=== PATIENT | female | born 1965 | race African-American/Black ===

== ENCOUNTER 2016-08-30 16:21 | Inpatient (IN) ==
[2016-08-30] MEDS ORDERED: ONDANSETRON 4 MG/2 ML VIAL IV STA (18:07)
[2016-08-30] MEDS ORDERED: CLINDAMYCIN INJ 600 MG in PREMIX 1 EACH IV STA (18:07)
[2016-08-30] MEDS ORDERED: KETOROLAC 30 MG/1 ML VIAL IV STA (18:07)
--- NOTE | 2016-08-30 18:15 | Emergency Department Note ---
Arrival - Arrival Chief Complaint: Non-Specific Stated Complaint: chest swollen for a 1 week ED Nursing Triage Note: states that she has swelling to legs and chest onset week ago. Mode of Arrival: Wheelchair Limitations: No Limitations Source: Patient Time Seen by Provider: 08/30/16 18:07 - History of Present Illness HPI Narrative: This 51-year-old black female has not had any medical care to speak of but has a history of diabetes, hypertension, and hidradenitis presents for complaints of diffuse swelling. The major problem with this patient is she is severely morbidly obese, and just moving around causes her to be breathless because of her weight. She complains orthopnea, PND, alleged pedal edema. She does not complain of chest pain, nausea, vomiting, or diaphoresis. She likewise is plagued by recurrent cellulitis and abscesses with hidradenitis of the axillary areas as well as recurrent perineal cellulitis and abscess. She is a diabetic but does not follow sugars and cannot relate what they might be at this point in time. She denies polyuria polydipsia polyphagia. Currently she appears in no acute medical distress other than trying to get out of the wheelchair as she is too big to exit it. Onset (ago): unknown Consistency: constant Severity: moderate Date of Last Menstrual Period: menopause Allergies/Adverse Reactions: Allergies Allergy/AdvReac Type Severity Reaction Status Date / Time No Known Allergies Allergy Unverified 08/30/16 16:56 Home Medications: Home Medications Medication Instructions Recorded Confirmed Type Atenolol 50 mg PO DAILY 08/30/16 08/30/16 History Lisinopril 20 mg PO DAILY 08/30/16 08/30/16 History glipiZIDE [Glipizide] 5 mg PO DAILY 08/30/16 08/30/16 History metFORMIN [Glucophage] 850 mg PO BID 08/30/16 08/30/16 History Review of System - Review of System 12 point system: reviewed and no additional remarkable complaints except as stated - Review of System Constitutional: Present: as per HPI Respiratory: Present: as per HPI Cardiovascular: Present: as per HPI Gastrointestinal: Present: as per HPI Skin: Present: as per HPI Endocrine: Present: as per HPI Medical,Surgical,& Family Hx - Medical History Cardio: History of: Hypertension Endocrine: History of: Diabetes Mellitus (NIDDM) - Social History Smoking Status: Never smoker Frequency of Alcohol Use: None Type of Drug Use: None Exam Physical Examination: GENERAL: Morbidly obese black female in no acute distress. HEENT: Normocephalic. No trauma. Moist mucous membranes. EOMI. PERRLA. ENT NML NECK: Supple. No adenopathy. CARDIAC: Regular. No murmurs. Heart rate 100 CHEST: Clear to auscultation. No respiratory distress. O2 sat 95%. Pendulous breasts which do not seem swollen, just pendulous ABDOMEN: Soft. Nontender. Active bowel sounds. EXTREMITIES: No trauma. Normal ROM. Massively obese ankles but no real evidence of pedal edema. Moves about with great difficulty because of arthritis the hips due to weight. SKIN: No diaphoresis. Perineal cellulitis at various stages on the perineum and buttocks area. Likewise significant hidradenitis of the axillae. NEURO: Alert. Neurologic intact. No focal deficits. Vital Signs: Vital Signs Temperature 98.8 F 08/30/16 19:19 Pulse Rate 101 H 08/30/16 19:19 Respiratory Rate 20 08/30/16 19:19 Blood Pressure 173/101 08/30/16 19:19 O2 Sat by Pulse Oximetry 95 08/30/16 16:54 Course - Reevaluation(s) Reevaluation #1: Advised patient for the need of admission with her multiple problems. - Consultations Consultation #1: Discussed with hospitalist service will admit for further evaluation treatment. Results - Labs CBC & BMP: 08/30/16 18:45 08/30/16 18:45 - Impressions EKG: Sinus tachycardia at 102 with occasional unifocal PVC. Nonspecific ST changes. No acute injury pattern noted. - Diagnostic Findings Procedure: Chest x-ray: image reviewed by me, report reviewed by me ( Cardiomegaly with congestive heart failure) Disposition Clinical Impression: Congestive heart failure, Hidradenitis, Diabetes, Hypertension, Morbid obesity Time of Disposition: 20:48
--- NOTE | 2016-08-30 18:41 | XRay Report ---
Exam: XR chest 2V Date: 08/30/2016 6:08 PM Indication: Chest pain Comparison: None Technical: PA lateral Findings: Cardiomegaly is present. Mild interstitial edema and fluid present along the minor fissure. No obvious consolidations present. The right hemidiaphragm is slightly elevated. Bony structures reveal mild arthritic change of the shoulders. Mediastinum is intact. Impression: Cardiomegaly with mild interstitial edema. Early CHF cannot be excluded PROCEDURE INTERPRETED AT [facility] DEPARTMENT OF RADIOLOGY Final Report Signed by: Dr. Floyd King
[2016-08-30] MEDS ORDERED: FUROSEMIDE 40 MG/4 ML VIAL IV STA (18:57)
[2016-08-30 19:05] LABS: Basophils % 0.4 % (0.0-0.8); Eosinophils # 0.1 10*3/uL (0.0-0.87); Eosinophils % 0.6 % (0.00-10.9); Hematocrit 32.3 VOL% (35.7-47.0); Hemoglobin 9.3 GM/DL (12.0-16.0); Immature Granulocytes % 0.5 %; Immature Granulocytes Absolute 0.04 #; Lymphocytes % 12.3 % (21.3-54.2); Mean Corpuscular HGB Conc 28.8 GM/DL (32-36); Mean Corpuscular Hemoglobin 24 PG (27-34); Mean Corpuscular Volume 82.6 FL (87-102); Mean Platelet Volume 9.2 FL (9.6-12.0); Monocytes # 0.4 10*3/uL (0.11-0.8); Neutrophils # 6.9 10*3/uL (1.4-7.4); Neutrophils % 81.2 % (38.7-73.9); Platelet Count 367 T/CUMM (130-400); Red Blood Count 3.91 MC/CUMM (3.8-5.5); Red Cell Distribution Width 21.8 % (9.3-17.3); White Blood Count 8.5 T/CUMM (4-12)
[2016-08-30 19:10] LABS: INR 1.2; PT Patient Result 13.3 SECS; Partial Thromboplastin Time 34.1 SECS (0-40)
[2016-08-30] MEDS ORDERED: ONDANSETRON 4 MG/2 ML VIAL ONE (19:14)
[2016-08-30] MEDS ORDERED: CLINDAMYCIN INJ 50 ML IV ONE (19:14)
[2016-08-30] MEDS ORDERED: FUROSEMIDE 40 MG/4 ML VIAL ONE (19:14)
[2016-08-30] MEDS ORDERED: KETOROLAC 30 MG/1 ML VIAL ONE (19:15)
[2016-08-30 19:31] LABS: Albumin 2.4 G/DL (3.4-5.0); Bilirubin,Total 0.6 MG/DL (0.2-1.0); Calcium 8.8 MG/DL (8.5-10.1); Osmolality,Calculated 274.8 MOS/KG (273-304); Potassium 4.3 MMOL/L (3.5-5.1)
--- NOTE | 2016-08-30 19:40 | EKG Report ---
Please refer to the EKG image. Final interpretation is pending.
[2016-08-30 19:46] LABS: Free T4 (Free Thyroxine) 1.28 NG/DL (0.76-1.46); Thyroid Stimulating Hormone 4.39 uIU/ml (0.358-3.74)
[2016-08-30] MEDS ORDERED: MORPHINE 2 MG/1 ML SYRINGE IV PRN (20:50)
[2016-08-30] MEDS ORDERED: ACETAMINOPHEN 325 MG TABLET PO PRN (20:50)
[2016-08-30] MEDS ORDERED: DEXTROSE 50% 25 GM/50 ML VIAL IV PRN (20:50)
[2016-08-30] MEDS ORDERED: ONDANSETRON 4 MG/2 ML VIAL IV PRN (20:50)
[2016-08-30] MEDS ORDERED: GLUCAGON 1 MG VIAL IM PRN (20:50)
--- NOTE | 2016-08-30 21:04 | Hospitalist History & Physical ---
Assessment and Plan (1) Acute diastolic CHF (congestive heart failure) Status: Acute Current Visit: Yes (2) Uncontrolled hypertension Status: Acute Current Visit: Yes (3) Hidradenitis suppurativa Status: Acute Current Visit: Yes (4) Uncontrolled diabetes mellitus Status: Acute Current Visit: Yes (5) Noncompliance Status: Acute Assessment and plan: Plan: Admit for IV antibiotics Surgical consultation for I&D of multiple abscesses IV diuresis, ins and outs, daily weights and obtain echo for LV function Diabetic education, wound care consultation. Supportive care for pain, supplemental oxygen and duo nebs for shortness of breath Current Visit: Yes History of Present Illness Chief complaint: SOB, multiple abscesses History of present illness: Ms. Jones is a 51 year old female with morbid obesity, uncontrolled diabetes and hypertension largely due to noncompliance. She reports issues with "multiple boils," since at least November. She has taken Bactrim in the past but nothing in several months. She states that she has periods of purulent drainage which spontaneously resolves but not 100%. Over the last several days she has had shortness of breath, worse with exertion, better with rest. Her symptoms have been constant and progressively worsening. She denies chest pain nausea or vomiting. She denies hemoptysis or productive cough. She also reports multiple areas of purulent drainage including the right axilla lower abdomen and groin and perineum. She has mild pain rated a 4 out of 10, better with pain medication. She has not taken any of her antihypertensives or diabetic medications routinely in over a month. Home Medications Medication Instructions Recorded Confirmed Type Atenolol 50 mg PO DAILY 08/30/16 08/30/16 History Lisinopril 20 mg PO DAILY 08/30/16 08/30/16 History glipiZIDE [Glipizide] 5 mg PO DAILY 08/30/16 08/30/16 History metFORMIN [Glucophage] 850 mg PO BID 08/30/16 08/30/16 History Allergies Allergy/AdvReac Type Severity Reaction Status Date / Time No Known Allergies Allergy Unverified 08/30/16 16:56 Medical,Surgical,& Family Hx - Medical History Cardio: History of: Hypertension Endocrine: History of: Diabetes Mellitus (NIDDM) Gastrointestinal: No history of: GERD - Surgical History Reproductive Surgeries: Surgical HX of;: Section, Dilation and Curettage - Family History Family History: Reports;: Family Diabetes - Social History Smoking Status: Never smoker Frequency of Alcohol Use: None Type of Drug Use: None Marital Status: Unknown Functional capacity: independent ambulation Review of systems: A 12 point review of systems is negative except as specified in the HPI Exam - Constitutional Vitals: Period Temp Pulse Resp BP Sys/Harper Pulse Ox Last 24 Hr 98.8 F-98.8 F 101-101 20-20 173-173/101-101 95 Exam: EXAM: CONSTITUTIONAL: Morbidly obese, speaks in complete sentences with nasal cannula on her face, non toxic, NAD HEENT: NC, AT, OP benign, FLAKITA, EOMI CV: RRR no m/g/r RESP: Scant rales at the bases, no expiratory wheezes. Breast exam performed with nurse in the room, no obvious induration, tenderness or cellulitis GI: abd protuberant, NT, ND, +bowel sounds INTEGUMENTARY: Multiple excoriations on the body in various stages of healing, greatest about the lower extremities. Multiple areas of induration/abscess in the right axilla, groin and perineum. Greatest amount of drainage is in the inguinal region, malodorous and purulent EXTREMITIES: 1+ pitting edema bilateral lower extremities NEURO: no focal deficits PSYCH: Awake and alert, poor insight into diabetic control Results - Labs CBC & BMP: 08/30/16 18:45 08/30/16 18:45 Lab Results: I have reviewed the past 24 hour labs - EKG EKG shows: sinus rhythm - Diagnostic Findings Procedure: Chest x-ray: image reviewed by me, report reviewed by me
[2016-08-30 21:10] LABS: Platelet Estimate Normal
[2016-08-30 21:11] LABS: Hypochromasia 2+; Poikilocytosis 1+; Target Cells Few; Tear Drop Cells Few
[2016-08-30] MEDS ORDERED: VANCOMYCIN INJ 2,000 MG in SODIUM CHLORIDE 0.9% 500 ML IV ONE (23:00)
[2016-08-30] MEDS: INSULIN REGULAR 100 UNIT/ML SUBCUT SCH (23:31)
[2016-08-30] MEDS: ENOXAPARIN 40 MG/0.4 ML SYRINGE SUBCUT SCH (23:32)
[2016-08-31] MEDS: PIPERACILLIN/TAZOBACTAM 3,375 MG in SODIUM CHLORIDE 0.9% 100 ML IV SCH ×4 (02:57→22:34)
[2016-08-31 07:29] LABS: Basophils % 0.3 % (0.0-0.8); Eosinophils # 0.1 10*3/uL (0.0-0.87); Eosinophils % 1.2 % (0.00-10.9); Hematocrit 31.6 VOL% (35.7-47.0); Hemoglobin 8.8 GM/DL (12.0-16.0); Immature Granulocytes % 0.3 %; Immature Granulocytes Absolute 0.02 #; Lymphocytes # 1.3 10*3/uL (1.4-4.0); Lymphocytes % 17.9 % (21.3-54.2); Mean Corpuscular HGB Conc 27.8 GM/DL (32-36); Mean Corpuscular Hemoglobin 24 PG (27-34); Mean Corpuscular Volume 84.9 FL (87-102); Mean Platelet Volume 9.2 FL (9.6-12.0); Monocytes # 0.6 10*3/uL (0.11-0.8); Monocytes % 8.3 % (1.7-12.7); Neutrophils # 5.3 10*3/uL (1.4-7.4); Platelet Count 366 T/CUMM (130-400); Red Blood Count 3.72 MC/CUMM (3.8-5.5); Red Cell Distribution Width 22.1 % (9.3-17.3); White Blood Count 7.3 T/CUMM (4-12)
[2016-08-31 07:43] LABS: Hypochromasia 1+; Platelet Estimate Adequate
[2016-08-31 08:02] LABS: Calcium 8.3 MG/DL (8.5-10.1); Magnesium 1.9 MG/DL (1.8-2.4); Osmolality,Calculated 279.4 MOS/KG (273-304); Potassium 4.1 MMOL/L (3.5-5.1); Risk Ratio 2.86; Thyroid Stimulating Hormone 3.06 uIU/ml (0.358-3.74); VLDL CHOLESTEROL 7.2 MG/DL
[2016-08-31] MEDS: ALBUTEROL/IPRATROPIUM 3 ML NEB RESP TX SCH ×3 (08:06→20:12)
[2016-08-31] MEDS ORDERED: glipiZIDE 5 MG TABLET PO SCH (09:00)
[2016-08-31] MEDS: INSULIN REGULAR 100 UNIT/ML SUBCUT SCH ×4 (09:24→21:09)
--- NOTE | 2016-08-31 09:33 | General Surgery Consult Note ---
Assessment and Plan (1) Hidradenitis suppurativa Status: Acute Assessment and plan: At this time, we will continue with supportive measures with warm compresses, IV antibiotics at discretion of attending with wound care assistance. Transition to PO abx once cultures obtained and drainage decreased - likely extended duration of bactrim. Additionally, recommend hibiclens baths daily. No surgical indications at this time - pt is afebrile without focal abscess formation evident; ECHO currently pending and undergoing diuresis with acute CHF exacerbation. Medical records from previous treatments have been requested. A lengthy discussion was had with patient regarding her uncontrolled diabetes and nutritional status and the negative impact these have on her current condition; we will need her compliance to obtain clinical improvement and or prevent future development of new lesions. Surgical excision may be indicated in future, but gaining control of drainage will be needed prior to any excisional procedures. Optimization of her control of her glycemic index and nutritional status would also be necessary. She verbally expresses understanding. Current Visit: Yes History of Present Illness Chief complaint: Multiple draining wounds History of present illness: Ms. Jones is a 51 year old female with past medical history of uncontrolled diabetes, hypertension, morbid obesity with medication noncompliance. She also has a past medical history of asthma and currently being treated for CHF exacerbation with no previous diagnosis. She presented to the emergency department with complaints of shortness of breath and that was also found to have multiple areas of drainage of her axilla and groin region. With further questioning, the patient reports this is excessive for greater than 1 year. She has been treated on 2 separate occasions with a round of Bactrim for antibiotics with partial resolution of symptoms. She has had no previous drainage or surgical intervention of the current lesions and she reports they are increasing in number and worsening in drainage. She reports malodorous drainage from the lesions as well as mild to moderate pain which has worsened over the past 1 month. She describes the pain is moderate, aching, nonradiating , and relieved with drainage. Denies fever, chills, nausea, vomiting, diarrhea , night sweats. Current therapy includes IV vancomycin and Zosyn as well as wound care consultation. Patient reports no change in symptoms overnight. Home Medications Medication Instructions Recorded Confirmed Type Albuterol Inhaler [Proventil 1 puff DAILY PRN 08/30/16 08/30/16 History Inhaler] Atenolol 50 mg PO DAILY 08/30/16 08/30/16 History Lisinopril 20 mg PO DAILY 08/30/16 08/30/16 History glipiZIDE [Glipizide] 5 mg PO DAILY 08/30/16 08/30/16 History metFORMIN [Glucophage] 850 mg PO BID 08/30/16 08/30/16 History Allergies Allergy/AdvReac Type Severity Reaction Status Date / Time No Known Allergies Allergy Unverified 08/30/16 16:56 Medical,Surgical,& Family Hx - Medical History Cardio: History of: CHF, Hypertension Psychological: History of: Anxiety Disorders (panic attacks) Endocrine: History of: Diabetes Mellitus (NIDDM) Respiratory: History of: Asthma Hematology: History of: Anemia Reproductive: History of: Complication (stillborn) Other: History of: Skin Problems - Surgical History Abdominal Surgeries: Patient denies: Abdominal Surgery Reproductive Surgeries: Surgical HX of;: Section, Dilation and Curettage Patient denies;: Genitourinary Surgery Additional Surgical History: Superficial I&D neck - Family History Family History: Reports;: Family Cancer (grandmother had bone ca?), Family Diabetes (mother), Family Heart Disease (grandfather), Family Hypertension ( grandfather), Family Psychiatric Problems (mother), Family Stroke (mother) Denies;: Family Anesthesia Reaction, Family Hematology - Social History Smoking Status: Never smoker Frequency of Alcohol Use: None Type of Drug Use: None - Constitutional Constitutional: Present: as per HPI. Absent: lethargy, malaise, night sweats - Cardiovascular Cardiovascular: Present: as per HPI - Respiratory Respiratory: Present: dyspnea on exertion, wheezing - Gastrointestinal Gastrointestinal: Absent: abdominal pain, diarrhea, dysphagia, heartburn, loose stools, nausea, vomiting - Genitourinary Genitourinary: Absent: dysuria, flank pain - Musculoskeletal Musculoskeletal: Absent: arthralgias, joint swelling - Neurological Neurological: Absent: abnormal gait, behavioral changes, focal weakness, memory loss - Endocrine Endocrine: Absent: polydipsia, polyphagia, polyuria Hematologic/Lymphatic: Absent: easy bleeding, easy bruising Exam - Constitutional Vitals: Period Temp Pulse Resp BP Sys/Harper Pulse Ox Last 24 Hr 97.8 F-98.3 F 78-92 20-22 135-151/72-82 95-99 General appearance: no acute distress, morbidly obese - Head Head exam: Present: normal inspection, normocephalic, atraumatic - Eye Eye exam: Absent: conjunctival injection, scleral icterus - Respiratory Respiratory exam: Present: clear to auscultation bilaterally - Cardiovascular Cardiovascular exam: Present: RRR - GI/Abdominal GI/Abdominal exam: Present: normal bowel sounds. Absent: distended, tenderness - Extremities Exam Extremities exam: Present: other (Right axilla with multiple indurated areas with purulent drainage expressible; no palpable area of fluctuance or bogginess.) - Neurological Exam Neurological exam: Present: alert, oriented X3 - Skin Skin exam: Present: other (mons pubis and bilateral groin regions with mutliple indurated areas of purulent drainage; no areas of flucutance or bogginess) Results - Labs CBC & BMP: 08/31/16 06:39 08/31/16 06:39 - EKG EKG results: interpreted by ERMD (sinus tach @ 101 bpm with multiple PVC) - Diagnostic Findings Procedure: Chest x-ray: image reviewed by me, report reviewed by me ( interstitial edema indicated CHF with presenting sx)
[2016-08-31] MEDS: LISINOPRIL 20 MG TABLET PO SCH (09:34)
[2016-08-31] MEDS: PANTOPRAZOLE 40 MG TABLET PO SCH (09:34)
[2016-08-31] MEDS: ATENOLOL 50 MG TABLET PO SCH (09:34)
[2016-08-31] MEDS: FUROSEMIDE 40 MG/4 ML VIAL IV SCH ×2 (09:34→16:03)
[2016-08-31] MEDS: VANCOMYCIN INJ 2,000 MG in SODIUM CHLORIDE 0.9% 500 ML IV SCH ×2 (09:35→20:04)
--- NOTE | 2016-08-31 10:09 | Hospitalist Progress Note ---
Assessment and Plan (1) Uncontrolled hypertension Status: Acute Current Visit: Yes (2) Hidradenitis suppurativa Status: Acute Current Visit: Yes (3) Uncontrolled diabetes mellitus Status: Acute Current Visit: Yes Hospitalist: Subjective Interval history: No acute events overnight. Continue IV lasix. F/u echo and surgery consult. Exam - Constitutional Vitals: Period Temp Pulse Resp BP Sys/Harper Pulse Ox Last 24 Hr 97.8 F-98.3 F 78-92 20-22 135-151/72-82 95-99 General appearance: over weight - Head Head exam: Present: normocephalic, atraumatic - Eye Eye exam: Present: EOMI Pupils: Present: FLAKITA - ENT ENT exam: Present: normal exam - Neck Neck exam: Present: normal inspection - Respiratory Respiratory exam: Present: clear to auscultation bilaterally. Absent: wheezes - Cardiovascular Cardiovascular exam: Present: regular rate and rhythm - GI/Abdominal GI/Abdominal exam: Present: normal bowel sounds, soft. Absent: tenderness, rebound - Extremities Exam Extremities exam: Present: normal inspection - Back Exam Back exam: Present: normal inspection - Neurological Exam Neurological exam: Present: alert, oriented X3 - Psychiatric Psychiatric exam: Present: normal affect, normal mood - Skin Skin exam: Present: warm, intact Results - Labs CBC & BMP: 08/31/16 06:39 08/31/16 06:39
--- NOTE | 2016-08-31 16:07 | ECHO Report ---
Rosie Jones Exam Date: 08/31/2016 14:42 Referring Physician: Technologist: Yas Whitfield Age: 51 Ht (in): 63 Wt (lb): 270 Gender: F Exam Location: [facility] Echo Indications: Diabetes, HTN, CHF, Obesity BP: 144 / 86 HR: 92 Rhythm: Sinus Technical Quality: Technically difficult study IMPRESSIONS Moderate concentric left ventricular hypertrophy. Left ventricular ejection fraction is estimated at 40- 45 %. Findings suggestive of left ventricular diastolic dysfunction. Moderately increased right ventricular size. Moderately decreased right ventricular systolic function. Moderately increased right atrial size. Moderately increased left atrial size. Mild mitral valve regurgitation. Mild mitral valve sclerosis. Mild aortic valve sclerosis. Moderate tricuspid valve regurgitation. Tricuspid regurgitation velocities suggest a PAP of 33.9 mmHg+ RAP. Trace pulmonary valve regurgitation. MEASUREMENTS (Male / Female) Normal Values 2D ECHO LV Diastolic Diameter PLAX 5.3 cm 4.2 - 5.9 / 3.9 - 5.3 cm LV Systolic Diameter PLAX 4.6 cm LV Fractional Shortening PLAX 14.3 % IVS Diastolic Thickness 1.6 cm 0.6 - 1.0 / 0.6 - 0.9 cm LVPW Diastolic Thickness 1.2 cm 0.6 - 1.0 / 0.6 - 0.9 cm RV Internal Dim ED PLAX 4.2 cm Aortic Root Diameter 2.8 cm LA Systolic Diameter LX 5.2 cm 3.0 - 4.0 / 2.7 - 3.8 cm DOPPLER TR Peak Velocity 291.0 cm/s TR Peak Gradient 33.9 mmHg FINDINGS Left Ventricle Moderately increased left ventricular cavity size. Moderate concentric left ventricular hypertrophy. Left ventricular ejection fraction is estimated at 40- 45 %.Findings suggestive of left ventricular diastolic dysfunction. Right Ventricle Moderately increased right ventricular size.Moderately decreased right ventricular systolic function. Right Atrium Moderately increased right atrial size. Left Atrium Moderately increased left atrial size. Mitral Valve Mild mitral valve sclerosis. Mild mitral valve regurgitation. Aortic Valve Mild aortic valve sclerosis. Tricuspid Valve Morphologically normal tricuspid valve. Moderate tricuspid valve regurgitation. Tricuspid regurgitation velocities suggest a PAP of 33.9 mmHg+ RAP. Pulmonic Valve Morphologically normal pulmonic valve.trace pulmonary valve regurgitation. Pericardium No pericardial effusion. Aorta Normal size aortic root and proximal ascending aorta. Howard Robb MD (Electronically Signed) Final Date: 31 August 2016 16:05
[2016-08-31] MEDS: ENOXAPARIN 40 MG/0.4 ML SYRINGE SUBCUT SCH (21:09)
[2016-09-01] MEDS: ALBUTEROL/IPRATROPIUM 3 ML NEB RESP TX SCH ×4 (00:51→19:42)
[2016-09-01] MEDS: PIPERACILLIN/TAZOBACTAM 3,375 MG in SODIUM CHLORIDE 0.9% 100 ML IV SCH ×4 (05:18→20:38)
[2016-09-01 07:45] LABS: Basophils % 0.4 % (0.0-0.8); Eosinophils % 0.3 % (0.00-10.9); Hematocrit 32.5 VOL% (35.7-47.0); Immature Granulocytes % 0.5 %; Immature Granulocytes Absolute 0.05 #; Lymphocytes # 0.9 10*3/uL (1.4-4.0); Lymphocytes % 8.7 % (21.3-54.2); Mean Corpuscular HGB Conc 27.7 GM/DL (32-36); Mean Corpuscular Hemoglobin 24 PG (27-34); Mean Corpuscular Volume 85.8 FL (87-102); Mean Platelet Volume 9.2 FL (9.6-12.0); Monocytes # 0.9 10*3/uL (0.11-0.8); Monocytes % 8.1 % (1.7-12.7); Neutrophils # 8.6 10*3/uL (1.4-7.4); Platelet Count 367 T/CUMM (130-400); Red Blood Count 3.79 MC/CUMM (3.8-5.5); Red Cell Distribution Width 21.8 % (9.3-17.3); White Blood Count 10.5 T/CUMM (4-12)
[2016-09-01 07:47] LABS: Calcium 8.4 MG/DL (8.5-10.1); Osmolality,Calculated 283.5 MOS/KG (273-304); Potassium 4.4 MMOL/L (3.5-5.1)
--- NOTE | 2016-09-01 07:47 | General Surgery Progress Note ---
Assessment and Plan (1) Hidradenitis suppurativa Status: Acute Assessment and plan: The hidradenitis is draining actively but there is no abscess or uncontrolled fluid collection that I can identify on exam. We will continue antibiotics and local wound care. I have ordered a CT scan of abdomen and pelvis with p.o. and IV contrast to further evaluate the patient's abdominal pain will also get a new set of labs. Current Visit: Yes Subjective Patient reports: Present: flatus, no bowel movement, afebrile. Absent: blood in stool, nausea, vomiting Narrative: The patient is complaining of more abdominal pain today and she was not complaining of this yesterday. She says she has never had pain like this before and it is associated in the periumbilical region. She feels like her abdomen is firm and distended. She is passing gas but has not had a bowel movement since admission. Exam - Constitutional Vitals: Period Temp Pulse Resp BP Sys/Harper Pulse Ox Last 24 Hr 97.6 F-99.2 F 66-96 16-22 100-148/58-87 91-100 General appearance: no acute distress, morbidly obese - Head Head exam: Present: normal inspection, normocephalic - Eye Eye exam: Present: EOMI Pupils: Present: FLAKITA - ENT ENT exam: Present: normal exam Mouth exam: Present: normal external inspection, normal voice - Neck Neck exam: Present: normal inspection, trachea midline - Respiratory Respiratory exam: Present: clear to auscultation bilaterally. Absent: accessory muscle use, chest wall tenderness - Cardiovascular Cardiovascular exam: Present: RRR. Absent: systolic murmur, tachycardia - GI/Abdominal GI/Abdominal exam: Present: hypoactive bowel sounds, tenderness (There is tenderness in the midepigastrium in the supraumbilical region but no hernias are felt. The abdomen is protuberant but not tympanic. There are hypoactive bowel sounds.), soft - Extremities Exam Extremities exam: Present: normal capillary refill, other (There is active draining hidradenitis in the right axilla, the bilateral groins, and the buttock region. There is no evidence of abscess or undrained fluid collections. ) - Back Exam Back exam: Present: normal inspection - Neurological Exam Neurological exam: Present: alert, oriented X3 Speech: Present: normal - Skin Skin exam: Present: normal color, warm Results - Labs CBC & BMP: 08/31/16 06:39 08/31/16 06:39
[2016-09-01 08:08] LABS: Hypochromasia 1+; Platelet Estimate Adequate
[2016-09-01 08:19] LABS: Immature Granulocytes % 0.4 %; Immature Granulocytes Absolute 0.04 #; Mean Platelet Volume 9.1 FL (9.6-12.0); NRBC # 0.02 10*3/uL
[2016-09-01] MEDS: FUROSEMIDE 40 MG/4 ML VIAL IV SCH ×2 (08:21→17:52)
[2016-09-01] MEDS: INSULIN REGULAR 100 UNIT/ML SUBCUT SCH ×4 (08:28→20:38)
[2016-09-01 08:38] LABS: Basophils % 0.3 % (0.0-0.8); Eosinophils % 0.3 % (0.00-10.9); Hematocrit 31.9 VOL% (35.7-47.0); Lymphocytes % 10.3 % (21.3-54.2); Mean Corpuscular HGB Conc 27.6 GM/DL (32-36); Mean Corpuscular Hemoglobin 24 PG (27-34); Mean Corpuscular Volume 86.4 FL (87-102); Monocytes # 0.9 10*3/uL (0.11-0.8); Monocytes % 9.2 % (1.7-12.7); Neutrophils # 7.9 10*3/uL (1.4-7.4); Neutrophils % 79.5 % (38.7-73.9); Platelet Count 363 T/CUMM (130-400); Red Blood Count 3.69 MC/CUMM (3.8-5.5); Red Cell Distribution Width 21.5 % (9.3-17.3); White Blood Count 9.9 T/CUMM (4-12)
[2016-09-01 08:43] LABS: Hemoglobin 8.8 GM/DL (12.0-16.0)
[2016-09-01 08:49] LABS: Albumin 2.1 G/DL (3.4-5.0); Bilirubin,Total 1.1 MG/DL (0.2-1.0); Osmolality,Calculated 282.5 MOS/KG (273-304); Potassium 4.4 MMOL/L (3.5-5.1); Total Protein 9.4 G/DL (6.4-8.3)
[2016-09-01] MEDS: INSULIN NPH 100 UNIT/ML SUBCUT SCH ×2 (10:25→17:51)
[2016-09-01] MEDS: PANTOPRAZOLE 40 MG TABLET PO SCH ×2 (10:34→14:41)
[2016-09-01] MEDS: VANCOMYCIN INJ 2,000 MG in SODIUM CHLORIDE 0.9% 500 ML IV SCH (10:34)
--- NOTE | 2016-09-01 11:28 | Hospitalist Progress Note ---
Assessment and Plan (1) Uncontrolled hypertension Status: Chronic Current Visit: Yes (2) Hidradenitis suppurativa Status: Acute Current Visit: Yes (3) Uncontrolled diabetes mellitus Status: Chronic Current Visit: Yes Hospitalist: Subjective Interval history: No acute events overnight. Patient complaining of abdominal pain this morning. CT ordered. Echo with EF 40-45. Will consult cardiology. Discontinue atenolol. Start coreg. Creatinine increased with lasix use, will monitor closely. Daily weights. Starting low dose basal insulin today. Exam - Constitutional Vitals: Period Temp Pulse Resp BP Sys/Harper Pulse Ox Last 24 Hr 97.6 F-99.2 F 66-88 16-22 100-148/58-87 91-100 General appearance: over weight - Head Head exam: Present: normocephalic, atraumatic - Eye Eye exam: Present: EOMI Pupils: Present: FLAKITA - ENT ENT exam: Present: normal exam - Neck Neck exam: Present: normal inspection - Respiratory Respiratory exam: Present: clear to auscultation bilaterally. Absent: rhonchi, wheezes - Cardiovascular Cardiovascular exam: Present: regular rate and rhythm - GI/Abdominal GI/Abdominal exam: Present: normal bowel sounds, tenderness, soft. Absent: distended, rebound - Extremities Exam Extremities exam: Present: normal inspection - Back Exam Back exam: Present: normal inspection - Neurological Exam Neurological exam: Present: alert, oriented X3 - Psychiatric Psychiatric exam: Present: normal affect, normal mood - Skin Skin exam: Present: warm, intact Results - Labs CBC & BMP: 09/01/16 08:08 09/01/16 08:08
--- NOTE | 2016-09-01 13:37 | CT Report ---
CT of the abdomen and pelvis with intravenous and oral contrast. Axial images were obtained with sagittal and coronal reconstructions. No prior studies. Indication: Generalized abdominal pain. 100 cc Omni 350. There is diffuse subcutaneous edema throughout the imaged body structures. The heart is enlarged. There is atelectasis present within the lung bases. There is no pericardial or pleural effusion. The liver is enlarged with a length of 22 cm. There is fatty infiltration of the liver. No focal liver lesions are identified. There is ascites present along the lower aspects of the liver and in the upper aspect of the right paracolic gutter. There is no splenic enlargement. There is no pancreatic enlargement. There is no adrenal enlargement. The kidneys demonstrate no hydronephrosis. Possible right renal cyst could be confirmed with ultrasound. The abdominal aorta is of normal caliber. There is moderate free fluid within the pelvis. The uterus is markedly enlarged with dimensions and 18 x 14 x 12 cm. Nodular areas are present, and numerous calcifications are noted. The endometrial stripe is very irregular and low density. The ovaries are not seen with confidence. There is mass effect on the urinary bladder. There is bilateral inguinal lymphadenopathy. There are shoddy lymph nodes present within the mesentery and retroperitoneum. The loops of bowel are not dilated. There is no evidence of bowel obstruction. Degenerative changes are present within the spinal column. Impression: 1. Cardiomegaly. 2. Severe subcutaneous edema. 3. Ascites. 4. Enlarged liver. 5. Enlarged heterogeneous uterus. This could be due to uterine fibroids. The endometrium is quite irregular. Endometrial tumor or uterine sarcoma cannot be excluded with this appearance. 6. Inguinal lymphadenopathy laterally. The CT exam was performed using one or more of the following dose reduction techniques: Automated exposure control, adjustment of the mA and/or kV according to patient size, or use of iterative reconstruction technique. PROCEDURE INTERPRETED AT [facility] DEPARTMENT OF RADIOLOGY Final Report Signed by: Dr. Marlene Garcia
[2016-09-01] MEDS: LISINOPRIL 20 MG TABLET PO SCH (14:41)
[2016-09-01] MEDS: ATENOLOL 50 MG TABLET PO SCH (14:57)
[2016-09-01] MEDS: CARVEDILOL 6.25 MG TABLET PO SCH (17:49)
--- NOTE | 2016-09-01 18:42 | Cardiology Consult Note ---
I, Daniela Cunningham RN, am scribing for, and in the presence of, Howard Robb MD 18:41. Assessment and Plan - Time spent with patient Time spent with patient: Greater than 30 minutes (Due to assessment, planning, documentation, medication review) (1) Acute diastolic CHF (congestive heart failure) Status: Acute Assessment and plan: 09/01/2016: Assessment/plan/recommendation: Her generalized edema could be in part due to diastolic or systolic dysfunction, but he is out of proportion to what I see on the echocardiogram. I believe it is also related to her low albumin and probable liver dysfunction in addition to suspected untreated sleep apnea Plan/records: Agree with change atenolol to carvedilol--would be better for the LV systolic dysfunction and her diabetes Will reduce the more powerful lisinopril to a milder Capoten, shorter acting, in case there are problems with this medication--i.e. renal insufficiency, hyperkalemia We will add spironolactone 12.5 mg p.o. twice daily. Will have hold parameters. Will consult Dr. Ty regarding evaluation of sleep apnea [she has snoring and excessive daytime somnolence but does not know about apnea]. Meanwhile, I suggested the patient that she sleep with a head of the bed up 30 or 40 as a surrogate for CPAP. Will get a BMP every morning 3 on the spironolactone. Her prognosis is guarded. Thank you for allowing me to participate in this patient's care Current Visit: Yes (2) Hidradenitis suppurativa Status: Acute Current Visit: Yes (3) Uncontrolled diabetes mellitus Status: Chronic Current Visit: Yes (4) Uncontrolled hypertension Status: Chronic Current Visit: Yes (5) Hypoalbuminemia Status: Acute Current Visit: Yes (6) Enlarged liver Status: Acute Current Visit: Yes (7) Suspected sleep apnea Status: Acute Current Visit: Yes (8) Generalized edema Status: Acute Current Visit: Yes (9) Overweight Status: Acute Current Visit: Yes History of Present Illness - Data of Consult Patient: new to practice Consult date: 09/01/16 Requesting Physician: Lon Hernandez - Consult Narrative Reason for consult: EF 40-45%, shortness of breath History of present illness: Supervisor Train Operations: None Ms. Jones is a 51 year old female who has never been seen by moth exterminator. She has a history of hypertension, NIDDM, and asthma. Surgical history includes D&C and neck surgery. Family history includes mother with diabetes and stroke and father with PR and arthritis. She reports she is a lifetime non- smoker She tells me she been having edema to her abdomen, breasts, face, and leg as well as dyspnea on exertion for a couple of weeks. She denies shortness of breath while sitting and also denies orthopnea. She does report having had a productive cough. Her symptoms were ongoing and got progressively worse so she presented to the hospital on Tuesday for further evaluation. She denies having had any chest pain or palpitations with these symptoms. EKG on admission showed sinus tachycardia with heart rate of 102. Echo done yesterday showed ejection fraction of 40-50%. The hospitalist has changed her atenolol to carvedilol 6.25 mg twice daily. Her creatinine was 0.8 on admission, it is 1.6 today. She has been getting Lasix 40 mg IV twice daily. She is currently seen resting in bed in no acute distress. There is lots of family at bedside. Currently she denies any chest pain or palpitations. Oxygen is in use via nasal biprong. She tells me she is some short of breath still, but the oxygen has helped and is not as bad as it was on admission. She does complain of dizziness when sitting up. She has 2+ pitting edema bilaterally to lower extremities, she tells me this is better than when she came in. She tells me the swelling to her abdomen and breasts is no better. She tells me she has about 14 areas of breakdown that she describes as boils on her groin, under her arm, and on her behind. Dr. Arriola is seeing her for this. Her blood pressures were elevated on admission at 173/101, these have improved. Most recent blood pressure was 133/82. She was tachycardic on admission as well. Heart rates today have been in the 70s and 80s. CC: Lon Hernandez MD - Home Medications and Allergies Home Medications: Home Medications Medication Instructions Recorded Confirmed Type Albuterol Inhaler [Proventil 1 puff DAILY PRN 08/30/16 08/30/16 History Inhaler] Atenolol 50 mg PO DAILY 08/30/16 08/30/16 History Lisinopril 20 mg PO DAILY 08/30/16 08/30/16 History glipiZIDE [Glipizide] 5 mg PO DAILY 08/30/16 08/30/16 History metFORMIN [Glucophage] 850 mg PO BID 08/30/16 08/30/16 History Allergies/Adverse Reactions: Allergies Allergy/AdvReac Type Severity Reaction Status Date / Time No Known Allergies Allergy Unverified 08/30/16 16:56 - Constitutional Constitutional: Present: as per HPI - EENT Eyes: Present: blurry vision, requires corrective lense Ears: Absent: decreased hearing, tinnitus Nose, mouth and throat: Present: headache(s). Absent: epistaxis - Cardiovascular Cardiovascular: Present: dyspnea on exertion, edema, lightheadedness. Absent: chest pain at rest, chest pain with activity, diaphoresis, radiating jaw, neck or arm pain, orthopnea, palpitations - Respiratory Respiratory: Present: cough (Productive), dyspnea on exertion. Absent: hemoptysis, wheezing - Gastrointestinal Gastrointestinal: Present: abdominal pain, constipation. Absent: diarrhea, hematemesis, hematochezia, melena, nausea, vomiting - Genitourinary Genitourinary: Absent: dysuria, hematuria - Musculoskeletal Musculoskeletal: Present: limited range of motion, muscle weakness - Neurological Neurological: Present: dizziness, headache(s). Absent: abnormal gait, frequent falls, syncope - Psychiatric Psychiatric: Absent: anxiety, depression - Endocrine Endocrine: Present: fatigue - Hematologic/Lymphatic Hematologic/Lymphatic: Absent: easy bleeding, easy bruising Medical,Surgical,& Family Hx - Medical History Cardio: History of: Hypertension Psychological: History of: Anxiety Disorders (panic attacks) Endocrine: History of: Diabetes Mellitus (NIDDM) Respiratory: History of: Asthma Hematology: History of: Anemia Reproductive: History of: Complication (stillborn) Other: History of: Skin Problems - Surgical History Reproductive Surgeries: Surgical HX of;: Section, Dilation and Curettage - Family History Family History: Reports;: Family Cancer (grandmother had bone ca?), Family Diabetes (mother), Family Heart Disease (Father), Family Hypertension ( grandfather), Family Psychiatric Problems (mother), Family Stroke (mother) - Social History Smoking Status: Never smoker Have you smoked in the last 12 months: No Frequency of Alcohol Use: None Type of Drug Use: None Lives With:: Alone Functional capacity: independent ambulation Physical Examination Vital Signs Temp Pulse Resp BP Pulse Ox 98.8 F 101 H 20 173/101 95 08/30/16 16:54 08/30/16 16:54 08/30/16 16:54 08/30/16 16:54 08/30/16 16:54 General: Present: Appears Well, No Apparent Distress HEENT: Present: PERRL, Mucus Membranes Moist Neck: Present: Supple Neck, Midline Trachea, No JVD/HJR, No Bruit Cardiac: Present: Reg Rate and Rhythm, Tachycardia Lungs: Present: Normal Breath Sounds, Oxygen (Via nasal biprong), No Wheeze, Rales, Rhonchi Neuro: Absent: Essential Tremor Abdomen: Present: Soft, Active Bowel Sounds, Non-Tender. Absent: Distended Gait: Present: Poor Gait Extremities: Present: Normal Upper Extr. Pulses, Normal Lower Extr. Pulses, +2 Edema (Bilateral lower extremity). Absent: Normal Gait Result/EKG - Labs CBC & BMP: 09/01/16 08:08 09/01/16 08:08 Lab Results: I have reviewed the past 24 hour labs Labs: Laboratory Results - last 24 hr 08/31/16 08/31/16 09/01/16 15:29 19:31 06:55 WBC 10.5 D RBC 3.79 L Hgb 9.0 L Hct 32.5 L MCV 85.8 L MCH 24 L MCHC 27.7 L RDW 21.8 H Plt Count 367 MPV 9.2 L Neut % (Auto) 82.0 H Lymph % (Auto) 8.7 L [place] % (Auto) 8.1 Eos % (Auto) 0.3 Baso % (Auto) 0.4 Neut # (Auto) 8.6 H Lymph # (Auto) 0.9 L [place] # (Auto) 0.9 H Eos # (Auto) 0.0 Baso # (Auto) 0.0 Immature Gran % 0.5 Nucleated RBC % 0.0 Immature Gran # 0.05 Nucleated RBCs # 0.00 Platelet Estimate Adequate Hypochromasia 1+ Morphology Comment Sodium Potassium Chloride Carbon Dioxide Anion Gap BUN Creatinine GFR Calculation BUN/Creatinine Ratio Glucose POC Glucose 187 H 194 H Calculated Osmolality Calcium Magnesium Total Bilirubin AST ALT Alkaline Phosphatase Total Protein Albumin Globulin Albumin/Globulin Ratio Vancomycin Trough 0409/01/16 09/01/16 06:55 07:01 08:08 WBC RBC Hgb Hct MCV MCH MCHC RDW Plt Count MPV Neut % (Auto) Lymph % (Auto) [place] % (Auto) Eos % (Auto) Baso % (Auto) Neut # (Auto) Lymph # (Auto) [place] # (Auto) Eos # (Auto) Baso # (Auto) Immature Gran % Nucleated RBC % Immature Gran # Nucleated RBCs # Platelet Estimate Hypochromasia Morphology Comment Sodium 139 Potassium 4.4 Chloride 103 Carbon Dioxide 30 Anion Gap 10.4 BUN 20 H Creatinine 1.60 H GFR Calculation 54 BUN/Creatinine Ratio 12.00 Glucose 171 H POC Glucose 186 H Calculated Osmolality 283.5 Calcium 8.4 L Magnesium 2.0 Total Bilirubin AST ALT Alkaline Phosphatase Total Protein Albumin Globulin Albumin/Globulin Ratio Vancomycin Trough 29.1 H 09/01/16 09/01/16 09/01/16 08:08 08:08 11:18 WBC 9.9 RBC 3.69 L Hgb 8.8 L Hct 31.9 L MCV 86.4 L MCH 24 L MCHC 27.6 L RDW 21.5 H Plt Count 363 MPV 9.1 L Neut % (Auto) 79.5 H Lymph % (Auto) 10.3 L [place] % (Auto) 9.2 Eos % (Auto) 0.3 Baso % (Auto) 0.3 Neut # (Auto) 7.9 H Lymph # (Auto) 1.0 L [place] # (Auto) 0.9 H Eos # (Auto) 0.0 Baso # (Auto) 0.0 Immature Gran % 0.4 Nucleated RBC % 0.2 Immature Gran # 0.04 Nucleated RBCs # 0.02 Platelet Estimate Hypochromasia Morphology Comment Sodium 139 Potassium 4.4 Chloride 101 Carbon Dioxide 32 Anion Gap 10.4 BUN 20 H Creatinine 1.60 H GFR Calculation 54 BUN/Creatinine Ratio 12.00 Glucose 160 H POC Glucose 157 H Calculated Osmolality 282.5 Calcium 8.0 L Magnesium Total Bilirubin 1.10 H AST 44 H ALT 37 Alkaline Phosphatase 238 H Total Protein 9.4 H Albumin 2.1 L Globulin 7.3 H Albumin/Globulin Ratio 0.2 L Vancomycin Trough - EKG EKG results: interpreted by me EKG shows: tachycardia, sinus rhythm I, Howard Robb MD, personally performed the services described in this documentation, ascribed by Daniela Cunningham RN in my presence, and it is both accurate and complete .
[2016-09-01] MEDS: SPIRONOLACTONE 25 MG TABLET PO SCH (20:41)
[2016-09-01] MEDS: ENOXAPARIN 40 MG/0.4 ML SYRINGE SUBCUT SCH (20:46)
[2016-09-02] MEDS: ALBUTEROL/IPRATROPIUM 3 ML NEB RESP TX SCH ×4 (00:16→19:37)
[2016-09-02] MEDS: PIPERACILLIN/TAZOBACTAM 3,375 MG in SODIUM CHLORIDE 0.9% 100 ML IV SCH ×3 (06:28→21:59)
[2016-09-02] MEDS: INSULIN NPH 100 UNIT/ML SUBCUT SCH ×2 (08:15→17:11)
[2016-09-02] MEDS: CARVEDILOL 6.25 MG TABLET PO SCH ×2 (08:16→17:11)
[2016-09-02] MEDS: FUROSEMIDE 40 MG/4 ML VIAL IV SCH ×2 (08:16→17:12)
[2016-09-02] MEDS: INSULIN REGULAR 100 UNIT/ML SUBCUT SCH ×4 (08:16→21:58)
[2016-09-02] MEDS: CAPTOPRIL 6.25 MG TABLET PO SCH ×2 (08:17→21:58)
[2016-09-02] MEDS: PANTOPRAZOLE 40 MG TABLET PO SCH (08:17)
[2016-09-02] MEDS: SPIRONOLACTONE 25 MG TABLET PO SCH ×2 (08:17→21:58)
[2016-09-02 08:25] LABS: Calcium 8.3 MG/DL (8.5-10.1); Osmolality,Calculated 279.7 MOS/KG (273-304); Potassium 4.4 MMOL/L (3.5-5.1)
[2016-09-02 08:29] LABS: Albumin 2.3 G/DL (3.4-5.0); Bilirubin,Direct 0.6 MG/DL (0.0-0.20); Bilirubin,Indirect 1.1 MG/DL (0.0-1.0); Bilirubin,Total 1.7 MG/DL (0.2-1.0); Total Protein 9.4 G/DL (6.4-8.3)
[2016-09-02 08:31] LABS: % Iron Saturation 8.4 % (18-50); Ferritin 43.9 ng/ml (8-252)
[2016-09-02 08:37] LABS: Basophils % 0.4 % (0.0-0.8); Eosinophils # 0.1 10*3/uL (0.0-0.87); Eosinophils % 0.8 % (0.00-10.9); Hematocrit 30.4 VOL% (35.7-47.0); Immature Granulocytes % 0.5 %; Immature Granulocytes Absolute 0.04 #; Lymphocytes # 0.8 10*3/uL (1.4-4.0); Mean Corpuscular HGB Conc 27.6 GM/DL (32-36); Mean Corpuscular Hemoglobin 24 PG (27-34); Mean Corpuscular Volume 86.6 FL (87-102); Mean Platelet Volume 9.1 FL (9.6-12.0); Monocytes # 0.6 10*3/uL (0.11-0.8); Monocytes % 7.4 % (1.7-12.7); Neutrophils # 6.8 10*3/uL (1.4-7.4); Neutrophils % 80.9 % (38.7-73.9); Platelet Count 329 T/CUMM (130-400); Red Blood Count 3.51 MC/CUMM (3.8-5.5); Red Cell Distribution Width 21.3 % (9.3-17.3); White Blood Count 8.4 T/CUMM (4-12)
[2016-09-02 08:41] LABS: Hemoglobin 8.4 GM/DL (12.0-16.0)
[2016-09-02 09:21] LABS: Hepatitis A Ab IgM Result Negative (Negative); Hepatitis B Core IgM Quant 0.18 Index; Hepatitis B Core IgM Result Negative (Negative); Hepatitis B Surface Ag Quant < 0.10 Index; Hepatitis B Surface Ag Result Negative (Negative); Hepatitis C Virus Ab Quant 0.31 Index; Hepatitis C Virus Ab Result Negative (Negative)
--- NOTE | 2016-09-02 09:55 | Hospitalist Progress Note ---
Assessment and Plan (1) Uncontrolled hypertension Status: Chronic Current Visit: Yes (2) Hidradenitis suppurativa Status: Acute Current Visit: Yes (3) Uncontrolled diabetes mellitus Status: Chronic Current Visit: Yes Hospitalist: Subjective Interval history: No acute events overnight. Weight in the chart is not consistent. Cardiology following for newly diagnosed CHF, thanks for the assistance. CT A/P with ascites and enlarged liver, consulting GI for assistance. CT also with an enlarged uterus. Ob-phthalic acid purifier has already been consulted. Exam - Constitutional Vitals: Period Temp Pulse Resp BP Sys/Harper Pulse Ox Last 24 Hr 97.4 F-98.6 F 61-87 16-24 117-144/68-85 89-100 Results - Labs CBC & BMP: 09/02/16 07:03 09/02/16 07:03
--- NOTE | 2016-09-02 11:14 | OB/GYN Consult Note ---
Assessment and Plan (1) Enlarged uterus Status: Acute Assessment and plan: Await pelvic u/s results Fibroids usually not problematic in the postmenopausal state Ensure endometrial stripe is less than .5 cm Current Visit: Yes History of Present Illness Chief complaint: Enlarged uterus on CT History of present illness: Ms. Jones is a 51 year old female was admitted on 08/30 for SOB and multiple boils. H/o extreme morbid obesity, CHF, uncontrolled HTN and uncontrolled DM. Poor medical compliance. Called to consult today because patient had a CT scan done and one of the things it revealed was an enlarged uterus. I have ordered an u/s for more clarity but it has not been done yet. Pt reports menopause at age 49. She had some bleeding fairly recently, but she believes it to be from one of the multiple boils on her buttocks/inner thighs. Advised her that her endometrial stripe should be evaluated on the u/s, if it is less than 0.5 cm, no abnormalities with 95 % certainty. If it is > 0.5 cm, further testing is warranted because she has every risk factor for endometrial CA. No pap in over 5 years. No h/o abnormal. Never had a mammogram or colonoscopy. Explained to her that she is overdue for all of them. Will need to schedule all 3 as an outpatient. H/o SAB x 3 and one section. Explained to her that fibroids are usually non consequential in the menopausal state. Again, will have a more definitive answer once her u/s is done. Home Medications Medication Instructions Recorded Confirmed Type Albuterol Inhaler [Proventil 1 puff DAILY PRN 08/30/16 08/30/16 History Inhaler] Atenolol 50 mg PO DAILY 08/30/16 08/30/16 History Lisinopril 20 mg PO DAILY 08/30/16 08/30/16 History glipiZIDE [Glipizide] 5 mg PO DAILY 08/30/16 08/30/16 History metFORMIN [Glucophage] 850 mg PO BID 08/30/16 08/30/16 History Allergies Allergy/AdvReac Type Severity Reaction Status Date / Time No Known Allergies Allergy Unverified 08/30/16 16:56 Medical,Surgical,& Family Hx - Medical History Cardio: History of: CHF, Hypertension Psychological: History of: Anxiety Disorders (panic attacks) Endocrine: History of: Diabetes Mellitus (NIDDM) Respiratory: History of: Asthma Gastrointestinal: No history of: GERD Hematology: History of: Anemia Reproductive: History of: Complication (stillborn) Other: History of: Skin Problems - Surgical History Abdominal Surgeries: Patient denies: Abdominal Surgery Reproductive Surgeries: Surgical HX of;: Section, Dilation and Curettage Patient denies;: Genitourinary Surgery - Family History Family History: Reports;: Family Cancer (grandmother had bone ca?), Family Diabetes (mother), Family Heart Disease (Father), Family Hypertension ( grandfather), Family Psychiatric Problems (mother), Family Stroke (mother) Denies;: Family Anesthesia Reaction, Family Hematology - Social History Smoking Status: Never smoker Frequency of Alcohol Use: None 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 - Constitutional Vitals: Vital Signs Temp Pulse Pulse Resp BP Pulse Ox Pulse Ox 09/02/16 09:27 24 09/02/16 08:00 97.6 F 74 20 138/77 100 09/02/16 07:15 74 18 100 09/02/16 07:10 74 18 100 09/02/16 04:22 97.6 F 68 16 144/74 95 09/02/16 02:16 20 09/02/16 00:26 87 18 98 09/02/16 00:17 83 18 98 09/02/16 00:00 98.2 F 67 18 136/83 99 09/01/16 19:45 76 18 98 09/01/16 19:40 76 18 94 L 09/01/16 19:27 97.5 F L 61 22 117/68 90 L 09/01/16 16:00 97.4 F L 78 22 142/85 89 L 09/01/16 12:00 98.6 F 76 20 133/82 97 General appearance: no acute distress, morbidly obese - Head Head exam: Present: normocephalic - Eye Eye exam: Present: EOMI Pupils: Present: FLAKITA - GI/Abdominal GI/Abdominal exam: Present: soft, other (significant central obesity) Results - Labs CBC & BMP: 09/02/16 07:03 09/02/16 07:03
--- NOTE | 2016-09-02 12:54 | Sleep Medicine Consult ---
Assessment and Plan (1) Unspecified sleep apnea Status: Acute Assessment and plan: Ms. Jones has symptoms such as witness apnea's, loud snoring and excessive fatigue and sleepiness that are suggestive for obstructive sleep apnea. I discussed obstructive sleep apnea as well as the testing and treatments that are indicated. She verbalized understanding and wishes to proceed with testing. I will set up a HST while she is hospitalized and if positive for sleep apnea, will proceed with autopap titration. Current Visit: Yes History of Present Illness Chief complaint: Excesive sleepiness and fatigue History of present illness: Ms. Jones is a 51 year old female who is hospitalized with congestive heart failure, uncontrolled diabetes and uncontrolled hypertension. A sleep consult was requested after a positive screening for sleep apnea. She reports a long history of loud, disruptive snoring and her family members present today report witnessed apnea's during her sleep. She is excessively sleepy and "nods off" easily. Her Clever Sleepiness Score today is 14. She does not have a set sleep schedule but usually falls asleep by midnight. She awakens around 6:30am daily to babysit her nephew but naps intermittently throughout the day. Her sleep is not refreshing and she often awakens gasping for air. She sleeps on the floor and up until recently, did not have any shortness of breath while lying flat. Now she is short of breath at all times. She denies any family history of sleep disorders. Home Medications Medication Instructions Recorded Confirmed Type Albuterol Inhaler [Proventil 1 puff DAILY PRN 08/30/16 08/30/16 History Inhaler] Atenolol 50 mg PO DAILY 08/30/16 08/30/16 History Lisinopril 20 mg PO DAILY 08/30/16 08/30/16 History glipiZIDE [Glipizide] 5 mg PO DAILY 08/30/16 08/30/16 History metFORMIN [Glucophage] 850 mg PO BID 08/30/16 08/30/16 History Allergies Allergy/AdvReac Type Severity Reaction Status Date / Time No Known Allergies Allergy Unverified 08/30/16 16:56 - Constitutional Constitutional: Present: daytime sleepiness, fatigue, headache(s), night sweats , stops breathing during sleep - Cardiovascular Cardiovascular: Present: dyspnea, dyspnea on exertion - Respiratory Respiratory: Present: wheezing - Neurological Neurological: Present: headache(s) - Psychiatric Psychiatric: Present: anxiety, depression - Endocrine Endocrine: Present: fatigue Exam (Pulmonay) H&P - Constitutional Vitals: Period Temp Pulse Resp BP Sys/Harper Pulse Ox Last 24 Hr 97.4 F-98.2 F 61-87 16-24 117-144/63-85 89-100 General appearance: morbidly obese - Head Head exam: Present: normocephalic, atraumatic - Eye Pupils: Present: FLAKITA - ENT ENT exam: Present: other (Mallampati class IV, large tongue) - Neck Neck exam: Present: other (Neck Circumference 16.5", no thryomegaly or lymphadenopathy) - Respiratory Respiratory exam: Present: decreased breath sounds, wheezes - GI/Abdominal GI/Abdominal exam: Present: normal bowel sounds, distended - Extremities Exam Extremities exam: Present: edema - Neurological Exam Neurological exam: Present: alert, oriented X3 - Psychiatric Psychiatric exam: Present: normal affect, normal mood Medical,Surgical,& Family Hx - Medical History Cardio: History of: CHF, Hypertension Psychological: History of: Anxiety Disorders (panic attacks), Depression Endocrine: History of: Diabetes Mellitus (NIDDM) Respiratory: History of: Asthma Gastrointestinal: No history of: GERD Hematology: History of: Anemia Reproductive: History of: Complication (stillborn) Other: History of: Skin Problems - Surgical History Abdominal Surgeries: Patient denies: Abdominal Surgery Reproductive Surgeries: Surgical HX of;: Section, Dilation and Curettage Patient denies;: Genitourinary Surgery - Family History Family History: Reports;: Family Cancer (grandmother had bone ca?), Family Diabetes (mother), Family Heart Disease (Father), Family Hypertension ( grandfather), Family Psychiatric Problems (mother), Family Stroke (mother) Denies;: Family Anesthesia Reaction, Family Hematology - Social History Smoking Status: Never smoker Frequency of Alcohol Use: None Type of Drug Use: None Results - Labs CBC & BMP: 09/02/16 07:03 09/02/16 07:03
--- NOTE | 2016-09-02 12:58 | General Surgery Progress Note ---
Subjective Patient reports: Present: no new complaints Narrative: Impression: Hidradenitis Plan: Patient's CT reviewed. She has multiple issues including cardiomegaly edema ascites hepatomegaly. Does not appear to have a surgical abdomen. Suspect ascites is either from a gynecologic malignancy or hepatomegaly. Recommending getting gastroenterology involved. As far as her hidradenitis is concerned she appears to be responding to antibiotics. This will likely be a chronic long-term problem and she may need referral to infectious disease in the future. We'll continue antibiotics and probably discharge home on antibiotics when she is ready. She can follow up with Dr. Arriola upon discharge. Exam - Constitutional Vitals: Period Temp Pulse Resp BP Sys/Harper Pulse Ox Last 24 Hr 97.4 F-98.2 F 61-87 16-24 117-144/63-85 89-100 - Head Head exam: Present: normocephalic - GI/Abdominal GI/Abdominal exam: Present: soft (edematous) - Neurological Exam Neurological exam: Present: alert Speech: Present: normal - Skin Skin exam: Present: other (multiple areas of hidradenitis. No fluctuance or fluid collections identified. Adequately draining. Apparently this is much better than yesterday.) Results - Labs CBC & BMP: 09/02/16 07:03 09/02/16 07:03 Lab Results: I have reviewed the past 24 hour labs
--- NOTE | 2016-09-02 14:01 | Ultrasound Report ---
Exam: US pelvic complete Date: 09/02/2016 9:58 AM Comparison: CT abdomen pelvis 09/01/2016 Indication: Fibroid degenerative change Findings: Transabdominal transvaginal imaging utilized to help visualize structures Uterus: 13.8 x 5.8 x 7.7 cm degenerative leiomyoma changes are present measuring up to 10.1 x 9.1 x 12.5 cm posteriorly with a 4.3 x 4.5 x 4.2 cm mass present in the uterus some calcifications are present as well. Endometrial echo stripe: 5.2 mm Right ovary: 20 x 21 x 19 mm Left ovary: Not visualized Free fluid: Not visualized Bladder: Poorly seen Impression: 1. Enlarged uterus with degenerative leiomyoma changes and some calcifications present. 2. Nonvisualization of the left ovary Ultrasound images were stored and captured PROCEDURE INTERPRETED AT [facility] DEPARTMENT OF RADIOLOGY Final Report Signed by: Dr. Floyd King
--- NOTE | 2016-09-02 17:27 | Gastrointestinal Consult Note ---
Assessment and Plan (1) Enlarged liver Status: Acute Assessment and plan: This patient has hepatomegaly likely due to excessive amounts of fat stores in the liver given the fact that she is viral hepatitis negative with a negative MELLISA and with no evidence of hemochromatosis on iron saturation. I will check alpha-1 antitrypsin level, and if elevations in the patient's bilirubin persists we may wish to get a liver biopsy in order to rule out significant fibrosis of the liver. I do not believe she likely has any cirrhosis yet, her platelet level is completely normal and her bilirubin is not that high. The alkaline phosphatase and bilirubin may simply be high because of her previous exposure Bactrim and idiopathic response of the liver to this antibiotic. She does have increase in ascites although certainly might be from cardiac source as well. I will check a ultrasound and see if there is ductal dilatation and establish at the if there is biliary sludge/stones. This was not commented upon in the CT scan. Current Visit: Yes (2) Ascites Status: Acute Assessment and plan: I suspect this may be from cardiac source, given the lack of transaminase elevations in this patient. Agree with diuresis as long as her renal function continues to support this. We may want to avoid Bactrim at least in the short- term as the patient may have had an idiopathic response of her liver with her current level of jaundice due to this medication. We may end up requiring a liver biopsy in order to examine for eosinophils versus fibrosis and steatosis/ steatohepatitis versus sinusoidal congestion that may be secondary to right heart failure. No splenomegaly/thrombocytopenia are present which would tend to point towards portal hypertension. Current Visit: Yes (3) Screening for colorectal cancer Status: Acute Assessment and plan: I agree that after the patient's current problems are addressed she could certainly be scheduled for colorectal cancer screening as an outpatient as part of her routine health maintenance. I will be happy to provide this service in the future. Current Visit: Yes History of Present Illness Chief complaint: Mild jaundice and elevations in alkaline phosphatase, hepatomegaly/ascites History of present illness: Ms. Jones is a 51 year old female who has a history of increase in weight of 40 pounds over the last 4 months as she had previously been weighed at [facility] back in April when she weighed 260 pounds and is now up to over 300 , she has been having increasing difficulty with exercise tolerance and shortness of breath but had discovered an increase in periumbilical pain and swelling with a hard abdomen and elected to come into the hospital for evaluation of this and was discovered to have a CT scan which demonstrated ascites and a large liver to 22 cm that appeared fatty but no focal lesions on CT scanning. There is no evidence of splenic enlargement or pancreatic enlargement but she did have a slight elevation in her bilirubin to 1.7 with a direct fraction of 0.6 and only slight elevations in her transaminases. No ductal dilatation was noted, no comment was made on the gallbladder. Shotty lymphadenopathy was noted throughout the mesentery and retroperitoneum. The free floated fluid noted in the abdomen is described as moderate on CT scan. I am being consulted due to "liver disease", alkaline phosphatase is mildly elevated 221 but ALT is 42 which is normal and AST is only slightly elevated at 45. Albumin level is low at 2.3 surprising given this patient's weight. MELLISA was noted to be negative with an iron saturation of 8.4% and hepatitis A, B, and C all negative as well as of 09/02/16. The patient is being currently treated for congestive heart failure exacerbation. She does have some hidradenitis suppurtiva and has had recurrent boils of her axilla and groin regions. 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 She is also been treated with Bactrim on several occasions which may be the source of the elevation in her bilirubin/alkaline phosphatase. The patient does have a history of nonsterilely obtained tattoos as well as blood transfusion with 1 of her children's births some 30 years ago. She has noted some dark yellow urine but no daron jaundice in her eyes. She does have some itching of her skin but states this may be her eczema. She has never used excessive amounts of alcohol and has never engaged in IV drug use. She has never had accidental needle sticks has not had foreign travel to [place], [place], or [place]. The patient is morbidly obese and does have a history of poorly controlled diabetes and medical noncompliance as well as some asthma. Home Medications Medication Instructions Recorded Confirmed Type Albuterol Inhaler [Proventil 1 puff DAILY PRN 08/30/16 08/30/16 History Inhaler] Atenolol 50 mg PO DAILY 08/30/16 08/30/16 History Lisinopril 20 mg PO DAILY 08/30/16 08/30/16 History glipiZIDE [Glipizide] 5 mg PO DAILY 08/30/16 08/30/16 History metFORMIN [Glucophage] 850 mg PO BID 08/30/16 08/30/16 History Allergies Allergy/AdvReac Type Severity Reaction Status Date / Time No Known Allergies Allergy Unverified 08/30/16 16:56 Medical,Surgical,& Family Hx - Medical History Cardio: History of: CHF, Hypertension Psychological: History of: Anxiety Disorders (panic attacks), Depression Endocrine: History of: Diabetes Mellitus (NIDDM) Respiratory: History of: Asthma Gastrointestinal: No history of: GERD Hematology: History of: Anemia Reproductive: History of: Complication (stillborn) Other: History of: Skin Problems - Surgical History Abdominal Surgeries: Patient denies: Abdominal Surgery Reproductive Surgeries: Surgical HX of;: Section, Dilation and Curettage Patient denies;: Genitourinary Surgery - Family History Family History: Reports;: Family Cancer (grandmother had bone ca?), Family Diabetes (mother), Family Heart Disease (Father), Family Hypertension ( grandfather), Family Psychiatric Problems (mother), Family Stroke (mother) Denies;: Family Anesthesia Reaction, Family Hematology - Social History Smoking Status: Never smoker Frequency of Alcohol Use: None Type of Drug Use: None Review of systems: Constitutional: Denies fever, chills, nausea, and vomiting Eyes: Denies dry eyes, and scleral icterus HENT: Admits to occasional headaches Cardiovascular: Denies acute chest pain and claudication Respiratory: She does have some shortness of breath, wheezing, and difficulty breathing, denies cough Gastrointestinal: As noted in the HPI Genitourinary: Denies dysuria and hematuria Neurologic: Denies vision loss, and loss of sensation Musculoskeletal: Patient does have joint swelling, joint stiffness, and muscular weakness Psychiatric: Occasional depression, but no amna symptoms Heme-Lymph: Denies easy bruising, lymph node enlargement or tenderness, night sweats, excessive bleeding Allergies-immunologic: She does admit to pruritus with her eczema but no rhinorrhea. Exam - Constitutional Vitals: Period Temp Pulse Resp BP Sys/Harper Pulse Ox Last 24 Hr 97.5 F-98.2 F 61-87 16-24 117-148/63-83 90-100 Exam: Constitutional: Well-developed, well-nourished, morbidly obese black female alert, and in no acute distress Head and face: Head: Normocephalic atraumatic Eyes: Conjunctiva without injection, no gross scleral icterus, pupils equal and round bilaterally Ears: Intact to conversation in both ears Nose: External appearance is normal, nares patent Mouth: Oral mucous membranes moist without erythema dentition noted to be without erosion Neck: Normal appearance, band of hyperpigmentation noted at the back of the neck, no masses or tenderness, trachea midline Thyroid: Gland midline and appropriate size for age Respiratory: Normal respiratory effort, slight midfield but no wheezes, rhonchi or rales Cardiovascular: Regular rate and rhythm, normal S1, S2, the exam is without rubs, murmurs or gallops. Gastrointestinal: The abdomen is distended and there is periumbilical fluid noted with obvious history of over the abdomen, normal active bowel sounds , tone normal with minimal rigidity or guarding, moderate hepatomegaly --> liver edge noted to be approximately 5 cm below the costal margin, no spleen tip felt. Rectal exam obtained, small internal hemorrhoids good tone stool guaiac negative. Lymphatic: Neck without adenopathy, axilla thickened tissue and scarring noted Musculoskeletal: Right and left lower extremities with +1 bilateral evidence of edema Skin and subcutaneous tissue: No ulcerations noted, normal skin turgor, digits and nails without clubbing/cyanosis/deformities. Neurologic: The patient is grossly oriented to person place and time, cranial nerves show tongue movements are normal with normal tongue extrusion midline, light touch sensation is intact. Psychiatric: No hallucinations or delusions are present, does not appear depressed Results - Labs CBC & BMP: 09/02/16 07:03 09/02/16 07:03
--- NOTE | 2016-09-02 19:52 | Cardiology Progress Note ---
I, Daniela Cunningham RN, am scribing for, and in the presence of, Howard Robb MD 19:52. Assessment and Plan (1) Acute diastolic CHF (congestive heart failure) Status: Acute Assessment and plan: 09/01/2016: Assessment/plan/recommendation:Her generalized edema could be in part due to diastolic or systolic dysfunction, but he is out of proportion to what I see on the echocardiogram. I believe it is also related to her low albumin and probable liver dysfunction in addition to suspected untreated sleep apnea Plan/records: Agree with change atenolol to carvedilol--would be better for the LV systolic dysfunction and her diabetes Will reduce the more powerful lisinopril to a milder Capoten, shorter acting, in case there are problems with this medication--i.e. renal insufficiency, hyperkalemia We will add spironolactone 12.5 mg p.o. twice daily. Will have hold parameters. Will consult Dr. Ty regarding evaluation of sleep apnea [she has snoring and excessive daytime somnolence but does not know about apnea]. Meanwhile, I suggested the patient that she sleep with a head of the bed up 30 or 40 as a surrogate for CPAP. Will get a BMP every morning 3 on the spironolactone. Her prognosis is guarded. 09/02/2016: Assessment/plan/recommendation: edema of the legs is slightly better. Albumin has increased slightly. Her blood pressure is slightly better. It is thought she has sleep apnea. She will get evaluation and treatment. Will continue spironolactone and furosemide. Will watch renal function and potassium. She may need to be slightly dry to keep some of her edema out of her body. The above was discussed with the patient and her family. They voiced understanding and agree with the plan. Current Visit: Yes (2) Hidradenitis suppurativa Status: Acute Current Visit: Yes (3) Uncontrolled diabetes mellitus Status: Chronic Current Visit: Yes (4) Uncontrolled hypertension Status: Chronic Current Visit: Yes Cardiology - PN: Subj Interval history: Sweet Pickled Fruit Maker: None Ms. Jones is seen resting in bed in no acute distress, oxygen in use via nasal biprong. She states she had a good night. Reports her breathing is improved. Denies any chest pain or palpitations. She tells me she is still dizzy. Vital signs have been stable throughout the night, with heart rates 70s-80s and pressure this morning 144/74. We changed Lisinopril to Capoten and added Spironolactone yesterday. She is still getting Lasix 40 mg IV twice daily. Creatinine has elevated to 1.8 today. Exam (Progress Note) - Constitutional Vitals: Period Temp Pulse Resp BP Sys/Harper Pulse Ox Last 24 Hr 97.4 F-98.6 F 61-87 16-22 117-144/68-85 89-99 General appearance: no acute distress, morbidly obese - Head Head exam: Absent: abrasion, hematoma - Eye Eye exam: Absent: periorbital swelling, laceration to eyelids - Neck Neck exam: Absent: tenderness - Respiratory Respiratory exam: Present: clear to auscultation bilaterally, other (oxygen via nasal biprong). Absent: accessory muscle use, chest wall tenderness - Cardiovascular Cardiovascular exam: Present: regular rate and rhythm. Absent: bradycardia, tachycardia - GI/Abdominal GI/Abdominal exam: Present: normal bowel sounds, distended, firm, tenderness - Extremities Exam Extremities exam: Present: edema (1+ to bilateral lower extremities) - Neurological Exam Neurological exam: Present: alert, oriented X3 - Psychiatric Psychiatric exam: Present: normal affect, normal mood - Skin Skin exam: Present: warm, dry Result/EKG - Labs CBC & BMP: 09/02/16 07:03 09/02/16 07:03 Lab Results: I have reviewed the past 24 hour labs Labs: Laboratory Results - last 24 hr 09/01/16 09/01/16 09/01/16 06:55 08:08 08:08 WBC 10.5 D 9.9 RBC 3.79 L 3.69 L Hgb 9.0 L 8.8 L Hct 32.5 L 31.9 L MCV 85.8 L 86.4 L MCH 24 L 24 L MCHC 27.7 L 27.6 L RDW 21.8 H 21.5 H Plt Count 367 363 MPV 9.2 L 9.1 L Neut % (Auto) 82.0 H 79.5 H Lymph % (Auto) 8.7 L 10.3 L [place] % (Auto) 8.1 9.2 Eos % (Auto) 0.3 0.3 Baso % (Auto) 0.4 0.3 Neut # (Auto) 8.6 H 7.9 H Lymph # (Auto) 0.9 L 1.0 L [place] # (Auto) 0.9 H 0.9 H Eos # (Auto) 0.0 0.0 Baso # (Auto) 0.0 0.0 Immature Gran % 0.5 0.4 Nucleated RBC % 0.0 0.2 Immature Gran # 0.05 0.04 Nucleated RBCs # 0.00 0.02 Platelet Estimate Adequate Hypochromasia 1+ Morphology Comment Sodium Potassium Chloride Carbon Dioxide Anion Gap BUN Creatinine GFR Calculation BUN/Creatinine Ratio Glucose POC Glucose Calculated Osmolality Calcium Total Bilirubin AST ALT Alkaline Phosphatase Total Protein Albumin Globulin Albumin/Globulin Ratio Vancomycin Trough 29.1 H 09/01/16 09/01/16 09/01/16 08:08 11:18 15:50 WBC RBC Hgb Hct MCV MCH MCHC RDW Plt Count MPV Neut % (Auto) Lymph % (Auto) [place] % (Auto) Eos % (Auto) Baso % (Auto) Neut # (Auto) Lymph # (Auto) [place] # (Auto) Eos # (Auto) Baso # (Auto) Immature Gran % Nucleated RBC % Immature Gran # Nucleated RBCs # Platelet Estimate Hypochromasia Morphology Comment Sodium 139 Potassium 4.4 Chloride 101 Carbon Dioxide 32 Anion Gap 10.4 BUN 20 H Creatinine 1.60 H GFR Calculation 54 BUN/Creatinine Ratio 12.00 Glucose 160 H POC Glucose 157 H 152 H Calculated Osmolality 282.5 Calcium 8.0 L Total Bilirubin 1.10 H AST 44 H ALT 37 Alkaline Phosphatase 238 H Total Protein 9.4 H Albumin 2.1 L Globulin 7.3 H Albumin/Globulin Ratio 0.2 L Vancomycin Trough 09/01/16 09/02/16 19:51 07:25 WBC RBC Hgb Hct MCV MCH MCHC RDW Plt Count MPV Neut % (Auto) Lymph % (Auto) [place] % (Auto) Eos % (Auto) Baso % (Auto) Neut # (Auto) Lymph # (Auto) [place] # (Auto) Eos # (Auto) Baso # (Auto) Immature Gran % Nucleated RBC % Immature Gran # Nucleated RBCs # Platelet Estimate Hypochromasia Morphology Comment Sodium Potassium Chloride Carbon Dioxide Anion Gap BUN Creatinine GFR Calculation BUN/Creatinine Ratio Glucose POC Glucose 201 H 138 H Calculated Osmolality Calcium Total Bilirubin AST ALT Alkaline Phosphatase Total Protein Albumin Globulin Albumin/Globulin Ratio Vancomycin Trough I, [place],Howard, MD, personally performed the services described in this documentation, ascribed by Daniela Cunningham RN in my presence, and it is both accurate and complete 952 .
[2016-09-02] MEDS: ENOXAPARIN 40 MG/0.4 ML SYRINGE SUBCUT SCH (21:58)
[2016-09-03] MEDS: ALBUTEROL/IPRATROPIUM 3 ML NEB RESP TX SCH ×4 (00:26→19:50)
[2016-09-03] MEDS: PIPERACILLIN/TAZOBACTAM 3,375 MG in SODIUM CHLORIDE 0.9% 100 ML IV SCH ×3 (05:14→23:30)
[2016-09-03 06:13] LABS: Calcium 8.1 MG/DL (8.5-10.1); Osmolality,Calculated 284.5 MOS/KG (273-304); Potassium 4.3 MMOL/L (3.5-5.1)
[2016-09-03 06:15] LABS: Albumin 2.1 G/DL (3.4-5.0); Bilirubin,Direct 0.5 MG/DL (0.0-0.20); Bilirubin,Indirect 0.2 MG/DL (0.0-1.0); Bilirubin,Total 0.7 MG/DL (0.2-1.0); Total Protein 9.1 G/DL (6.4-8.3)
[2016-09-03 06:35] LABS: Basophils % 0.3 % (0.0-0.8); Eosinophils # 0.1 10*3/uL (0.0-0.87); Hematocrit 29.6 VOL% (35.7-47.0); Immature Granulocytes % 0.3 %; Immature Granulocytes Absolute 0.03 #; Lymphocytes # 0.9 10*3/uL (1.4-4.0); Lymphocytes % 10.3 % (21.3-54.2); Mean Corpuscular Hemoglobin 24 PG (27-34); Mean Corpuscular Volume 88.1 FL (87-102); Mean Platelet Volume 9.2 FL (9.6-12.0); Monocytes # 0.7 10*3/uL (0.11-0.8); Monocytes % 7.8 % (1.7-12.7); Neutrophils # 6.9 10*3/uL (1.4-7.4); Neutrophils % 80.3 % (38.7-73.9); Platelet Count 313 T/CUMM (130-400); Red Blood Count 3.36 MC/CUMM (3.8-5.5); Red Cell Distribution Width 21.2 % (9.3-17.3); White Blood Count 8.6 T/CUMM (4-12)
[2016-09-03 06:55] LABS: Elliptocytes Few; Hypochromasia 1+; Platelet Estimate Adequate
--- NOTE | 2016-09-03 08:59 | Ultrasound Report ---
History is hepatomegaly and ascites Grayscale, spectral Doppler, and color flow analysis performed and interpreted The liver is 18.4 cm in length. Hepatic echotexture is normal The spleen measures up to 13.2 x 6.1 cm in length without a focal defect No gallstones or biliary ductal dilatation seen Gallbladder wall thickness measures up to 4.5 mm diffusely. No renal hydronephrosis is seen bilaterally. There is a 2.2 cm cyst in the right kidney The visualized IVC and aorta are normal in size Visualized pancreas is normal in size. Portions obscured by bowel gas. Tiny amount of ascites is present. The hepatic veins are patent There is hepatopedal flow in the portal vein with some additional mild phasic reversal of flow in the portal vein Impression: 1. The hepatic and portal veins are patent 2. Small right renal cyst 3. tiny amount of ascites 4. Nonspecific gallbladder wall thickening could simply be related to ascites and incomplete distention The Ultrasound images were captured and stored. PROCEDURE INTERPRETED AT [facility] DEPARTMENT OF RADIOLOGY Final Report Signed by: Dr. Steffanie Garcia
[2016-09-03] MEDS: INSULIN NPH 100 UNIT/ML SUBCUT SCH ×2 (09:14→16:32)
[2016-09-03] MEDS: CARVEDILOL 6.25 MG TABLET PO SCH ×2 (09:15→16:33)
[2016-09-03] MEDS: INSULIN REGULAR 100 UNIT/ML SUBCUT SCH ×4 (09:15→21:08)
[2016-09-03] MEDS: CAPTOPRIL 6.25 MG TABLET PO SCH ×2 (09:16→21:07)
[2016-09-03] MEDS: SPIRONOLACTONE 25 MG TABLET PO SCH ×2 (09:16→21:07)
[2016-09-03] MEDS: PANTOPRAZOLE 40 MG TABLET PO SCH (09:17)
[2016-09-03] MEDS: FUROSEMIDE 40 MG/4 ML VIAL IV SCH ×2 (09:20→16:34)
--- NOTE | 2016-09-03 11:54 | OB/GYN Progress Note ---
Assessment and Plan (1) Enlarged uterus Status: Acute Assessment and plan: Uterine fibroids likely non consequential in the postmenopausal state. Stripe minimally thickened at 0.52cm (> 0.50 is what requires evaluation). Proceed with endometrial biospy at time of pap and pelvic outpatient Pt will make an annual exam appt upon discharge. Current Visit: Yes (2) Leiomyoma of uterus Status: Acute Current Visit: Yes PRODUCTION CONTROL EXPERT - PN: Subj Interval history: U/s completed yesterday. Explained results to the patient. 2 fibroids present that are degenerating, 10 cm and 4 cm. Normal right ovary, left not visualized. Stripe 0.52 cm. Again reviewed with her that fibroids are usually not of consequence once a woman goes thru menopause. Usual cut off for stripe measurement is 0.5 cm. Likely lining is fine, but when she comes in for pap and pelvic and exam it would be reasonable to perform endometrial bx given all of her risk factors. Pt verbalized understanding. Exam PRODUCTION CONTROL EXPERT - Constitutional Vitals: Vital Signs Temp Pulse Pulse Pulse Resp BP Pulse Ox 09/03/16 10:10 20 09/03/16 08:15 98.6 F 64 20 170/80 98 09/03/16 04:00 98.1 F 72 20 117/71 93 L 09/03/16 03:32 18 09/03/16 01:52 20 09/03/16 00:27 79 18 98 09/02/16 23:58 98.1 F 67 18 110/64 97 09/02/16 22:00 20 09/02/16 19:40 98.9 F 95 H 22 101/49 94 L 09/02/16 19:37 87 18 97 09/02/16 16:00 98.1 F 71 22 148/81 99 09/02/16 14:51 85 18 99 09/02/16 14:46 82 18 99 09/02/16 11:55 97.7 F 69 20 130/63 Pulse Ox 09/03/16 10:10 09/03/16 08:15 09/03/16 04:00 09/03/16 03:32 09/03/16 01:52 09/03/16 00:27 09/02/16 23:58 09/02/16 22:00 09/02/16 19:40 09/02/16 19:37 09/02/16 16:00 09/02/16 14:51 09/02/16 14:46 09/02/16 11:55 93 L General appearance: no acute distress, morbidly obese - Head Head exam: Present: normocephalic - Eye Eye exam: Present: EOMI Results - Labs CBC & BMP: 09/03/16 04:28 09/03/16 04:28
--- NOTE | 2016-09-03 12:36 | Gastrointestinal Progress Note ---
Assessment and Plan (1) Enlarged liver Status: Acute Assessment and plan: This patient has hepatomegaly likely due to excessive amounts of fat stores in the liver given the fact that she is viral hepatitis negative with a negative MELLISA and with no evidence of hemochromatosis on iron saturation. I will check alpha-1 antitrypsin level, and if elevations in the patient's bilirubin persists we may wish to get a liver biopsy in order to rule out significant fibrosis of the liver. I do not believe she likely has any cirrhosis yet, her platelet level is completely normal and her bilirubin is not that high. The alkaline phosphatase and bilirubin may simply be high because of her previous exposure Bactrim and idiopathic response of the liver to this antibiotic. She does have increase in ascites although certainly might be from cardiac source as well. I will check a ultrasound and see if there is ductal dilatation and establish at the if there is biliary sludge/stones. This was not commented upon in the CT scan. 09/03/16--The patient's liver size by ultrasound is smaller than it had been previously. The patient's moderate amount of ascites has also improved down to a "tiny amount". It looks like the gallbladder is present but does not have any cyst sludge or stones obvious. The vessels leading to and from the liver are patent, alkaline phosphatase is improving but is still elevated. We will check a GGT to see if this is elevated, if this is normal the elevation in alkaline phosphatase may be secondary to bone source. Again this elevation also could be due to the previous Bactrim exposure. I suspect that the increased size of the liver may also have some to do with the patient's size herself/fat deposition. The alpha-1 antitrypsin level is pending Current Visit: Yes (2) Ascites Status: Acute Assessment and plan: I suspect this may be from cardiac source, given the lack of transaminase elevations in this patient. Agree with diuresis as long as her renal function continues to support this. We may want to avoid Bactrim at least in the short- term as the patient may have had an idiopathic response of her liver with her current level of jaundice due to this medication. We may end up requiring a liver biopsy in order to examine for eosinophils versus fibrosis and steatosis/ steatohepatitis versus sinusoidal congestion that may be secondary to right heart failure. No splenomegaly/thrombocytopenia are present which would tend to point towards portal hypertension. 09/03/16--The ascites amount is quite small at this point based on the ultrasound findings. Once again I suspect that the ascites may have more to do with the heart or prior medication exposure than the actual liver given the other biochemical parameters checked. We will continue to monitor. Current Visit: Yes (3) Screening for colorectal cancer Status: Acute Assessment and plan: I agree that after the patient's current problems are addressed she could certainly be scheduled for colorectal cancer screening as an outpatient as part of her routine health maintenance. I will be happy to provide this service in the future. Current Visit: Yes Gastroenterology - PN: Subj Interval history: The patient is actually doing all right she is still not very hungry, but ultrasound shows only a "tiny amount of ascites" and the hepatic vein and portal veins are both patent with good flow. No masses are seen within the liver and the gallbladder does not appear to have any stones or sludge, common bile duct is nondilated as well. The liver function tests appear to be normal with the exception of an elevated alkaline phosphatase. I will check a GGT to see if this is liver based versus bone. Exam (Progress Note) - Constitutional Vitals: Period Temp Pulse Resp BP Sys/Harper Pulse Ox Last 24 Hr 98.1 F-98.9 F 64-95 18-22 101-170/49-81 93-99 General appearance: morbidly obese - Head Head exam: Present: normocephalic, atraumatic - Eye Eye exam: Present: EOMI. Absent: scleral icterus - Respiratory Respiratory exam: Present: clear to auscultation bilaterally - Cardiovascular Cardiovascular exam: Present: regular rate and rhythm - GI/Abdominal GI/Abdominal exam: Present: normal bowel sounds, distended, tenderness, soft. Absent: guarding, rebound - Neurological Exam Neurological exam: Present: alert, oriented X3 - Psychiatric Psychiatric exam: Present: normal affect, normal mood - Skin Skin exam: Present: warm Results - Labs CBC & BMP: 09/03/16 04:28 09/03/16 04:28
--- NOTE | 2016-09-03 14:56 | Hospitalist Progress Note ---
Assessment and Plan (1) Uncontrolled hypertension Status: Chronic Current Visit: Yes (2) Hidradenitis suppurativa Status: Acute Assessment and plan: Surgery following. Continue antibiotics Current Visit: Yes (3) Uncontrolled diabetes mellitus Status: Chronic Current Visit: Yes (4) Acute diastolic CHF (congestive heart failure) Status: Chronic Assessment and plan: Lasix 40 IV BID, with worsening creatinine Spironolactone Current Visit: Yes Hospitalist: Subjective Interval history: Patient complaining of swelling mostly in her breast. Otherwise feeling a little better. Creatinine continues to increase on lasix. Will defer to cardiology for continuation vs change. Thanks for the assistance. She will f/u with ob-psychology intern in clinic for enlarged uterus. GI following for liver work-up, which is improving. Exam - Constitutional Vitals: Period Temp Pulse Resp BP Sys/Harper Pulse Ox Last 24 Hr 98.1 F-98.9 F 64-95 15-22 100-170/49-81 93-99 General appearance: morbidly obese - Head Head exam: Present: normocephalic, atraumatic - Eye Eye exam: Present: EOMI Pupils: Present: FLAKITA - ENT ENT exam: Present: normal exam - Neck Neck exam: Present: normal inspection - Respiratory Respiratory exam: Present: clear to auscultation bilaterally. Absent: rhonchi, wheezes - Cardiovascular Cardiovascular exam: Present: regular rate and rhythm - GI/Abdominal GI/Abdominal exam: Present: normal bowel sounds, soft. Absent: tenderness, rebound - Extremities Exam Extremities exam: Present: normal inspection - Back Exam Back exam: Present: normal inspection - Neurological Exam Neurological exam: Present: alert, oriented X3 - Psychiatric Psychiatric exam: Present: normal affect, normal mood - Skin Skin exam: Present: warm, intact Results - Labs CBC & BMP: 09/03/16 04:28 09/03/16 04:28
[2016-09-03] MEDS ORDERED: VANCOMYCIN INJ 2,000 MG in SODIUM CHLORIDE 0.9% 500 ML IV ONE (18:00)
--- NOTE | 2016-09-03 19:03 | Cardiology Progress Note ---
Khloe, Rissa Pereira RN, am scribing for, and in the presence of, Howard Robb MD 19:02. Assessment and Plan - Time spent with patient Time spent with patient: Greater than 30 minutes (1) Acute diastolic CHF (congestive heart failure) Status: Chronic Assessment and plan: 09/01/2016: Assessment/plan/recommendation:Her generalized edema could be in part due to diastolic or systolic dysfunction, but this is out of proportion to what I see on the echocardiogram. I believe it is also related to her low albumin and probable liver dysfunction in addition to suspected untreated sleep apnea Plan/records: Agree with change atenolol to carvedilol--would be better for the LV systolic dysfunction and her diabetes Will reduce the more powerful lisinopril to a milder Capoten, shorter acting, in case there are problems with this medication--i.e. renal insufficiency, hyperkalemia We will add spironolactone 12.5 mg p.o. twice daily. Will have hold parameters. Will consult Dr. Ty regarding evaluation of sleep apnea [she has snoring and excessive daytime somnolence but does not know about apnea]. Meanwhile, I suggested the patient that she sleep with a head of the bed up 30 or 40 as a surrogate for CPAP. Will get a BMP every morning 3 on the spironolactone. Her prognosis is guarded. 09/02/2016: Assessment/plan/recommendation: edema of the legs is slightly better. Albumin has increased slightly. Her blood pressure is slightly better. It is thought she has sleep apnea. She will get evaluation and treatment. Will continue spironolactone and furosemide. Will watch renal function and potassium. She may need to be slightly dry to keep some of her edema out of her body. The above was discussed with the patient and her family. They voiced understanding and agree with the plan. 09/03/16: Plan/recommendation: Less edema in the legs. Abdomen breast edema is unchanged. Chemistry more for creatinine increased to 2.0. She may need to be slightly dry to keep her from being so edematous. Albumin remains low at 2.1. Blood pressure is controlled. Will continue to watch renal function and potassium on current regimen. Continue Lasix and spironolactone. Her blood pressure is better. Long-term, her prognosis is guarded. It would be helpful if she can get treatment for her sleep apnea sooner rather than later. It would be helpful if she could lose some weight, starting with about 10-20 pounds in the next 3 months. To get her to near ideal body weight would be great for many of these problems. I realize that may never happen. Current Visit: Yes (2) Hidradenitis suppurativa Status: Acute Current Visit: Yes (3) Uncontrolled diabetes mellitus Status: Chronic Current Visit: Yes (4) Uncontrolled hypertension Status: Chronic Current Visit: Yes Cardiology - PN: Subj Interval history: PRIMARY LEARNING AND DEVELOPMENT OFFICER: NONE Afebrile, vital signs have been stable overnight discrete downward trend in H&H , and today is 8.0 and 29.6. Creatinine continues to trend upward and today is 2.0. Positive output noted per I/O record. Electrolytes within normal limits. During rounds, patient not in room. Will follow up after she returns from ultrasound. Exam (Progress Note) - Constitutional Vitals: Period Temp Pulse Resp BP Sys/Harper Pulse Ox Last 24 Hr 97.7 F-98.9 F 67-95 18-24 101-148/49-81 93-99 Exam: General appearance: no acute distress, morbidly obese - Head Head exam: Absent: abrasion, hematoma - Eye Eye exam: Absent: periorbital swelling, laceration to eyelids - Neck Neck exam: Absent: tenderness - Respiratory Respiratory exam: Present: clear to auscultation bilaterally, other (oxygen via nasal biprong). Absent: accessory muscle use, chest wall tenderness - Cardiovascular Cardiovascular exam: Present: regular rate and rhythm. Absent: bradycardia, tachycardia - GI/Abdominal GI/Abdominal exam: Present: normal bowel sounds, distended, firm, tenderness - Extremities Exam Extremities exam: Present: edema (1+ to bilateral lower extremities) - Neurological Exam Neurological exam: Present: alert, oriented X3 - Psychiatric Psychiatric exam: Present: normal affect, normal mood - Skin Skin exam: Present: warm, dry Result/EKG - Labs CBC & BMP: 09/03/16 04:28 09/03/16 04:28 Lab Results: I have reviewed the past 24 hour labs Labs: Laboratory Results - last 24 hr 09/02/16 09/02/16 09/02/16 07:03 07:03 07:03 WBC 8.4 RBC 3.51 L Hgb 8.4 L Hct 30.4 L MCV 86.6 L MCH 24 L MCHC 27.6 L RDW 21.3 H Plt Count 329 MPV 9.1 L Neut % (Auto) 80.9 H Lymph % (Auto) 10.0 L [place] % (Auto) 7.4 Eos % (Auto) 0.8 Baso % (Auto) 0.4 Neut # (Auto) 6.8 Lymph # (Auto) 0.8 L [place] # (Auto) 0.6 Eos # (Auto) 0.1 Baso # (Auto) 0.0 Immature Gran % 0.5 Nucleated RBC % 0.0 Immature Gran # 0.04 Nucleated RBCs # 0.00 Platelet Estimate Hypochromasia Elliptocytes Morphology Comment Sodium 138 Potassium 4.4 Chloride 101 Carbon Dioxide 32 Anion Gap 9.4 BUN 24 H Creatinine 1.80 H GFR Calculation 49 BUN/Creatinine Ratio 13.00 Glucose 124 H POC Glucose Calculated Osmolality 279.7 Calcium 8.3 L Magnesium 2.0 Iron 23 L TIBC 273 % Saturation 8.4 L Ferritin 43.9 Total Bilirubin Direct Bilirubin Indirect Bilirubin AST ALT Alkaline Phosphatase Total Protein Albumin FSH Random Vancomycin MELLISA Screen Hepatitis A IgM Ab Hep Bs Antigen Hep B Core IgM Ab Hepatitis C Antibody 09/02/16 09/02/16 09/02/16 07:03 07:03 07:03 WBC RBC Hgb Hct MCV MCH MCHC RDW Plt Count MPV Neut % (Auto) Lymph % (Auto) [place] % (Auto) Eos % (Auto) Baso % (Auto) Neut # (Auto) Lymph # (Auto) [place] # (Auto) Eos # (Auto) Baso # (Auto) Immature Gran % Nucleated RBC % Immature Gran # Nucleated RBCs # Platelet Estimate Hypochromasia Elliptocytes Morphology Comment Sodium Potassium Chloride Carbon Dioxide Anion Gap BUN Creatinine GFR Calculation BUN/Creatinine Ratio Glucose POC Glucose Calculated Osmolality Calcium Magnesium Iron TIBC % Saturation Ferritin Total Bilirubin 1.70 H Direct Bilirubin 0.6 H Indirect Bilirubin 1.1 H AST 45 H ALT 42 Alkaline Phosphatase 221 H Total Protein 9.4 H Albumin 2.3 L FSH Random Vancomycin MELLISA Screen Negative (<1:160) Hepatitis A IgM Ab Negative Hep Bs Antigen Negative Hep B Core IgM Ab Negative Hepatitis C Antibody Negative 09/02/16 09/02/16 09/02/16 10:56 15:35 19:51 WBC RBC Hgb Hct MCV MCH MCHC RDW Plt Count MPV Neut % (Auto) Lymph % (Auto) [place] % (Auto) Eos % (Auto) Baso % (Auto) Neut # (Auto) Lymph # (Auto) [place] # (Auto) Eos # (Auto) Baso # (Auto) Immature Gran % Nucleated RBC % Immature Gran # Nucleated RBCs # Platelet Estimate Hypochromasia Elliptocytes Morphology Comment Sodium Potassium Chloride Carbon Dioxide Anion Gap BUN Creatinine GFR Calculation BUN/Creatinine Ratio Glucose POC Glucose 194 H 168 H 215 H Calculated Osmolality Calcium Magnesium Iron TIBC % Saturation Ferritin Total Bilirubin Direct Bilirubin Indirect Bilirubin AST ALT Alkaline Phosphatase Total Protein Albumin FSH Random Vancomycin MELLISA Screen Hepatitis A IgM Ab Hep Bs Antigen Hep B Core IgM Ab Hepatitis C Antibody 09/03/16 09/03/16 09/03/16 04:28 04:28 04:28 WBC 8.6 RBC 3.36 L Hgb 8.0 L Hct 29.6 L MCV 88.1 MCH 24 L MCHC 27.0 L RDW 21.2 H Plt Count 313 MPV 9.2 L Neut % (Auto) 80.3 H Lymph % (Auto) 10.3 L Marshall % (Auto) 7.8 Eos % (Auto) 1.0 Baso % (Auto) 0.3 Neut # (Auto) 6.9 Lymph # (Auto) 0.9 L Marshall # (Auto) 0.7 Eos # (Auto) 0.1 Baso # (Auto) 0.0 Immature Gran % 0.3 Nucleated RBC % 0.0 Immature Gran # 0.03 Nucleated RBCs # 0.00 Platelet Estimate Adequate Hypochromasia 1+ Elliptocytes Few Morphology Comment Sodium 139 Potassium 4.3 Chloride 100 Carbon Dioxide 34 H Anion Gap 9.3 BUN 29 H Creatinine 2.00 H GFR Calculation 43 BUN/Creatinine Ratio 14.00 Glucose 129 H POC Glucose Calculated Osmolality 284.5 Calcium 8.1 L Magnesium Iron TIBC % Saturation Ferritin Total Bilirubin Direct Bilirubin Indirect Bilirubin AST ALT Alkaline Phosphatase Total Protein Albumin FSH 2.2 Random Vancomycin MELLISA Screen Hepatitis A IgM Ab Hep Bs Antigen Hep B Core IgM Ab Hepatitis C Antibody 09/03/16 09/03/16 04:28 04:28 WBC RBC Hgb Hct MCV MCH MCHC RDW Plt Count MPV Neut % (Auto) Lymph % (Auto) [place] % (Auto) Eos % (Auto) Baso % (Auto) Neut # (Auto) Lymph # (Auto) [place] # (Auto) Eos # (Auto) Baso # (Auto) Immature Gran % Nucleated RBC % Immature Gran # Nucleated RBCs # Platelet Estimate Hypochromasia Elliptocytes Morphology Comment Sodium Potassium Chloride Carbon Dioxide Anion Gap BUN Creatinine GFR Calculation BUN/Creatinine Ratio Glucose POC Glucose Calculated Osmolality Calcium Magnesium Iron TIBC % Saturation Ferritin Total Bilirubin 0.70 Direct Bilirubin 0.5 H Indirect Bilirubin 0.2 AST 37 ALT 38 Alkaline Phosphatase 215 H Total Protein 9.1 H Albumin 2.1 L FSH Random Vancomycin 17.1 MELLISA Screen Hepatitis A IgM Ab Hep Bs Antigen Hep B Core IgM Ab Hepatitis C Antibody - EKG EKG results: interpreted by me, no acute changes IClarisse Dale, MD, personally performed the services described in this documentation, ascribed by Rissa Pereira RN in my presence, and it is both accurate and complete [id number] .
[2016-09-03] MEDS: ENOXAPARIN 40 MG/0.4 ML SYRINGE SUBCUT SCH (21:08)
[2016-09-04] MEDS: ALBUTEROL/IPRATROPIUM 3 ML NEB RESP TX SCH ×4 (00:05→19:10)
[2016-09-04] MEDS ORDERED: NITROGLYCERIN SL 0.4 MG TABLET SL ONE ×2 (03:34→03:35)
--- NOTE | 2016-09-04 03:35 | EKG Report ---
Stationary ECG Study [facility] Test Date: 09/04/2016 3:33:53 AM Pat Name: JEFFREY ROBISON Department: Room: 238 Gender: F Roll Cutter: KELLY : 1965 Requested by: Lon Hernandez Order Number: [id number] Reading MD: ABDIEL ARTEAGA Intervals [place] Rate: 76 P: 2 IA: 219 QRS: 74 QRSD: 103 T: 26 QT: 395 QTc: 426 Interpretive Statements NORMAL SINUS RHYTHM WITH PREMATURE VENTRICULAR COMPLEXES Electronically Signed On 09-06-16 16:30:13 CDT by ABDIEL ARTEAGA [email or web address]
[2016-09-04 04:25] LABS: Calcium 8.4 MG/DL (8.5-10.1); Phosphorous 3.4 MG/DL (2.5-4.9); Potassium 4.6 MMOL/L (3.5-5.1)
[2016-09-04 04:28] LABS: Albumin 2.3 G/DL (3.4-5.0); Bilirubin,Total 1.1 MG/DL (0.2-1.0); Calcium 8.5 MG/DL (8.5-10.1); Osmolality,Calculated 281.8 MOS/KG (273-304); Potassium 4.3 MMOL/L (3.5-5.1); Total Protein 9.8 G/DL (6.4-8.3)
[2016-09-04 05:25] LABS: Basophils % 0.5 % (0.0-0.8); Eosinophils # 0.1 10*3/uL (0.0-0.87); Eosinophils % 1.4 % (0.00-10.9); Hematocrit 30.8 VOL% (35.7-47.0); Hemoglobin 8.7 GM/DL (12.0-16.0); Immature Granulocytes % 0.4 %; Immature Granulocytes Absolute 0.03 #; Lymphocytes # 0.8 10*3/uL (1.4-4.0); Lymphocytes % 10.3 % (21.3-54.2); Mean Corpuscular HGB Conc 28.2 GM/DL (32-36); Mean Corpuscular Hemoglobin 24 PG (27-34); Mean Corpuscular Volume 84.6 FL (87-102); Mean Platelet Volume 9.4 FL (9.6-12.0); Monocytes # 0.7 10*3/uL (0.11-0.8); Neutrophils # 6.5 10*3/uL (1.4-7.4); Neutrophils % 79.4 % (38.7-73.9); Platelet Count 317 T/CUMM (130-400); Red Blood Count 3.64 MC/CUMM (3.8-5.5); Red Cell Distribution Width 21.1 % (9.3-17.3); White Blood Count 8.1 T/CUMM (4-12)
[2016-09-04 05:36] LABS: Hypochromasia 1+; Microcytosis 1+
[2016-09-04 05:37] LABS: Platelet Estimate Normal; Target Cells Few
--- NOTE | 2016-09-04 07:38 | XRay Report ---
XR chest 1V portable Indication: Chest pain and shortness of breath. Chest one view: Comparison 08/30/2016. Cardiomegaly has worsened, now severe, with significant pulmonary vascular congestion now present. No focal infiltrates are shown. Lung volumes are low, accentuated by morbid obesity. Impression: CHF decompensation. PROCEDURE INTERPRETED AT [facility] DEPARTMENT OF RADIOLOGY Final Report Signed by: Joshua Hassan M.D.
[2016-09-04] MEDS: SPIRONOLACTONE 25 MG TABLET PO SCH ×2 (08:18→20:53)
[2016-09-04] MEDS: PANTOPRAZOLE 40 MG TABLET PO SCH (08:19)
[2016-09-04] MEDS: CAPTOPRIL 6.25 MG TABLET PO SCH ×2 (08:19→20:50)
[2016-09-04] MEDS: CARVEDILOL 6.25 MG TABLET PO SCH ×2 (08:19→16:51)
[2016-09-04] MEDS: INSULIN NPH 100 UNIT/ML SUBCUT SCH ×2 (08:22→16:47)
[2016-09-04] MEDS: PIPERACILLIN/TAZOBACTAM 3,375 MG in SODIUM CHLORIDE 0.9% 100 ML IV SCH ×2 (08:22→16:48)
[2016-09-04] MEDS: FUROSEMIDE 40 MG/4 ML VIAL IV SCH ×2 (08:23→16:50)
[2016-09-04] MEDS: INSULIN REGULAR 100 UNIT/ML SUBCUT SCH ×4 (08:23→20:53)
--- NOTE | 2016-09-04 13:25 | Hospitalist Progress Note ---
Assessment and Plan (1) Acute diastolic CHF (congestive heart failure) Status: Chronic Assessment and plan: Continue with diuresis. Current Visit: Yes (2) Uncontrolled hypertension Status: Chronic Current Visit: Yes (3) Suspected sleep apnea Status: Chronic Current Visit: Yes (4) Overweight Status: Chronic Current Visit: Yes (5) Chronic kidney disease Status: Chronic Assessment and plan: More like a component of hypertension diabetes as well as diuretic medications. Will repeat BMP in a.m. Current Visit: Yes Qualifiers: Chronic kidney disease stage: stage 3 (moderate) Qualified Code(s): N18.3 - Chronic kidney disease, stage 3 (moderate) Hospitalist: Subjective Interval history: The patient is resting comfortably. States her breathing is better. Serum creatinine noted to be 2.2 today. Continue with diuresis. Exam - Constitutional Vitals: Period Temp Pulse Resp BP Sys/Harper Pulse Ox Last 24 Hr 97.3 F-98.4 F 61-83 15-24 117-156/70-90 93-100 General appearance: morbidly obese - Head Head exam: Present: normal inspection - Respiratory Respiratory exam: Present: clear to auscultation bilaterally - Cardiovascular Cardiovascular exam: Present: regular rate and rhythm - GI/Abdominal GI/Abdominal exam: Present: normal bowel sounds - Extremities Exam Extremities exam: Present: normal inspection - Neurological Exam Neurological exam: Present: alert, oriented X3 - Psychiatric Psychiatric exam: Present: normal affect, normal mood - Skin Skin exam: Present: normal color Results - Labs CBC & BMP: 09/04/16 03:55 09/04/16 03:55
--- NOTE | 2016-09-04 15:52 | Cardiology Progress Note ---
Assessment and Plan (1) Acute diastolic CHF (congestive heart failure) Status: Chronic Assessment and plan: 09/01/2016: Assessment/plan/recommendation:Her generalized edema could be in part due to diastolic or systolic dysfunction, but this is out of proportion to what I see on the echocardiogram. I believe it is also related to her low albumin and probable liver dysfunction in addition to suspected untreated sleep apnea Plan/records: Agree with change atenolol to carvedilol--would be better for the LV systolic dysfunction and her diabetes Will reduce the more powerful lisinopril to a milder Capoten, shorter acting, in case there are problems with this medication--i.e. renal insufficiency, hyperkalemia We will add spironolactone 12.5 mg p.o. twice daily. Will have hold parameters. Will consult Dr. Ty regarding evaluation of sleep apnea [she has snoring and excessive daytime somnolence but does not know about apnea]. Meanwhile, I suggested the patient that she sleep with a head of the bed up 30 or 40 as a surrogate for CPAP. Will get a BMP every morning 3 on the spironolactone. Her prognosis is guarded. 09/02/2016: Assessment/plan/recommendation: edema of the legs is slightly better. Albumin has increased slightly. Her blood pressure is slightly better. It is thought she has sleep apnea. She will get evaluation and treatment. Will continue spironolactone and furosemide. Will watch renal function and potassium. She may need to be slightly dry to keep some of her edema out of her body. The above was discussed with the patient and her family. They voiced understanding and agree with the plan. 09/03/16: Plan/recommendation: Less edema in the legs. Abdomen breast edema is unchanged. Chemistry more for creatinine increased to 2.0. She may need to be slightly dry to keep her from being so edematous. Albumin remains low at 2.1. Blood pressure is controlled. Will continue to watch renal function and potassium on current regimen. Continue Lasix and spironolactone. Her blood pressure is better. Long-term, her prognosis is guarded. It would be helpful if she can get treatment for her sleep apnea sooner rather than later. It would be helpful if she could lose some weight, starting with about 10-20 pounds in the next 3 months. To get her to near ideal body weight would be great for many of these problems. I realize that may never happen. 09/04/16: Plan/recommendation: Seems to be less edematous. Blood pressure is better. Creatinine seems to stabilized at about 2.2. That may be her baseline. She may need to be slightly dry to prevent edema. Continue the Spironolactone 12.5 mg p.o. twice daily. It probably is helping. Current Visit: Yes (2) Hidradenitis suppurativa Status: Acute Current Visit: Yes (3) Uncontrolled diabetes mellitus Status: Chronic Current Visit: Yes (4) Uncontrolled hypertension Status: Chronic Current Visit: Yes Cardiology - PN: Subj Interval history: No chest pain or shortness of breath. She now feels edema in her abdomen and breast seems to be less. Exam (Progress Note) - Constitutional Vitals: Period Temp Pulse Resp BP Sys/Harper Pulse Ox Last 24 Hr 97.3 F-98.4 F 61-83 16-24 117-156/70-90 93-100 Exam: General appearance: no acute distress, morbidly obese - Head Head exam: Absent: abrasion, hematoma - Eye Eye exam: Absent: periorbital swelling, laceration to eyelids - Neck Neck exam: Absent: tenderness - Respiratory Respiratory exam: Present: clear to auscultation bilaterally, other (oxygen via nasal biprong). Absent: accessory muscle use, chest wall tenderness - Cardiovascular Cardiovascular exam: Present: regular rate and rhythm. Absent: bradycardia, tachycardia - GI/Abdominal GI/Abdominal exam: Present: normal bowel sounds, distended, firm, tenderness - Extremities Exam Extremities exam: Present: edema (1+ to bilateral lower extremities) - Neurological Exam Neurological exam: Present: alert, oriented X3 - Psychiatric Psychiatric exam: Present: normal affect, normal mood - Skin Skin exam: Present: warm, dry Result/EKG - Labs CBC & BMP: 09/04/16 03:55 09/04/16 03:55 Lab Results: I have reviewed the past 24 hour labs Labs: Laboratory Results - last 24 hr 09/02/16 09/03/16 09/04/16 07:03 20:24 03:55 WBC RBC Hgb Hct MCV MCH MCHC RDW Plt Count MPV Neut % (Auto) Lymph % (Auto) [place] % (Auto) Eos % (Auto) Baso % (Auto) Neut # (Auto) Lymph # (Auto) [place] # (Auto) Eos # (Auto) Baso # (Auto) Immature Gran % Nucleated RBC % Immature Gran # Nucleated RBCs # Platelet Estimate Hypochromasia Microcytosis Target Cells Sodium 136 Potassium 4.6 Chloride 100 Carbon Dioxide 32 Anion Gap 8.6 BUN 33 H Creatinine 2.10 H GFR Calculation 41 BUN/Creatinine Ratio 15.00 Glucose 141 H POC Glucose 149 H Calculated Osmolality 280.0 Calcium 8.4 L Phosphorus Magnesium Total Bilirubin AST ALT Alkaline Phosphatase Troponin I B-Natriuretic Peptide Total Protein Albumin Globulin Albumin/Globulin Ratio [id number] 164 09/04/16 09/04/16 09/04/16 03:55 03:55 03:55 WBC 8.1 RBC 3.64 L Hgb 8.7 L Hct 30.8 L MCV 84.6 L MCH 24 L MCHC 28.2 L RDW 21.1 H Plt Count 317 MPV 9.4 L Neut % (Auto) 79.4 H Lymph % (Auto) 10.3 L [place] % (Auto) 8.0 Eos % (Auto) 1.4 Baso % (Auto) 0.5 Neut # (Auto) 6.5 Lymph # (Auto) 0.8 L [place] # (Auto) 0.7 Eos # (Auto) 0.1 Baso # (Auto) 0.0 Immature Gran % 0.4 Nucleated RBC % 0.0 Immature Gran # 0.03 Nucleated RBCs # 0.00 Platelet Estimate Normal Hypochromasia 1+ Microcytosis 1+ Target Cells Few Sodium 137 Potassium 4.3 Chloride 99 Carbon Dioxide 35 H Anion Gap 7.3 BUN 32 H Creatinine 2.20 H GFR Calculation 39 BUN/Creatinine Ratio 14.00 Glucose 139 H POC Glucose Calculated Osmolality 281.8 Calcium 8.5 Phosphorus Magnesium Total Bilirubin 1.10 H AST 46 H ALT 45 Alkaline Phosphatase 268 H Troponin I 0.027 B-Natriuretic Peptide Total Protein 9.8 H Albumin 2.3 L Globulin 7.5 H Albumin/Globulin Ratio 0.3 L [id number] 09/04/16 09/04/16 09/04/16 03:55 03:55 07:19 WBC RBC Hgb Hct MCV MCH MCHC RDW Plt Count MPV Neut % (Auto) Lymph % (Auto) [place] % (Auto) Eos % (Auto) Baso % (Auto) Neut # (Auto) Lymph # (Auto) [place] # (Auto) Eos # (Auto) Baso # (Auto) Immature Gran % Nucleated RBC % Immature Gran # Nucleated RBCs # Platelet Estimate Hypochromasia Microcytosis Target Cells Sodium Potassium Chloride Carbon Dioxide Anion Gap BUN Creatinine GFR Calculation BUN/Creatinine Ratio Glucose POC Glucose 153 H Calculated Osmolality Calcium Phosphorus 3.4 Magnesium 2.0 Total Bilirubin AST ALT Alkaline Phosphatase Troponin I B-Natriuretic Peptide 383 H Total Protein Albumin Globulin Albumin/Globulin Ratio [id number] 09/04/16 11:11 WBC RBC Hgb Hct MCV MCH MCHC RDW Plt Count MPV Neut % (Auto) Lymph % (Auto) [place] % (Auto) Eos % (Auto) Baso % (Auto) Neut # (Auto) Lymph # (Auto) [place] # (Auto) Eos # (Auto) Baso # (Auto) Immature Gran % Nucleated RBC % Immature Gran # Nucleated RBCs # Platelet Estimate Hypochromasia Microcytosis Target Cells Sodium Potassium Chloride Carbon Dioxide Anion Gap BUN Creatinine GFR Calculation BUN/Creatinine Ratio Glucose POC Glucose 157 H Calculated Osmolality Calcium Phosphorus Magnesium Total Bilirubin AST ALT Alkaline Phosphatase Troponin I B-Natriuretic Peptide Total Protein Albumin Globulin Albumin/Globulin Ratio [id number] - EKG EKG results: interpreted by me
--- NOTE | 2016-09-04 17:13 | Gastrointestinal Progress Note ---
Assessment and Plan (1) Enlarged liver Status: Acute Assessment and plan: This patient has hepatomegaly likely due to excessive amounts of fat stores in the liver given the fact that she is viral hepatitis negative with a negative MELLISA and with no evidence of hemochromatosis on iron saturation. I will check alpha-1 antitrypsin level, and if elevations in the patient's bilirubin persists we may wish to get a liver biopsy in order to rule out significant fibrosis of the liver. I do not believe she likely has any cirrhosis yet, her platelet level is completely normal and her bilirubin is not that high. The alkaline phosphatase and bilirubin may simply be high because of her previous exposure Bactrim and idiopathic response of the liver to this antibiotic. She does have increase in ascites although certainly might be from cardiac source as well. I will check a ultrasound and see if there is ductal dilatation and establish at the if there is biliary sludge/stones. This was not commented upon in the CT scan. 09/03/16--The patient's liver size by ultrasound is smaller than it had been previously. The patient's moderate amount of ascites has also improved down to a "tiny amount". It looks like the gallbladder is present but does not have any cyst sludge or stones obvious. The vessels leading to and from the liver are patent, alkaline phosphatase is improving but is still elevated. We will check a GGT to see if this is elevated, if this is normal the elevation in alkaline phosphatase may be secondary to bone source. Again this elevation also could be due to the previous Bactrim exposure. I suspect that the increased size of the liver may also have some to do with the patient's size herself/fat deposition. The alpha-1 antitrypsin level is pending 09/04/16--GGT is pending, will check liver function tests again tomorrow to see if these are continuing to improve. We will likely hold off on liver biopsy this admission. Current Visit: Yes (2) Ascites Status: Acute Assessment and plan: I suspect this may be from cardiac source, given the lack of transaminase elevations in this patient. Agree with diuresis as long as her renal function continues to support this. We may want to avoid Bactrim at least in the short- term as the patient may have had an idiopathic response of her liver with her current level of jaundice due to this medication. We may end up requiring a liver biopsy in order to examine for eosinophils versus fibrosis and steatosis/ steatohepatitis versus sinusoidal congestion that may be secondary to right heart failure. No splenomegaly/thrombocytopenia are present which would tend to point towards portal hypertension. 09/03/16--The ascites amount is quite small at this point based on the ultrasound findings. Once again I suspect that the ascites may have more to do with the heart or prior medication exposure than the actual liver given the other biochemical parameters checked. We will continue to monitor. 09/04/16--Ascites has been improved with diuresis. Current Visit: Yes (3) Screening for colorectal cancer Status: Acute Assessment and plan: I agree that after the patient's current problems are addressed she could certainly be scheduled for colorectal cancer screening as an outpatient as part of her routine health maintenance. I will be happy to provide this service in the future. 09/04/16--We Will likely arrange this for the future once the patient's left the hospital and is stable. Current Visit: Yes Gastroenterology - PN: Subj Interval history: Eating a little bit better, one stool per day, still having mid abdominal upper and lower pain slightly more on the left side than the right. Exam (Progress Note) - Constitutional Vitals: Period Temp Pulse Resp BP Sys/Harper Pulse Ox Last 24 Hr 97.3 F-98.3 F 61-83 16-24 117-156/70-90 93-100 - Head Head exam: Present: normocephalic - Eye Eye exam: Present: EOMI - Respiratory Respiratory exam: Present: clear to auscultation bilaterally - Cardiovascular Cardiovascular exam: Present: regular rate and rhythm - GI/Abdominal GI/Abdominal exam: Present: distended, tenderness (Epigastric and mild periumbilical), soft. Absent: guarding, rebound - Extremities Exam Extremities exam: Present: edema - Neurological Exam Neurological exam: Present: alert, oriented X3 - Psychiatric Psychiatric exam: Present: depressed, flat affect - Skin Skin exam: Present: warm Results - Labs CBC & BMP: 09/04/16 03:55 09/04/16 03:55
[2016-09-04] MEDS: ENOXAPARIN 40 MG/0.4 ML SYRINGE SUBCUT SCH (20:53)
[2016-09-05] MEDS: ALBUTEROL/IPRATROPIUM 3 ML NEB RESP TX SCH ×4 (00:04→19:33)
[2016-09-05] MEDS: PIPERACILLIN/TAZOBACTAM 3,375 MG in SODIUM CHLORIDE 0.9% 100 ML IV SCH ×3 (00:24→16:36)
[2016-09-05 05:35] LABS: Basophils % 0.3 % (0.0-0.8); Eosinophils # 0.1 10*3/uL (0.0-0.87); Eosinophils % 1.8 % (0.00-10.9); Hematocrit 27.8 VOL% (35.7-47.0); Hemoglobin 8.1 GM/DL (12.0-16.0); Immature Granulocytes % 0.3 %; Immature Granulocytes Absolute 0.02 #; Lymphocytes # 0.8 10*3/uL (1.4-4.0); Lymphocytes % 10.8 % (21.3-54.2); Mean Corpuscular HGB Conc 29.1 GM/DL (32-36); Mean Corpuscular Hemoglobin 24 PG (27-34); Mean Corpuscular Volume 82.5 FL (87-102); Mean Platelet Volume 9.6 FL (9.6-12.0); Monocytes # 0.6 10*3/uL (0.11-0.8); Monocytes % 7.9 % (1.7-12.7); Neutrophils # 6.1 10*3/uL (1.4-7.4); Neutrophils % 78.9 % (38.7-73.9); Platelet Count 292 T/CUMM (130-400); Red Blood Count 3.37 MC/CUMM (3.8-5.5); White Blood Count 7.8 T/CUMM (4-12)
[2016-09-05 06:12] LABS: Calcium 8.3 MG/DL (8.5-10.1); Osmolality,Calculated 290.4 MOS/KG (273-304); Potassium 4.1 MMOL/L (3.5-5.1)
[2016-09-05 06:14] LABS: Albumin 2.1 G/DL (3.4-5.0); Bilirubin,Direct 0.5 MG/DL (0.0-0.20); Bilirubin,Indirect 0.7 MG/DL (0.0-1.0); Bilirubin,Total 1.2 MG/DL (0.2-1.0); Total Protein 8.7 G/DL (6.4-8.3)
[2016-09-05 06:16] LABS: Hypochromasia 1+; Microcytosis 1+; Platelet Estimate Adequate
[2016-09-05] MEDS: INSULIN REGULAR 100 UNIT/ML SUBCUT SCH ×4 (09:09→21:04)
[2016-09-05] MEDS: INSULIN NPH 100 UNIT/ML SUBCUT SCH ×2 (09:09→16:37)
[2016-09-05] MEDS: CARVEDILOL 6.25 MG TABLET PO SCH ×2 (09:10→17:36)
[2016-09-05] MEDS: SPIRONOLACTONE 25 MG TABLET PO SCH ×2 (09:12→21:04)
[2016-09-05] MEDS: PANTOPRAZOLE 40 MG TABLET PO SCH (09:13)
[2016-09-05] MEDS: CAPTOPRIL 6.25 MG TABLET PO SCH ×2 (09:13→23:34)
[2016-09-05] MEDS: FUROSEMIDE 40 MG/4 ML VIAL IV SCH ×2 (09:14→16:38)
--- NOTE | 2016-09-05 10:05 | Hospitalist Progress Note ---
Assessment and Plan (1) Generalized edema Status: Acute Assessment and plan: Edema has improved; continue diuresis. Continue Aldactone. Current Visit: Yes (2) Chronic kidney disease Status: Chronic Assessment and plan: Creatinine 2.10 today; unchanged from yesterday. Continue to monitor. Current Visit: Yes Qualifiers: Chronic kidney disease stage: stage 3 (moderate) Qualified Code(s): N18.3 - Chronic kidney disease, stage 3 (moderate) (3) Uncontrolled diabetes mellitus Status: Chronic Assessment and plan: Continue accuchecks and sliding coverage as previously ordered. Current Visit: Yes Qualifiers: Chronic kidney disease stage: stage 3 (moderate) (4) Uncontrolled hypertension Status: Chronic Assessment and plan: Blood pressures stable; will continue to manage. Current Visit: Yes (5) Hidradenitis suppurativa Status: Acute Assessment and plan: Continue antibiotics as previously ordered. Current Visit: Yes Hospitalist: Subjective Interval history: Patient seen and examined. No acute overnight issues. Continues to report right upper quadrant abdominal pain. Exam - Constitutional Vitals: Period Temp Pulse Resp BP Sys/Harper Pulse Ox Last 24 Hr 97.3 F-99.2 F 61-83 18-22 110-156/53-86 95-100 General appearance: no acute distress, morbidly obese - Head Head exam: Present: normal inspection, normocephalic, atraumatic - Eye Eye exam: Present: EOMI. Absent: conjunctival injection, nystagmus, periorbital swelling, scleral icterus Pupils: Present: FLAKITA, normal accommodation - ENT ENT exam: Present: normal exam - Neck Neck exam: Present: normal inspection. Absent: lymphadenopathy, meningismus, tenderness, thyromegaly - Respiratory Respiratory exam: Present: decreased breath sounds. Absent: accessory muscle use, rales, rhonchi, stridor, wheezes - Cardiovascular Cardiovascular exam: Present: regular rate and rhythm, tachycardia. Absent: diastolic murmur, gallop, JVD, rubs, systolic murmur - GI/Abdominal GI/Abdominal exam: Present: normal bowel sounds, tenderness, soft (pain upon palpation to RUQ) - Extremities Exam Extremities exam: Present: normal inspection, edema (Trace edema) - Back Exam Back exam: Present: normal inspection - Neurological Exam Neurological exam: Present: alert, oriented X3 - Psychiatric Psychiatric exam: Present: normal affect, normal mood - Skin Skin exam: Present: normal color, dry Results - Labs CBC & BMP: 09/05/16 04:06 09/05/16 04:06 Lab Results: I have reviewed the past 24 hour labs
--- NOTE | 2016-09-05 16:48 | Gastrointestinal Progress Note ---
Assessment and Plan (1) Enlarged liver Status: Acute Assessment and plan: This patient has hepatomegaly likely due to excessive amounts of fat stores in the liver given the fact that she is viral hepatitis negative with a negative MELLISA and with no evidence of hemochromatosis on iron saturation. I will check alpha-1 antitrypsin level, and if elevations in the patient's bilirubin persists we may wish to get a liver biopsy in order to rule out significant fibrosis of the liver. I do not believe she likely has any cirrhosis yet, her platelet level is completely normal and her bilirubin is not that high. The alkaline phosphatase and bilirubin may simply be high because of her previous exposure Bactrim and idiopathic response of the liver to this antibiotic. She does have increase in ascites although certainly might be from cardiac source as well. I will check a ultrasound and see if there is ductal dilatation and establish at the if there is biliary sludge/stones. This was not commented upon in the CT scan. 09/03/16--The patient's liver size by ultrasound is smaller than it had been previously. The patient's moderate amount of ascites has also improved down to a "tiny amount". It looks like the gallbladder is present but does not have any cyst sludge or stones obvious. The vessels leading to and from the liver are patent, alkaline phosphatase is improving but is still elevated. We will check a GGT to see if this is elevated, if this is normal the elevation in alkaline phosphatase may be secondary to bone source. Again this elevation also could be due to the previous Bactrim exposure. I suspect that the increased size of the liver may also have some to do with the patient's size herself/fat deposition. The alpha-1 antitrypsin level is pending 09/04/16--GGT is pending, will check liver function tests again tomorrow to see if these are continuing to improve. We will likely hold off on liver biopsy this admission. 09/05/16--Liver function tests show a slightly elevated total bilirubin that is mostly indirect consistent with she will bears, ALT and AST are both within normal limits and alkaline phosphatase is elevated but improved from earlier in the admission. I do not see an indication for liver biopsy. We are waiting the GGT level to come back. Alpha-1 antitrypsin level is normal, no hemochromatosis as the iron saturation is only 8%, MELLISA is negative and the alpha -1 antitrypsin level is normal as well. Hepatitis panel is negative for hepatitis A, B, and C on 09/02/16. Current Visit: Yes (2) Ascites Status: Acute Assessment and plan: I suspect this may be from cardiac source, given the lack of transaminase elevations in this patient. Agree with diuresis as long as her renal function continues to support this. We may want to avoid Bactrim at least in the short- term as the patient may have had an idiopathic response of her liver with her current level of jaundice due to this medication. We may end up requiring a liver biopsy in order to examine for eosinophils versus fibrosis and steatosis/ steatohepatitis versus sinusoidal congestion that may be secondary to right heart failure. No splenomegaly/thrombocytopenia are present which would tend to point towards portal hypertension. 09/03/16--The ascites amount is quite small at this point based on the ultrasound findings. Once again I suspect that the ascites may have more to do with the heart or prior medication exposure than the actual liver given the other biochemical parameters checked. We will continue to monitor. 09/04/16--Ascites has been improved with diuresis. 09/05/16--the patient is still complaining of swelling in her breast this appears to mostly to be active on the left side. Not sure why she is experiencing gynecomastia in this 1 breast, question mastitis? Ascites seems overall improved with diuresis. Current Visit: Yes (3) Screening for colorectal cancer Status: Acute Assessment and plan: I agree that after the patient's current problems are addressed she could certainly be scheduled for colorectal cancer screening as an outpatient as part of her routine health maintenance. I will be happy to provide this service in the future. 09/04/16--We Will likely arrange this for the future once the patient's left the hospital and is stable. 09/05/16--We should pursue this in the future but this can be arranged as an outpatient. Current Visit: Yes Gastroenterology - PN: Subj Interval history: States that her stomach still swollen and painful but that she otherwise feels pretty good at least from a GI standpoint. She is still complaining about her breast being edematous and swollen--I am not sure I can help her with that. Exam (Progress Note) - Constitutional Vitals: Period Temp Pulse Resp BP Sys/Harper Pulse Ox Last 24 Hr 97.9 F-99.2 F 69-82 17-22 110-137/53-71 95-100 - Head Head exam: Present: normocephalic - Eye Eye exam: Present: EOMI - Respiratory Respiratory exam: Present: clear to auscultation bilaterally - Cardiovascular Cardiovascular exam: Present: regular rate and rhythm - GI/Abdominal GI/Abdominal exam: Present: normal bowel sounds, soft. Absent: distended, guarding, tenderness, rebound - Neurological Exam Neurological exam: Present: alert, oriented X3 - Psychiatric Psychiatric exam: Present: normal affect, normal mood - Skin Skin exam: Present: warm Results - Labs CBC & BMP: 09/05/16 04:06 09/05/16 04:06
--- NOTE | 2016-09-05 19:17 | Cardiology Progress Note ---
Assessment and Plan (1) Acute diastolic CHF (congestive heart failure) Status: Chronic Assessment and plan: 09/01/2016: Assessment/plan/recommendation:Her generalized edema could be in part due to diastolic or systolic dysfunction, but this is out of proportion to what I see on the echocardiogram. I believe it is also related to her low albumin and probable liver dysfunction in addition to suspected untreated sleep apnea Plan/records: Agree with change atenolol to carvedilol--would be better for the LV systolic dysfunction and her diabetes Will reduce the more powerful lisinopril to a milder Capoten, shorter acting, in case there are problems with this medication--i.e. renal insufficiency, hyperkalemia We will add spironolactone 12.5 mg p.o. twice daily. Will have hold parameters. Will consult Dr. Ty regarding evaluation of sleep apnea [she has snoring and excessive daytime somnolence but does not know about apnea]. Meanwhile, I suggested the patient that she sleep with a head of the bed up 30 or 40 as a surrogate for CPAP. Will get a BMP every morning 3 on the spironolactone. Her prognosis is guarded. 09/02/2016: Assessment/plan/recommendation: edema of the legs is slightly better. Albumin has increased slightly. Her blood pressure is slightly better. It is thought she has sleep apnea. She will get evaluation and treatment. Will continue spironolactone and furosemide. Will watch renal function and potassium. She may need to be slightly dry to keep some of her edema out of her body. The above was discussed with the patient and her family. They voiced understanding and agree with the plan. 09/03/16: Plan/recommendation: Less edema in the legs. Abdomen breast edema is unchanged. Chemistry more for creatinine increased to 2.0. She may need to be slightly dry to keep her from being so edematous. Albumin remains low at 2.1. Blood pressure is controlled. Will continue to watch renal function and potassium on current regimen. Continue Lasix and spironolactone. Her blood pressure is better. Long-term, her prognosis is guarded. It would be helpful if she can get treatment for her sleep apnea sooner rather than later. It would be helpful if she could lose some weight, starting with about 10-20 pounds in the next 3 months. To get her to near ideal body weight would be great for many of these problems. I realize that may never happen. 09/04/16: Plan/recommendation: Seems to be less edematous. Blood pressure is better. Creatinine seems to stabilized at about 2.2. That may be her baseline. She may need to be slightly dry to prevent edema. Continue the Spironolactone 12.5 mg p.o. twice daily. It probably is helping. 09/05/16: Assessment/plan/recommendation: Less edematous. Electrolytes and creatinine are okay on the new medications. I have no further recommendation. I will sign off. Please call if cardiology is needed. The patient does not need to follow with cardiology. She can follow with her primary care physician at [facility] Thank you for allowing me to participate in this patient's care Current Visit: Yes (2) Hidradenitis suppurativa Status: Acute Current Visit: Yes (3) Uncontrolled diabetes mellitus Status: Chronic Current Visit: Yes Qualifiers: Chronic kidney disease stage: stage 3 (moderate) (4) Uncontrolled hypertension Status: Chronic Current Visit: Yes Cardiology - PN: Subj Interval history: No chest pain or shortness of breath. Has less edema not just of the legs but of abdomen and breast area. Exam (Progress Note) - Constitutional Vitals: Period Temp Pulse Resp BP Sys/Harper Pulse Ox Last 24 Hr 97.3 F-99.2 F 69-82 17-22 110-175/53-79 93-100 Exam: General appearance: no acute distress, morbidly obese - Head Head exam: Absent: abrasion, hematoma - Eye Eye exam: Absent: periorbital swelling, laceration to eyelids - Neck Neck exam: Absent: tenderness - Respiratory Respiratory exam: Present: clear to auscultation bilaterally, other (oxygen via nasal biprong). Absent: accessory muscle use, chest wall tenderness - Cardiovascular Cardiovascular exam: Present: regular rate and rhythm. Absent: bradycardia, tachycardia - GI/Abdominal GI/Abdominal exam: Present: normal bowel sounds, distended, firm, tenderness - Extremities Exam Extremities exam: Present: edema (1+ to bilateral lower extremities) - Neurological Exam Neurological exam: Present: alert, oriented X3 - Psychiatric Psychiatric exam: Present: normal affect, normal mood - Skin Skin exam: Present: warm, dry Result/EKG - Labs CBC & BMP: 09/05/16 04:06 09/05/16 04:06 Lab Results: I have reviewed the past 24 hour labs Labs: Laboratory Results - last 24 hr 09/04/16 09/05/16 09/05/16 19:53 04:06 04:06 WBC 7.8 RBC 3.37 L Hgb 8.1 L Hct 27.8 L MCV 82.5 L MCH 24 L MCHC 29.1 L RDW 21.0 H Plt Count 292 MPV 9.6 Neut % (Auto) 78.9 H Lymph % (Auto) 10.8 L Andrews % (Auto) 7.9 Eos % (Auto) 1.8 Baso % (Auto) 0.3 Neut # (Auto) 6.1 Lymph # (Auto) 0.8 L Andrews # (Auto) 0.6 Eos # (Auto) 0.1 Baso # (Auto) 0.0 Immature Gran % 0.3 Nucleated RBC % 0.0 Immature Gran # 0.02 Nucleated RBCs # 0.00 Platelet Estimate Adequate Hypochromasia 1+ Microcytosis 1+ Morphology Comment Sodium Potassium Chloride Carbon Dioxide Anion Gap BUN Creatinine GFR Calculation BUN/Creatinine Ratio Glucose POC Glucose 226 H Calculated Osmolality Calcium Total Bilirubin 1.20 H Direct Bilirubin 0.50 H Indirect Bilirubin 0.7 AST 31 ALT 35 Alkaline Phosphatase 239 H Total Protein 8.7 H Albumin 2.1 L 09/05/16 09/05/16 09/05/16 04:06 08:14 11:22 WBC RBC Hgb Hct MCV MCH MCHC RDW Plt Count MPV Neut % (Auto) Lymph % (Auto) Andrews % (Auto) Eos % (Auto) Baso % (Auto) Neut # (Auto) Lymph # (Auto) Andrews # (Auto) Eos # (Auto) Baso # (Auto) Immature Gran % Nucleated RBC % Immature Gran # Nucleated RBCs # Platelet Estimate Hypochromasia Microcytosis Morphology Comment Sodium 140 Potassium 4.1 Chloride 100 Carbon Dioxide 34 H Anion Gap 10.1 BUN 32 H Creatinine 2.10 H GFR Calculation 41 BUN/Creatinine Ratio 15.00 Glucose 180 H POC Glucose 154 H 199 H Calculated Osmolality 290.4 Calcium 8.3 L Total Bilirubin Direct Bilirubin Indirect Bilirubin AST ALT Alkaline Phosphatase Total Protein Albumin 09/05/16 09/05/16 15:48 18:45 WBC RBC Hgb Hct MCV MCH MCHC RDW Plt Count MPV Neut % (Auto) Lymph % (Auto) Andrews % (Auto) Eos % (Auto) Baso % (Auto) Neut # (Auto) Lymph # (Auto) Andrews # (Auto) Eos # (Auto) Baso # (Auto) Immature Gran % Nucleated RBC % Immature Gran # Nucleated RBCs # Platelet Estimate Hypochromasia Microcytosis Morphology Comment Sodium Potassium Chloride Carbon Dioxide Anion Gap BUN Creatinine GFR Calculation BUN/Creatinine Ratio Glucose POC Glucose 163 H 215 H Calculated Osmolality Calcium Total Bilirubin Direct Bilirubin Indirect Bilirubin AST ALT Alkaline Phosphatase Total Protein Albumin Specialty Discharge - Follow Up or Referrals Follow up with: [facility] [Other] - 2 Weeks
[2016-09-05] MEDS: ENOXAPARIN 40 MG/0.4 ML SYRINGE SUBCUT SCH (21:04)
[2016-09-06] MEDS: ALBUTEROL/IPRATROPIUM 3 ML NEB RESP TX SCH ×4 (00:05→18:59)
[2016-09-06] MEDS: PIPERACILLIN/TAZOBACTAM 3,375 MG in SODIUM CHLORIDE 0.9% 100 ML IV SCH ×2 (00:26→08:22)
[2016-09-06 05:59] LABS: Basophils % 0.2 % (0.0-0.8); Eosinophils # 0.2 10*3/uL (0.0-0.87); Eosinophils % 2.6 % (0.00-10.9); Hematocrit 28.6 VOL% (35.7-47.0); Immature Granulocytes % 0.4 %; Immature Granulocytes Absolute 0.03 #; Lymphocytes # 0.7 10*3/uL (1.4-4.0); Mean Corpuscular Hemoglobin 24 PG (27-34); Mean Corpuscular Volume 84.9 FL (87-102); Mean Platelet Volume 9.6 FL (9.6-12.0); Monocytes # 0.6 10*3/uL (0.11-0.8); Monocytes % 7.4 % (1.7-12.7); Neutrophils # 6.5 10*3/uL (1.4-7.4); Neutrophils % 80.4 % (38.7-73.9); Platelet Count 290 T/CUMM (130-400); Red Blood Count 3.37 MC/CUMM (3.8-5.5); Red Cell Distribution Width 21.2 % (9.3-17.3); White Blood Count 8.1 T/CUMM (4-12)
[2016-09-06 06:38] LABS: Albumin 2.1 G/DL (3.4-5.0); Bilirubin,Total 1.1 MG/DL (0.2-1.0); Calcium 8.1 MG/DL (8.5-10.1); Osmolality,Calculated 286.5 MOS/KG (273-304); Phosphorous 2.8 MG/DL (2.5-4.9); Potassium 4.2 MMOL/L (3.5-5.1); Total Protein 9.2 G/DL (6.4-8.3)
[2016-09-06 07:09] LABS: Hypochromasia 1+; Microcytosis 1+; Ovalocytes Slight; Platelet Estimate Adequate
--- NOTE | 2016-09-06 07:20 | General Surgery Progress Note ---
Assessment and Plan (1) Hidradenitis suppurativa Status: Acute Assessment and plan: Hidradenitis is improving slowly. Continue antibiotics. I will see the patient a week after discharge. Current Visit: Yes Subjective Patient reports: Present: no new complaints, afebrile Exam - Constitutional Vitals: Period Temp Pulse Resp BP Sys/Harper Pulse Ox Last 24 Hr 97.3 F-98.8 F 73-82 17-20 112-175/64-79 93-100 General appearance: no acute distress, morbidly obese - Head Head exam: Present: normal inspection, normocephalic - Eye Eye exam: Present: EOMI Pupils: Present: FLAKITA - ENT ENT exam: Present: normal exam Mouth exam: Present: normal external inspection, normal voice - Neck Neck exam: Present: normal inspection, trachea midline - Respiratory Respiratory exam: Present: clear to auscultation bilaterally. Absent: accessory muscle use, chest wall tenderness - Cardiovascular Cardiovascular exam: Present: RRR. Absent: systolic murmur, tachycardia - Breasts Breasts: other (There is hidradenitis of the right axilla that extends onto the breast tissue on the right side) - GI/Abdominal GI/Abdominal exam: Present: normal bowel sounds, soft. Absent: tenderness, rebound - Extremities Exam Extremities exam: Present: normal capillary refill, other (The patient has hidradenitis in the groin but it is improved as far as the amount of purulent drainage.) - Back Exam Back exam: Present: normal inspection - Neurological Exam Neurological exam: Present: alert, oriented X3 Speech: Present: normal - Skin Skin exam: Present: normal color, warm Results - Labs CBC & BMP: 09/06/16 04:47 09/06/16 04:47 Specialty Discharge - Follow Up or Referrals Follow up with: [facility] [Other] - 2 Weeks Gus Arriola MD [Physician] - 1 Week (follow-up one week after discharge from the hospital)
[2016-09-06] MEDS: INSULIN NPH 100 UNIT/ML SUBCUT SCH ×2 (08:18→16:52)
[2016-09-06] MEDS: INSULIN REGULAR 100 UNIT/ML SUBCUT SCH ×4 (08:19→21:09)
[2016-09-06] MEDS: FUROSEMIDE 40 MG/4 ML VIAL IV SCH ×2 (08:20→15:37)
[2016-09-06] MEDS: SPIRONOLACTONE 25 MG TABLET PO SCH ×2 (08:21→21:09)
[2016-09-06] MEDS: CARVEDILOL 6.25 MG TABLET PO SCH ×2 (08:21→16:52)
[2016-09-06] MEDS: PANTOPRAZOLE 40 MG TABLET PO SCH (08:21)
[2016-09-06] MEDS: CAPTOPRIL 6.25 MG TABLET PO SCH ×2 (08:21→21:10)
--- NOTE | 2016-09-06 09:00 | XRay Report ---
Referring Physician: TIMOTHY Connolly Exam: XR chest 1V portable Date: September 06, 2016 at 6:17 AM Reason: COPD Comparison: Chest one view portable September 04, 2016 Findings: The cardiac silhouette is again enlarged. The interstitial markings are prominent bilaterally. This could represent mild pulmonary edema. No pneumothorax or pleural effusion is identified, but there is mild elevation of the right hemidiaphragm. The osseous structures appear stable. Impression: There has been no significant change. PROCEDURE INTERPRETED AT [facility] DEPARTMENT OF RADIOLOGY Final Report Signed by: Dr. Sp Amanda
[2016-09-06] MEDS ORDERED: VANCOMYCIN INJ 2,000 MG in SODIUM CHLORIDE 0.9% 500 ML IV ONE (09:30)
--- NOTE | 2016-09-06 12:39 | Sleep Medicine Progress Note ---
Assessment and Plan (1) Obstructive sleep apnea Status: Acute Assessment and plan: We will continue with auto CPAP but will need to follow-up on mask fit and help adjust to CPAP. She may need formal re-titration at some point if she continues to have uncontrolled sleep apnea. She may need case management assistance to help with funding for CPAP therapy and to see if she qualifies for insurance. Current Visit: Yes Sleep Medicine Subjective Interval history: I reviewed Ms. Olvera's consult note from last week and agreed. I did review her sleep study that was done last week and she did have moderate obstructive sleep apnea. She has been started on empiric CPAP therapy with auto titration CPAP but thus far, is having poor results. She is having a difficult time tolerating CPAP states that she does not like the mask. Her longest usage of it has been 3 hours and 12 minutes and she is now averaging about an hour and 8 minutes. Her average pressures are ranging between 9-12 cm. She still has uncontrolled sleep apnea with these settings, having an AHI of 6. We will need to continue to work with her to help with compliance and I will have sleep techs check on her mask fit. Exam (Progress Note) - Constitutional Vitals: Period Temp Pulse Resp BP Sys/Harper Pulse Ox Last 24 Hr 97.3 F-98.8 F 73-82 17-20 112-175/67-79 93-99 Exam: She is alert and responsive in no acute distress. Chest with symmetrical breath sounds with few scattered crackles. Cardiac exam reveals a regular rhythm without murmur or gallop. Abdomen obese nontender extremities with chronic venous insufficiency changes. Neurologically, she is grossly intact and answers questions appropriately. Results - Labs CBC & BMP: 09/06/16 04:47 09/06/16 04:47 Lab Results: I have reviewed the past 24 hour labs Specialty Discharge - Follow Up or Referrals Follow up with: [facility] [Other] - 2 Weeks Gus Arriola MD [Physician] - 1 Week (follow-up one week after discharge from the hospital)
--- NOTE | 2016-09-06 15:18 | Hospitalist Progress Note ---
Assessment and Plan (1) Uncontrolled hypertension Status: Chronic Current Visit: Yes (2) Hidradenitis suppurativa Status: Acute Assessment and plan: Surgery following. Continue antibiotics Current Visit: Yes (3) Uncontrolled diabetes mellitus Status: Chronic Current Visit: Yes Qualifiers: Chronic kidney disease stage: stage 3 (moderate) (4) Acute diastolic CHF (congestive heart failure) Status: Chronic Assessment and plan: Lasix 40 IV BID Spironolactone Current Visit: Yes Hospitalist: Subjective Interval history: No acute events overnight. Reports that she feels better except for left breast and left abdomen pain and swelling. Creatinine is stable. Continue lasix for now. Will switch to po antibiotics today. Exam - Constitutional Vitals: Period Temp Pulse Resp BP Sys/Harper Pulse Ox Last 24 Hr 97.3 F-98.8 F 73-80 18-20 112-175/67-79 93-99 General appearance: over weight - Head Head exam: Present: normocephalic, atraumatic - Eye Eye exam: Present: EOMI Pupils: Present: FLAKITA - ENT ENT exam: Present: normal exam - Neck Neck exam: Present: normal inspection - Respiratory Respiratory exam: Present: clear to auscultation bilaterally. Absent: rhonchi, wheezes - Cardiovascular Cardiovascular exam: Present: regular rate and rhythm - GI/Abdominal GI/Abdominal exam: Present: normal bowel sounds, soft. Absent: tenderness, rebound - Extremities Exam Extremities exam: Present: normal inspection - Back Exam Back exam: Present: normal inspection - Neurological Exam Neurological exam: Present: alert, oriented X3 - Psychiatric Psychiatric exam: Present: normal affect, normal mood - Skin Skin exam: Present: warm, intact Results - Labs CBC & BMP: 09/06/16 04:47 09/06/16 04:47 Specialty Discharge - Follow Up or Referrals Follow up with: [facility] [Other] - 2 Weeks Gus Arriola MD [Physician] - 1 Week (follow-up one week after discharge from the hospital)
[2016-09-06] MEDS: metOLazone 2.5 MG TABLET PO SCH (15:37)
--- NOTE | 2016-09-06 17:57 | Gastrointestinal Progress Note ---
Assessment and Plan (1) Enlarged liver Status: Acute Assessment and plan: This patient has hepatomegaly likely due to excessive amounts of fat stores in the liver given the fact that she is viral hepatitis negative with a negative MELLISA and with no evidence of hemochromatosis on iron saturation. I will check alpha-1 antitrypsin level, and if elevations in the patient's bilirubin persists we may wish to get a liver biopsy in order to rule out significant fibrosis of the liver. I do not believe she likely has any cirrhosis yet, her platelet level is completely normal and her bilirubin is not that high. The alkaline phosphatase and bilirubin may simply be high because of her previous exposure Bactrim and idiopathic response of the liver to this antibiotic. She does have increase in ascites although certainly might be from cardiac source as well. I will check a ultrasound and see if there is ductal dilatation and establish at the if there is biliary sludge/stones. This was not commented upon in the CT scan. 09/03/16--The patient's liver size by ultrasound is smaller than it had been previously. The patient's moderate amount of ascites has also improved down to a "tiny amount". It looks like the gallbladder is present but does not have any cyst sludge or stones obvious. The vessels leading to and from the liver are patent, alkaline phosphatase is improving but is still elevated. We will check a GGT to see if this is elevated, if this is normal the elevation in alkaline phosphatase may be secondary to bone source. Again this elevation also could be due to the previous Bactrim exposure. I suspect that the increased size of the liver may also have some to do with the patient's size herself/fat deposition. The alpha-1 antitrypsin level is pending 09/04/16--GGT is pending, will check liver function tests again tomorrow to see if these are continuing to improve. We will likely hold off on liver biopsy this admission. 09/05/16--Liver function tests show a slightly elevated total bilirubin that is mostly indirect consistent with she will bears, ALT and AST are both within normal limits and alkaline phosphatase is elevated but improved from earlier in the admission. I do not see an indication for liver biopsy. We are waiting the GGT level to come back. Alpha-1 antitrypsin level is normal, no hemochromatosis as the iron saturation is only 8%, MELLISA is negative and the alpha -1 antitrypsin level is normal as well. Hepatitis panel is negative for hepatitis A, B, and C on 09/02/16. 09/06/16--The patient can certainly follow up with me as an outpatient for continued liver function tests but these seem so minimal at this point I am not feeling like we need to pursue this any further. Current Visit: Yes (2) Ascites Status: Acute Assessment and plan: I suspect this may be from cardiac source, given the lack of transaminase elevations in this patient. Agree with diuresis as long as her renal function continues to support this. We may want to avoid Bactrim at least in the short- term as the patient may have had an idiopathic response of her liver with her current level of jaundice due to this medication. We may end up requiring a liver biopsy in order to examine for eosinophils versus fibrosis and steatosis/ steatohepatitis versus sinusoidal congestion that may be secondary to right heart failure. No splenomegaly/thrombocytopenia are present which would tend to point towards portal hypertension. 09/03/16--The ascites amount is quite small at this point based on the ultrasound findings. Once again I suspect that the ascites may have more to do with the heart or prior medication exposure than the actual liver given the other biochemical parameters checked. We will continue to monitor. 09/04/16--Ascites has been improved with diuresis. 09/05/16--the patient is still complaining of swelling in her breast this appears to mostly to be active on the left side. Not sure why she is experiencing gynecomastia in this 1 breast, question mastitis? Ascites seems overall improved with diuresis. 09/06/16--there is essentially very little to no ascites noted on her last ultrasound evaluation. She is continues to diuresis since that time. No further recommendations concerning her prior ascites are made. Current Visit: Yes (3) Screening for colorectal cancer Status: Acute Assessment and plan: I agree that after the patient's current problems are addressed she could certainly be scheduled for colorectal cancer screening as an outpatient as part of her routine health maintenance. I will be happy to provide this service in the future. 09/04/16--We Will likely arrange this for the future once the patient's left the hospital and is stable. 09/05/16--We should pursue this in the future but this can be arranged as an outpatient. 09/06/16--We can perform colorectal cancer screening in the future if the patient desires this. We will have her follow-up in my office as per above. Thank you for the opportunity meet this pleasant patient, I will be signing off at this time. Current Visit: Yes Gastroenterology - PN: Subj Interval history: Patient slightly better. Exam (Progress Note) - Constitutional Vitals: Period Temp Pulse Resp BP Sys/Harper Pulse Ox Last 24 Hr 97.8 F-98.8 F 73-80 18-20 112-143/67-75 94-99 General appearance: mild distress - Head Head exam: Present: normocephalic - Eye Eye exam: Present: EOMI - Respiratory Respiratory exam: Present: clear to auscultation bilaterally. Absent: wheezes - Cardiovascular Cardiovascular exam: Present: regular rate and rhythm - GI/Abdominal GI/Abdominal exam: Present: normal bowel sounds, distended, tenderness ( Periumbilical pain, improved), soft. Absent: guarding, rebound - Neurological Exam Neurological exam: Present: alert, oriented X3 - Skin Skin exam: Present: warm Results - Labs CBC & BMP: 09/06/16 04:47 09/06/16 04:47 Specialty Discharge - Follow Up or Referrals Follow up with: [facility] [Other] - 2 Weeks Gus Arriola MD [Physician] - 1 Week (follow-up one week after discharge from the hospital)
[2016-09-06] MEDS: DOXYCYCLINE HYCLATE 100 MG CAPSULE PO SCH (21:10)
[2016-09-06] MEDS: ENOXAPARIN 40 MG/0.4 ML SYRINGE SUBCUT SCH (21:10)
[2016-09-07 06:56] LABS: Basophils % 0.3 % (0.0-0.8); Eosinophils # 0.3 10*3/uL (0.0-0.87); Eosinophils % 3.6 % (0.00-10.9); Hematocrit 27.2 VOL% (35.7-47.0); Hemoglobin 7.9 GM/DL (12.0-16.0); Immature Granulocytes % 0.4 %; Immature Granulocytes Absolute 0.03 #; Lymphocytes # 0.6 10*3/uL (1.4-4.0); Lymphocytes % 8.5 % (21.3-54.2); Mean Corpuscular Hemoglobin 24 PG (27-34); Mean Corpuscular Volume 82.9 FL (87-102); Mean Platelet Volume 9.5 FL (9.6-12.0); Monocytes # 0.6 10*3/uL (0.11-0.8); Monocytes % 7.8 % (1.7-12.7); Neutrophils % 79.4 % (38.7-73.9); Platelet Count 270 T/CUMM (130-400); Red Blood Count 3.28 MC/CUMM (3.8-5.5); Red Cell Distribution Width 21.2 % (9.3-17.3); White Blood Count 7.6 T/CUMM (4-12)
[2016-09-07 07:12] LABS: Calcium 8.5 MG/DL (8.5-10.1); Magnesium 1.9 MG/DL (1.8-2.4); Osmolality,Calculated 287.3 MOS/KG (273-304); Potassium 3.9 MMOL/L (3.5-5.1)
[2016-09-07] MEDS: ALBUTEROL/IPRATROPIUM 3 ML NEB RESP TX SCH ×4 (07:32→18:40)
[2016-09-07] MEDS: FUROSEMIDE 40 MG/4 ML VIAL IV SCH ×2 (08:27→17:10)
[2016-09-07] MEDS: INSULIN NPH 100 UNIT/ML SUBCUT SCH ×2 (08:27→17:11)
[2016-09-07] MEDS: INSULIN REGULAR 100 UNIT/ML SUBCUT SCH ×4 (08:28→20:54)
[2016-09-07] MEDS: BISACODYL 5 MG TABLET PO PRN (08:29)
[2016-09-07] MEDS: DOXYCYCLINE HYCLATE 100 MG CAPSULE PO SCH ×2 (08:29→20:54)
[2016-09-07] MEDS: CARVEDILOL 6.25 MG TABLET PO SCH ×2 (08:29→17:16)
[2016-09-07] MEDS: SPIRONOLACTONE 25 MG TABLET PO SCH ×2 (08:29→20:54)
[2016-09-07] MEDS: PANTOPRAZOLE 40 MG TABLET PO SCH (08:29)
[2016-09-07] MEDS: CAPTOPRIL 6.25 MG TABLET PO SCH ×2 (08:31→20:56)
--- NOTE | 2016-09-07 12:01 | Hospitalist Progress Note ---
Assessment and Plan (1) Uncontrolled hypertension Status: Chronic Current Visit: Yes (2) Hidradenitis suppurativa Status: Acute Assessment and plan: Surgery following. Continue antibiotics. Switched to po yesterday. Current Visit: Yes (3) Uncontrolled diabetes mellitus Status: Chronic Current Visit: Yes Qualifiers: Chronic kidney disease stage: stage 3 (moderate) (4) Acute diastolic CHF (congestive heart failure) Status: Chronic Assessment and plan: Lasix 40 IV BID, added metolazone Spironolactone Current Visit: Yes Hospitalist: Subjective Interval history: Patient feeling better. Edema is improving, more so of right breast and abdomen than left. Added metolazone yesterday with some improvement. Probable discharge soon. Exam - Constitutional Vitals: Period Temp Pulse Resp BP Sys/Harper Pulse Ox Last 24 Hr 98.0 F-99.1 F 72-88 16-20 132-172/64-77 95-100 General appearance: over weight - Head Head exam: Present: normocephalic, atraumatic - Eye Eye exam: Present: EOMI Pupils: Present: FLAKITA - ENT ENT exam: Present: normal exam - Neck Neck exam: Present: normal inspection - Respiratory Respiratory exam: Present: clear to auscultation bilaterally. Absent: rhonchi, wheezes - Cardiovascular Cardiovascular exam: Present: regular rate and rhythm - GI/Abdominal GI/Abdominal exam: Present: normal bowel sounds, soft. Absent: tenderness, rebound - Extremities Exam Extremities exam: Present: normal inspection - Back Exam Back exam: Present: normal inspection - Neurological Exam Neurological exam: Present: alert, oriented X3 - Psychiatric Psychiatric exam: Present: normal affect, normal mood - Skin Skin exam: Present: warm, intact Results - Labs CBC & BMP: 09/07/16 05:35 09/07/16 05:35 Specialty Discharge - Follow Up or Referrals Follow up with: [facility] [Other] - 2 Weeks Gus Arriola MD [Physician] - 1 Week (follow-up one week after discharge from the hospital)
[2016-09-07] MEDS: metOLazone 2.5 MG TABLET PO SCH (12:18)
--- NOTE | 2016-09-07 13:09 | Sleep Medicine Progress Note ---
Assessment and Plan (1) Obstructive sleep apnea Status: Acute Assessment and plan: Continue CPAP therapy for obstructive sleep apnea. Schedule follow-up with sleep attacks for mask fit and instructions on CPAP usage. Current Visit: Yes Sleep Medicine Subjective Interval history: Patient did not use CPAP last night. She states no one came in to help her put it on. She should understand how to put this on. We will continue to work with her on compliance with CPAP therapy for obstructive sleep apnea. Exam (Progress Note) - Constitutional Vitals: Period Temp Pulse Resp BP Sys/Harper Pulse Ox Last 24 Hr 98.0 F-99.1 F 72-88 16-20 137-172/64-83 95-100 Results - Labs CBC & BMP: 09/07/16 05:35 09/07/16 05:35 Lab Results: I have reviewed the past 24 hour labs Specialty Discharge - Follow Up or Referrals Follow up with: [facility] [Other] - 2 Weeks Gus Arriola MD [Physician] - 1 Week (follow-up one week after discharge from the hospital)
[2016-09-07] MEDS: ENOXAPARIN 40 MG/0.4 ML SYRINGE SUBCUT SCH (20:55)
[2016-09-08] MEDS: ALBUTEROL/IPRATROPIUM 3 ML NEB RESP TX SCH ×4 (00:20→19:29)
[2016-09-08 06:58] LABS: Calcium 8.9 MG/DL (8.5-10.1); Magnesium 1.9 MG/DL (1.8-2.4); Osmolality,Calculated 285.7 MOS/KG (273-304); Potassium 3.9 MMOL/L (3.5-5.1)
[2016-09-08 07:08] LABS: Basophils % 0.2 % (0.0-0.8); Eosinophils # 0.3 10*3/uL (0.0-0.87); Eosinophils % 3.4 % (0.00-10.9); Hematocrit 28.9 VOL% (35.7-47.0); Hemoglobin 8.3 GM/DL (12.0-16.0); Immature Granulocytes % 0.4 %; Immature Granulocytes Absolute 0.03 #; Lymphocytes # 0.8 10*3/uL (1.4-4.0); Lymphocytes % 9.6 % (21.3-54.2); Mean Corpuscular HGB Conc 28.7 GM/DL (32-36); Mean Corpuscular Hemoglobin 24 PG (27-34); Mean Corpuscular Volume 84.8 FL (87-102); Mean Platelet Volume 9.8 FL (9.6-12.0); Monocytes # 0.7 10*3/uL (0.11-0.8); Monocytes % 7.8 % (1.7-12.7); Neutrophils # 6.7 10*3/uL (1.4-7.4); Neutrophils % 78.6 % (38.7-73.9); Platelet Count 263 T/CUMM (130-400); Red Blood Count 3.41 MC/CUMM (3.8-5.5); Red Cell Distribution Width 21.3 % (9.3-17.3); White Blood Count 8.5 T/CUMM (4-12)
[2016-09-08 07:11] LABS: Hypochromasia 1+; Ovalocytes Slight; Platelet Estimate Adequate
[2016-09-08 07:12] LABS: Microcytosis Slight
[2016-09-08] MEDS: FUROSEMIDE 40 MG/4 ML VIAL IV SCH ×2 (08:17→16:50)
[2016-09-08] MEDS: INSULIN NPH 100 UNIT/ML SUBCUT SCH ×2 (08:19→16:50)
[2016-09-08] MEDS: INSULIN REGULAR 100 UNIT/ML SUBCUT SCH ×4 (08:20→22:07)
[2016-09-08] MEDS: PANTOPRAZOLE 40 MG TABLET PO SCH (08:21)
[2016-09-08] MEDS: BISACODYL 5 MG TABLET PO PRN (08:21)
[2016-09-08] MEDS: DOXYCYCLINE HYCLATE 100 MG CAPSULE PO SCH ×2 (08:21→22:12)
[2016-09-08] MEDS: SPIRONOLACTONE 25 MG TABLET PO SCH ×2 (08:21→22:12)
[2016-09-08] MEDS: CARVEDILOL 6.25 MG TABLET PO SCH ×2 (08:22→16:50)
[2016-09-08] MEDS: CAPTOPRIL 6.25 MG TABLET PO SCH ×2 (08:22→22:07)
--- NOTE | 2016-09-08 11:00 | Hospitalist Progress Note ---
Assessment and Plan (1) Uncontrolled hypertension Status: Chronic Current Visit: Yes (2) Hidradenitis suppurativa Status: Acute Assessment and plan: Surgery following. Continue antibiotics. Switched to po yesterday. Current Visit: Yes (3) Uncontrolled diabetes mellitus Status: Chronic Current Visit: Yes Qualifiers: Chronic kidney disease stage: stage 3 (moderate) (4) Acute diastolic CHF (congestive heart failure) Status: Chronic Assessment and plan: Lasix 40 IV BID, added metolazone Spironolactone Current Visit: Yes Hospitalist: Subjective Interval history: No acute events overnight. Weight is coming down. FIDEL is stable. Plan for discharge tomorrow. Exam - Constitutional Vitals: Period Temp Pulse Resp BP Sys/Harper Pulse Ox Last 24 Hr 97.6 F-98.7 F 76-86 18-22 127-153/62-83 90-100 General appearance: morbidly obese - Head Head exam: Present: normocephalic, atraumatic - Eye Eye exam: Present: EOMI Pupils: Present: FLAKITA - ENT ENT exam: Present: normal exam - Neck Neck exam: Present: normal inspection - Respiratory Respiratory exam: Present: clear to auscultation bilaterally. Absent: rhonchi, wheezes - Cardiovascular Cardiovascular exam: Present: regular rate and rhythm - GI/Abdominal GI/Abdominal exam: Present: normal bowel sounds, soft. Absent: tenderness, rebound - Extremities Exam Extremities exam: Present: normal inspection - Back Exam Back exam: Present: normal inspection - Neurological Exam Neurological exam: Present: alert, oriented X3 - Psychiatric Psychiatric exam: Present: normal affect, normal mood - Skin Skin exam: Present: warm, intact Results - Labs CBC & BMP: 09/08/16 05:16 09/08/16 05:16 Specialty Discharge - Follow Up or Referrals Follow up with: [facility] [Other] - 2 Weeks Gus Arriola MD [Physician] - 1 Week (follow-up one week after discharge from the hospital)
[2016-09-08] MEDS: metOLazone 2.5 MG TABLET PO SCH (11:06)
--- NOTE | 2016-09-08 12:36 | Sleep Medicine Progress Note ---
Assessment and Plan (1) Obstructive sleep apnea Status: Acute Assessment and plan: Continue with auto BiPAP results and encourage compliance with therapy. Current Visit: Yes Sleep Medicine Subjective Interval history: Patient did much better last night sleeping with her BiPAP. She slept 8 hours and 16 minutes and had an average AHI of 4.1. Her average IPAP pressure was 13 and her average EPAP was 8. She did have some leak in her mass but overall she did much better and she could tell that she benefited from her therapy. I congratulated her on doing so much better with BiPAP. Exam (Progress Note) - Constitutional Vitals: Period Temp Pulse Resp BP Sys/Harper Pulse Ox Last 24 Hr 97.6 F-98.7 F 77-86 18-22 127-148/62-78 90-100 Exam: She is alert and responsive in no acute distress. Chest with symmetrical breath sounds with few scattered crackles. Cardiac exam reveals a regular rhythm without murmur or gallop. Abdomen obese nontender extremities with chronic venous insufficiency changes. Neurologically, she is grossly intact and answers questions appropriately. Results - Labs CBC & BMP: 09/08/16 05:16 09/08/16 05:16 Lab Results: I have reviewed the past 24 hour labs Specialty Discharge - Follow Up or Referrals Follow up with: [facility] [Other] - 09/22/16 9:15 am (WITH DR TABARES AT [facility].[phone]) Gus Arriola MD [Physician] - 1 Week (follow-up one week after discharge from the hospital)
[2016-09-08] MEDS: ENOXAPARIN 40 MG/0.4 ML SYRINGE SUBCUT SCH (22:13)
[2016-09-09] MEDS: ALBUTEROL/IPRATROPIUM 3 ML NEB RESP TX SCH ×3 (00:59→14:14)
[2016-09-09] MEDS: metOLazone 2.5 MG TABLET PO SCH (09:32)
[2016-09-09] MEDS: FUROSEMIDE 40 MG/4 ML VIAL IV SCH (09:32)
[2016-09-09] MEDS: PANTOPRAZOLE 40 MG TABLET PO SCH (09:32)
[2016-09-09] MEDS: CARVEDILOL 6.25 MG TABLET PO SCH (09:32)
[2016-09-09] MEDS: DOXYCYCLINE HYCLATE 100 MG CAPSULE PO SCH (09:32)
[2016-09-09] MEDS: INSULIN REGULAR 100 UNIT/ML SUBCUT SCH ×2 (09:33→12:30)
[2016-09-09] MEDS: CAPTOPRIL 6.25 MG TABLET PO SCH (09:44)
--- NOTE | 2016-09-09 12:01 | Discharge Summary ---
Hospital Course - Hospital Course Hospital Course: Ms. Jones is a 51 year old female with morbid obesity, uncontrolled diabetes and hypertension largely due to noncompliance. She reports issues with "multiple boils," since at least November. She had taken Bactrim in the past but nothing in several months. She stated that she had periods of purulent drainage which spontaneously resolved but not 100%. Over the last several days she had shortness of breath, worse with exertion, better with rest. She also reported multiple areas of purulent drainage including the right axilla lower abdomen and groin and perineum. Patient was admitted to the hospitalist service for hidradenitis suppurativa and volume overload. She was started on vancomycin and zosyn. Surgery was consulted, recommend local wound care, no abscess or fluid collection noted. She was started on IV lasix, echocardiogram with EF 40-50 with some diastolic dysfunction. Cardiology was consulted. She was started on coreg and spironolactone. Patient complained of abdomen pain during admission, CT with enlarged liver, enlarged uterus, subcutaneous edema and a small amount of ascites. Patinte with increase in alkaline phosphatase and mild elevation of bilirubin. Gastroenterology was consulted. Hepatits panel, MELLISA and alpha-1 antitrypsin all negative. Ultrasound with smaller appearance of liver and improvement in ascites. It was felt that that hepatomegaly was likely due to excessive amounts of fat stores, no need for liver biopsy. Gynecology was consulted for enlarged uterus, will pursue further testing outpatient. Sleep medicine was also consulted during admission, she was diagnosed with RIKI. She will follow with them outpatient. Patient has continued to improve on IV lasix and metolazone, her edema is much better. Her creatinine did increase on lasix, remained stable around 2. She has now reached maximum benefit of inpatient stay and will be discharged home. - Time spent with patient Time with patient DS: Less than 30 minutes Diagnosis - Discharge Diagnosis (1) Uncontrolled hypertension Status: Chronic (2) Hidradenitis suppurativa Status: Chronic (3) Uncontrolled diabetes mellitus Status: Chronic (4) Acute diastolic CHF (congestive heart failure) Status: Chronic Specialty Discharge - Follow Up or Referrals Follow up with: [facility] [Other] - 09/22/16 9:15 am (WITH DR MERCHANT AT [facility].[phone]) uGs Arriola MD [Physician] - 09/20/16 2:45 pm (follow-up one week after discharge from the hospital) Alena Ty MD [Physician] - 1 Week Augusta Merchant MD [Physician] - 2 Weeks Discharge Plan - Discharge Data Condition at Discharge: Stable Discharge Diet: diabetic diet, heart healthy, low salt diet Activity: increase activity as tolerated Hygiene: no restrictions Weight Bearing at Discharge: weight bear as tolerated Driving: no restrictions Contact your physician if you experience:: fever over 101, Shortness of breath - Discharge Medications New Carvedilol [Coreg] 6.25 mg PO BID W/MEALS #60 tablet Doxycycline Hyclate Cap [Vibramycin Cap] 100 mg PO BID #14 capsule Spironolactone [Aldactone] 12.5 mg PO BID #60 tablet metOLazone [Metolazone] 5 mg PO DAILY #30 tablet Continue Albuterol Inhaler [Proventil Inhaler] 1 puff DAILY PRN PRN Reason: Shortness Of Breath metFORMIN [Glucophage] 850 mg PO BID #60 tablet glipiZIDE [Glipizide] 5 mg PO DAILY #30 tablet Discontinued Atenolol 50 mg PO DAILY Lisinopril 20 mg PO DAILY - Follow Up or Referral Follow Up: [facility] [Other] - 09/22/16 9:15 am (WITH DR MERCHANT AT [facility].[phone]) Gus Arriola MD [Physician] - 09/20/16 2:45 pm (follow-up one week after discharge from the hospital) - Forms/Instructions Exam - Constitutional Vitals: Period Temp Pulse Resp BP Sys/Harper Pulse Ox Last 24 Hr 97.9 F-98.6 F 77-87 17-20 121-168/64-96 89-100 General appearance: morbidly obese - Head Head exam: Present: normocephalic, atraumatic - Eye Eye exam: Present: EOMI Pupils: Present: FLAKITA - ENT ENT exam: Present: normal exam - Neck Neck exam: Present: normal inspection - Respiratory Respiratory exam: Present: clear to auscultation bilaterally. Absent: rhonchi, wheezes - Cardiovascular Cardiovascular exam: Present: regular rate and rhythm - GI/Abdominal GI/Abdominal exam: Present: normal bowel sounds, soft. Absent: tenderness, rebound - Extremities Exam Extremities exam: Present: normal inspection - Back Exam Back exam: Present: normal inspection - Neurological Exam Neurological exam: Present: alert, oriented X3 - Psychiatric Psychiatric exam: Present: normal affect, normal mood - Skin Skin exam: Present: warm, intact Discharge Results Labs on day of discharge: Labs from last 24 hours 09/09/16 09/09/16 09/08/16 10:06 08:09 20:25 POC Glucose 204 H 146 H 111 H 09/08/16 15:31 POC Glucose 188 H DS: Provider Date of admission: 08/30/16 20:50 Primary care physician: . No PCP Attending physician on admission: Lon Hernandez MD Consults: 08/30/16 22:42 Consult to Dietitian [CONS] Routine Reason for Dietitian: Dietary Consult 08/30/16 22:49 Consult to Pharmacy [CONS] Routine Reason for Pharmacy Consult: Dose/Manage Vancomycin 08/31/16 01:52 Consult to Pharmacy [CONS] Routine Reason for Pharmacy Consult: Dose/Manage Vancomycin 09/01/16 11:09 Consult to Physician [CONS] Routine Comment: EF 40-45, admit with exacerbation, establish care Consulting Provider: Howard Robb Person Notified: [email or web address] Date Notified: 09/01/16 Time Notified: 11:22 09/01/16 18:06 Consult to Physician [CONS] Routine Comment: uterine fibroids/mass with abdominal pain Consulting Provider: Augusta Merchant Consult to Specialist Group: OBGYN When should Consulting Provider be notified: In am Person Notified: NIKO Date Notified: 09/02/16 Time Notified: 08:21 09/01/16 19:21 Consult to Physician [CONS] Routine Comment: Consulting Provider: Alena Ty Consulting Provider Notified: No When should Consulting Provider be notified: In am Person Notified: ZE Date Notified: 09/02/16 Time Notified: 08:17 Consult Notification Comment: Patient with generalized edema, LVEF 45%, and generalized edema is out of proportion to what I would see with this ejection fraction. She also has snoring and excessive daytime somnolence. She has physical findings suggestive of obstructive sleep apnea. Please evaluate for obstructive sleep apnea and treat if present/ if she has it. Thank you 09/09/16 10:03 Consult to Case Mgmt/Social Srvs [CONS] Routine Reason for Case Mgmt/Social Srvs: Equipment Consult Comment: home o2 Discharging clinician: Lon Hernandez MD
[2016-09-09] MEDS: SPIRONOLACTONE 25 MG TABLET PO SCH (12:30)
[2016-09-09] MEDS: INSULIN NPH 100 UNIT/ML SUBCUT SCH (12:30)
--- NOTE | 2016-09-09 12:56 | Sleep Medicine Progress Note ---
Assessment and Plan (1) Obstructive sleep apnea Status: Acute Assessment and plan: Patient will be prescribed CPAP of 6 cm. We will see if we can find local DME company to help with this situation. Follow-up will be in the sleep clinic. Current Visit: Yes Sleep Medicine Subjective Interval history: Patient has continued to do well with the auto CPAP while hospitalized. Her compliance has been good over the last couple of days. She is averaging over 7 hours a night with CPAP. Her average device pressure is about 6 cm. She does not have insurance and will have to purchase a CPAP machine with [employer]. We will check with local DME companies to see if they have any use CPAP machines that patient can purchase at a good bargain. This was done earlier in the week with another patient in a patient was able to get an auto titration machine at $150 with supplies. That is a good deal. She will be set up for follow-up in the sleep clinic. Exam (Progress Note) - Constitutional Vitals: Period Temp Pulse Resp BP Sys/Harper Pulse Ox Last 24 Hr 97.9 F-98.6 F 79-87 17-20 121-162/64-93 89-100 Results - Labs CBC & BMP: 09/08/16 05:16 09/08/16 05:16 Specialty Discharge - Follow Up or Referrals Follow up with: [facility] [Other] - 09/22/16 9:15 am (WITH DR MERCHANT AT [facility].[phone]) Augusta Merchant MD [Physician] - 09/22/16 9:15 am Gus Arriola MD [Physician] - 09/20/16 2:45 pm (follow-up one week after discharge from the hospital) Alena Ty MD [Physician] - 1 Week
[2016-09-09 13:08] VITALS: BP 160/87
== END 2016-09-09 15:53 | disposition home or self-care (01) | DRG 291 ==
LOC: N.ED 16:21 → N.EDINP 20:50 → N.2E 22:41
PROVIDERS: ADMIT Internal Medicine; ATTEND Internal Medicine

== ENCOUNTER 2016-12-08 11:45 | Inpatient (IN) ==
[2016-12-08 13:11] LABS: Basophils % 0.2 % (0.0-0.8); Eosinophils # 0.1 10*3/uL (0.0-0.87); Hemoglobin 6.6 GM/DL (12.0-16.0); Immature Granulocytes % 1.9 %; Immature Granulocytes Absolute 0.26 #; Lymphocytes # 1.4 10*3/uL (1.4-4.0); Lymphocytes % 10.1 % (21.3-54.2); Mean Corpuscular HGB Conc 31.4 GM/DL (32-36); Mean Corpuscular Hemoglobin 26 PG (27-34); Mean Corpuscular Volume 83.3 FL (87-102); Mean Platelet Volume 8.5 FL (9.6-12.0); Monocytes % 7.1 % (1.7-12.7); Neutrophils # 11.1 10*3/uL (1.4-7.4); Neutrophils % 79.7 % (38.7-73.9); Platelet Count 457 T/CUMM (130-400); Red Blood Count 2.52 MC/CUMM (3.8-5.5); White Blood Count 13.9 T/CUMM (4-12)
[2016-12-08 13:35] LABS: Lactic Acid 1.6 MMOL/L (0.4-2.0)
[2016-12-08] MEDS ORDERED: ALUM/MAG/SIMETH/LIDO VISC 1:1 30 ML BOTTLE PO STA (13:38)
[2016-12-08] MEDS ORDERED: SODIUM CHLORIDE 0.9% 500 ML IV STA (13:38)
[2016-12-08] MEDS ORDERED: HYDROmorphone 2 MG/1 ML VIAL IV STA (13:38)
[2016-12-08] MEDS ORDERED: ONDANSETRON 4 MG/2 ML VIAL IV STA (13:38)
[2016-12-08 13:47] LABS: Alanine Aminotransferase 28 U/L (13-56); Alkaline Phosphatase 251 U/L (45-117); Aspartate Amino Transferase 34 U/L (0-37); Bilirubin,Total < 0.39 MG/DL (0.2-1.0); Blood Urea Nitrogen 30 MG/DL (7-18); Calcium 8.7 MG/DL (8.5-10.1); Glucose 144 MG/DL (74-106); Osmolality,Calculated 274.4 MOS/KG (273-304); Potassium 4.5 MMOL/L (3.5-5.1); Sodium 133 MMOL/L (136-145); Total Protein 9.4 G/DL (6.4-8.3)
--- NOTE | 2016-12-08 14:06 | CT Report ---
CT of the abdomen and pelvis without intravenous or oral contrast. Indication: Generalized abdominal and pelvic pain. Comparison: September 01, 2016. The extensive subcutaneous edema has resolved. The heart is now normal in size. The lung bases are clear. There is nodularity noted within the left breast. Correlation with mammography recommended. The lung bases are clear. The liver is upper limits of normal in size. It no splenic enlargement is seen. No adrenal enlargement is seen. No pancreatic enlargement is seen. The kidneys are normal in location and size, no hydronephrosis. No nephrolithiasis. The abdominal aorta is of normal caliber. The loops of small intestine are not dilated. No small intestinal wall thickening. The appendix has a normal appearance. The colon is not dilated. No evidence of bowel obstruction. The uterus remains very large and contains irregular calcifications. It has dimensions of 18 x 16 x 12 cm. The urinary bladder presents a normal appearance. Prominent lymph nodes in the inguinal region. Skin thickening over the pelvis and perineal region. No ascites. Impression: 1. Resolution of the subcutaneous edema. 2. Nodular appearance of the left breast. Correlate with mammography. 3. Inguinal lymphadenopathy. 4. Enlarged heterogeneous uterus with numerous calcifications. While this simply may be due to extensive uterine fibroid formation, when masses become this large and confluent, additional pathology should also be considered including uterine sarcoma an endometrial CA. The CT exam was performed using one or more of the following dose reduction techniques: Automated exposure control, adjustment of the mA and/or kV according to patient size, or use of iterative reconstruction technique. PROCEDURE INTERPRETED AT [facility] DEPARTMENT OF RADIOLOG[facility] Final Report Signed by: Dr. Marlene Garcia
[2016-12-08] MEDS ORDERED: HYDROmorphone 2 MG/1 ML VIAL ONE (14:08)
[2016-12-08] MEDS ORDERED: ONDANSETRON 4 MG/2 ML VIAL ONE (14:08)
[2016-12-08] MEDS ORDERED: ALUM/MAG/SIMETH/LIDO VISC 1:1 30 ML BOTTLE PO ONE (14:09)
[2016-12-08 14:12] LABS: Amylase 73 U/L (25-115); Magnesium 1.8 MG/DL (1.8-2.4); Troponin I Only < 0.015 NG/ML (0.00-0.045)
--- NOTE | 2016-12-08 14:26 | XRay Report ---
Portable chest. Indication: Chest and abdomen pain. The heart is upper limits of normal in size. There is mild left atrial prominence. The pulmonary vasculature is normal. The lung juarez are clear. No pneumothorax or pleural effusion. No significant bony abnormality. Impression: Mild left atrial prominence. PROCEDURE INTERPRETED AT [facility] DEPARTMENT OF RADIOLOGY Final Report Signed by: Dr. Marlene Garcia
--- NOTE | 2016-12-08 14:28 | XRay Report ---
2 view abdomen. Indication: Generalized abdominal pain. The lung bases are clear. No intra-abdominal organomegaly is seen. There is gaseous distention of small intestine, with mildly dilated loops present. There is air and fecal material within normal caliber colon. Numerous calcifications are seen within the pelvis, probably vascular. Degenerative changes are noted in the spinal column. Impression: Moderate fecal material in the colon. Mild gaseous distention of small intestine. This could be related to ileus, constipation, or enteritis. PROCEDURE INTERPRETED AT [facility] DEPARTMENT OF RADIOLOGY Final Report Signed by: Dr. Marlene Garcia
--- NOTE | 2016-12-08 14:33 | Emergency Department Note ---
Yanique Ledbetter Hilary, am scribing for, and in the presence of, Petey Whiting MD 13:34. Henok Ledbetter Charles R, MD, personally performed the services described in this documentation, ascribed by Mayelin Chanel in my presence, and it is both accurate and complete [id number] . Arrival - Arrival Chief Complaint: Abdominal / Flank Pain Stated Complaint: stomach problem. multiple of boils. ED Nursing Triage Note: C/o generalized abd pain and nausea-onset two weeks ago. Denies vomiting or diarrhea. Mode of Arrival: Ambulatory Limitations: No Limitations Source: Patient, RN Notes Reviewed Time Seen by Provider: 12/08/16 13:14 - History of Present Illness HPI Narrative: Pt is a 51 y/o female presenting to the ED with c/o abdominal pain which onset 2 weeks ago. Pt confirms nausea but denies vomiting, diarrhea or constipation. She has a PMHx of CHF, HTN, NIDDM, chronic hidradenitis. No other complaints or problems stated in the ED. Onset (ago): week(s) Consistency: constant Severity: mild Severity scale (1-10): 1 Date of Last Menstrual Period: menopause Allergies/Adverse Reactions: Allergies Allergy/AdvReac Type Severity Reaction Status Date / Time No Known Allergies Allergy Verified 12/08/16 11:59 Home Medications: Home Medications Medication Instructions Recorded Confirmed Type Albuterol Inhaler [Proventil 1 puff DAILY PRN 08/30/16 12/08/16 History Inhaler] Carvedilol [Coreg] 6.25 mg PO BID W/MEALS #60 tablet 09/09/16 12/08/16 Rx Spironolactone [Aldactone] 12.5 mg PO BID #60 tablet 09/09/16 12/08/16 Rx glipiZIDE [Glipizide] 5 mg PO DAILY #30 tablet 09/09/16 12/08/16 Rx metOLazone [Metolazone] 5 mg PO DAILY #30 tablet 09/09/16 12/08/16 Rx Sulfameth/Trimeth 800-160 Tab 1 tablet PO BID 12/08/16 12/08/16 History [Bactrim DS Tab] Review of System - Review of System 12 point system: reviewed and no additional remarkable complaints except as stated - Review of System Constitutional: Absent: fever Gastrointestinal: Present: abdominal pain, nausea. Absent: vomiting Medical,Surgical,& Family Hx - Medical History Cardio: History of: CHF, Hypertension Psychological: History of: Anxiety Disorders (panic attacks), Depression Endocrine: History of: Diabetes Mellitus (NIDDM) Respiratory: History of: Asthma Gastrointestinal: No history of: GERD Hematology: History of: Anemia Reproductive: History of: Complication, Reproductive Problems ( uterine fibroids) Other: History of: Skin Problems - Surgical History Abdominal Surgeries: Patient denies: Abdominal Surgery Reproductive Surgeries: Surgical HX of;: Section, Dilation and Curettage Patient denies;: Genitourinary Surgery - Family History Family History: Reports;: Family Cancer (grandmother had bone ca?), Family Diabetes (mother), Family Heart Disease (Father), Family Hypertension ( grandfather), Family Psychiatric Problems (mother), Family Stroke (mother) Denies;: Family Anesthesia Reaction - Social History Smoking Status: Never smoker Frequency of Alcohol Use: None Type of Drug Use: None Exam Vital Signs: Vital Signs Temperature 99.7 F H 12/08/16 11:56 Pulse Rate 123 H 12/08/16 11:56 Respiratory Rate 20 12/08/16 11:56 Blood Pressure 174/105 12/08/16 11:56 O2 Sat by Pulse Oximetry 100 12/08/16 11:56 - General General appearance: alert, in no apparent distress - Head Head exam: Present: atraumatic, normocephalic - Eye Eye exam: Present: normal appearance, PERRL, EOMI - ENT ENT exam: Present: mucous membranes moist, TM's normal bilaterally. Absent: mucous membranes dry - Neck Neck exam: Present: full ROM, trachea midline. Absent: tenderness - Chest Chest inspection: Present: symmetric chest wall rise. Absent: tenderness - Respiratory Respiratory exam: Present: normal lung sounds bilaterally. Absent: respiratory distress - Cardiovascular Cardiovascular exam: Present: regular rate, tachycardia, normal heart sounds. Absent: murmur, rubs, gallop - Abdominal Exam Abdominal exam: Present: soft, tenderness (generalized tenderness from right to mid to left.), diminished bowel sounds. Absent: distention - Rectal Exam Rectal exam: Present: heme (-) stool - Extremities Exam Extremities exam: Present: full ROM. Absent: tenderness - Back Exam Back exam: Present: full ROM. Absent: tenderness - Neurological Exam Neurological exam: Present: alert, oriented X3, CN II-XII intact. Absent: motor sensory deficit - Psychiatric Psychiatric exam: Present: normal affect, normal mood - Skin Skin exam: Present: warm, dry, intact, normal color, other (chronic weeping, drainging hidradenitis). Absent: rash Course - Consultations Consultation #1: Hospitalist will admit patient Time: 14:37 Results - Labs CBC & BMP: 12/08/16 12:49 12/08/16 12:49 Lab Results: I have reviewed the patients labs Labs: Laboratory Tests 12/08/16 07 12:49 12:49 Sodium 133 L Potassium 4.5 Chloride 99 Carbon Dioxide 26 BUN 30 H Creatinine 1.50 H Glucose 144 H Alkaline Phosphatase 251 H Troponin I < 0.015 Total Protein 9.4 H Albumin 2.0 L Globulin 7.4 H Albumin/Globulin Ratio 0.2 L - Diagnostic Findings Procedure: Abdominal x-ray: report reviewed by me (Moderate fecal material in the colon. Mild gaseous distention of small intestine. This could be related to ileus, constipation or enteritis), Chest x-ray: report reviewed by me (Mild left atrial prominence), CT Abdomen and Pelvis: report reviewed by me (1. Resolution of the subcutaneous edema. 2. Nodular appearance of the left breast. Correlate with mammography. 3. Inguinal lyphadenopathy. 4. Enlarged heterogeneous uterus with numerous calcifications. While this simply may be due to extensive uterine fibroid formation, when masses become this large and confluent, additional pathology should also be considered including uterine sarcoma an endometrial CA.) Critical Care Time Critical Care Time: Yes Total Critical Care Time: 60 Disposition Clinical Impression: Anemia, Obstipation, Constipation, Abdominal pain, Unspecified sleep apnea, Enlarged uterus, Hidradenitis suppurativa, Uterine fibroid, Noncompliance Case discussed with: patient, patient's family Disposition: Still a Patient Condition: Guarded Time of Disposition: 14:37
--- NOTE | 2016-12-08 15:09 | Hospitalist History & Physical ---
<Missy Connollyda - Last Filed: 12/08/16 14:59> Assessment and Plan (1) Abdominal pain Status: Acute Assessment and plan: CT and abdomen noted multiple abnormalities. We will consult general surgery and gynecology to evaluate. The patient reports a past medical history of congestive heart failure. We will gently rehydrate, monitor intake and output, control pain, antiemetics. Will recheck labs in a.m. Current Visit: Yes (2) Anemia Status: Acute Assessment and plan: H&H was noted at 6.9 and 21. We will type and screen; we will monitor and transfuse if necessary. Current Visit: Yes (3) Hidradenitis suppurativa Status: Chronic Assessment and plan: This is chronic in nature. Patient reports multiple episodes in the past. Patient had been recently started on Bactrim in the outpatient setting for this. We will start empiric antibiotic coverage and monitor. Current Visit: Yes (4) Chronic kidney disease Status: Acute Assessment and plan: BUN and creatinine noted at 30 and 1.50. Upon review of the previous medical records BUN was noted at 34 and creatinine at 2.20 in August 2016. This is around the patient's baseline. We will monitor renal function closely and refrain from nephrotoxic agents. Current Visit: Yes History of Present Illness Chief complaint: Abdominal pain History of present illness: This is a very pleasant 51-year-old female that presented to the ED at [facility] this afternoon for the evaluation of abdominal pain and boils. Patient has a medical history significant for: Congestive heart failure , hypertension, rag-[id number] diabetes mellitus, chronic hidradenitis, morbid obesity, asthma, depression, anxiety disorder, anemia, and uterine fibroids. Patient surgical history significant for section and dilatation and curettage. The patient reported the onset of the above symptoms 2 weeks prior to presentation. The patient reported episodes similar in nature in the past in which she was seen here, evaluated, and told that she had uterine fibroids. She was subsequently discharged home to follow-up with her sociology teacher however she failed to do so. The patient reports nausea however, denies vomiting. She reports that the pain originally started as intermittent pain with progression to constant pain. The pain became unbearable this morning and she decided to present to the ED for further evaluation. The patient was assessed at the time of ED presentation. The patient was found to have a low-grade temperature at 99.7, tachycardic with a pulse rate at 123, and hypertensive with a blood pressure noted at 174/105. Labs were obtained; complete blood count reported white blood cell count at 13.9, hemoglobin 6.6, hematocrit 21.0, and platelet count at 457. Complete metabolic profile reported sodium at 133, potassium 4.5, chloride 99, carbon dioxide 26, BUN 30, creatinine 1.50, glucose 144, lactic acid 1.6, calcium 8.7, amylase 73, lipase 230, magnesium 1.8, alkaline phosphatase at 251. Cardiac enzymes reported a troponin at less than 0.015. Chest x-ray reported mild left atrial prominence; however no acute cardiopulmonary processes were identified. CT abdomen and pelvis; resolution of the subcutaneous edema; nodular appearance of the left breast, inguinal lymphadenopathy,enlarged heterogeneous uterus with numerous calcifications. While this simply may be due to extensive uterine fibroid formation, when masses become this large and confluent, additional pathology should also be considered including uterine sarcoma an endometrial CA. Abdominal x- ray reported moderate fecal material in the colon and mild gaseous distention of the small intestine. After brief discussion with both Dr. Whiting and Dr. Jackson, the patient will be admitted to the hospitalist services for continuation of care. We will consult surgery and gynecology to evaluate and assist during the clinical encounter. Home medications have been reviewed and reconciled. CODE STATUS discussed; patient is a FULL CODE. Home Medications Medication Instructions Recorded Confirmed Type Albuterol Inhaler [Proventil 1 puff DAILY PRN 08/30/16 12/08/16 History Inhaler] Carvedilol [Coreg] 6.25 mg PO BID W/MEALS #60 tablet 09/09/16 12/08/16 Rx Spironolactone [Aldactone] 12.5 mg PO BID #60 tablet 09/09/16 12/08/16 Rx glipiZIDE [Glipizide] 5 mg PO DAILY #30 tablet 09/09/16 12/08/16 Rx metOLazone [Metolazone] 5 mg PO DAILY #30 tablet 09/09/16 12/08/16 Rx Sulfameth/Trimeth 800-160 Tab 1 tablet PO BID 12/08/16 12/08/16 History [Bactrim DS Tab] Allergies Allergy/AdvReac Type Severity Reaction Status Date / Time No Known Allergies Allergy Verified 12/08/16 11:59 Medical,Surgical,& Family Hx - Medical History Cardio: History of: CHF, Hypertension Psychological: History of: Anxiety Disorders (panic attacks), Depression Endocrine: History of: Diabetes Mellitus (NIDDM) Respiratory: History of: Asthma Gastrointestinal: No history of: GERD Hematology: History of: Anemia Reproductive: History of: Complication, Reproductive Problems ( uterine fibroids) Other: History of: Skin Problems - Surgical History Abdominal Surgeries: Patient denies: Abdominal Surgery Reproductive Surgeries: Surgical HX of;: Section, Dilation and Curettage Patient denies;: Genitourinary Surgery - Family History Family History: Reports;: Family Cancer (grandmother had bone ca?), Family Diabetes (mother), Family Heart Disease (Father), Family Hypertension ( grandfather), Family Psychiatric Problems (mother), Family Stroke (mother) Denies;: Family Anesthesia Reaction - Social History Smoking Status: Never smoker Frequency of Alcohol Use: None Type of Drug Use: None 12 point system: reviewed and no additional remarkable complaints except as stated Exam - Constitutional Vitals: Period Temp Pulse Resp BP Sys/Harper Pulse Ox Last 24 Hr 99.7 F 123 20 174/105 100 General appearance: mild distress, morbidly obese - Head Head exam: Present: normal inspection, normocephalic, atraumatic - Eye Eye exam: Present: EOMI, conjunctival injection. Absent: nystagmus Pupils: Present: FLAKITA, normal accommodation - ENT ENT exam: Present: normal exam, normal external ear exam, normal oropharynx - Neck Neck exam: Present: normal inspection. Absent: lymphadenopathy, meningismus, tenderness, thyromegaly - Respiratory Respiratory exam: Present: clear to auscultation bilaterally. Absent: rales, rhonchi, stridor, wheezes - Cardiovascular Cardiovascular exam: Present: tachycardia. Absent: carotid bruit, diastolic murmur, gallop, JVD, rubs, systolic murmur - GI/Abdominal GI/Abdominal exam: Present: tenderness (Tenderness extending from midline abdomen to the left side of the abdomen), other (Bowel sounds are faint and diminished). Absent: distended - Extremities Exam Extremities exam: Present: normal inspection, normal capillary refill, full ROM , edema - Back Exam Back exam: Present: normal inspection - Psychiatric Psychiatric exam: Present: anxious - Skin Skin exam: Present: normal color, warm, dry, other Results - Labs CBC & BMP: 12/08/16 12:49 12/08/16 12:49 Lab Results: I have reviewed the past 24 hour labs <Yon Jackson - Last Filed: 12/08/16 15:43> History of Present Illness History of present illness: Ms. Jones is a 51 year old female Exam - Constitutional Vitals: Period Temp Pulse Resp BP Sys/Harper Pulse Ox Last 24 Hr 99.7 F-99.7 F 119-123 20-20 122-174/66-105 100 Results - Labs CBC & BMP: 12/08/16 12:49 12/08/16 12:49
[2016-12-08] MEDS ORDERED: NIFEdipine 10 MG CAPSULE PO PRN (15:39)
--- NOTE | 2016-12-08 16:48 | General Surgery Consult Note ---
Assessment and Plan - Time spent with patient Time spent with patient: Greater than 30 minutes (1) Morbid obesity Status: Acute Assessment and plan: Ms. Jones is a 51-year-old -[place] female with multiple medical problems admitted with abdominal pain and hidradenitis suppurative by the hospitalist service. Patient has multiple areas of indurated masses with draining purulence in the bilateral groins, suprapubic, and right axillary region. Wound care orders will be written, cultures taken, and infectious diseases will be consulted. Patient is already on long-term Bactrim. This is all been discussed with Dr. Arriola who will see and examine patient and further recommendations to follow. Current Visit: Yes (2) Uncontrolled hypertension Status: Chronic Current Visit: No (3) Hidradenitis suppurativa Status: Chronic Current Visit: Yes (4) Uncontrolled diabetes mellitus Status: Chronic Current Visit: No Qualifiers: Chronic kidney disease stage: stage 3 (moderate) (5) Abdominal pain Status: Acute Current Visit: Yes History of Present Illness Chief complaint: Groin and abdominal pain History of present illness: Ms. Jones is a 51 year old -[place] female with history of CHF, hypertension, diabetes, morbid obesity, asthma, anxiety disorder, chronic hidradenitis suppurative and uterine fibroids admitted by the hospitalist service today with abdominal pain and groin pain. Patient's last admission for the same thing was in August where she was found to have uterine fibroids and was seen by Dr. Merchant from [facility]. I am not sure if she ever followed up after discharge. Her CT scan is showing an enlarged heterogeneous uterus with numerous calcifications. This could be due to extensive uterine fibroid formation but cannot rule out uterine sarcoma. [facility] has been consulted. She also had hidradenitis suppurative and Dr. Arriola saw her for this. She was discharged at that time on doxycycline and followed up with Dr. Arriola in clinic. He is put her on long-term Bactrim. Dr. Arriola recommended referral to [facility] due to the extensive nature of her hidradenitis. This will require multiple surgeries along with a colostomy and skin grafts most likely. With her history of heart failure and the extensive surgery required he recommended she go to [facility] for this. Patient states she does not want to go to [facility] because [place] anxious on the highway and is opting to take the nonsurgical route. Patient was also supposed to follow-up with infectious disease and this never happened as well. Patient states the wounds are larger and draining more due to the heat of summer. She denies fever, chest pain, shortness of breath, headaches, constipation or diarrhea, or lower extremity edema. Dr. Arriola is been consulted for evaluation. Home Medications Medication Instructions Recorded Confirmed Type Albuterol Inhaler [Proventil 1 puff DAILY PRN 08/30/16 12/08/16 History Inhaler] Carvedilol [Coreg] 6.25 mg PO BID W/MEALS #60 tablet 09/09/16 12/08/16 Rx Spironolactone [Aldactone] 12.5 mg PO BID #60 tablet 09/09/16 12/08/16 Rx glipiZIDE [Glipizide] 5 mg PO DAILY #30 tablet 09/09/16 12/08/16 Rx metOLazone [Metolazone] 5 mg PO DAILY #30 tablet 09/09/16 12/08/16 Rx Sulfameth/Trimeth 800-160 Tab 1 tablet PO BID 12/08/16 12/08/16 History [Bactrim DS Tab] Allergies Allergy/AdvReac Type Severity Reaction Status Date / Time No Known Allergies Allergy Verified 12/08/16 11:59 Medical,Surgical,& Family Hx - Medical History Cardio: History of: CHF, Hypertension Psychological: History of: Anxiety Disorders (panic attacks), Depression Endocrine: History of: Diabetes Mellitus (NIDDM) Respiratory: History of: Asthma Gastrointestinal: No history of: GERD Hematology: History of: Anemia Reproductive: History of: Complication, Reproductive Problems ( uterine fibroids) Other: History of: Skin Problems - Surgical History Abdominal Surgeries: Patient denies: Abdominal Surgery Reproductive Surgeries: Surgical HX of;: Section, Dilation and Curettage Patient denies;: Genitourinary Surgery - Family History Family History: Reports;: Family Cancer (grandmother had bone ca?), Family Diabetes (mother), Family Heart Disease (Father), Family Hypertension ( grandfather), Family Psychiatric Problems (mother), Family Stroke (mother) Denies;: Family Anesthesia Reaction - Social History Smoking Status: Never smoker Frequency of Alcohol Use: None Type of Drug Use: None Marital Status: Single Lives With:: Children Functional capacity: uses cane/walker Review of systems: A complete 10 system review of systems was obtained and pertinent positives and negatives per HPI Exam - Constitutional Vitals: Period Temp Pulse Resp BP Sys/Harper Pulse Ox Last 24 Hr 99.7 F-99.7 F 101-123 20-20 122-186/66-118 98-100 Exam: Constitutional System: No distress. [No] tremulousness. Head: Normocephalic, atraumatic. Ears, Nose and Throat System: No evidence of Otitis or Mastoiditis. No epistaxis or discharge Eyes System: Pupils equal, round, and reactive. Extraocular muscles intact. Neck: Supple, without adenopathy, [No] jugular venous distention. No thyromegaly , neck mass, or prior surgery apparent. Respiratory System: Chest [clear] to auscultation. Cardiovascular System: Heart with [regular] rate and rhythm. [No] murmur. GI System: Abdomen [soft], mildly tender in suprapubic region. [Normo]active bowel sounds present. Musculoskeletal System: limbs with [no] pedal edema. [Full] distal pulses. Integumentary: Patient's bilateral groins suprapubic region and right axillary region have multiple indurated masses draining purulent material with odor. Neurological System: [No discernable] sensory deficit. [No] aphasia Psychiatric System: Conversation is [rational] Results - Labs CBC & BMP: 12/08/16 12:49 12/08/16 12:49 Lab Results: I have reviewed the past 24 hour labs
[2016-12-08] MEDS ORDERED: SODIUM CHLORIDE 0.9% 250 ML IV PRN (17:57)
[2016-12-08] MEDS ORDERED: ALBUTEROL 2.5 MG/3 ML NEB RESP TX PRN (17:57)
[2016-12-08] MEDS ORDERED: ONDANSETRON 4 MG/2 ML VIAL IV PRN (17:57)
[2016-12-08] MEDS: amLODIPine 10 MG TABLET PO SCH (18:38)
[2016-12-08] MEDS: ENOXAPARIN 40 MG/0.4 ML SYRINGE SUBCUT SCH (18:39)
[2016-12-08] MEDS: PANTOPRAZOLE 40 MG TABLET PO SCH (18:39)
[2016-12-08 19:35] LABS: Platelet Estimate Increased
[2016-12-08 19:36] LABS: Hypochromasia 1+; Microcytosis Slight
[2016-12-08] MEDS: SPIRONOLACTONE 25 MG TABLET PO SCH (21:51)
[2016-12-08] MEDS: SULFAMETHOX/TRIMETHOPRIM 800-160 MG TABLET PO SCH (21:51)
[2016-12-08] MEDS: AMPICILLIN/SULBACTAM 3,000 MG in SODIUM CHLORIDE 0.9% 100 ML IV SCH (21:51)
[2016-12-08] MEDS: CARVEDILOL 12.5 MG TABLET PO SCH (21:52)
[2016-12-08] MEDS: SODIUM HYPOCHLORITE 0.25% IRRIG 473 ML BOTTLE TOP SCH (21:52)
[2016-12-09] MEDS: AMPICILLIN/SULBACTAM 3,000 MG in SODIUM CHLORIDE 0.9% 100 ML IV SCH ×2 (01:38→11:02)
[2016-12-09 07:20] LABS: Basophils % 0.2 % (0.0-0.8); Eosinophils # 0.2 10*3/uL (0.0-0.87); Eosinophils % 1.4 % (0.00-10.9); Hemoglobin 7.8 GM/DL (12.0-16.0); Immature Granulocytes % 1.2 %; Immature Granulocytes Absolute 0.15 #; Lymphocytes # 1.3 10*3/uL (1.4-4.0); Lymphocytes % 10.3 % (21.3-54.2); Mean Corpuscular HGB Conc 32.5 GM/DL (32-36); Mean Corpuscular Hemoglobin 28 PG (27-34); Mean Platelet Volume 8.8 FL (9.6-12.0); Monocytes # 1.1 10*3/uL (0.11-0.8); Monocytes % 8.4 % (1.7-12.7); Neutrophils # 10.2 10*3/uL (1.4-7.4); Neutrophils % 78.5 % (38.7-73.9); Platelet Count 389 T/CUMM (130-400); Red Blood Count 2.79 MC/CUMM (3.8-5.5)
[2016-12-09 07:47] LABS: Hypochromasia 1+; Microcytosis 1+; Platelet Estimate Normal
[2016-12-09 08:00] LABS: Calcium 8.3 MG/DL (8.5-10.1); Magnesium 1.8 MG/DL (1.8-2.4); Osmolality,Calculated 273.2 MOS/KG (273-304); Potassium 4.4 MMOL/L (3.5-5.1)
[2016-12-09] MEDS: PANTOPRAZOLE 40 MG TABLET PO SCH (08:26)
[2016-12-09] MEDS: amLODIPine 10 MG TABLET PO SCH (08:26)
[2016-12-09] MEDS: SULFAMETHOX/TRIMETHOPRIM 800-160 MG TABLET PO SCH ×2 (08:26→20:13)
[2016-12-09] MEDS: CARVEDILOL 12.5 MG TABLET PO SCH ×2 (08:27→20:13)
[2016-12-09] MEDS: SPIRONOLACTONE 25 MG TABLET PO SCH ×2 (08:27→20:14)
[2016-12-09] MEDS ORDERED: glipiZIDE 5 MG TABLET PO SCH (09:00)
--- NOTE | 2016-12-09 10:15 | Hospitalist Progress Note ---
Assessment and Plan (1) Cellulitis Status: Acute Assessment and plan: Patient has infection of abdomen abdominal wall in suprapubic area draining some blister and foul-smelling. She she is on Unasyn. I see the ID has been consulted so I will wait for antibiotic adjustment per ID. Wound care and also has been consulted Current Visit: Yes (2) Diabetes mellitus Status: Chronic Assessment and plan: Continue monitor blood sugar I am holding sulfonylureas while she is in the hospital and managed with the as needed short-acting insulin Current Visit: Yes (3) Hypertension Status: Chronic Assessment and plan: Blood pressure is controlled Current Visit: Yes (4) CHF (congestive heart failure) Status: Chronic Assessment and plan: Patient is clinically compensated at present Current Visit: Yes (5) Hidradenitis suppurativa Status: Chronic Current Visit: Yes (6) Abdominal pain Status: Acute Assessment and plan: History of fibroid CLINICAL PSYCHIATRIST already consulted Current Visit: Yes (7) Anemia Status: Chronic Assessment and plan: She has chronic anemia actually it was worse on admission required transfusion will continue monitor recheck H&H tomorrow. Patient has some history of for pelvic bleeding and bleeding from her wound in the suprapubic area. Noted CLINICAL PSYCHIATRIST already consulted Current Visit: Yes Hospitalist: Subjective Interval history: Ms. Jones is a 51-year-old female with history of multiple comorbidities including diabetes mellitus, hypertension, CHF, fibroids and sleep apnea. She presented to the ER with the evaluation of abdominal pain and points. She has this swelling in the suprapubic area for some time and and she has been on antibiotic for a few months she was admitted here in August of this year with the multiple boils. She now has history of abdominal pain for 2 weeks denies any fever but has temperature of 99.7 in the ER. Reports having some purulent including blood drainage from the suprapubic area where she had blisters. Exam - Constitutional Vitals: Period Temp Pulse Resp BP Sys/Harper Pulse Ox Last 24 Hr 97.9 F-99.7 F 93-123 16-20 117-186/56-118 93-100 General appearance: morbidly obese - Respiratory Respiratory exam: Present: clear to auscultation bilaterally. Absent: rales, rhonchi - Cardiovascular Cardiovascular exam: Present: regular rate and rhythm. Absent: tachycardia - GI/Abdominal GI/Abdominal exam: Present: normal bowel sounds, soft. Absent: distended, tenderness (Mild discomfort in abdomen on palpation but no gross tenderness rigidity or rebound) - Extremities Exam Extremities exam: Present: edema (Trace if any edema), other - Neurological Exam Neurological exam: Present: alert, oriented X3 - Skin Skin exam: Present: other (Patient has a edema of suprapubic skin with some blisters and foul-smelling drainage. Patient has some indurated area right axilla ) Results - Labs CBC & BMP: 12/09/16 04:43 12/09/16 04:43
[2016-12-09] MEDS ORDERED: DEXTROSE 50% 25 GM/50 ML VIAL IV PRN (10:24)
[2016-12-09] MEDS ORDERED: GLUCAGON 1 MG VIAL IM PRN (10:24)
[2016-12-09] MEDS: CHLORHEXIDINE 4% SOLN 118 ML BOTTLE TOP SCH (11:02)
[2016-12-09] MEDS: SODIUM HYPOCHLORITE 0.25% IRRIG 473 ML BOTTLE TOP SCH ×2 (11:02→20:14)
--- NOTE | 2016-12-09 13:50 | EKG Report ---
Stationary ECG Study [facility] Test Date: 12/09/2016 1:52:55 PM Pat Name: JEFFREY ROBISON Department: Room: 522 Gender: F Claim Service Representative: : 1965 Requested by: Bry Eason Order Number: [id number] Reading MD: TYLER CRAIG Intervals [place] Rate: 91 P: 47 HI: 204 QRS: 27 QRSD: 97 T: 5 QT: 379 QTc: 428 Interpretive Statements SINUS RHYTHM NONSPECIFIC T-WAVE ABNORMALITY Electronically Signed On 12-10-16 13:28:43 CDT by TYLER CRAIG [email or web address]
--- NOTE | 2016-12-09 16:01 | OB/GYN Consult Note ---
Assessment and Plan (1) Postmenopausal bleeding Status: Acute Assessment and plan: Plan hysteroscopy D&C in the morning Current Visit: Yes History of Present Illness Chief complaint: PMB History of present illness: Ms. Jones is a 51 year old female who was admitted secondary to infection of boils and anemia. She is now s/p transfusion and is on abx. She is known to me as I was consulted on her when she was admitted in August. Pt followed up with me on 10/01 and had AE done. Pap normal. Pt reported no cycle for 2 years then an episode of PMB in August. Pt was supposed to come back for office endometrial bx given that she has every risk factor for abnormalities of her endometrial lining. She did not come back because she could not afford to have the procedure done. Pt reports that on the day of admission, she went to the restroom and noted blood "dripping". She was unsure if it was coming from the vagina or from her boils. H/H low on admit so transfused. Explained to Ms. Jones and her female family member who was present again the need for evaluation of the lining of the uterus regardless of the current source of bleeding. Would recommend that we do a hysteroscopy D&C in the morning provided it it ok with her Medicine team. Explained R/B/A to procedure and she is willing to proceed. After seeing the patient Dr. Corral seen in the hallway and discussed surgery, he is fine to proceed Home Medications Medication Instructions Recorded Confirmed Type Albuterol Inhaler [Proventil 1 puff DAILY PRN 08/30/16 12/08/16 History Inhaler] Carvedilol [Coreg] 6.25 mg PO BID W/MEALS #60 tablet 09/09/16 12/08/16 Rx Spironolactone [Aldactone] 12.5 mg PO BID #60 tablet 09/09/16 12/08/16 Rx glipiZIDE [Glipizide] 5 mg PO DAILY #30 tablet 09/09/16 12/08/16 Rx metOLazone [Metolazone] 5 mg PO DAILY #30 tablet 09/09/16 12/08/16 Rx Sulfameth/Trimeth 800-160 Tab 1 tablet PO BID 12/08/16 12/08/16 History [Bactrim DS Tab] Allergies Allergy/AdvReac Type Severity Reaction Status Date / Time No Known Allergies Allergy Verified 12/08/16 11:59 Medical,Surgical,& Family Hx - Medical History Cardio: History of: CHF, Hypertension Psychological: History of: Anxiety Disorders (panic attacks), Depression Endocrine: History of: Diabetes Mellitus (NIDDM) Respiratory: History of: Asthma Gastrointestinal: No history of: GERD Hematology: History of: Anemia Reproductive: History of: Complication, Reproductive Problems ( uterine fibroids) Other: History of: Skin Problems - Surgical History Abdominal Surgeries: Patient denies: Abdominal Surgery Reproductive Surgeries: Surgical HX of;: Section, Dilation and Curettage Patient denies;: Genitourinary Surgery - Family History Family History: Reports;: Family Cancer (grandmother had bone ca?), Family Diabetes (mother), Family Heart Disease (Father), Family Hypertension ( grandfather), Family Psychiatric Problems (mother), Family Stroke (mother) Denies;: Family Anesthesia Reaction - Social History Smoking Status: Never smoker Frequency of Alcohol Use: None 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 - Constitutional Vitals: Vital Signs Temp Pulse Pulse Resp BP BP Pulse Ox 12/09/16 11:05 98.1 F 85 20 120/55 12/09/16 08:00 98.7 F 96 H 18 129/65 12/09/16 05:56 16 12/09/16 05:19 97 H 18 125/67 12/09/16 03:32 18 12/09/16 03:18 101 H 18 151/90 12/09/16 02:18 97 H 18 137/56 12/09/16 01:48 98.4 F 93 H 20 138/68 93 L 12/09/16 01:43 98.5 F 97 H 20 126/68 12/09/16 01:38 98.3 F 97 H 18 145/84 12/09/16 01:33 98.5 F 96 H 20 150/75 12/09/16 00:17 105 H 20 138/71 12/08/16 23:17 97.9 F 105 H 20 138/71 12/08/16 22:47 98 F 105 H 129/63 12/08/16 22:42 98.1 F 105 H 18 117/62 97 12/08/16 22:37 98.3 F 105 H 20 118/61 97 12/08/16 22:31 98.4 F 105 H 20 156/81 98 12/08/16 19:35 98.8 F 103 H 20 149/80 12/08/16 17:57 98.4 F 117 H 20 146/91 12/08/16 17:00 109 H 20 149/84 100 12/08/16 16:30 111 H 20 131/98 100 12/08/16 16:00 118 H 20 164/92 100 Pulse Ox 12/09/16 11:05 99 12/09/16 08:00 98 12/09/16 05:56 12/09/16 05:19 12/09/16 03:32 12/09/16 03:18 12/09/16 02:18 12/09/16 01:48 12/09/16 01:43 12/09/16 01:38 12/09/16 01:33 12/09/16 00:17 12/08/16 23:17 12/08/16 22:47 12/08/16 22:42 12/08/16 22:37 12/08/16 22:31 12/08/16 19:35 95 12/08/16 17:57 99 12/08/16 17:00 12/08/16 16:30 12/08/16 16:00 General appearance: no acute distress, morbidly obese - Head Head exam: Present: normocephalic - Eye Eye exam: Present: EOMI Pupils: Present: FLAKITA - Psychiatric Psychiatric exam: Present: normal affect, normal mood Results - Labs CBC & BMP: 12/09/16 04:43 12/09/16 04:43
[2016-12-09] MEDS: INSULIN LISPRO 100 UNIT/ML SUBCUT SCH (16:43)
--- NOTE | 2016-12-09 17:41 | Infectious Disease Consult ---
Assessment and Plan (1) Diabetes mellitus Status: Chronic Assessment and plan: Patient advised that optimal diabetes control will help the hidradenitis suppurativa. Current Visit: Yes (2) Hidradenitis suppurativa Status: Chronic Assessment and plan: This is quite a severe case. Patient informed of this is a chronic condition with usually no care. Recommendations: 1. While she is here, agree with IV antibiotic therapy while she is in hospital but given multiple gram-negative rods being isolated will switch from Unasyn to Zosyn 2. Agree with Bactrim for gram-positive coverage 3. Wound care Thank you very much for the consult. Will follow. Current Visit: Yes (3) Hypertension Status: Chronic Current Visit: Yes History of Present Illness Chief complaint: Hidradenitis operative History of present illness: Ms. Jones is a 51 year old female with history of hidradenitis operative and recurrent bowel still axillary and pubic areas. She presented because of increased drainage from these wounds. There is no associated fever or other constitutional symptoms. Last hospitalization for this was in August Home Medications Medication Instructions Recorded Confirmed Type Albuterol Inhaler [Proventil 1 puff DAILY PRN 08/30/16 12/08/16 History Inhaler] Carvedilol [Coreg] 6.25 mg PO BID W/MEALS #60 tablet 09/09/16 12/08/16 Rx Spironolactone [Aldactone] 12.5 mg PO BID #60 tablet 09/09/16 12/08/16 Rx glipiZIDE [Glipizide] 5 mg PO DAILY #30 tablet 09/09/16 12/08/16 Rx metOLazone [Metolazone] 5 mg PO DAILY #30 tablet 09/09/16 12/08/16 Rx Sulfameth/Trimeth 800-160 Tab 1 tablet PO BID 12/08/16 12/08/16 History [Bactrim DS Tab] Allergies Allergy/AdvReac Type Severity Reaction Status Date / Time No Known Allergies Allergy Verified 12/08/16 11:59 12 point system: reviewed and no additional remarkable complaints except as stated (Per HPI) Medical,Surgical,& Family Hx - Medical History Cardio: History of: CHF, Hypertension Psychological: History of: Anxiety Disorders (panic attacks), Depression Endocrine: History of: Diabetes Mellitus (NIDDM) Respiratory: History of: Asthma Gastrointestinal: No history of: GERD Hematology: History of: Anemia Reproductive: History of: Complication, Reproductive Problems ( uterine fibroids) Other: History of: Skin Problems - Surgical History Abdominal Surgeries: Patient denies: Abdominal Surgery Reproductive Surgeries: Surgical HX of;: Section, Dilation and Curettage Patient denies;: Genitourinary Surgery - Family History Family History: Reports;: Family Cancer (grandmother had bone ca?), Family Diabetes (mother), Family Heart Disease (Father), Family Hypertension ( grandfather), Family Psychiatric Problems (mother), Family Stroke (mother) Denies;: Family Anesthesia Reaction - Social History Smoking Status: Never smoker Frequency of Alcohol Use: None Type of Drug Use: None Infectious Disease Exam H&P - Constitutional Vitals: Vital Signs Temp Pulse Resp BP Pulse Ox 98.7 F 90 18 135/69 97 12/09/16 15:40 12/09/16 15:40 12/09/16 15:40 12/09/16 15:40 12/09/16 15:40 Intake and Output 12/09/16 12/09/16 12/09/16 07:59 15:59 23:59 Intake Total 900 / 900 480 / 480 100 / 100 Balance 900 / 900 480 / 480 100 / 100 Intake: IV 200 / 200 100 / 100 Unasyn 3,000 mg In Ns 100 200 / 200 100 / 100 ml @ 200 mls/hr IV Q8H [facility] Rx#:[id number] Oral 0 / 0 480 / 480 Blood Product 700 / 700 Red Blood Cells Leuko Red 350 / 350 Unit [id number] Red Blood Cells Lr Split 350 / 350 2 Unit [id number] Other: Voiding Method Toilet Toilet # Voids 2 2 # Bowel Movements 0 Exam: General: Patient relatively comfortable HEENT: Mucous membranes pink and moist, anicteric acyanotic, FLAKITA, no oral exudates Neck: Supple, no thyroid gland enlargement Respiratory system: Breath sounds vesicular, no crepitations or wheezes Cardiovascular: Normal S1 and S2, no murmurs appreciated Abdomen: Normal bowel sounds, soft nontender throughout, no organomegaly or mass Genitourinary: She has multiple confluent pustules and boils over the mons pubis and in the groin areas even over the vulva, most of these lesions are draining purulent material. She has some lesions in the intergluteal cleft as well. Extremities: no edema, multiple confluent papules and furuncles in right axilla with purulent drainage Skin: No rash Reports - Labs CBC & BMP: 12/09/16 04:43 12/09/16 04:43 Labs: Laboratory Results - last 24 hr 12/08/16 12/08/16 12/09/16 12:49 17:59 04:43 WBC 13.0 H RBC 2.79 L Hgb 7.8 L Hct 24.0 L MCV 86.0 L MCH 28 MCHC 32.5 RDW 18.0 H Plt Count 389 MPV 8.8 L Neut % (Auto) 78.5 H Lymph % (Auto) 10.3 L [place] % (Auto) 8.4 Eos % (Auto) 1.4 Baso % (Auto) 0.2 Neut # (Auto) 10.2 H Lymph # (Auto) 1.3 L [place] # (Auto) 1.1 H Eos # (Auto) 0.2 Baso # (Auto) 0.0 Immature Gran % 1.2 Nucleated RBC % 0.0 Immature Gran # 0.15 Nucleated RBCs # 0.00 Platelet Estimate Increased Normal Hypochromasia 1+ 1+ Microcytosis Slight 1+ Sodium Potassium Chloride Carbon Dioxide Anion Gap BUN Creatinine GFR Calculation BUN/Creatinine Ratio Glucose POC Glucose Calculated Osmolality Calcium Magnesium Blood Type A NEGATIVE Antibody Screen Cancelled Crossmatch See Detail Blood Bank Comment Cancelled 12/09/16 12/09/16 12/09/16 04:43 12:08 15:17 WBC RBC Hgb Hct MCV MCH MCHC RDW Plt Count MPV Neut % (Auto) Lymph % (Auto) [place] % (Auto) Eos % (Auto) Baso % (Auto) Neut # (Auto) Lymph # (Auto) [place] # (Auto) Eos # (Auto) Baso # (Auto) Immature Gran % Nucleated RBC % Immature Gran # Nucleated RBCs # Platelet Estimate Hypochromasia Microcytosis Sodium 134 L Potassium 4.4 Chloride 99 Carbon Dioxide 24 Anion Gap 15.4 H BUN 26 H Creatinine 1.30 H GFR Calculation 66 BUN/Creatinine Ratio 20.00 Glucose 114 H POC Glucose 116 H 80 Calculated Osmolality 273.2 Calcium 8.3 L Magnesium 1.8 Blood Type Antibody Screen Crossmatch Blood Bank Comment - Reports Microbiology: Microbiology 12/08/16 14:16 Blood Culture - Preliminary Blood No growth at 1 day 12/08/16 14:16 Blood Culture - Preliminary Blood No growth at 1 day 12/08/16 18:00 Wound Culture - Preliminary Groin Gram Negative Rods Gram Negative Rods#2 Gram Positive Cocci 12/08/16 18:00 Wound Culture - Preliminary Axilla - Right Gram Negative Rods Gram Positive Cocci
[2016-12-09] MEDS: ENOXAPARIN 40 MG/0.4 ML SYRINGE SUBCUT SCH (17:43)
[2016-12-09] MEDS: PIPERACILLIN/TAZOBACTAM 3,375 MG in SODIUM CHLORIDE 0.9% 100 ML IV SCH (18:41)
[2016-12-10] MEDS: PIPERACILLIN/TAZOBACTAM 3,375 MG in SODIUM CHLORIDE 0.9% 100 ML IV SCH ×3 (01:25→09:04)
[2016-12-10 06:22] LABS: Basophils % 0.2 % (0.0-0.8); Eosinophils # 0.3 10*3/uL (0.0-0.87); Eosinophils % 1.7 % (0.00-10.9); Hematocrit 24.9 VOL% (35.7-47.0); Immature Granulocytes % 0.9 %; Immature Granulocytes Absolute 0.14 #; Lymphocytes # 1.3 10*3/uL (1.4-4.0); Lymphocytes % 8.4 % (21.3-54.2); Mean Corpuscular HGB Conc 32.1 GM/DL (32-36); Mean Corpuscular Hemoglobin 27 PG (27-34); Mean Corpuscular Volume 85.3 FL (87-102); Mean Platelet Volume 8.4 FL (9.6-12.0); Monocytes # 0.8 10*3/uL (0.11-0.8); Monocytes % 5.6 % (1.7-12.7); Neutrophils # 12.4 10*3/uL (1.4-7.4); Neutrophils % 83.2 % (38.7-73.9); Platelet Count 384 T/CUMM (130-400); Red Blood Count 2.92 MC/CUMM (3.8-5.5); Red Cell Distribution Width 17.7 % (9.3-17.3); White Blood Count 14.9 T/CUMM (4-12)
[2016-12-10 06:51] LABS: Calcium 8.8 MG/DL (8.5-10.1); Osmolality,Calculated 274.1 MOS/KG (273-304); Potassium 4.1 MMOL/L (3.5-5.1)
[2016-12-10 06:54] LABS: Band Neutrophils 3 % (0-10); Eosinophils 1 % (0-10); Hypochromasia 2+; Lymphocytes 6 % (20-55); Platelet Estimate Normal; Segmented Neutrophils 85 % (50-85); Total Cells Counted 100
[2016-12-10] MEDS: CARVEDILOL 6.25 MG TABLET PO SCH ×2 (07:39→07:41)
[2016-12-10] MEDS: INSULIN LISPRO 100 UNIT/ML SUBCUT SCH ×2 (07:41→16:20)
[2016-12-10] MEDS: CARVEDILOL 12.5 MG TABLET PO SCH ×2 (08:48→22:00)
[2016-12-10] MEDS: amLODIPine 10 MG TABLET PO SCH (08:48)
[2016-12-10] MEDS: CHLORHEXIDINE 4% SOLN 118 ML BOTTLE TOP SCH (08:50)
[2016-12-10] MEDS: SPIRONOLACTONE 25 MG TABLET PO SCH ×2 (08:50→22:00)
[2016-12-10] MEDS: PANTOPRAZOLE 40 MG TABLET PO SCH (08:50)
[2016-12-10] MEDS: SODIUM HYPOCHLORITE 0.25% IRRIG 473 ML BOTTLE TOP SCH ×2 (08:50→22:00)
[2016-12-10] MEDS: SULFAMETHOX/TRIMETHOPRIM 800-160 MG TABLET PO SCH (08:50)
--- NOTE | 2016-12-10 09:30 | Physician Query Form ---
CLICK EDIT DOCUMENT TO SELECT QUERY ANSWER --> OK --> SIGN Nicole Ohara RN Clinical Filteration Operator W) [phone] (f) [phone] [email or web address] PROVIDERS: Make your selection(s) from the choices in EACH section by typing an "x" and enter comments in the comment section. Please use your independent medical judgment in providing your response. This request does not imply that any particular answer is desired or expected. CLINICAL INDICATORS: (Providers should not edit this section) Based on documentation of "chronic CHF", ECHO done 08/31/16 showed EF 40-45% with left ventricular diastolic dysfunction. Pt. treated with Coreg and Aldactone as home medications. Please provide further specificity regarding CHF. ACUITY: ( ) Chronic ( ) Acute on Chronic (X ) Clinicallly unable to determine TYPE: ( ) Systolic (HFrEF - heart failure with reduced systolic function/EF) ( ) Diastolic (HFpEF - heart failure with preserved systolic function/EF) ( ) Combined Systolic/Diastolic ( ) Other, please specify: ( ) Clinically unable to determine ( ) The patient does NOT have CHF COMMENTS: PLEASE ALSO DOCUMENT RESPONSE IN PROGRESS NOTES AND/OR DISCHARGE SUMMARY Use of terms such as suspected, likely, or probable (associated with a specific diagnosis that is being evaluated, monitored, or treated as if it exists) are acceptable and can be restated in the discharge summary if not ruled out. MTDD
--- NOTE | 2016-12-10 11:19 | OB/GYN Progress Note ---
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 R/B/A reviewed yesterday. 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
--- NOTE | 2016-12-10 12:19 | Anesthesia Post-Op ---
Anesthesia Post OP - Post Ansesthetic Evaluation Patient seen in post op: Yes Resp: within normal limits CV: within normal limits Mental: within normal limits Temp: within normal limits [id number]: within normal limits Nausea and Vomiting: within normal limits Pain: within normal limits
[2016-12-10] MEDS ORDERED: fentaNYL 100 MCG/2 ML VIAL ONE (12:23)
[2016-12-10] MEDS ORDERED: MIDAZOLAM 2 MG/2 ML VIAL ONE (12:23)
[2016-12-10] MEDS ORDERED: SEVOFLURANE 1 UNIT/15 MINUTE INH ONE (12:23)
[2016-12-10] MEDS ORDERED: HYDROmorphone 2 MG/1 ML VIAL IV PRN (12:25)
[2016-12-10] MEDS ORDERED: ONDANSETRON 4 MG/2 ML VIAL IV PRN (12:25)
--- NOTE | 2016-12-10 12:27 | Infectious Disease Progress ---
Assessment and Plan (1) Diabetes mellitus Status: Chronic Current Visit: Yes (2) Hidradenitis suppurativa Status: Chronic Assessment and plan: This is quite a severe case. Patient informed of this is a chronic condition with usually no care. Multiple organisms cultured. Recommendations: 1. Stop Zosyn and Bactrim 2. Start ceftriaxone 2 g daily 3. Start doxycycline 100 mg twice a day; will give IV for now to decrease chance of nausea given all the other antibiotic she is on 4. Start ciprofloxacin 500 mg p.o. twice a day 5. Aggressive wound care Current Visit: Yes (3) Hypertension Status: Chronic Current Visit: Yes Infectious Disease - PN: Subj Interval history: Patient says he is feeling a little better today, although some improvement in the drainage from her multiple lesions. Also the a bit less painful today. No fever. No nausea vomiting or diarrhea on the antibiotics. Infectious Disease Exam (PN) - Constitutional Vitals: Temp Pulse Resp BP Pulse Ox 98.3 F 75 18 95/68 98 12/10/16 12:08 12/10/16 12:23 12/10/16 12:23 12/10/16 12:23 12/10/16 12:23 General appearance: no acute distress, morbidly obese Exam: General appearance: no acute distress - Eye Eye exam: Present: EOMI. no icterus Pupils: Present: FLAKITA - ENT ENT exam: no oropharyhgeal exudates - GI/Abdominal GI/Abdominal exam: normal bowel sounds, soft, non-tender - Multiple nodular lesions with pustules in the pubic area and groin, possibly less tender on palpation there is still bloody purulent drainage. - Extremities Exam Extremities exam: no edema, multiple nodular pustular lesions in right axilla draining but less tender today - Skin Skin exam: no rash Results - Labs CBC & BMP: 12/10/16 05:33 12/10/16 05:33 Lab Results: I have reviewed the past 24 hour labs (Multiple organisms isolated on the cultures)
[2016-12-10] MEDS ORDERED: LACTATED RINGERS 1,000 ML IV SCH (12:30)
[2016-12-10] MEDS: cefTRIAXone 2,000 MG in SODIUM CHLORIDE 0.9% 100 ML IV SCH (13:16)
[2016-12-10] MEDS: CIPROFLOXACIN 500 MG TABLET PO SCH ×2 (13:18→22:00)
--- NOTE | 2016-12-10 14:07 | Hospitalist Progress Note ---
Assessment and Plan (1) Abdominal pain Status: Acute Assessment and plan: CT and abdomen noted multiple abnormalities. We will consult general surgery and gynecology to evaluate. The patient reports a past medical history of congestive heart failure. We will gently rehydrate, monitor intake and output, control pain, antiemetics. Will recheck labs in a.m. 12/10-we will continue supportive care for abdominal pain. Hysterscopy and D&C this a.m. per MINUTE CLERK FOR BASIC TRAFFIC; we will await further recommendations. We appreciate the assistance during the clinical encounter. Current Visit: Yes (2) Anemia Status: Chronic Assessment and plan: H&H was noted at 6.9 and 21. We will type and screen; we will monitor and transfuse if necessary. 12/10-hemoglobin and hematocrit noted at 8.0 and 24.9 today; slight improvement from 7.8 and 24.0 yesterday. We will monitor and recheck CBC in a.m. Current Visit: Yes (3) Hidradenitis suppurativa Status: Chronic Assessment and plan: This is chronic in nature. Patient reports multiple episodes in the past. Patient had been recently started on Bactrim in the outpatient setting for this. We will start empiric antibiotic coverage and monitor. 12/10-patient was seen and evaluated by infectious disease on yesterday. We appreciate the input during the clinical encounter. The patient was switched from Unasyn to Zosyn on yesterday per ID recommendation and Bactrim was continued. Infectious disease to manage. Current Visit: Yes (4) Chronic kidney disease Status: Acute Assessment and plan: BUN and creatinine noted at 30 and 1.50. Upon review of the previous medical records BUN was noted at 34 and creatinine at 2.20 in August 2016. This is around the patient's baseline. We will monitor renal function closely and refrain from nephrotoxic agents. 12/10-improvement in renal function noted. BUN noted at 23 and creatinine 1.60; down from 26/1.30 on yesterday. We will monitor renal function closely during the clinical encounter. We will recheck CMP in a.m. Current Visit: Yes Hospitalist: Subjective Interval history: Patient seen and examined; no significant overnight events reported. NPO pending hysteroscopically and D&C this a.m. Exam - Constitutional Vitals: Period Temp Pulse Resp BP Sys/Harper Pulse Ox Last 24 Hr 97.4 F-98.7 F 72-98 16-20 80-135/58-73 90-100 General appearance: no acute distress, morbidly obese - Head Head exam: Present: normal inspection, normocephalic, atraumatic - Eye Eye exam: Present: EOMI. Absent: conjunctival injection Pupils: Present: FLAKITA, normal accommodation - ENT ENT exam: Present: normal exam, normal external ear exam, normal oropharynx - Neck Neck exam: Present: normal inspection. Absent: lymphadenopathy, meningismus, tenderness, thyromegaly - Respiratory Respiratory exam: Present: clear to auscultation bilaterally. Absent: rales, rhonchi, stridor, wheezes - Cardiovascular Cardiovascular exam: Present: regular rate and rhythm. Absent: carotid bruit, diastolic murmur, gallop, JVD, rubs, systolic murmur - GI/Abdominal GI/Abdominal exam: Present: normal bowel sounds, soft - Extremities Exam Extremities exam: Present: normal inspection, normal capillary refill. Absent: edema - Back Exam Back exam: Present: normal inspection - Neurological Exam Neurological exam: Present: alert, oriented X3, CN II-XII intact - Psychiatric Psychiatric exam: Present: normal affect, normal mood - Skin Skin exam: Present: normal color, warm, other (Multiple bruises noted to the axillary and pubic areas with drainage noted) Results - Labs CBC & BMP: 12/10/16 05:33 12/10/16 05:33 Lab Results: I have reviewed the past 24 hour labs
[2016-12-10] MEDS: DOXYCYCLINE HYCLATE INJ 100 MG in SODIUM CHLORIDE 0.9% 100 ML IV SCH (14:27)
--- NOTE | 2016-12-10 15:06 | Operative Note ---
Date of procedure: 12/10/16 Pre-op diagnosis: Postmenopausal bleeding Post-op diagnosis: other (Secondary amenorrhea) Procedure: HYSTEROSCOPY D&C Pt taken to the OR. Transferred to table. Put to sleep with LMA. Prepped and draped in sterile fashion in Srinivas stirrups. Bladder emptied with red rubber. After time out, Graves speculum placed in the vagina. Cervix visualized and anterior lip grasped with tenaculum. Sounded to 12 cm. Cervix hydroldilated and uterine cavity visualized. Pt noted to have what appear to be 3-4 polpyoid looking areas. Some wispy tissue as wel Hysteroscopy concluded then D&C performed in standard usual fashion. Specimen passed off. All instruments removed and hemostasis noted. Sponge counts correct and patient taken to the recovery room in stable condition Anesthesia: other (LMA) Surgeon / Physician: Augusta Merchant Estimated blood loss: minimal Specimens: other (Endometrial currettings) Condition: stable Disposition: floor Results - Labs CBC & BMP: 12/10/16 05:33 12/10/16 05:33 Discharge Plan - Discharge Medications No Action Albuterol Inhaler [Proventil Inhaler] 1 puff DAILY PRN PRN Reason: Shortness Of Breath Carvedilol [Coreg] 6.25 mg PO BID W/MEALS #60 tablet Spironolactone [Aldactone] 12.5 mg PO BID #60 tablet metOLazone [Metolazone] 5 mg PO DAILY #30 tablet glipiZIDE [Glipizide] 5 mg PO DAILY #30 tablet Sulfameth/Trimeth 800-160 Tab [Bactrim DS Tab] 1 tablet PO BID - Follow Up or Referral - Forms/Instructions
[2016-12-10] MEDS: ENOXAPARIN 40 MG/0.4 ML SYRINGE SUBCUT SCH (16:58)
[2016-12-11] MEDS: DOXYCYCLINE HYCLATE INJ 100 MG in SODIUM CHLORIDE 0.9% 100 ML IV SCH ×2 (03:27→17:20)
[2016-12-11 05:04] LABS: Basophils % 0.1 % (0.0-0.8); Eosinophils # 0.3 10*3/uL (0.0-0.87); Eosinophils % 1.9 % (0.00-10.9); Hematocrit 23.4 VOL% (35.7-47.0); Hemoglobin 7.6 GM/DL (12.0-16.0); Immature Granulocytes % 1.1 %; Immature Granulocytes Absolute 0.15 #; Lymphocytes # 1.4 10*3/uL (1.4-4.0); Lymphocytes % 10.7 % (21.3-54.2); Mean Corpuscular HGB Conc 32.5 GM/DL (32-36); Mean Corpuscular Hemoglobin 28 PG (27-34); Mean Corpuscular Volume 86.3 FL (87-102); Mean Platelet Volume 8.4 FL (9.6-12.0); Monocytes # 0.9 10*3/uL (0.11-0.8); Monocytes % 6.5 % (1.7-12.7); Neutrophils # 10.7 10*3/uL (1.4-7.4); Neutrophils % 79.7 % (38.7-73.9); Platelet Count 378 T/CUMM (130-400); Red Blood Count 2.71 MC/CUMM (3.8-5.5); Red Cell Distribution Width 17.7 % (9.3-17.3); White Blood Count 13.5 T/CUMM (4-12)
[2016-12-11 05:45] LABS: Albumin 1.7 G/DL (3.4-5.0); Bilirubin,Total 0.7 MG/DL (0.2-1.0); Calcium 8.7 MG/DL (8.5-10.1); Magnesium 1.9 MG/DL (1.8-2.4); Osmolality,Calculated 274.1 MOS/KG (273-304); Phosphorous 3.6 MG/DL (2.5-4.9); Potassium 4.4 MMOL/L (3.5-5.1); Total Protein 8.5 G/DL (6.4-8.3)
[2016-12-11 05:47] LABS: Luteinizing Hormone 2.3 MIU/ML
[2016-12-11 06:28] LABS: Hypochromasia 1+; Lymphocytes 18 % (20-55); Microcytosis 1+; Platelet Estimate Normal; Segmented Neutrophils 79 % (50-85); Total Cells Counted 100
[2016-12-11] MEDS: INSULIN LISPRO 100 UNIT/ML SUBCUT SCH ×2 (07:55→17:20)
[2016-12-11] MEDS ORDERED: SODIUM CHLORIDE 0.9% 250 ML IV PRN (08:04)
[2016-12-11] MEDS: PANTOPRAZOLE 40 MG TABLET PO SCH (08:17)
[2016-12-11] MEDS: CARVEDILOL 12.5 MG TABLET PO SCH ×2 (08:17→20:34)
[2016-12-11] MEDS: CHLORHEXIDINE 4% SOLN 118 ML BOTTLE TOP SCH (08:17)
[2016-12-11] MEDS: CIPROFLOXACIN 500 MG TABLET PO SCH ×3 (08:17→20:34)
[2016-12-11] MEDS: SPIRONOLACTONE 25 MG TABLET PO SCH ×2 (08:17→20:34)
[2016-12-11] MEDS: amLODIPine 10 MG TABLET PO SCH (08:17)
[2016-12-11] MEDS: SODIUM HYPOCHLORITE 0.25% IRRIG 473 ML BOTTLE TOP SCH ×2 (08:17→20:34)
--- NOTE | 2016-12-11 10:32 | OB/GYN Progress Note ---
Assessment and Plan (1) Postmenopausal bleeding Status: Acute Assessment and plan: Proceed with hysteroscopy D&C Current Visit: Yes (2) Irregular bleeding Status: Acute Assessment and plan: POD#1 s/p D&C for evaluation of abnormal uterine bleeding. Doing well from that perspective. Receiving more blood this morning per medicine team Likely amenorrhea/irregular bleeding as opposed to PMB Referral to MEDICAL BILLING COORDINATOR [facility] in [place] if pathology positive. Stable for discharge from a MEDICAL BILLING COORDINATOR perspective Current Visit: Yes CERTIFIED OPHTHALMIC ASSISTANT - PN: Subj Interval history: Pt without MEDICAL BILLING COORDINATOR complaints this morning. Explained to her the tissue and polyps I saw during her procedure yesterday. Advised her that we are awaiting the path. Also informed her that based on her labs, I don't think she is menopausal but has just been amenorrheic (likely due to obesity). Exam CERTIFIED OPHTHALMIC ASSISTANT - Constitutional Vitals: Vital Signs Temp Pulse Pulse Resp BP Pulse Ox Pulse Ox 12/11/16 08:00 97.2 F L 84 17 110/64 12/11/16 04:43 16 12/11/16 04:00 96.9 F L 83 16 116/65 12/11/16 02:00 18 12/11/16 00:00 97.7 F 86 18 129/62 12/10/16 20:00 98.6 F 90 18 125/64 12/10/16 15:39 98.2 F 81 18 112/60 98 12/10/16 13:05 97.8 F 76 18 112/68 95 12/10/16 12:48 97.8 F 76 18 115/69 97 12/10/16 12:43 77 18 115/69 97 12/10/16 12:33 76 18 102/70 100 12/10/16 12:23 75 18 95/68 98 12/10/16 12:18 75 16 80/60 96 12/10/16 12:13 75 16 80/60 96 12/10/16 12:08 98.3 F 75 16 98/61 100 Pulse Ox 12/11/16 08:00 97 12/11/16 04:43 12/11/16 04:00 88 L 12/11/16 02:00 12/11/16 00:00 12/10/16 20:00 12/10/16 15:39 12/10/16 13:05 12/10/16 12:48 12/10/16 12:43 12/10/16 12:33 12/10/16 12:23 12/10/16 12:18 12/10/16 12:13 12/10/16 12:08 General appearance: no acute distress - Head Head exam: Present: normocephalic - Eye Eye exam: Present: EOMI Pupils: Present: FLAKITA Results - Labs CBC & BMP: 12/11/16 04:28 12/11/16 04:28
--- NOTE | 2016-12-11 10:48 | Hospitalist Progress Note ---
Assessment and Plan (1) Abdominal pain Status: Acute Assessment and plan: CT and abdomen noted multiple abnormalities. We will consult general surgery and gynecology to evaluate. The patient reports a past medical history of congestive heart failure. We will gently rehydrate, monitor intake and output, control pain, antiemetics. Will recheck labs in a.m. 12/10-we will continue supportive care for abdominal pain. Hysterscopy and D&C this a.m. per [employer] W[employer]ING SYSTEM OPERATOR; we will await further recommendations. We appreciate the assistance during the clinical encounter. 12/11-hysteroscopic D&C on yesterday. Biopsies were obtained we are awaiting results. We will continue supportive care. Current Visit: Yes (2) Anemia Status: Chronic Assessment and plan: H&H was noted at 6.9 and 21. We will type and screen; we will monitor and transfuse if necessary. 12/10-hemoglobin and hematocrit noted at 8.0 and 24.9 today; slight improvement from 7.8 and 24.0 yesterday. We will monitor and recheck CBC in a.m. 12/11-hemoglobin hematocrit noted at 7.6 and 23.4. This is a noted decrease from yesterday which was noted at 8.0 and 24.9. We will type and screen and transfuse 2 units of PRBCs. We will recheck CBC in a.m. Current Visit: Yes (3) Hidradenitis suppurativa Status: Chronic Assessment and plan: This is chronic in nature. Patient reports multiple episodes in the past. Patient had been recently started on Bactrim in the outpatient setting for this. We will start empiric antibiotic coverage and monitor. 12/10-patient was seen and evaluated by infectious disease on yesterday. We appreciate the input during the clinical encounter. The patient was switched from Unasyn to Zosyn on yesterday per ID recommendation and Bactrim was continued. Infectious disease to manage. 12/11-continue antibiotic coverage per ID recommendation. Current Visit: Yes (4) Chronic kidney disease Status: Acute Assessment and plan: BUN and creatinine noted at 30 and 1.50. Upon review of the previous medical records BUN was noted at 34 and creatinine at 2.20 in August 2016. This is around the patient's baseline. We will monitor renal function closely and refrain from nephrotoxic agents. 12/10-improvement in renal function noted. BUN noted at 23 and creatinine 1.60; down from 26/1.30 on yesterday. We will monitor renal function closely during the clinical encounter. We will recheck CMP in a.m. 12/11-improvement in renal function noted, BUN noted at 22 creatinine 1.50. We will recheck CMP in a.m. Current Visit: Yes Hospitalist: Subjective Interval history: Patient seen and examined; chart reviewed. Hysteroscopy and D&C on yesterday. Awaiting biopsy results. Hemoglobin and hematocrit noted at 7.6 and 23.4. We will transfuse today and recheck CBC in a.m. Patient may be assessed for possible discharge on tomorrow if hemoglobin and hematocrit are stable. Exam - Constitutional Vitals: Period Temp Pulse Resp BP Sys/Harper Pulse Ox Last 24 Hr 96.9 F-98.6 F 68-90 16-18 80-129/60-70 88-100 General appearance: no acute distress, morbidly obese - Head Head exam: Present: normal inspection, normocephalic, atraumatic - Eye Eye exam: Present: EOMI, conjunctival injection Pupils: Present: FLAKITA, normal accommodation - ENT ENT exam: Present: normal exam, normal external ear exam, normal oropharynx - Neck Neck exam: Present: normal inspection. Absent: lymphadenopathy, meningismus, tenderness, thyromegaly - Respiratory Respiratory exam: Present: clear to auscultation bilaterally. Absent: rales, rhonchi, stridor, wheezes - Cardiovascular Cardiovascular exam: Present: regular rate and rhythm. Absent: carotid bruit, diastolic murmur, gallop, JVD, rubs, systolic murmur - GI/Abdominal GI/Abdominal exam: Present: normal bowel sounds, soft - Extremities Exam Extremities exam: Present: normal inspection, normal capillary refill, full ROM. Absent: edema - Back Exam Back exam: Present: normal inspection - Neurological Exam Neurological exam: Present: alert, oriented X3, CN II-XII intact - Psychiatric Psychiatric exam: Present: normal affect, normal mood - Skin Skin exam: Present: normal color, warm, dry Results - Labs CBC & BMP: 12/11/16 04:28 12/11/16 04:28 Lab Results: I have reviewed the past 24 hour labs
[2016-12-11] MEDS: cefTRIAXone 2,000 MG in SODIUM CHLORIDE 0.9% 100 ML IV SCH (16:43)
[2016-12-11] MEDS: ENOXAPARIN 40 MG/0.4 ML SYRINGE SUBCUT SCH (17:20)
[2016-12-12] MEDS: DOXYCYCLINE HYCLATE INJ 100 MG in SODIUM CHLORIDE 0.9% 100 ML IV SCH ×2 (03:32→14:09)
[2016-12-12] MEDS: INSULIN LISPRO 100 UNIT/ML SUBCUT SCH ×2 (07:57→17:07)
[2016-12-12 08:08] LABS: Basophils % 0.2 % (0.0-0.8); Eosinophils # 0.2 10*3/uL (0.0-0.87); Eosinophils % 1.1 % (0.00-10.9); Hematocrit 31.1 VOL% (35.7-47.0); Immature Granulocytes % 0.7 %; Lymphocytes # 1.4 10*3/uL (1.4-4.0); Lymphocytes % 9.9 % (21.3-54.2); Mean Corpuscular HGB Conc 32.2 GM/DL (32-36); Mean Corpuscular Hemoglobin 28 PG (27-34); Mean Corpuscular Volume 87.9 FL (87-102); Mean Platelet Volume 8.2 FL (9.6-12.0); Monocytes # 0.7 10*3/uL (0.11-0.8); Monocytes % 4.8 % (1.7-12.7); Neutrophils # 11.5 10*3/uL (1.4-7.4); Neutrophils % 83.3 % (38.7-73.9); Platelet Count 380 T/CUMM (130-400); Red Cell Distribution Width 16.7 % (9.3-17.3); White Blood Count 13.8 T/CUMM (4-12)
[2016-12-12 08:19] LABS: Red Blood Count 3.54 MC/CUMM (3.8-5.5)
[2016-12-12] MEDS: amLODIPine 10 MG TABLET PO SCH (08:24)
[2016-12-12] MEDS: SPIRONOLACTONE 25 MG TABLET PO SCH ×2 (08:24→20:31)
[2016-12-12] MEDS: CARVEDILOL 12.5 MG TABLET PO SCH ×2 (08:24→20:30)
[2016-12-12] MEDS: PANTOPRAZOLE 40 MG TABLET PO SCH (08:24)
[2016-12-12] MEDS: SODIUM HYPOCHLORITE 0.25% IRRIG 473 ML BOTTLE TOP SCH ×2 (08:25→20:31)
[2016-12-12] MEDS: CIPROFLOXACIN 500 MG TABLET PO SCH ×2 (08:25→20:31)
[2016-12-12] MEDS: CHLORHEXIDINE 4% SOLN 118 ML BOTTLE TOP SCH (08:26)
[2016-12-12 08:38] LABS: Alanine Aminotransferase 16 U/L (13-56); Albumin 1.9 G/DL (3.4-5.0); Alkaline Phosphatase 211 U/L (45-117); Aspartate Amino Transferase 16 U/L (0-37); Bilirubin,Total < 0.39 MG/DL (0.2-1.0); Blood Urea Nitrogen 20 MG/DL (7-18); Calcium 8.5 MG/DL (8.5-10.1); Glucose 159 MG/DL (74-106); Magnesium 1.6 MG/DL (1.8-2.4); Osmolality,Calculated 275.1 MOS/KG (273-304); Phosphorous 2.8 MG/DL (2.5-4.9); Potassium 4.3 MMOL/L (3.5-5.1); Sodium 135 MMOL/L (136-145); Total Protein 9.1 G/DL (6.4-8.3)
--- NOTE | 2016-12-12 09:55 | Discharge Summary ---
Hospital Course - Hospital Course Hospital Course: This is a very pleasant 51-year-old female that presented to the ED at [facility] on November 08, 2016 for the evaluation of abdominal pain and boils. The patient reported a medical history significant for: Congestive heart failure, hypertension, [id number] diabetes mellitus, chronic hidradenitis, morbid obesity, asthma, depression, anxiety disorder, anemia, and uterine fibroids. Patient surgical history significant for section and dilatation and curettage. The patient reported the onset of the above symptoms 2 weeks prior to presentation. The patient reported episodes similar in nature in the past in which she was seen here, evaluated, and told that she had uterine fibroids. She was subsequently discharged home to follow-up with her adjunct faculty however she failed to do so. The patient reported nausea however, denies vomiting. She reports that the pain originally started as intermittent pain with progression to constant pain. The pain became unbearable that morning and she decided to present to the ED for further evaluation. The patient was assessed at the time of ED presentation. The patient was found to have a low-grade temperature at 99.7, tachycardic with a pulse rate at 123, and hypertensive with a blood pressure noted at 174/105. Labs were obtained; complete blood count reported white blood cell count at 13.9, hemoglobin 6.6, hematocrit 21.0, and platelet count at 457. Complete metabolic profile reported sodium at 133, potassium 4.5, chloride 99, carbon dioxide 26, BUN 30, creatinine 1.50, glucose 144, lactic acid 1.6, calcium 8.7, amylase 73, lipase 230, magnesium 1.8, alkaline phosphatase at 251. Cardiac enzymes reported a troponin at less than 0.015. Chest x-ray reported mild left atrial prominence; however no acute cardiopulmonary processes were identified. CT abdomen and pelvis; resolution of the subcutaneous edema; nodular appearance of the left breast, inguinal lymphadenopathy,enlarged heterogeneous uterus with numerous calcifications. While this simply may be due to extensive uterine fibroid formation, when masses become this large and confluent, additional pathology should also be considered including uterine sarcoma an endometrial CA. Abdominal x- ray reported moderate fecal material in the colon and mild gaseous distention of the small intestine. The patient was subsequently admitted to the hospitalist services for continuation of care. The patient was admitted and supportive care was initiated. Empiric antibiotics and fluid resuscitation was ordered. A general surgery and gynecology consultation was requested. The patient was seen and evaluated by general surgery and deemed inappropriate for surgical intervention at this time. Due to the patient's long-term use of antibiotic agents, and infectious disease consultation was requested. The patient was seen and evaluated by infectious disease and her antibiotic coverage was adjusted. The patient was seen and evaluated by gynecology. On December 10, 2016, the patient underwent hysteroscopy dilation and curettage under the direction of Dr. Annabelle Merchant. Biopsies were obtained and sent for analysis. On November 11, 2016, the patient experienced a noted decrease in hemoglobin and hematocrit; hemoglobin and hematocrit were noted at 7.6/23.4. The patient underwent transfusion of blood products and today her hemoglobin and hematocrit are noted at 10.0/31.1. The patient has not experienced any significant overnight events. Her condition is stable. Today, we feel that she is indeed appropriate for discharge to follow- up with her primary care physician and child development specialist as directed. I spoke with patient in great detail regarding the need to follow-up with Dr. Merchant in the outpatient setting for the pending biopsy reports. Diagnosis - Discharge Diagnosis (1) Abdominal pain Status: Acute (2) Anemia Status: Chronic (3) Hidradenitis suppurativa Status: Chronic (4) Chronic kidney disease Status: Acute Discharge Plan - Discharge Medications No Action Albuterol Inhaler [Proventil Inhaler] 1 puff DAILY PRN PRN Reason: Shortness Of Breath Carvedilol [Coreg] 6.25 mg PO BID W/MEALS #60 tablet Spironolactone [Aldactone] 12.5 mg PO BID #60 tablet metOLazone [Metolazone] 5 mg PO DAILY #30 tablet glipiZIDE [Glipizide] 5 mg PO DAILY #30 tablet Sulfameth/Trimeth 800-160 Tab [Bactrim DS Tab] 1 tablet PO BID - Follow Up or Referral - Forms/Instructions Exam - Constitutional Vitals: Period Temp Pulse Resp BP Sys/Harper Pulse Ox Last 24 Hr 96.7 F-98.4 F 68-93 17-22 112-157/59-90 95-98 Discharge Results Procedures and tests throughout hospitalization: Pending Orders 12/08/16 14:16 Blood Culture Stat 12/11/16 04:28 Dehydroepiandrosterone (DHEA), Routine Testosterone Total & Free IN AM Labs on day of discharge: Labs from last 24 hours 12/12/16 12/12/16 12/12/16 07:55 07:55 07:25 WBC 13.8 H RBC 3.54 L D Hgb 10.0 L D Hct 31.1 L MCV 87.9 MCH 28 MCHC 32.2 RDW 16.7 Plt Count 380 MPV 8.2 L Neut % (Auto) 83.3 H Lymph % (Auto) 9.9 L [place] % (Auto) 4.8 Eos % (Auto) 1.1 Baso % (Auto) 0.2 Neut # (Auto) 11.5 H Lymph # (Auto) 1.4 [place] # (Auto) 0.7 Eos # (Auto) 0.2 Baso # (Auto) 0.0 Immature Gran % 0.7 Nucleated RBC % 0.0 Immature Gran # 0.10 Nucleated RBCs # 0.00 Sodium 135 L Potassium 4.3 Chloride 101 Carbon Dioxide 28 Anion Gap 10.3 BUN 20 H Creatinine 1.20 H GFR Calculation 72 BUN/Creatinine Ratio 16.00 Glucose 159 H POC Glucose 182 H Calculated Osmolality 275.1 Calcium 8.5 Phosphorus 2.8 Magnesium 1.6 L Total Bilirubin < 0.39 AST 16 ALT 16 Alkaline Phosphatase 211 H Total Protein 9.1 H Albumin 1.9 L Globulin 7.2 H Albumin/Globulin Ratio 0.2 L Blood Type Antibody Screen Crossmatch 12/11/16 12/11/16 12/11/16 20:44 16:14 11:36 WBC RBC Hgb Hct MCV MCH MCHC RDW Plt Count MPV Neut % (Auto) Lymph % (Auto) [place] % (Auto) Eos % (Auto) Baso % (Auto) Neut # (Auto) Lymph # (Auto) [place] # (Auto) Eos # (Auto) Baso # (Auto) Immature Gran % Nucleated RBC % Immature Gran # Nucleated RBCs # Sodium Potassium Chloride Carbon Dioxide Anion Gap BUN Creatinine GFR Calculation BUN/Creatinine Ratio Glucose POC Glucose 218 H 177 H 220 H Calculated Osmolality Calcium Phosphorus Magnesium Total Bilirubin AST ALT Alkaline Phosphatase Total Protein Albumin Globulin Albumin/Globulin Ratio Blood Type Antibody Screen Crossmatch 12/11/16 04:28 WBC RBC Hgb Hct MCV MCH MCHC RDW Plt Count MPV Neut % (Auto) Lymph % (Auto) [place] % (Auto) Eos % (Auto) Baso % (Auto) Neut # (Auto) Lymph # (Auto) [place] # (Auto) Eos # (Auto) Baso # (Auto) Immature Gran % Nucleated RBC % Immature Gran # Nucleated RBCs # Sodium Potassium Chloride Carbon Dioxide Anion Gap BUN Creatinine GFR Calculation BUN/Creatinine Ratio Glucose POC Glucose Calculated Osmolality Calcium Phosphorus Magnesium Total Bilirubin AST ALT Alkaline Phosphatase Total Protein Albumin Globulin Albumin/Globulin Ratio Blood Type A NEGATIVE Antibody Screen Negative Crossmatch See Detail Preliminary micro results at discharge 12/08/16 14:16 Blood Culture - Preliminary Blood No growth at 3 days 12/08/16 14:16 Blood Culture - Preliminary Blood No growth at 3 days DS: Provider Date of admission: 12/08/16 15:07 Primary care physician: . No PCP Attending physician on admission: Carroll Soto DO Consults: 12/08/16 17:03 Consult to Wound Care - [place] [CONS] Routine Reason for Wound Care: Other Consult Comment: 2nd opinion on wound orders 12/08/16 17:57 Consult to Physician [CONS] Routine Comment: adenitis suppurativa Consulting Provider: uGs Arriola Person Notified: ASYA Date Notified: 12/09/16 Time Notified: 09:27 Consult to Physician [CONS] Routine Comment: menorrhagia Consulting Provider: Augusta Merchant Person Notified: MERLY Date Notified: 12/09/16 Time Notified: 09:24 12/08/16 18:07 Consult to Dietitian [CONS] Routine Reason for Dietitian: Other 12/09/16 08:04 Consult to Physician [CONS] Routine Comment: hidradenitis suppurative Consulting Provider: Neetu Mendez When should Consulting Provider be notified: Jaron Person Notified: MIL Date Notified: 12/09/16 Time Notified: 09:10 Discharging clinician: Sully Connolly CNP
--- NOTE | 2016-12-12 11:45 | Hospitalist Progress Note ---
Assessment and Plan (1) Hidradenitis suppurativa Status: Chronic Assessment and plan: Patient is on systemic antibiotics at this point however I am waiting for antibiogram to these isolates before we can definitively treat. Since she is not septic and does not look toxic at this point I am not going to change antibiotics. However it is imperative in the face of the isolates to know at least the antibiogram before we make a final decision. Keep the patient in the hospital for today Current Visit: Yes Hospitalist: Subjective Interval history: Patient has been seen interviewed and examined. My colleague is already seen this patient area. Denies any acute development this morning. Of concern however that she has a chronic suppurative hidradenitis involving the right axilla. Organisms obtained from this drainage include Acinetobacter species, Klebsiella pneumoniae and E coli. Also has Staphylococcus capitis. As of now no antibiogram is given she still has a leukocytosis of 13,800. Fever curve is normal. My concern is that this was sent home on empiric oral antibiotics are likely going to be failure and these organisms can be quite virulent. Will reorder her here at least until we know the antibiogram. Continue IV antibiotics. Exam - Constitutional Vitals: Period Temp Pulse Resp BP Sys/Harper Pulse Ox Last 24 Hr 96.7 F-98.4 F 74-93 17-22 112-157/59-87 95-99 General appearance: morbidly obese - Head Head exam: Present: normocephalic, atraumatic - Eye Eye exam: Present: EOMI Pupils: Present: normal accommodation - Neck Neck exam: Present: normal inspection - Respiratory Respiratory exam: Present: clear to auscultation bilaterally - Cardiovascular Cardiovascular exam: Present: regular rate and rhythm - GI/Abdominal GI/Abdominal exam: Present: normal bowel sounds, soft - Extremities Exam Extremities exam: Present: other (Suppurative hidradenitis involving the right axilla) - Neurological Exam Neurological exam: Present: alert, oriented X3, CN II-XII intact - Psychiatric Psychiatric exam: Present: normal affect, normal mood - Skin Skin exam: Present: other (As above) Results - Labs CBC & BMP: 12/12/16 07:55 12/12/16 07:55
[2016-12-12] MEDS: cefTRIAXone 2,000 MG in SODIUM CHLORIDE 0.9% 100 ML IV SCH (14:07)
[2016-12-12] MEDS: ENOXAPARIN 40 MG/0.4 ML SYRINGE SUBCUT SCH (17:09)
[2016-12-13] MEDS: DOXYCYCLINE HYCLATE INJ 100 MG in SODIUM CHLORIDE 0.9% 100 ML IV SCH (03:41)
--- NOTE | 2016-12-13 08:40 | General Surgery Progress Note ---
Assessment and Plan (1) Hidradenitis Status: Acute Assessment and plan: The patient is responding to antibiotic therapy. I will sign off. Continue antibiotics per infectious disease. Refer the patient to [facility] general surgery for treatment of her extensive hidradenitis. Current Visit: Yes Subjective Patient reports: Present: no new complaints, feels better, pain is less, tolerating a regular diet, afebrile Narrative: The patient's cultures have returned with multiple different bacteria and they were not all sensitive to Bactrim. She is on IV antibiotics now. Exam - Constitutional Vitals: Period Temp Pulse Resp BP Sys/Harper Pulse Ox Last 24 Hr 97.3 F-98.5 F 82-90 14-20 119-132/65-72 98-100 General appearance: no acute distress, morbidly obese - Head Head exam: Present: normal inspection, normocephalic - Eye Eye exam: Present: EOMI. Absent: scleral icterus Pupils: Present: FLAKITA - ENT ENT exam: Present: normal exam Mouth exam: Present: normal external inspection, normal voice - Neck Neck exam: Present: normal inspection, trachea midline - Respiratory Respiratory exam: Present: clear to auscultation bilaterally. Absent: accessory muscle use, chest wall tenderness - Cardiovascular Cardiovascular exam: Present: RRR. Absent: systolic murmur, tachycardia - GI/Abdominal GI/Abdominal exam: Present: normal bowel sounds, soft. Absent: tenderness, rebound - Extremities Exam Extremities exam: Present: normal capillary refill, other (Hidradenitis in the axilla and groins and perianal region is all decreased in drainage and there is no focal abscess.) - Back Exam Back exam: Present: normal inspection - Neurological Exam Neurological exam: Present: alert, oriented X3 Speech: Present: normal - Skin Skin exam: Present: normal color, warm Results - Labs CBC & BMP: 12/12/16 07:55 12/12/16 07:55
[2016-12-13] MEDS: INSULIN LISPRO 100 UNIT/ML SUBCUT SCH (09:01)
[2016-12-13] MEDS: amLODIPine 10 MG TABLET PO SCH (09:22)
[2016-12-13] MEDS: CHLORHEXIDINE 4% SOLN 118 ML BOTTLE TOP SCH (09:22)
[2016-12-13] MEDS: SPIRONOLACTONE 25 MG TABLET PO SCH (09:22)
[2016-12-13] MEDS: PANTOPRAZOLE 40 MG TABLET PO SCH (09:22)
[2016-12-13] MEDS: CIPROFLOXACIN 500 MG TABLET PO SCH (09:22)
[2016-12-13] MEDS: SODIUM HYPOCHLORITE 0.25% IRRIG 473 ML BOTTLE TOP SCH (09:22)
[2016-12-13] MEDS: CARVEDILOL 12.5 MG TABLET PO SCH (09:22)
[2016-12-13 11:12] VITALS: BP 118/68
--- NOTE | 2016-12-13 11:45 | Discharge Summary ---
Hospital Course - Hospital Course Hospital Course: This is a very pleasant 51-year-old female that presented to the ED at [facility] on November 08, 2016 for the evaluation of abdominal pain and boils. The patient reported a medical history significant for: Congestive heart failure, hypertension, [id number] diabetes mellitus, chronic hidradenitis, morbid obesity, asthma, depression, anxiety disorder, anemia, and uterine fibroids. Patient surgical history significant for section and dilatation and curettage. The patient reported the onset of the above symptoms 2 weeks prior to presentation. The patient reported episodes similar in nature in the past in which she was seen here, evaluated, and told that she had uterine fibroids. She was subsequently discharged home to follow-up with her philosophy instructor however she failed to do so. The patient reported nausea however, denies vomiting. She reports that the pain originally started as intermittent pain with progression to constant pain. The pain became unbearable that morning and she decided to present to the ED for further evaluation. The patient was assessed at the time of ED presentation. The patient was found to have a low-grade temperature at 99.7, tachycardic with a pulse rate at 123, and hypertensive with a blood pressure noted at 174/105. Labs were obtained; complete blood count reported white blood cell count at 13.9, hemoglobin 6.6, hematocrit 21.0, and platelet count at 457. Complete metabolic profile reported sodium at 133, potassium 4.5, chloride 99, carbon dioxide 26, BUN 30, creatinine 1.50, glucose 144, lactic acid 1.6, calcium 8.7, amylase 73, lipase 230, magnesium 1.8, alkaline phosphatase at 251. Cardiac enzymes reported a troponin at less than 0.015. Chest x-ray reported mild left atrial prominence; however no acute cardiopulmonary processes were identified. CT abdomen and pelvis; resolution of the subcutaneous edema; nodular appearance of the left breast, inguinal lymphadenopathy,enlarged heterogeneous uterus with numerous calcifications. While this simply may be due to extensive uterine fibroid formation, when masses become this large and confluent, additional pathology should also be considered including uterine sarcoma an endometrial CA. Abdominal x- ray reported moderate fecal material in the colon and mild gaseous distention of the small intestine. The patient was subsequently admitted to the hospitalist services for continuation of care. The patient was admitted and supportive care was initiated. Empiric antibiotics and fluid resuscitation was ordered. A general surgery and gynecology consultation was requested. The patient was seen and evaluated by general surgery and deemed inappropriate for surgical intervention at this time. Due to the patient's long-term use of antibiotic agents, and infectious disease consultation was requested. The patient was seen and evaluated by infectious disease and her antibiotic coverage was adjusted. The patient was seen and evaluated by gynecology. On December 10, 2016, the patient underwent hysteroscopy dilation and curettage under the direction of Dr. Annabelle Merchant. Biopsies were obtained and sent for analysis. On November 11, 2016, the patient experienced a noted decrease in hemoglobin and hematocrit; hemoglobin and hematocrit were noted at 7.6/23.4. The patient underwent transfusion of blood products and today her hemoglobin and hematocrit are noted at 10.0/31.1. The patient has not experienced any significant overnight events. Her condition is stable. Today, we feel that she is indeed appropriate for discharge to follow- up with her primary care physician and plastic surgery manager as directed. I spoke with patient in great detail regarding the need to follow-up with Dr. Merchant in the outpatient setting for the pending biopsy reports. Diagnosis - Discharge Diagnosis (1) Hidradenitis suppurativa Status: Chronic Specialty Discharge - Follow Up or Referrals Follow up with: [facility] [Outside] - 12/27/16 1:30 pm (Follow up with Dr. Merle Collins at [facility] on December 27 at 1:30 PM ) Discharge Plan - Discharge Data Disposition: Disch To Home/Self Care Condition at Discharge: Stable Discharge Diet: heart healthy Activity: resume usual activities as tolerated Hygiene: no restrictions Weight Bearing at Discharge: weight bear as tolerated Driving: not until seen by doctor Contact your physician if you experience:: fever over 101, Nausea/Vomiting, pain uncontrolled by pain medications - Discharge Medications New Carvedilol [Coreg] 12.5 mg PO BID #60 tablet Cefuroxime Tab [Ceftin] 250 mg PO Q12HR #42 tablet Chlorhexidine 4% Soln [Hibiclens] 1 applic TOP DAILY #300 ml Ciprofloxacin Tab [Cipro Tab] 500 mg PO Q12HR #42 tablet amLODIPine [Norvasc] 10 mg PO DAILY #30 tablet Sodium Hypochlorite 0.25% Irr [Dakins 1/2 Strength 0.25% Soln] 1 applic TOP BID #1 bottle Continue Albuterol Inhaler [Proventil Inhaler] 1 puff DAILY PRN PRN Reason: Shortness Of Breath Carvedilol [Coreg] 6.25 mg PO BID W/MEALS #60 tablet Spironolactone [Aldactone] 12.5 mg PO BID #60 tablet metOLazone [Metolazone] 5 mg PO DAILY #30 tablet glipiZIDE [Glipizide] 5 mg PO DAILY #30 tablet Sulfameth/Trimeth 800-160 Tab [Bactrim DS Tab] 1 tablet PO BID - Follow Up or Referral Follow Up: [facility] [Outside] - 12/27/16 1:30 pm (Follow up with Dr. Merle Collins at [facility] on December 27 at 1:30 PM ) - Forms/Instructions Exam - Constitutional Vitals: Period Temp Pulse Resp BP Sys/Harper Pulse Ox Last 24 Hr 97.3 F-98.5 F 82-90 14-20 118-132/65-72 98-100 General appearance: morbidly obese - Head Head exam: Present: normocephalic, atraumatic - Eye Eye exam: Present: EOMI Pupils: Present: FLAKITA - Neck Neck exam: Present: normal inspection - Respiratory Respiratory exam: Present: clear to auscultation bilaterally - Cardiovascular Cardiovascular exam: Present: regular rate and rhythm - Extremities Exam Extremities exam: Present: full ROM, other (Noted ulceration in the right axilla and right groin) - Neurological Exam Neurological exam: Present: alert, oriented X3, CN II-XII intact - Skin Skin exam: Present: other (Suppurative hydradenitis involving the right axilla and right groin) Discharge Results Procedures and tests throughout hospitalization: Pending Orders 12/08/16 14:16 Blood Culture Stat 12/11/16 04:28 Dehydroepiandrosterone (DHEA), Routine Testosterone Total & Free IN AM Labs on day of discharge: Labs from last 24 hours 12/13/16 12/13/16 12/12/16 11:09 07:20 20:32 POC Glucose 208 H 159 H 155 H 12/12/16 15:41 POC Glucose 219 H Preliminary micro results at discharge 12/08/16 14:16 Blood Culture - Preliminary Blood No growth at 3 days 12/08/16 14:16 Blood Culture - Preliminary Blood No growth at 3 days DS: Provider Date of admission: 12/08/16 15:07 Primary care physician: . No PCP Attending physician on admission: Carroll Soto DO Consults: 12/08/16 17:03 Consult to Wound Care - [place] [CONS] Routine Reason for Wound Care: Other Consult Comment: 2nd opinion on wound orders 12/08/16 17:57 Consult to Physician [CONS] Routine Comment: adenitis suppurativa Consulting Provider: Gus Arriola Person Notified: ASYA Date Notified: 12/09/16 Time Notified: 09:27 Consult to Physician [CONS] Routine Comment: menorrhagia Consulting Provider: Augusta Merchant Person Notified: MERLY Date Notified: 12/09/16 Time Notified: 09:24 12/08/16 18:07 Consult to Dietitian [CONS] Routine Reason for Dietitian: Other 12/09/16 08:04 Consult to Physician [CONS] Routine Comment: hidradenitis suppurative Consulting Provider: Neetu Mendez When should Consulting Provider be notified: Jaron Person Notified: MIL Date Notified: 12/09/16 Time Notified: 09:10 Discharging clinician: Tashi Osuna MD
--- NOTE | 2016-12-13 12:20 | Pathology Report from [facility] ---
[facility] ACCESSION # : [id number] PATIENT NAME : Rosie Robison ORDERING DR : Augusta Merchant MD CLINICAL HX: Post menopausal bleeding POST-OP DX: Same SPECIMEN INFO: Uterine scrapings GROSS DESCRIPTION: The specimen is received in formalin labeled with the patients name ROSIE ROBISON and consists of a 4.0 x 2.2 cm aggregate of hemorrhagic tissue and clotted blood. Submitted in cassettes A and B. DIAGNOSIS FOR ROSIE ROBISON: UTERINE SCRAPINGS: Endocervical and exocervical fragments, much blood, fibrin and mucous; and a few benign endometrial fragments. COLLECTED DATE: 12/10/2016 [facility] REPORT DATE: 12/13/2016 ELECTRONICALLY SIGNED BY: Shailesh Lucero M.D. 12/13/2016 - 10:06:45 [facility] CENTER[facility]elle
--- NOTE | 2016-12-13 13:02 | Infectious Disease Progress ---
Assessment and Plan (1) Diabetes mellitus Status: Chronic Assessment and plan: Patient advised that optimal diabetes control will help the hidradenitis suppurativa. Current Visit: Yes (2) Hidradenitis suppurativa Status: Chronic Assessment and plan: This is quite a severe case. Multiple organisms cultured. Patient improved with IV antibiotics over the past 3 days. Recommendations: I am okay with her going home on oral antibiotics today, Cipro and cefuroxime. Current Visit: Yes (3) Hypertension Status: Chronic Current Visit: Yes Infectious Disease - PN: Subj Interval history: Patient overall doing okay, less pain associated with her hidradenitis lesions and less drainage. She has not had fever. No nausea vomiting or diarrhea on the antibiotic. Infectious Disease Exam (PN) - Constitutional Vitals: Temp Pulse Resp BP Pulse Ox 97.7 F 82 18 118/68 100 12/13/16 11:10 12/13/16 11:10 12/13/16 11:10 12/13/16 11:10 12/13/16 11:10 General appearance: morbidly obese Exam: General appearance: no acute distress - Eye Eye exam: Present: EOMI. no icterus Pupils: Present: FLAKITA - ENT ENT exam: no oropharyhgeal exudates - GI/Abdominal GI/Abdominal exam: soft, non-tender - Multiple nodular lesions with pustules in the pubic area and groin, less tender and with less drainage - Extremities Exam Extremities exam: no edema, multiple nodular pustular lesions in right axilla draining but less tender and also draining less - Skin Skin exam: no rash Results - Labs CBC & BMP: 12/12/16 07:55 12/12/16 07:55 Lab Results: I have reviewed the past 24 hour labs (Blood cultures negative) Specialty Discharge - Follow Up or Referrals Follow up with: [facility] [Outside] - 12/27/16 1:30 pm (Follow up with Dr. Merle Collins at [facility] on December 27 at 1:30 PM )
[2016-12-13] MEDS ORDERED: CEFUROXIME 250 MG TABLET PO SCH (21:00)
[2016-12-17 11:49] LABS: Testosterone,Total < 7.0 ng/dL (8-60)
== END 2016-12-13 15:19 | disposition home or self-care (01) | DRG 988 ==
LOC: N.ED 11:45 → N.EDINP 15:06 → SUATTDRO 15:07 → N.5E 17:45
PROVIDERS: ADMIT Internal Medicine; ATTEND Internal Medicine Infectious Disease

== ENCOUNTER 2017-01-15 12:28 | Inpatient (IN) ==
--- NOTE | 2017-01-15 17:18 | Emergency Department Note ---
Arrival - Arrival Chief Complaint: Non-Specific Stated Complaint: sent by [facility]/blood count low ED Nursing Triage Note: Reports that she was seen at [facility] yesterday and had blood drawn, was instructed to come here today r/t low H&H. Was here last month for same c/o. Mode of Arrival: Ambulatory Limitations: No Limitations Source: Patient, Family, Old Records Reviewed, RN Notes Reviewed Time Seen by Provider: 01/15/17 16:59 - History of Present Illness HPI Narrative: 51yo black female presents to ED with CC of low H/H. She has history of low H/H since August. She was hospitalized in November and required 4units blood to stabilize H/H. Has hx of hidradenitis suppurativa. She thinks the blood is coming from the active abscesses that are in her groin, perirectal area, and axilla. She was supposed to have followed up at [facility] for surgery, but could not afford to go over. She now has Medicaid, so also needs another referral to see someone there. PCP is [facility]. PMHx significant for: Hypertension, congestive heart failure, asthma, uterine fibroids, NIDDM, anemia, anxiety, depression, hidradenitis suppurativa Date of Last Menstrual Period: reji Allergies/Adverse Reactions: Allergies Allergy/AdvReac Type Severity Reaction Status Date / Time No Known Allergies Allergy Verified 12/08/16 11:59 Home Medications: Home Medications Medication Instructions Recorded Confirmed Type Albuterol Inhaler [Proventil 1 puff DAILY PRN 08/30/16 12/08/16 History Inhaler] Carvedilol [Coreg] 6.25 mg PO BID W/MEALS #60 tablet 09/09/16 12/08/16 Rx Spironolactone [Aldactone] 12.5 mg PO BID #60 tablet 09/09/16 12/08/16 Rx glipiZIDE [Glipizide] 5 mg PO DAILY #30 tablet 09/09/16 12/08/16 Rx metOLazone [Metolazone] 5 mg PO DAILY #30 tablet 09/09/16 12/08/16 Rx Sulfameth/Trimeth 800-160 Tab 1 tablet PO BID 12/08/16 12/08/16 History [Bactrim DS Tab] Carvedilol [Coreg] 12.5 mg PO BID #60 tablet 12/13/16 Rx Cefuroxime Tab [Ceftin] 250 mg PO Q12HR #42 tablet 12/13/16 Rx Chlorhexidine 4% Soln [Hibiclens] 1 applic TOP DAILY #300 ml 12/13/16 Rx Ciprofloxacin Tab [Cipro Tab] 500 mg PO Q12HR #42 tablet 12/13/16 Rx Sodium Hypochlorite 0.25% Irr 1 applic TOP BID #1 bottle 12/13/16 Rx [Dakins 1/2 Strength 0.25% Soln] amLODIPine [Norvasc] 10 mg PO DAILY #30 tablet 12/13/16 Rx Review of System - Review of System 12 point system: reviewed and no additional remarkable complaints except as stated - Review of System Constitutional: Present: other (80 pound weight loss since August). Absent: chills, fever Respiratory: Present: other (on O2 chronically). Absent: respiratory distress, wheezing Cardiovascular: Present: dyspnea on exertion (Chronic). Absent: chest pain, palpitations Gastrointestinal: Absent: abdominal pain, nausea, vomiting, diarrhea, constipation Medical,Surgical,& Family Hx - Medical History Cardio: History of: CHF, Hypertension Psychological: History of: Anxiety Disorders (panic attacks), Depression Endocrine: History of: Diabetes Mellitus (NIDDM) Respiratory: History of: Asthma Gastrointestinal: No history of: GERD Hematology: History of: Anemia Reproductive: History of: Complication, Reproductive Problems ( uterine fibroids) Other: History of: Skin Problems - Surgical History Abdominal Surgeries: Patient denies: Abdominal Surgery Reproductive Surgeries: Surgical HX of;: Section, Dilation and Curettage Patient denies;: Genitourinary Surgery - Family History Family History: Reports;: Family Cancer (grandmother had bone ca?), Family Diabetes (mother), Family Heart Disease (Father), Family Hypertension ( grandfather), Family Psychiatric Problems (mother), Family Stroke (mother) Denies;: Family Anesthesia Reaction - Social History Smoking Status: Never smoker Frequency of Alcohol Use: None Type of Drug Use: None Exam Physical Examination: - General General appearance: alert, in no apparent distress - Head Head exam: Present: atraumatic, normocephalic - Chest Chest inspection: Present: normal inspection, symmetric chest wall rise. - Respiratory Respiratory exam: Present: normal lung sounds bilaterally. Respirations are even and unlabored at rest. She is wearing O2 at 1 L/min by nasal cannula. States she has been using this since August. Absent: rales, rhonchi, wheezes - Cardiovascular Cardiovascular exam: Present: regular rate, normal rhythm, normal heart sounds - Extremities Exam Extremities exam: Present: Slight edema present, full ROM - Neurological Exam Neurological exam: Present: alert, oriented X3 - Psychiatric Psychiatric exam: Present: normal affect, normal mood - Skin Skin exam: Present: Multiple pustular lesions present in bilateral axillae, groin, suprapubic area, perineal area. These are fluctuant and draining. Tender to palpation. They are malodorous. Vital Signs: Vital Signs Temperature 98.7 F 01/15/17 18:03 Pulse Rate 105 H 01/15/17 18:05 Respiratory Rate 20 01/15/17 18:05 Blood Pressure 139/87 01/15/17 18:05 O2 Sat by Pulse Oximetry 100 01/15/17 14:30 Course - Reevaluation(s) Time: 18:15 (No change in patient status. Informed she would be admitted. She is in agreement with this plan.) - Consultations Time: 17:30 (Hospitalist service in unit. Notified of patient presence and status. Will notify when labs are back.) Time: 18:10 (Hospitalist service notified of lab results. Asked to order BNP and CXR.) Results - Labs CBC & BMP: 01/15/17 17:08 01/15/17 17:08 Lab Results: I have reviewed the patients labs Labs: Laboratory Tests 01/15/17 01/15/17 17:08 17:36 Calcium 8.7 Total Bilirubin < 0.39 AST 25 ALT 22 Alkaline Phosphatase 272 H B-Natriuretic Peptide 13 Total Protein 9.2 H Albumin 2.0 L Globulin 7.2 H Albumin/Globulin Ratio 0.2 L Disposition Clinical Impression: Anemia, Hidradenitis suppurativa, Leukocytosis Case discussed with: patient, patient's family Disposition: Still a Patient Condition: Stable Time of Disposition: 18:00 (Admit)
[2017-01-15 17:38] LABS: Basophils % 0.2 % (0.0-0.8); Eosinophils # 0.1 10*3/uL (0.0-0.87); Eosinophils % 0.9 % (0.00-10.9); Hematocrit 25.8 VOL% (35.7-47.0); Hemoglobin 8.4 GM/DL (12.0-16.0); Immature Granulocytes % 0.8 %; Immature Granulocytes Absolute 0.12 #; Lymphocytes # 1.1 10*3/uL (1.4-4.0); Lymphocytes % 7.6 % (21.3-54.2); Mean Corpuscular HGB Conc 32.6 GM/DL (32-36); Mean Corpuscular Hemoglobin 30 PG (27-34); Mean Corpuscular Volume 90.5 FL (87-102); Mean Platelet Volume 8.2 FL (9.6-12.0); Monocytes % 6.4 % (1.7-12.7); Neutrophils # 12.6 10*3/uL (1.4-7.4); Neutrophils % 84.1 % (38.7-73.9); Platelet Count 429 T/CUMM (130-400); Red Blood Count 2.85 MC/CUMM (3.8-5.5); Red Cell Distribution Width 13.6 % (9.3-17.3)
[2017-01-15 18:05] LABS: Alanine Aminotransferase 22 U/L (13-56); Alkaline Phosphatase 272 U/L (45-117); Aspartate Amino Transferase 25 U/L (0-37); Bilirubin,Total < 0.39 MG/DL (0.2-1.0); Blood Urea Nitrogen 22 MG/DL (7-18); Calcium 8.7 MG/DL (8.5-10.1); Glucose 173 MG/DL (74-106); Osmolality,Calculated 270.5 MOS/KG (273-304); Potassium 4.5 MMOL/L (3.5-5.1); Sodium 132 MMOL/L (136-145); Total Protein 9.2 G/DL (6.4-8.3)
--- NOTE | 2017-01-15 18:45 | XRay Report ---
XR chest 2V Indication: CHF. Chest 2 views: Comparison 12/08/2016. Cardiomegaly has resolved from previous exam. No pulmonary edema. Elevated right hemidiaphragm is chronic. No infiltrates. Hilar prominence again noted bilaterally. Impression: Resolution of cardiomegaly since prior exam. Chronic elevation right hemidiaphragm. Continued mild hilar prominence bilaterally. PROCEDURE INTERPRETED AT [facility] DEPARTMENT OF RADIOLOGY Final Report Signed by: Joshua Hassan M.D.
[2017-01-15] MEDS ORDERED: ZALEPLON 5 MG CAPSULE PO PRN (19:16)
[2017-01-15] MEDS ORDERED: ACETAMINOPHEN 325 MG TABLET PO PRN (19:16)
[2017-01-15] MEDS ORDERED: GLUCAGON 1 MG VIAL IM PRN (19:16)
[2017-01-15] MEDS ORDERED: DEXTROSE 50% 25 GM/50 ML SYRINGE IV PRN (19:16)
[2017-01-15] MEDS ORDERED: ONDANSETRON 4 MG/2 ML VIAL IV PRN (19:16)
--- NOTE | 2017-01-15 20:20 | Hospitalist History & Physical ---
Assessment and Plan (1) Hidradenitis suppurativa Status: Chronic Assessment and plan: Condition is worsening, will consult surgery in a.m., consult ID in a.m., start antibiotics Zosyn 3.375 g every 6 hours IV and ceftriaxone 1 g daily IV, obtain blood and wound cultures Current Visit: No (2) Generalized edema Status: Acute Assessment and plan: Edema only trace at present, Current Visit: No (3) Chronic kidney disease Status: Acute Assessment and plan: Creatinine actually better than admission in August 2016, will hold on IV fluids for now due to cardiology recommendation to keep patient try from last admission in August, patient to increase p.o. fluid intake Current Visit: No (4) Hypertension Status: Chronic Assessment and plan: Normotensive at present, continue home meds of metolazone, Norvasc, Aldactone, and Coreg Current Visit: No (5) CHF (congestive heart failure) Status: Chronic Assessment and plan: No physical exam signs of acute CHF, BNP 13, chest x-ray negative for pulmonary edema, continue home diuretic therapy Current Visit: No (6) Diabetes mellitus Status: Chronic Assessment and plan: Patient has history of uncontrolled diabetes, blood glucose 173 in the ED, check hemoglobin A1c, start sliding scale insulin, continue glipizide Current Visit: No Qualifiers: Diabetes mellitus type: type 2 Diabetes mellitus complication status: with skin complications Diabetes mellitus complication detail: with other skin complication (7) Leukocytosis Status: Acute Assessment and plan: WBC 15,000, patient started on antibiotics, most likely due to #1 above blood and wound cultures pending, UA pending Current Visit: Yes History of Present Illness Chief complaint: Hydradenitis suppurativa, leukocytosis History of present illness: Ms. Jones is a 51 year old female Who presented to the [facility] ED upon recommendation from her primary care clinic after they called her with lab results consisting of a WBC 15,000 and H& H of 8 and 29 respectively. Patient states she has not felt well over the past few days and had gone back to her primary care doctor, rishi [place], to be evaluated. She has a history of hidradenitis suppurativa for which she was evaluated by Dr. Arriola on last admission and he referred her to surgery at [facility] in [facility]. She did not follow up with her surgical appointment in [place] due to financial strain. She was also put on Ceftin and Cipro per sensitivity report, but she never picked them up from the pharmacy because she was advised by pharmacy of a possible interaction between the antibiotics and her blood pressure medication. The patient also has a history of uncontrolled diabetes type 2, although she says her blood glucose levels are getting better, the used to run in the 300s now they are in the high 100s. Patient has history of chronic kidney disease and her H&H tonight is 22 and 1.5 respectively. On last admission in August 2016 cardiology was consulted and echo was performed on 08/31/2016 showing moderate left ventricular hypertrophy in the ejection fraction of 40-45%. Per cardiology's progress note from that same admission it was advised that the patient be kept a bit on the dry side due to her lower extremity edema and congestive heart failure. She is currently on metolazone and Aldactone. BNP tonight is 13. Chest x-ray tonight is negative for pulmonary edema. Patient also has history of affective sleep apnea but is not using her CPAP machine at home currently. The patient will be admitted to the [facility] inpatient service for evaluation and treatment of hidradenitis suppurativa and leukocytosis. Patient is a full code. Home Medications Medication Instructions Recorded Confirmed Type Albuterol Inhaler [Proventil 1 puff DAILY PRN 08/30/16 12/08/16 History Inhaler] Carvedilol [Coreg] 6.25 mg PO BID W/MEALS #60 tablet 09/09/16 12/08/16 Rx Spironolactone [Aldactone] 12.5 mg PO BID #60 tablet 09/09/16 12/08/16 Rx glipiZIDE [Glipizide] 5 mg PO DAILY #30 tablet 09/09/16 12/08/16 Rx metOLazone [Metolazone] 5 mg PO DAILY #30 tablet 09/09/16 12/08/16 Rx Sulfameth/Trimeth 800-160 Tab 1 tablet PO BID 12/08/16 12/08/16 History [Bactrim DS Tab] Carvedilol [Coreg] 12.5 mg PO BID #60 tablet 12/13/16 Rx Cefuroxime Tab [Ceftin] 250 mg PO Q12HR #42 tablet 12/13/16 Rx Chlorhexidine 4% Soln [Hibiclens] 1 applic TOP DAILY #300 ml 12/13/16 Rx Ciprofloxacin Tab [Cipro Tab] 500 mg PO Q12HR #42 tablet 12/13/16 Rx Sodium Hypochlorite 0.25% Irr 1 applic TOP BID #1 bottle 12/13/16 Rx [Dakins 1/2 Strength 0.25% Soln] amLODIPine [Norvasc] 10 mg PO DAILY #30 tablet 12/13/16 Rx Allergies Allergy/AdvReac Type Severity Reaction Status Date / Time No Known Allergies Allergy Verified 12/08/16 11:59 Medical,Surgical,& Family Hx - Medical History Cardio: History of: CHF, Hypertension Psychological: History of: Anxiety Disorders (panic attacks), Depression Endocrine: History of: Diabetes Mellitus (NIDDM) Respiratory: History of: Asthma Gastrointestinal: No history of: GERD Hematology: History of: Anemia Reproductive: History of: Complication, Reproductive Problems ( uterine fibroids) Other: History of: Skin Problems - Surgical History Abdominal Surgeries: Patient denies: Abdominal Surgery Reproductive Surgeries: Surgical HX of;: Section, Dilation and Curettage Patient denies;: Genitourinary Surgery - Family History Family History: Reports;: Family Cancer (grandmother had bone ca?), Family Diabetes (mother), Family Heart Disease (Father), Family Hypertension ( grandfather), Family Psychiatric Problems (mother), Family Stroke (mother) Denies;: Family Anesthesia Reaction - Social History Smoking Status: Never smoker Frequency of Alcohol Use: None Type of Drug Use: None Functional capacity: independent ambulation 12 point system: reviewed and no additional remarkable complaints except as stated - Constitutional Constitutional: Present: fatigue, malaise, weakness - Cardiovascular Cardiovascular: Present: dyspnea on exertion Exam - Constitutional Vitals: Period Temp Pulse Resp BP Sys/Harper Pulse Ox Last 24 Hr 98.7 F-98.7 F 97-105 16-20 132-149/87-88 100-100 General appearance: over weight - Head Head exam: Present: normal inspection, normocephalic, atraumatic - Eye Eye exam: Present: EOMI Pupils: Present: FLAKITA - Neck Neck exam: Present: normal inspection - Respiratory Respiratory exam: Present: clear to auscultation bilaterally - Cardiovascular Cardiovascular exam: Present: regular rate and rhythm - GI/Abdominal GI/Abdominal exam: Present: normal bowel sounds - Extremities Exam Extremities exam: Present: edema (Trace) - Neurological Exam Neurological exam: Present: alert, oriented X3 - Psychiatric Psychiatric exam: Present: normal affect, normal mood - Skin Skin exam: Present: other (Multiple pustular lesions noted in axilla bilaterally as well as groin bilaterally, tender to palpation, scarring also present.) Results - Labs CBC & BMP: 01/15/17 17:08 01/15/17 17:08 Lab Results: I have reviewed the past 24 hour labs
[2017-01-16] MEDS: PIPERACILLIN/TAZOBACTAM 3,375 MG in SODIUM CHLORIDE 0.9% 100 ML IV SCH ×3 (02:02→18:38)
[2017-01-16] MEDS: INSULIN REGULAR 100 UNIT/ML SUBCUT SCH ×5 (02:22→21:08)
[2017-01-16] MEDS: SPIRONOLACTONE 25 MG TABLET PO SCH ×3 (02:27→21:11)
[2017-01-16] MEDS: DOCUSATE SODIUM 100 MG CAPSULE PO SCH ×3 (02:28→21:08)
[2017-01-16 06:14] LABS: Basophils % 0.2 % (0.0-0.8); Eosinophils # 0.2 10*3/uL (0.0-0.87); Eosinophils % 1.3 % (0.00-10.9); Hematocrit 23.3 VOL% (35.7-47.0); Hemoglobin 7.5 GM/DL (12.0-16.0); Immature Granulocytes % 0.8 %; Immature Granulocytes Absolute 0.11 #; Lymphocytes # 1.4 10*3/uL (1.4-4.0); Mean Corpuscular HGB Conc 32.2 GM/DL (32-36); Mean Corpuscular Hemoglobin 29 PG (27-34); Mean Corpuscular Volume 89.3 FL (87-102); Mean Platelet Volume 8.2 FL (9.6-12.0); Monocytes # 1.1 10*3/uL (0.11-0.8); Monocytes % 7.4 % (1.7-12.7); Neutrophils # 11.6 10*3/uL (1.4-7.4); Neutrophils % 80.3 % (38.7-73.9); Platelet Count 422 T/CUMM (130-400); Red Blood Count 2.61 MC/CUMM (3.8-5.5); Red Cell Distribution Width 13.6 % (9.3-17.3); White Blood Count 14.4 T/CUMM (4-12)
[2017-01-16] MEDS: cefTRIAXone 1,000 MG in SODIUM CHLORIDE 0.9% 100 ML IV SCH (06:33)
[2017-01-16 06:46] LABS: Albumin 1.8 G/DL (3.4-5.0); Bilirubin,Total 0.6 MG/DL (0.2-1.0); Calcium 8.8 MG/DL (8.5-10.1); Osmolality,Calculated 271.2 MOS/KG (273-304); Potassium 4.1 MMOL/L (3.5-5.1); Total Protein 8.4 G/DL (6.4-8.3)
[2017-01-16 08:54] LABS: Apearance,Urine CLEAR (Clear); Bacteria,Urine Occasional /HPF (Few); Bilirubin,Urine Negative (Negative); Blood, Urine Moderate mg/dL (Negative); Glucose,Urine (UA) Negative (Negative); Ketones,Urine Negative (Negative); Mucus,Urine Occasional /LPF (Occasional); Nitrite,Urine Negative (Negative); Protein,Urine Negative; RBC,Urine 3 /HPF (0-4); Squamous Epithelial Cell,Urine Occasional /HPF (0-10); Urine Color Yellow (Yellow); Urine Specific Gravity 1.012 (1.001-1.035); Urine Urobilinogen < 2.0 EU/DL (0.2-1.0); WBC,Urine 3 /HPF (0-6)
[2017-01-16] MEDS: amLODIPine 10 MG TABLET PO SCH (09:13)
[2017-01-16] MEDS: CARVEDILOL 6.25 MG TABLET PO SCH ×2 (09:14→16:29)
[2017-01-16] MEDS: PANTOPRAZOLE 40 MG TABLET PO SCH (09:15)
[2017-01-16] MEDS: glipiZIDE 5 MG TABLET PO SCH (09:15)
[2017-01-16] MEDS: metOLazone 5 MG TABLET PO SCH (09:16)
--- NOTE | 2017-01-16 10:19 | General Surgery Consult Note ---
Assessment and Plan - Time spent with patient Time spent with patient: Less than 30 minutes (1) Hidradenitis suppurativa Status: Chronic Assessment and plan: This appears to be a flareup of axillary and inguinal and perianal and perineal hidradenitis occurred above. These areas are extensive. There is no large abscess that I can identify to drain. There are multiple very small abscesses and chronically appearing indurated areas and foul drainage. There is not extensive cellulitis. I would recommend treating this initially with antibiotics as you are doing. If this fails to respond or if we are unable to get good control with antibiotics we may need to take her to the operating room for exploration and incision and drainage of multiple small abscesses. Current Visit: Yes History of Present Illness Chief complaint: Hidradenitis History of present illness: Ms. Jones is a 51 year old female With a history of hidradenitis superlative which was treated a few months ago with IV antibiotics and p.o. Bactrim. She has not had surgery of these areas. She has had a flareup over the last week or so in her right axilla and bilateral groins and perineum and perianal area. She has had increased pain and drainage and bleeding from the sites. She was found to be anemic at [facility] and was referred to [facility] for admission. She thinks she may have had some fever but is not felt terribly ill. Home Medications Medication Instructions Recorded Confirmed Type Albuterol Inhaler [Proventil 1 puff DAILY PRN 08/30/16 01/16/17 History Inhaler] Carvedilol [Coreg] 6.25 mg PO BID W/MEALS #60 tablet 09/09/16 01/16/17 Rx metOLazone [Metolazone] 5 mg PO DAILY #30 tablet 09/09/16 01/16/17 Rx amLODIPine [Norvasc] 10 mg PO DAILY #30 tablet 12/13/16 01/16/17 Rx Spironolactone [Aldactone] 25 mg PO DAILY 01/16/17 01/16/17 History Sulfameth/Trimeth 800-160 Tab 1 tablet PO BID 01/16/17 01/16/17 History [Bactrim DS Tab] glipiZIDE [Glipizide] 5 mg PO BID 01/16/17 01/16/17 History Allergies Allergy/AdvReac Type Severity Reaction Status Date / Time No Known Allergies Allergy Verified 12/08/16 11:59 Medical,Surgical,& Family Hx - Medical History Cardio: History of: CHF, Hypertension Psychological: History of: Anxiety Disorders (panic attacks), Depression Endocrine: History of: Diabetes Mellitus (NIDDM) Respiratory: History of: Asthma Gastrointestinal: No history of: GERD Hematology: History of: Anemia Reproductive: History of: Complication, Reproductive Problems ( uterine fibroids) Other: History of: Skin Problems - Surgical History Neurologic Surgeries: Patient denies: Neurologic Surgery Abdominal Surgeries: Patient denies: Abdominal Surgery Reproductive Surgeries: Surgical HX of;: Section, Dilation and Curettage Patient denies;: Genitourinary Surgery - Family History Family History: Reports;: Family Cancer (grandmother had bone ca?), Family Diabetes (mother), Family Heart Disease (Father), Family Hypertension ( grandfather), Family Psychiatric Problems (mother), Family Stroke (mother) Denies;: Family Anesthesia Reaction - Social History Smoking Status: Never smoker Frequency of Alcohol Use: None Type of Drug Use: None - Constitutional Constitutional: Present: fever(s). Absent: anorexia, chills - Cardiovascular Cardiovascular: Absent: chest pain at rest, chest pain with activity, dyspnea, dyspnea on exertion - Gastrointestinal Gastrointestinal: Absent: abdominal pain - Genitourinary Genitourinary: Absent: hematuria - Neurological Neurological: Absent: focal weakness Hematologic/Lymphatic: Absent: easy bleeding, easy bruising Exam - Constitutional Vitals: Period Temp Pulse Resp BP Sys/Harper Pulse Ox Last 24 Hr 97.6 F-98.7 F 87-105 16-20 132-149/60-88 95-100 General appearance: no acute distress, morbidly obese - Head Head exam: Present: normocephalic - Eye Eye exam: Absent: scleral icterus - Neck Neck exam: Present: trachea midline - Respiratory Respiratory exam: Absent: accessory muscle use - GI/Abdominal GI/Abdominal exam: Present: soft. Absent: distended, tenderness, rebound - Anus/Rectum Anus/Rectum: other (Both of her groins have multiple draining abscess areas and this extends along her perineum and to the perianal area. There are no extensive fluctuant areas. These are all small abscesses just beneath the skin. There is not extensive cellulitis.) - Neurological Exam Neurological exam: Present: alert, oriented X3 Speech: Present: normal - Skin Skin exam: Present: normal color Results - Labs CBC & BMP: 01/16/17 05:53 01/16/17 05:53 Lab Results: I have reviewed the past 24 hour labs
--- NOTE | 2017-01-16 17:51 | Hospitalist Progress Note ---
Hospitalist: Subjective Interval history: 51 yo AAF admitted with flareup of axillary and inguinal and perianal and perineal hidradenitis, currently getting IV antibiotics. Exam - Constitutional Vitals: Period Temp Pulse Resp BP Sys/Harper Pulse Ox Last 24 Hr 97.6 F-98.7 F 86-105 16-20 120-147/60-88 94-98 Exam: General: No Acute Distress HEENT: Normocephalic, atraumatic, Extra ocular movements intact Neck: Supple, No JVD Chest: Clear to auscultation B/L CV: S1 + S2 audible without murmur, gallop or rub Abd: soft, NT, Non-distended, BS + Ext: No edema Skin: She has multiple draining areas in her groins from hiradenitis Rheumatologic: No Joint deformities Neurologic: Strength 5/5 all extremities, no gross sensory deficits Results - Labs CBC & BMP: 01/16/17 05:53 01/16/17 05:53 - Impressions Assessment and Plan: Hidradenitis suppurativa Status: Chronic Assessment and plan: Continue IV antibiotics. Seen by surgery with recommendation for continuing antibiotics Current Visit: No Ess Hypertension Status: Chronic Assessment and plan: Continue home medications Current Visit: No Diabetes mellitus-2 Status: Chronic Assessment and plan: Continue SSI and oral agents Current Visit: No Leukocytosis Status: Acute Assessment and plan: Mild, monitor CBC Current Visit: Yes
[2017-01-17] MEDS: PIPERACILLIN/TAZOBACTAM 3,375 MG in SODIUM CHLORIDE 0.9% 100 ML IV SCH ×3 (01:31→17:39)
[2017-01-17] MEDS: cefTRIAXone 1,000 MG in SODIUM CHLORIDE 0.9% 100 ML IV SCH (05:39)
--- NOTE | 2017-01-17 09:26 | Hospitalist Progress Note ---
Assessment and Plan (1) Hidradenitis suppurativa Status: Chronic Assessment and plan: Impression: 1. Hidradenitis suppurativa 2. Chronic systolic and diastolic congestive heart failure based on echocardiogram from earlier this year 3. Elevated alkaline phosphatase, etiology not known 4. Type II DM 5. Anemia of chronic disease Plan: Await surgical recommendations regarding need for incision and drainage. Continue current antibiotics. Continue current cardiac medications. Check GGT. Hold on transfusion for now. This note was completed using [employer] voice recognition software. There may be manager cash errors as a result. Current Visit: Yes Hospitalist: Subjective Interval history: Follow-up hidradenitis suppurativa, chronic systolic congestive heart failure, intermittent anemia. The patient was admitted to the hospital for evaluation of the skin lesions. She is receiving IV antibiotics for these. Review of the chart shows that she has been intermittently anemic. She has a chronically elevated alkaline phosphatase. She has had a liver ultrasound and a CT of the abdomen that do not show any evidence of biliary obstruction. She has never had a GGT that I could find. Surgery is evaluating for next steps regarding the skin lesions. Exam - Constitutional Vitals: Period Temp Pulse Resp BP Sys/Harper Pulse Ox Last 24 Hr 97.8 F-99.2 F 86-95 18-20 120-158/68-91 94-100 Vital signs are noted above. Heart is regular with a soft systolic murmur. Lungs are fairly clear. She has lesions consistent with hidradenitis suppurativa in the right axilla and in the skin folds of both groins. Several lesions are draining. She is awake and alert Results - Labs CBC & BMP: 01/16/17 05:53 01/16/17 05:53 Lab Results: I have reviewed the past 24 hour labs (Alkaline phosphatase is elevated in the range of 200-250. Hemoglobin ranges from 7.5-10. Iron studies suggest reticuloendothelial block.)
[2017-01-17] MEDS: DOCUSATE SODIUM 100 MG CAPSULE PO SCH ×2 (09:40→21:42)
[2017-01-17] MEDS: SPIRONOLACTONE 25 MG TABLET PO SCH ×2 (09:40→21:42)
[2017-01-17] MEDS: CARVEDILOL 6.25 MG TABLET PO SCH ×2 (09:40→17:38)
[2017-01-17] MEDS: amLODIPine 10 MG TABLET PO SCH (09:41)
[2017-01-17] MEDS: metOLazone 5 MG TABLET PO SCH (09:41)
[2017-01-17] MEDS: glipiZIDE 5 MG TABLET PO SCH (09:41)
[2017-01-17] MEDS: PANTOPRAZOLE 40 MG TABLET PO SCH (09:41)
[2017-01-17] MEDS: INSULIN REGULAR 100 UNIT/ML SUBCUT SCH ×4 (09:48→21:42)
--- NOTE | 2017-01-17 12:23 | General Surgery Progress Note ---
Assessment and Plan - Time spent with patient Time spent with patient: Less than 30 minutes (1) Hidradenitis suppurativa Status: Chronic Assessment and plan: This appears to be a flareup of axillary and inguinal and perianal and perineal hidradenitis occurred above. These areas are extensive. There is no large abscess that I can identify to drain. There are multiple very small abscesses and chronically appearing indurated areas and foul drainage. There is not extensive cellulitis. I would recommend treating this initially with antibiotics as you are doing. If this fails to respond or if we are unable to get good control with antibiotics we may need to take her to the operating room for exploration and incision and drainage of multiple small abscesses. 01/17: She feels better but the areas in her axilla and groin and perineum are about the same. She has multiple draining sinuses. There is no large discrete abscess that I can appreciate though there are multiple small abscesses/sinus tracts. I discussed this case with Dr. Arriola who is seen her before and Dr. Arriola but actually arrange for her to go to [facility] and she did not go because [facility] had called and told her in advance that she would need to bring $100. This is according to the patient. If she continues to have an elevated white blood cell count I could take her to the operating room under general anesthesia and try to individually I&D the multiple abscesses in these multiple locations. These all appear to be draining. Eventually she will need excision of these areas and reconstructive type procedures. This would probably include a colostomy. This would be better accomplished probably in a tertiary referral center. I will reassess again tomorrow we will hold her n.p.o. after midnight in case she needs to go to the OR. Current Visit: Yes Subjective Patient reports: Present: feels better. Absent: nausea, vomiting, fever Exam - Constitutional Vitals: Period Temp Pulse Resp BP Sys/Harper Pulse Ox Last 24 Hr 97.8 F-99.2 F 86-95 18-20 117-158/58-91 96-100 General appearance: no acute distress - Head Head exam: Present: normocephalic - Eye Eye exam: Absent: scleral icterus - Respiratory Respiratory exam: Absent: accessory muscle use - Extremities Exam Extremities exam: Present: other (axilla/groin areas no change) Results - Labs CBC & BMP: 01/16/17 05:53 01/16/17 05:53 Lab Results: I have reviewed the past 24 hour labs
[2017-01-18] MEDS: PIPERACILLIN/TAZOBACTAM 3,375 MG in SODIUM CHLORIDE 0.9% 100 ML IV SCH ×2 (01:18→11:38)
[2017-01-18] MEDS: cefTRIAXone 1,000 MG in SODIUM CHLORIDE 0.9% 100 ML IV SCH (05:57)
[2017-01-18] MEDS: INSULIN REGULAR 100 UNIT/ML SUBCUT SCH ×4 (07:30→21:20)
[2017-01-18] MEDS ORDERED: GLUCAGON 1 MG VIAL IM PRN (09:29)
[2017-01-18] MEDS ORDERED: DEXTROSE 50% 25 GM/50 ML VIAL IV PRN (09:29)
[2017-01-18] MEDS: SPIRONOLACTONE 25 MG TABLET PO SCH ×2 (09:33→21:18)
[2017-01-18] MEDS: CARVEDILOL 6.25 MG TABLET PO SCH ×2 (09:33→17:12)
[2017-01-18] MEDS: amLODIPine 10 MG TABLET PO SCH (09:34)
[2017-01-18] MEDS: DOCUSATE SODIUM 100 MG CAPSULE PO SCH ×2 (09:34→21:19)
[2017-01-18] MEDS: glipiZIDE 5 MG TABLET PO SCH (09:34)
[2017-01-18] MEDS: PANTOPRAZOLE 40 MG TABLET PO SCH (09:34)
[2017-01-18] MEDS: metOLazone 5 MG TABLET PO SCH (09:35)
--- NOTE | 2017-01-18 12:17 | General Surgery Progress Note ---
Assessment and Plan - Time spent with patient Time spent with patient: Less than 30 minutes (1) Hidradenitis suppurativa Status: Chronic Assessment and plan: This appears to be a flareup of axillary and inguinal and perianal and perineal hidradenitis occurred above. These areas are extensive. There is no large abscess that I can identify to drain. There are multiple very small abscesses and chronically appearing indurated areas and foul drainage. There is not extensive cellulitis. I would recommend treating this initially with antibiotics as you are doing. If this fails to respond or if we are unable to get good control with antibiotics we may need to take her to the operating room for exploration and incision and drainage of multiple small abscesses. 01/17: She feels better but the areas in her axilla and groin and perineum are about the same. She has multiple draining sinuses. There is no large discrete abscess that I can appreciate though there are multiple small abscesses/sinus tracts. I discussed this case with Dr. Arriola who is seen her before and Dr. Arriola but actually arrange for her to go to [facility] and she did not go because [facility] had called and told her in advance that she would need to bring $100. This is according to the patient. If she continues to have an elevated white blood cell count I could take her to the operating room under general anesthesia and try to individually I&D the multiple abscesses in these multiple locations. These all appear to be draining. Eventually she will need excision of these areas and reconstructive type procedures. This would probably include a colostomy. This would be better accomplished probably in a tertiary referral center. I will reassess again tomorrow we will hold her n.p.o. after midnight in case she needs to go to the OR. 01/18: I have examined her once again in both the groins and perineum and axilla. These areas seem to have less drainage and less induration. Or not discrete abscesses that really amenable to drainage. This appears to be responding to antibiotics. Her cultures are pending. I agree with plans for evaluation by infectious diseases. This is a difficult problem probably require major excision which really would be better done in a tertiary referral center Current Visit: Yes Subjective Patient reports: Present: feels better, pain is less. Absent: fever Exam - Constitutional Vitals: Period Temp Pulse Resp BP Sys/Harper Pulse Ox Last 24 Hr 97.5 F-98.8 F 83-91 18-20 114-140/60-78 98-100 General appearance: no acute distress - GI/Abdominal GI/Abdominal exam: Present: soft. Absent: distended, tenderness - Skin Skin exam: Present: other (The areas seen less indurated and swollen. There is no discrete area of fluctuance.) Results - Labs CBC & BMP: 01/16/17 05:53 01/16/17 05:53 Lab Results: I have reviewed the past 24 hour labs Specialty Discharge - Follow Up or Referrals Follow up with: Mono Justin III., MD [Physician] -
--- NOTE | 2017-01-18 12:32 | Hospitalist Progress Note ---
Assessment and Plan (1) Hidradenitis suppurativa Status: Chronic Assessment and plan: Impression: 1. Hidradenitis suppurativa 2. Chronic systolic and diastolic congestive heart failure based on echocardiogram from earlier this year 3. Elevated alkaline phosphatase, likely from liver 4. Type II DM 5. Anemia of chronic disease Plan: Antibiotics have been revised to reflect culture results. Recheck lab in the morning. This note was completed using [employer] voice recognition software. There may be director law enforcement errors as a result. Current Visit: Yes Hospitalist: Subjective Interval history: Follow-up hidradenitis suppurativa. Wound cultures have returned. She is growing Acinetobacter and a gram-positive coccus. We will adjust antibiotics accordingly. She feels better. Surgery is not recommending any debridement at this time. Exam - Constitutional Vitals: Period Temp Pulse Resp BP Sys/Harper Pulse Ox Last 24 Hr 97.5 F-98.8 F 83-91 18-20 114-140/60-78 98-100 Vital signs are noted above. Heart is regular with no murmur or gallop. Lungs are clear with no rales or wheezes. Abdomen is soft with no mass or tenderness. Skin lesions are unchanged. Results - Labs CBC & BMP: 01/16/17 05:53 01/16/17 05:53 Specialty Discharge - Follow Up or Referrals Follow up with: Mono Justin III., MD [Physician] -
[2017-01-18] MEDS: LEVOFLOXACIN INJ 500 MG in PREMIX 1 EACH IV SCH (13:21)
[2017-01-18] MEDS: VANCOMYCIN INJ 1,500 MG in SODIUM CHLORIDE 0.9% 500 ML IV SCH (14:28)
[2017-01-19] MEDS: VANCOMYCIN INJ 1,500 MG in SODIUM CHLORIDE 0.9% 500 ML IV SCH (01:15)
[2017-01-19 05:41] LABS: Basophils % 0.2 % (0.0-0.8); Eosinophils # 0.4 10*3/uL (0.0-0.87); Eosinophils % 2.4 % (0.00-10.9); Hematocrit 22.6 VOL% (35.7-47.0); Hemoglobin 7.4 GM/DL (12.0-16.0); Immature Granulocytes % 1.1 %; Immature Granulocytes Absolute 0.16 #; Lymphocytes # 1.1 10*3/uL (1.4-4.0); Lymphocytes % 7.4 % (21.3-54.2); Mean Corpuscular HGB Conc 32.7 GM/DL (32-36); Mean Corpuscular Hemoglobin 29 PG (27-34); Mean Corpuscular Volume 89.7 FL (87-102); Mean Platelet Volume 8.3 FL (9.6-12.0); Monocytes # 0.8 10*3/uL (0.11-0.8); Neutrophils # 12.7 10*3/uL (1.4-7.4); Neutrophils % 83.9 % (38.7-73.9); Platelet Count 419 T/CUMM (130-400); Red Blood Count 2.52 MC/CUMM (3.8-5.5); Red Cell Distribution Width 13.6 % (9.3-17.3); White Blood Count 15.1 T/CUMM (4-12)
[2017-01-19 06:10] LABS: Calcium 8.9 MG/DL (8.5-10.1); Osmolality,Calculated 273.1 MOS/KG (273-304); Potassium 4.1 MMOL/L (3.5-5.1)
[2017-01-19] MEDS: INSULIN REGULAR 100 UNIT/ML SUBCUT SCH ×3 (07:55→16:31)
[2017-01-19] MEDS: CARVEDILOL 6.25 MG TABLET PO SCH ×2 (09:10→16:40)
[2017-01-19] MEDS: glipiZIDE 5 MG TABLET PO SCH (09:10)
[2017-01-19] MEDS: PANTOPRAZOLE 40 MG TABLET PO SCH (09:10)
[2017-01-19] MEDS: SPIRONOLACTONE 25 MG TABLET PO SCH (09:11)
[2017-01-19] MEDS: metOLazone 5 MG TABLET PO SCH (09:11)
[2017-01-19] MEDS: DOCUSATE SODIUM 100 MG CAPSULE PO SCH (09:11)
[2017-01-19] MEDS: amLODIPine 10 MG TABLET PO SCH (09:11)
[2017-01-19] MEDS: LEVOFLOXACIN INJ 500 MG in PREMIX 1 EACH IV SCH (12:09)
--- NOTE | 2017-01-19 12:16 | Infectious Disease Consult ---
Assessment and Plan (1) Anemia Status: Chronic Current Visit: Yes (2) Hidradenitis suppurativa Status: Chronic Assessment and plan: The patient, as I did last visit, that this is a chronic problem without a known cure. We can give prolonged antibiotics intermittently with the hope of using some improvement in the drainage. Recommend agents: Based on the cultures we can let the patient go home on doxycycline 100 mg twice a day [recognizing that 1 of the MRSE isolates is resistant to this], and Augmentin 875 mg twice a day. Patient continue this for 1-2 months. I am going to stop the levofloxacin and vancomycin. Advised her to consider seeing a director decision support on discharge. Because of the severity of her lesions she may qualify for an immune modulating medication such as Humira. Thank you very much for the consult. Call again as needed. Current Visit: Yes (3) Diabetes mellitus Status: Chronic Current Visit: No Qualifiers: Diabetes mellitus type: type 2 Diabetes mellitus complication status: with skin complications Diabetes mellitus complication detail: with other skin complication History of Present Illness Chief complaint: Hidradenitis suppurativa History of present illness: Ms. Jones is a 51 year old female with hidradenitis suppurativa was sent to hospital by her PCP because her hemoglobin was found to be low. She been feeling a bit unwell and that is why she went for this visit. She was in hospital last month with a flare of hidradenitis suppurativa and was sent home on oral antibiotic therapy. She says the lesions have been more or less the same since her last admission. She has not had fever or other constitutional symptoms. She had cultures done and I am asked to advise antibiotic therapy. Home Medications Medication Instructions Recorded Confirmed Type Albuterol Inhaler [Proventil 1 puff DAILY PRN 08/30/16 01/16/17 History Inhaler] Carvedilol [Coreg] 6.25 mg PO BID W/MEALS #60 tablet 09/09/16 01/16/17 Rx metOLazone [Metolazone] 5 mg PO DAILY #30 tablet 09/09/16 01/16/17 Rx amLODIPine [Norvasc] 10 mg PO DAILY #30 tablet 12/13/16 01/16/17 Rx Spironolactone [Aldactone] 25 mg PO DAILY 01/16/17 01/16/17 History Sulfameth/Trimeth 800-160 Tab 1 tablet PO BID 01/16/17 01/16/17 History [Bactrim DS Tab] glipiZIDE [Glipizide] 5 mg PO BID 01/16/17 01/16/17 History Allergies Allergy/AdvReac Type Severity Reaction Status Date / Time No Known Allergies Allergy Verified 12/08/16 11:59 12 point system: reviewed and no additional remarkable complaints except as stated (Per HPI) Medical,Surgical,& Family Hx - Medical History Cardio: History of: CHF, Hypertension Psychological: History of: Anxiety Disorders (panic attacks), Depression Endocrine: History of: Diabetes Mellitus (NIDDM) Respiratory: History of: Asthma Gastrointestinal: No history of: GERD Hematology: History of: Anemia Reproductive: History of: Complication, Reproductive Problems ( uterine fibroids) Other: History of: Skin Problems - Surgical History Neurologic Surgeries: Patient denies: Neurologic Surgery Abdominal Surgeries: Patient denies: Abdominal Surgery Reproductive Surgeries: Surgical HX of;: Section, Dilation and Curettage Patient denies;: Genitourinary Surgery - Family History Family History: Reports;: Family Cancer (grandmother had bone ca?), Family Diabetes (mother), Family Heart Disease (Father), Family Hypertension ( grandfather), Family Psychiatric Problems (mother), Family Stroke (mother) Denies;: Family Anesthesia Reaction - Social History Smoking Status: Never smoker Frequency of Alcohol Use: None Type of Drug Use: None Infectious Disease Exam H&P - Constitutional Vitals: Vital Signs Temp Pulse Resp BP Pulse Ox 97.9 F 88 18 135/64 99 01/19/17 06:50 01/19/17 06:50 01/19/17 06:50 01/19/17 06:50 01/19/17 04:25 Intake and Output 01/18/17 01/19/17 01/19/17 23:59 07:59 15:59 Intake Total 1200 / 1200 1060 / 1060 Output Total 1100 / 1100 800 / 800 Balance 100 / 100 260 / 260 Intake: IV 500 / 500 500 / 500 Vancomycin Inj 1,000 mg 500 / 500 500 / 500 In Ns 500 ml @ 250 mls/hr IV Q12H MORIS Rx#: [id number] Oral 700 / 700 560 / 560 Output: Urine 800 / 800 800 / 800 Stool 300 / 300 Other: Voiding Method Toilet # Voids 4 # Bowel Movements 1 1 Exam: General: Patient comfortable HEENT: Mucous membranes pink and moist, anicteric acyanotic, FLAKITA, no oral exudates Neck: Supple, no thyroid gland enlargement Respiratory system: Breath sounds vesicular, no crepitations or wheezes Cardiovascular: Normal S1 and S2, no murmurs appreciated Abdomen: Normal bowel sounds, soft nontender throughout, no organomegaly or mass Genitourinary: No suprapubic pain or bladder distention, clear urine from Negrete catheter Extremities: no edema Skin: Confluent indurated pustular lesions noted in right axilla bilateral groin areas, mons pubis, and intergluteal region. There is purulent drainage from multiple openings in these areas but no large fluctuant areas palpated. Reports - Labs CBC & BMP: 01/19/17 05:14 01/19/17 05:14 Labs: Laboratory Results - last 24 hr 01/18/17 01/18/17 01/19/17 15:29 20:27 05:14 WBC 15.1 H RBC 2.52 L Hgb 7.4 L Hct 22.6 L MCV 89.7 MCH 29 MCHC 32.7 RDW 13.6 Plt Count 419 H MPV 8.3 L Neut % (Auto) 83.9 H Lymph % (Auto) 7.4 L [place] % (Auto) 5.0 Eos % (Auto) 2.4 Baso % (Auto) 0.2 Neut # (Auto) 12.7 H Lymph # (Auto) 1.1 L [place] # (Auto) 0.8 Eos # (Auto) 0.4 Baso # (Auto) 0.0 Immature Gran % 1.1 Nucleated RBC % 0.0 Immature Gran # 0.16 Nucleated RBCs # 0.00 Immature Plt Fraction 0.0 Sodium Potassium Chloride Carbon Dioxide Anion Gap BUN Creatinine GFR Calculation BUN/Creatinine Ratio Glucose POC Glucose 160 H 163 H Calculated Osmolality Calcium 01/19/17 01/19/17 01/19/17 05:14 07:13 11:07 WBC RBC Hgb Hct MCV MCH MCHC RDW Plt Count MPV Neut % (Auto) Lymph % (Auto) [place] % (Auto) Eos % (Auto) Baso % (Auto) Neut # (Auto) Lymph # (Auto) [place] # (Auto) Eos # (Auto) Baso # (Auto) Immature Gran % Nucleated RBC % Immature Gran # Nucleated RBCs # Immature Plt Fraction Sodium 135 L Potassium 4.1 Chloride 103 Carbon Dioxide 25 Anion Gap 11.1 BUN 21 H Creatinine 1.30 H GFR Calculation 65 BUN/Creatinine Ratio 16.00 Glucose 121 H POC Glucose 149 H 159 H Calculated Osmolality 273.1 Calcium 8.9 - Reports Microbiology: Microbiology 01/15/17 Unknown Wound Culture - Final Groin Acinetobacter baumannii/haemolyticus Staphylococcus epidermidis MRS 01/15/17 05:45 Wound Culture - Final Axilla Staphylococcus epidermidis MRS 01/15/17 22:08 Blood Culture - Preliminary Blood No growth at 3 days 01/15/17 22:08 Blood Culture - Preliminary Blood No growth at 3 days 01/16/17 Unknown Urine Culture - Final Urine,Clean Catch No Growth at 48 hours. Specialty Discharge - Follow Up or Referrals Follow up with: Mono Justin III., MD [Physician] -
--- NOTE | 2017-01-19 14:36 | General Surgery Progress Note ---
Assessment and Plan (1) Hidradenitis suppurativa Status: Chronic Assessment and plan: This appears to be a flareup of axillary and inguinal and perianal and perineal hidradenitis occurred above. These areas are extensive. There is no large abscess that I can identify to drain. There are multiple very small abscesses and chronically appearing indurated areas and foul drainage. There is not extensive cellulitis. I would recommend treating this initially with antibiotics as you are doing. If this fails to respond or if we are unable to get good control with antibiotics we may need to take her to the operating room for exploration and incision and drainage of multiple small abscesses. 01/17: She feels better but the areas in her axilla and groin and perineum are about the same. She has multiple draining sinuses. There is no large discrete abscess that I can appreciate though there are multiple small abscesses/sinus tracts. I discussed this case with Dr. Arriola who is seen her before and Dr. Arriola but actually arrange for her to go to [place] and she did not go because [place] had called and told her in advance that she would need to bring $100. This is according to the patient. If she continues to have an elevated white blood cell count I could take her to the operating room under general anesthesia and try to individually I&D the multiple abscesses in these multiple locations. These all appear to be draining. Eventually she will need excision of these areas and reconstructive type procedures. This would probably include a colostomy. This would be better accomplished probably in a tertiary referral center. I will reassess again tomorrow we will hold her n.p.o. after midnight in case she needs to go to the OR. 01/18: I have examined her once again in both the groins and perineum and axilla. These areas seem to have less drainage and less induration. Or not discrete abscesses that really amenable to drainage. This appears to be responding to antibiotics. Her cultures are pending. I agree with plans for evaluation by infectious diseases. This is a difficult problem probably require major excision which really would be better done in a tertiary referral center 01/19: I have examined her once again and she feels and I feel like these areas have dried up a little bit. There is no large discrete abscess to drain. There are multiple small indurated abscesses as you would expect from hidradenitis. I do not see a value of taking her to the operating room at this point. I think that trying to manage this the best we can with antibiotics and eventual really getting her back to [place] where she had originally been referred is going to be the best approach for her. She had an appointment with [facility]. She is going to call her contact [facility] to see if she can get back in over there. She had canceled her appointment and not gone because of the fact that she was told that she would need to pay some money to go. Current Visit: Yes Subjective Patient reports: Present: feels better, pain is less. Absent: fever Exam - Constitutional Vitals: Period Temp Pulse Resp BP Sys/Harper Pulse Ox Last 24 Hr 97.9 F-99.2 F 74-103 18-20 115-148/64-82 99-100 General appearance: no acute distress - Head Head exam: Present: normocephalic - Eye Eye exam: Absent: scleral icterus - Respiratory Respiratory exam: Absent: accessory muscle use - Extremities Exam Extremities exam: Present: other (The axillary area looks like it has less drainage and induration and there is no erythema. The groins are little bit better as well.). Absent: edema Results - Labs CBC & BMP: 01/19/17 05:14 01/19/17 05:14 Lab Results: I have reviewed the past 24 hour labs Specialty Discharge - Follow Up or Referrals Follow up with: Mono Justin III., MD [Physician] -
--- NOTE | 2017-01-19 15:05 | Discharge Summary ---
Hospital Course - Hospital Course Hospital Course: Discharge diagnosis: 1. Hidradenitis suppurativa 2. Type II DM 3. Anemia of chronic disease 4. Chronic diastolic congestive heart failure The patient presented for evaluation of some draining lesions. She has a known diagnosis of hidradenitis. She was seen by surgery. There were no discrete lesions to drain. She was managed on IV antibiotics. Wound cultures ended up growing Klebsiella and MRSE. Infectious disease saw the patient and recommended oral antibiotics for a month or so. Surgery recommended follow-up at [facility], but there is apparently some difficulty in getting into that facility due to insurance issues. In any event, the patient is now ready for discharge. Medication reconciliation has been performed. ADA diet Activity as tolerated This note was completed using [employer] voice recognition software. There may be log yard manager errors as a result. Diagnosis - Discharge Diagnosis (1) Hidradenitis suppurativa Status: Chronic Specialty Discharge - Follow Up or Referrals Follow up with: Mono Justin III., MD [Physician] - Discharge Plan - Discharge Data Disposition: Disch To Home/Self Care Condition at Discharge: Stable Discharge Diet: advance to your usual diet Activity: resume usual activities as tolerated Hygiene: no restrictions Weight Bearing at Discharge: full weight bearing Driving: no restrictions - Discharge Medications New Doxycycline Hyclate Cap [Vibramycin Cap] 100 mg PO BID #60 capsule Amoxicillin/Clav Tab [Augmentin Tab] 875 mg PO BID W/MEALS #60 tablet Continue Albuterol Inhaler [Proventil Inhaler] 1 puff DAILY PRN PRN Reason: Shortness Of Breath Carvedilol [Coreg] 6.25 mg PO BID W/MEALS #60 tablet metOLazone [Metolazone] 5 mg PO DAILY #30 tablet amLODIPine [Norvasc] 10 mg PO DAILY #30 tablet glipiZIDE [Glipizide] 5 mg PO BID Spironolactone [Aldactone] 25 mg PO DAILY Discontinued Sulfameth/Trimeth 800-160 Tab [Bactrim DS Tab] 1 tablet PO BID - Follow Up or Referral Follow Up: Mono Justin III., MD [Physician] - - Forms/Instructions Instructions: Heart Failure (DC), Abscess (GEN), Anemia (DC) Exam - Constitutional Vitals: Period Temp Pulse Resp BP Sys/Harper Pulse Ox Last 24 Hr 97.9 F-99.2 F 74-103 18-20 115-148/64-82 99-100 Vital signs are noted above. Heart is regular with no murmur. Lungs are clear with no rales or wheezes. Abdomen is soft without mass or tenderness. Skin lesions are unchanged. She is awake and alert Discharge Results Procedures and tests throughout hospitalization: Pending Orders 01/15/17 22:08 Blood Culture Stat Labs on day of discharge: Labs from last 24 hours 01/19/17 01/19/17 01/19/17 11:07 07:13 05:14 WBC RBC Hgb Hct MCV MCH MCHC RDW Plt Count MPV Neut % (Auto) Lymph % (Auto) [place] % (Auto) Eos % (Auto) Baso % (Auto) Neut # (Auto) Lymph # (Auto) [place] # (Auto) Eos # (Auto) Baso # (Auto) Immature Gran % Nucleated RBC % Immature Gran # Nucleated RBCs # Immature Plt Fraction Sodium 135 L Potassium 4.1 Chloride 103 Carbon Dioxide 25 Anion Gap 11.1 BUN 21 H Creatinine 1.30 H GFR Calculation 65 BUN/Creatinine Ratio 16.00 Glucose 121 H POC Glucose 159 H 149 H Calculated Osmolality 273.1 Calcium 8.9 01/19/17 01/18/17 01/18/17 05:14 20:27 15:29 WBC 15.1 H RBC 2.52 L Hgb 7.4 L Hct 22.6 L MCV 89.7 MCH 29 MCHC 32.7 RDW 13.6 Plt Count 419 H MPV 8.3 L Neut % (Auto) 83.9 H Lymph % (Auto) 7.4 L [place] % (Auto) 5.0 Eos % (Auto) 2.4 Baso % (Auto) 0.2 Neut # (Auto) 12.7 H Lymph # (Auto) 1.1 L [place] # (Auto) 0.8 Eos # (Auto) 0.4 Baso # (Auto) 0.0 Immature Gran % 1.1 Nucleated RBC % 0.0 Immature Gran # 0.16 Nucleated RBCs # 0.00 Immature Plt Fraction 0.0 Sodium Potassium Chloride Carbon Dioxide Anion Gap BUN Creatinine GFR Calculation BUN/Creatinine Ratio Glucose POC Glucose 163 H 160 H Calculated Osmolality Calcium Preliminary micro results at discharge 01/15/17 22:08 Blood Culture - Preliminary Blood No growth at 3 days 01/15/17 22:08 Blood Culture - Preliminary Blood No growth at 3 days DS: Provider Date of admission: 01/15/17 19:15 Primary care physician: . No PCP Attending physician on admission: Juan Carlos Coleman MD Consults: 01/16/17 09:43 Consult to Physician [CONS] Routine Comment: Consulting Provider: Margoth,Bill III. Consulting Provider Notified: Yes When should Consulting Provider be notified: Now Consult to Specialist Group: Surgery When should Consulting Provider be notified: Now Consult Notification Comment: diego called with room number 01/17/17 01/16/17 09:48 Consult to Physician [CONS] Routine Comment: Consulting Provider: Neetu Mendze Consulting Provider Notified: Yes When should Consulting Provider be notified: Now Consult to Specialist Group: Infectious Disease When should Consulting Provider be notified: Now Person Notified: dr. beckham saw Date Notified: 01/19/17 Time Notified: 10:50 Discharging clinician: Chucky Poole MD Expected date of discharge: 01/19/17
[2017-01-19 16:12] VITALS: BP 150/83
[2017-01-19] MEDS ORDERED: AMOXICILLIN/CLAV 875 MG TABLET PO SCH (17:00)
[2017-01-19] MEDS ORDERED: DOXYCYCLINE HYCLATE 100 MG CAPSULE PO SCH (21:00)
== END 2017-01-19 17:15 | disposition home or self-care (01) | DRG 385 ==
LOC: N.ED 12:28 → SUATTDRO 19:15 → N.EDINP 19:15 → N.TELEN 21:32 → N.3E 01-16 16:58
PROVIDERS: ADMIT Family Medicine; ATTEND Internal Medicine Geriatric Medicine

== ENCOUNTER 2017-02-14 16:18 | Inpatient (IN) ==
[2017-02-14 18:13] LABS: Basophils % 0.2 % (0.0-0.8); Eosinophils # 0.2 10*3/uL (0.0-0.87); Eosinophils % 0.8 % (0.00-10.9); Hematocrit 26.4 VOL% (35.7-47.0); Hemoglobin 8.6 GM/DL (12.0-16.0); Immature Granulocytes % 1.1 %; Immature Granulocytes Absolute 0.25 #; Lymphocytes # 1.7 10*3/uL (1.4-4.0); Lymphocytes % 7.4 % (21.3-54.2); Mean Corpuscular HGB Conc 32.6 GM/DL (32-36); Mean Corpuscular Hemoglobin 28 PG (27-34); Mean Corpuscular Volume 87.1 FL (87-102); Mean Platelet Volume 8.6 FL (9.6-12.0); Monocytes # 1.4 10*3/uL (0.11-0.8); Monocytes % 6.1 % (1.7-12.7); Neutrophils % 84.4 % (38.7-73.9); Platelet Count 459 T/CUMM (130-400); Red Blood Count 3.03 MC/CUMM (3.8-5.5); Red Cell Distribution Width 13.8 % (9.3-17.3); White Blood Count 22.5 T/CUMM (4-12)
[2017-02-14 18:42] LABS: Alanine Aminotransferase 27 U/L (13-56); Alkaline Phosphatase 273 U/L (45-117); Aspartate Amino Transferase 28 U/L (0-37); Bilirubin,Total < 0.39 MG/DL (0.2-1.0); Blood Urea Nitrogen 21 MG/DL (7-18); Calcium 9.3 MG/DL (8.5-10.1); Glucose 115 MG/DL (74-106); Osmolality,Calculated 267.5 MOS/KG (273-304); Potassium 3.8 MMOL/L (3.5-5.1); Sodium 132 MMOL/L (136-145); Total Protein 10.9 G/DL (6.4-8.3)
[2017-02-14 20:02] LABS: Lymphocytes 10 % (20-55); Platelet Estimate Increased; Segmented Neutrophils 90 % (50-85); Total Cells Counted 100
--- NOTE | 2017-02-14 20:37 | Emergency Department Note ---
Arrival - Arrival Chief Complaint: Non-Specific Stated Complaint: WHITE BLOOD COUNT HIGH. RED BLOOD COUNT HIGH ED Nursing Triage Note: PT TO TRIAGE VIA WC WITH C/O HAVING ABNORMAL LABS. PT WAS CALLED BY DR. GTZ ABOUT HER LAB WORK BEING ABNORMAL PT STATES THEY TOLD HER SHE HAD AN ELEVATED WBC COUNT THAT WAS DRAWN ON TUESDAY. LAST WEEK. Mode of Arrival: Wheelchair Limitations: No Limitations Source: Patient Time Seen by Provider: 02/14/17 19:57 - History of Present Illness HPI Narrative: The patient says she was seen by her primary physician 4 days ago to have routine blood work done. She was called back today and told that her "blood counts were low" and that she needed to go to the hospital. She has a history of anemia in the past and was admitted here for transfusion in November. This was apparently due to anemia of chronic disease as she has a history of severe hidradenitis suppurativa. She has had some weakness over the past 2 weeks and some nausea for the past week. She had diarrhea over the past 3 days. She reports some subjective fever and did have a measured fever when she saw her primary care physician on . She denies any cough, rhinorrhea or sore throat. She states that Dr. Justin is supposed to be setting her up for some type of surgical consult at [facility]. Allergies/Adverse Reactions: Allergies Allergy/AdvReac Type Severity Reaction Status Date / Time No Known Allergies Allergy Verified 02/14/17 16:47 Home Medications: Home Medications Medication Instructions Recorded Confirmed Type Albuterol Inhaler [Proventil 1 puff DAILY PRN 08/30/16 02/14/17 History Inhaler] Carvedilol [Coreg] 6.25 mg PO BID W/MEALS #60 tablet 09/09/16 02/14/17 Rx metOLazone [Metolazone] 5 mg PO DAILY #30 tablet 09/09/16 02/14/17 Rx amLODIPine [Norvasc] 10 mg PO DAILY #30 tablet 12/13/16 02/14/17 Rx Spironolactone [Aldactone] 25 mg PO DAILY 01/16/17 02/14/17 History glipiZIDE [Glipizide] 5 mg PO BID 01/16/17 02/14/17 History Amoxicillin/Clav Tab [Augmentin 875 mg PO BID W/MEALS #60 tablet 01/19/17 Rx Tab] Review of System - Review of System 12 point system: reviewed and no additional remarkable complaints except as stated - Review of System Constitutional: Present: fever (Subjective), weakness Head/Ears/Nose/Throat: Absent: nasal drainage, sore throat Respiratory: Absent: cough Gastrointestinal: Present: nausea, diarrhea. Absent: abdominal pain, vomiting, constipation Skin: Present: lesions Medical,Surgical,& Family Hx - Medical History Cardio: History of: CHF, Hypertension Psychological: History of: Anxiety Disorders (panic attacks), Depression Endocrine: History of: Diabetes Mellitus (NIDDM) Respiratory: History of: Asthma Gastrointestinal: No history of: GERD Hematology: History of: Anemia Reproductive: History of: Complication, Reproductive Problems ( uterine fibroids) Other: History of: Skin Problems - Surgical History Neurologic Surgeries: Patient denies: Neurologic Surgery Abdominal Surgeries: Patient denies: Abdominal Surgery Reproductive Surgeries: Surgical HX of;: Section, Dilation and Curettage Patient denies;: Genitourinary Surgery - Family History Family History: Reports;: Family Cancer (grandmother had bone ca?), Family Diabetes (mother), Family Heart Disease (Father), Family Hypertension ( grandfather), Family Psychiatric Problems (mother), Family Stroke (mother) Denies;: Family Anesthesia Reaction - Social History Smoking Status: Never smoker Frequency of Alcohol Use: None Type of Drug Use: None Exam Physical Examination: GENERAL: Alert. No acute distress. HEENT: Normocephalic and atraumatic. PERRLA. EOMI. Pale conjunctival. There is no nasal drainage. No pharyngeal erythema or exudate. NECK: Normal inspection. Supple. No lymphadenopathy or meningismus. LUNGS: No respiratory distress. Clear to auscultation bilaterally, no wheezes, rales or rhonchi. HEART: Regular tachycardia without murmur. ABDOMEN: Soft, nontender and nondistended with normoactive bowel sounds. There is severe extensive hidradenitis suppurativa in the groin area with multiple draining wounds. Mild tenderness. BACK: Normal inspection. SKIN: Color normal. Warm and dry. EXTREMITIES: Nontender. Normal range of motion. No pedal edema. Hidradenitis right axilla. NEUROLOGICAL/PSYCHIATRIC: Alert and oriented -3 with normal mood and affect. Cranial nerves normal. No motor or sensory deficit. Vital Signs: Vital Signs Temperature 99 F 02/14/17 18:56 Pulse Rate 99 H 02/14/17 18:56 Respiratory Rate 20 02/14/17 18:56 Blood Pressure 170/105 02/14/17 18:56 O2 Sat by Pulse Oximetry 99 02/14/17 18:56 Course - Reevaluation(s) Reevaluation #1: Patient's white blood cell count is significantly elevated at 22,000. It is not clear whether she was called back by Dr. Gtz for her anemia or for her leukocytosis. Her H&H are not at transfusion level so I suspect it was the leukocytosis and fever. Her hidradenitis is draining in the axilla and the groin and I suspect her infection is worsening. I have discussed patient with Dr. Olea who will see her and admit. Time: 22:07 Results - Labs CBC & BMP: 02/14/17 17:53 02/14/17 20:15 Lab Results: I have reviewed the patients labs Labs: Laboratory Tests 02/14/17 02/14/17 02/14/17 17:53 20:15 20:15 Lactic Acid 1.1 Calcium 8.8 Total Bilirubin < 0.39 AST 28 ALT 27 Alkaline Phosphatase 273 H Globulin 8.9 H Ur Specific [place] Urine Leukocytes Urine RBC Urine WBC Urine Bacteria Urine Yeast (Budding) Ur Culture Indicated? 02/14/17 21:03 Lactic Acid Calcium Total Bilirubin AST ALT Alkaline Phosphatase Globulin Ur Specific [place] 1.015 Urine Leukocytes Large H Urine RBC 13 Urine WBC 17 Urine Bacteria Occasional Urine Yeast (Budding) Moderate Ur Culture Indicated? Results to follow Disposition Clinical Impression: Hidradenitis suppurativa, Leukocytosis, Anemia Case discussed with: patient Disposition: Still a Patient Condition: Stable Time of Disposition: 21:44
[2017-02-14 21:26] LABS: Calcium 8.8 MG/DL (8.5-10.1); Osmolality,Calculated 269.4 MOS/KG (273-304); Potassium 3.8 MMOL/L (3.5-5.1)
[2017-02-14 21:29] LABS: Apearance,Urine CLOUDY (Clear); Bacteria,Urine Occasional /HPF (Few); Bilirubin,Urine Negative (Negative); Blood, Urine Moderate mg/dL (Negative); Glucose,Urine (UA) Negative (Negative); Ketones,Urine Negative (Negative); Mucus,Urine Occasional /LPF (Occasional); Nitrite,Urine Negative (Negative); Protein,Urine 30 MG/DL; RBC,Urine 13 /HPF (0-4); Squamous Epithelial Cell,Urine Few /HPF (0-10); Urine Color Yellow (Yellow); Urine Specific Gravity 1.015 (1.001-1.035); Urine Urobilinogen < 2.0 EU/DL (0.2-1.0); WBC,Urine 17 /HPF (0-6)
[2017-02-14] MEDS ORDERED: VANCOMYCIN INJ 1,000 MG in SODIUM CHLORIDE 0.9% 250 ML IV STA (21:47)
[2017-02-14] MEDS ORDERED: VANCOMYCIN 1,000 MG VIAL ONE (22:04)
[2017-02-14] MEDS ORDERED: GLUCAGON 1 MG VIAL IM PRN (23:53)
[2017-02-14] MEDS ORDERED: ONDANSETRON 4 MG/2 ML VIAL IV PRN (23:53)
[2017-02-14] MEDS ORDERED: DEXTROSE 50% 25 GM/50 ML SYRINGE IV PRN (23:53)
[2017-02-15] MEDS ORDERED: ALBUTEROL/IPRATROPIUM 3 ML NEB RESP TX PRN (00:03)
--- NOTE | 2017-02-15 00:14 | Hospitalist History & Physical ---
Assessment and Plan - Time spent with patient Time spent with patient: Greater than 30 minutes (1) Sepsis Status: Acute Assessment and plan: Admit to hospitalist services. Sepsis criteria: HR 120, WBC 22.5, UTI and Hidradenitis. No evidence of organ dysfunction; Lactic acid 1.1, Creatinine 1.3. Blood cultures and urine culture obtained in ED; follow. Vancomycin 1 gram IV given in ED. Continue antibiotic therapy with Vancomycin 1 gram IV Q24 hours and Rocephin 1 gram IV Q24 hours. Obtain wound culture; follow. Repeat Lactic acid ordered. Repeat CBC in am. Consult wound care. Current Visit: Yes (2) Hidradenitis suppurativa Status: Chronic Assessment and plan: As above for Sepsis. Current Visit: Yes (3) Anemia Status: Chronic Assessment and plan: Chronic anemia. H/H are stable compared to previous values. Repeat CBC in am. Current Visit: Yes (4) Chronic kidney disease Status: Chronic Assessment and plan: Creatinine was 1.3 which is consistent with previous values. Repeat BMP in am. Current Visit: No (5) CHF (congestive heart failure) Status: Chronic Assessment and plan: Wear O2 continuously at 1L. Continue home medications. Monitor. Current Visit: No (6) Diabetes mellitus Status: Chronic Assessment and plan: Continue home medications. Diabetic diet. Accuchecks and SSI ACHS. Current Visit: Yes Qualifiers: Diabetes mellitus type: type 2 Diabetes mellitus complication status: with skin complications Diabetes mellitus complication detail: with other skin complication (7) Hypertension Status: Chronic Assessment and plan: Continue home medications. Monitor. Current Visit: Yes (8) DVT prophylaxis Status: Acute Assessment and plan: Lovenox 40 mg SQ daily. Current Visit: Yes History of Present Illness Chief complaint: Hidradenitis History of present illness: Ms. Jones is a 51 year old female with a past medical history of chronic Hidradenitis, NIDDM, CHF, HTN, sleep apnea, fatty liver, and asthma who presents to the ED tonight with complaints of worsening hidradenitis. Ms. Jones reports that this has been an intermittent problem for a couple of years but has been ongoing since August. She reports that she has been seen by Dr. Arriola and Dr. Justin, and it has been recommended that she go to [place] for surgery due to the extensive nature of the problem. Significant labs in the ED include WBC 22.5 and UA indicating UTI. Hospitalist services were consulted and the patient will be admitted for ongoing evaluation and treatment. Home medications were reviewed and reconciled. This patient is a full code. Home Medications Medication Instructions Recorded Confirmed Type Albuterol Inhaler [Proventil 1 puff DAILY PRN 08/30/16 02/14/17 History Inhaler] Carvedilol [Coreg] 6.25 mg PO BID W/MEALS #60 tablet 09/09/16 02/14/17 Rx metOLazone [Metolazone] 5 mg PO DAILY #30 tablet 09/09/16 02/14/17 Rx amLODIPine [Norvasc] 10 mg PO DAILY #30 tablet 12/13/16 02/14/17 Rx Spironolactone [Aldactone] 25 mg PO DAILY 01/16/17 02/14/17 History glipiZIDE [Glipizide] 5 mg PO BID 01/16/17 02/14/17 History Amoxicillin/Clav Tab [Augmentin 875 mg PO BID W/MEALS #60 tablet 01/19/17 Rx Tab] Allergies Allergy/AdvReac Type Severity Reaction Status Date / Time No Known Allergies Allergy Verified 02/14/17 16:47 Medical,Surgical,& Family Hx - Medical History Cardio: History of: CHF, Hypertension Psychological: History of: Anxiety Disorders (panic attacks), Depression Endocrine: History of: Diabetes Mellitus (NIDDM) Respiratory: History of: Asthma Hematology: History of: Anemia Reproductive: History of: Complication, Reproductive Problems ( uterine fibroids) Other: History of: Skin Problems - Surgical History Reproductive Surgeries: Surgical HX of;: Section, Dilation and Curettage - Family History Family History: Reports;: Family Cancer (grandmother had bone ca?), Family Diabetes (mother), Family Heart Disease (Father), Family Hypertension ( grandfather), Family Psychiatric Problems (mother), Family Stroke (mother) - Social History Smoking Status: Never smoker Have you smoked in the last 12 months: No Frequency of Alcohol Use: None Type of Drug Use: None Marital Status: Single Lives With:: Alone Functional capacity: independent ambulation 12 point system: reviewed and no additional remarkable complaints except as stated - Constitutional Constitutional: Absent: chills, fever(s), lethargy, malaise, weakness - EENT Eyes: Absent: blurry vision, diplopia, loss of vision Ears: Absent: decreased hearing, ear discharge, ear pain Nose, mouth and throat: Absent: headache(s), nasal congestion, sore throat - Cardiovascular Cardiovascular: Absent: chest pain at rest, diaphoresis, dyspnea, edema, orthopnea, palpitations - Respiratory Respiratory: Absent: cough, dyspnea, wheezing - Gastrointestinal Gastrointestinal: Absent: abdominal pain, constipation, diarrhea, nausea, vomiting - Genitourinary Genitourinary: Absent: dysuria, flank pain, urinary frequency - Musculoskeletal Musculoskeletal: Absent: arthralgias, joint swelling, muscle weakness, myalgias - Neurological Neurological: Absent: confusion, dizziness, numbness, paresthesias, syncope - Psychiatric Psychiatric: Absent: anxiety, depression - Endocrine Endocrine: Absent: cold intolerance, polydipsia, polyphagia, polyuria - Hematologic/Lymphatic Hematologic/Lymphatic: Absent: easy bleeding, easy bruising Exam - Constitutional Vitals: Period Temp Pulse Resp BP Sys/Harper Pulse Ox Last 24 Hr 99 F-99.0 F 99-120 18-20 170-170/105-105 99-99 Exam: Constitutional System: Afebrile. Awake, alert, and oriented x 3. [No] distress. [No] tremulousness. Skin: Numerous abscess in perineal area; many are open with purulent, foul- smelling drainage. Head: Normocephalic, atraumatic. Ears, Nose and Throat System: No pain or tenderness. No epistaxis or discharge Eyes System: Pupils equal, round, and reactive. Extraocular muscles intact. Neck: Supple, without adenopathy, [No] jugular venous distention. No thyromegaly , neck mass, or prior surgery apparent. Respiratory System: Chest [clear] to auscultation. Cardiovascular System: Heart with [regular] rate and rhythm. [No] murmur. GI System: Abdomen [soft], [non]tender. [Normo]active bowel sounds present. Musculoskeletal System: limbs with [no] pedal edema. [Full] distal pulses. Normal capillary refill. Neurological System: [No discernable] sensory deficit. [No] aphasia Psychiatric System: Conversation is [rational] Results - Labs CBC & BMP: 02/14/17 17:53 02/14/17 20:15 Lab Results: I have reviewed the past 24 hour labs Sepsis - Sepsis Classification of Sepsis: Sepsis Sepsis documentation within 6 hours of presentation: fluid change - Physical Exam Respiratory exam: clear to auscultation bilaterally Capillary Refill: Less Than 3 Seconds Peripheral pulses: Radial (L): 5+, Radial (R): 5+, Dorsalis Pedis (L) PM: 5+, Dorsalis Pedis (R) PM: 5+, Posterior Tibialis (L): 5+, Posterior Tibialis (R): 5 + Cardiovascular exam: tachycardia Skin exam: normal color
[2017-02-15] MEDS ORDERED: cefTRIAXone 1,000 MG in SODIUM CHLORIDE 0.9% 100 ML IV SCH (01:00)
[2017-02-15 01:45] LABS: Basophils % 0.2 % (0.0-0.8); Eosinophils # 0.1 10*3/uL (0.0-0.87); Eosinophils % 0.6 % (0.00-10.9); Hematocrit 24.1 VOL% (35.7-47.0); Hemoglobin 7.8 GM/DL (12.0-16.0); Immature Granulocytes % 1.9 %; Immature Granulocytes Absolute 0.45 #; Lymphocytes # 1.7 10*3/uL (1.4-4.0); Lymphocytes % 7.5 % (21.3-54.2); Mean Corpuscular HGB Conc 32.4 GM/DL (32-36); Mean Corpuscular Hemoglobin 28 PG (27-34); Mean Platelet Volume 8.4 FL (9.6-12.0); Monocytes # 1.3 10*3/uL (0.11-0.8); Monocytes % 5.4 % (1.7-12.7); Neutrophils # 19.6 10*3/uL (1.4-7.4); Neutrophils % 84.4 % (38.7-73.9); Platelet Count 411 T/CUMM (130-400); Red Blood Count 2.77 MC/CUMM (3.8-5.5); Red Cell Distribution Width 13.8 % (9.3-17.3); White Blood Count 23.3 T/CUMM (4-12)
[2017-02-15 02:44] LABS: Calcium 8.7 MG/DL (8.5-10.1); Osmolality,Calculated 275.4 MOS/KG (273-304); Potassium 4.1 MMOL/L (3.5-5.1)
[2017-02-15] MEDS ORDERED: VANCOMYCIN INJ 500 MG in SODIUM CHLORIDE 0.9% 100 ML IV ONE (02:59)
[2017-02-15 04:45] LABS: Band Neutrophils 4 % (0-10); Eosinophils 1 % (0-10); Lymphocytes 2 % (20-55); Segmented Neutrophils 90 % (50-85)
[2017-02-15 04:46] LABS: Platelet Estimate Normal; Total Cells Counted 100
[2017-02-15] MEDS: INSULIN LISPRO 100 UNIT/ML SUBCUT SCH ×4 (09:50→21:32)
[2017-02-15] MEDS: CARVEDILOL 6.25 MG TABLET PO SCH ×2 (09:51→17:14)
--- NOTE | 2017-02-15 10:16 | Hospitalist Progress Note ---
<Sully Connolly - Last Filed: 02/15/17 10:14> Assessment and Plan (1) Anemia Status: Chronic Assessment and plan: Hemoglobin/hematocrit noted at 7.8/24.1. Upon review of the admission record, the patient's hemoglobin and hematocrit was noted at 8.6/26.4 on yesterday. This is almost a one-point drop. The patient has chronic anemia and has required multiple transfusions in recent months. Will recheck hemoglobin hematocrit in a.m. Current Visit: Yes (2) Hidradenitis suppurativa Status: Chronic Assessment and plan: This condition is chronic in nature. The patient has required multiple hospitalizations in recent months as a result of this condition. The patient was referred to a surgeon in [facility] however, the patient failed to meet outpatient appointments. She reported that she was "afraid to ride in the car to [place]" in order to make these appointments. We will continue empiric antibiotic coverage as previously ordered. Wound cultures have been obtained and awaiting culture and sensitivity report. Wound care has been consulted to evaluate and treat. In addition, both infectious disease and surgery have been consulted to evaluate and assist during the clinical encounter. We will place the patient on contact precautions for good measures. Current Visit: Yes Hospitalist: Subjective Interval history: Patient seen and evaluated; chart reviewed. No significant events reported since admission. Infectious disease and surgery consultations have been requested to evaluate and offer recommendations regarding the plan of care. Exam - Constitutional Vitals: Period Temp Pulse Resp BP Sys/Harper Pulse Ox Last 24 Hr 97.3 F-99.0 F 98-120 16-20 118-170/65-105 98-100 General appearance: morbidly obese - Head Head exam: Present: normal inspection, normocephalic, atraumatic - Eye Eye exam: Present: EOMI. Absent: conjunctival injection Pupils: Present: FLAKITA, normal accommodation - ENT ENT exam: Present: normal exam, normal external ear exam, normal oropharynx - Neck Neck exam: Present: normal inspection. Absent: lymphadenopathy, meningismus, thyromegaly - Respiratory Respiratory exam: Present: clear to auscultation bilaterally. Absent: rales, rhonchi, stridor, wheezes - Cardiovascular Cardiovascular exam: Present: regular rate and rhythm. Absent: carotid bruit, diastolic murmur, gallop, JVD, rubs, systolic murmur - GI/Abdominal GI/Abdominal exam: Present: normal bowel sounds, other (Multiple draining abscesses noted to to the groin with malodorous drainage noted) - Extremities Exam Extremities exam: Present: normal inspection, normal capillary refill, full ROM , edema - Back Exam Back exam: Present: normal inspection - Neurological Exam Neurological exam: Present: alert, oriented X3, CN II-XII intact - Psychiatric Psychiatric exam: Present: normal affect, normal mood - Skin Skin exam: Present: normal color, warm, dry Results - Labs CBC & BMP: 02/15/17 01:38 02/15/17 01:38 Lab Results: I have reviewed the past 24 hour labs Quality Measures - Stroke Symptom Onset Unknown: No <Vlad Feliz - Last Filed: 02/15/17 10:55> Hospitalist: Subjective Interval history: I have interviewed and examined the patient reviewed all available laboratory test results. I agree with the assessment and plans of Sully Connolly NP. We will continue the present empiric antibiotic treatment. Surgery has been consulted. Exam - Constitutional Vitals: Period Temp Pulse Resp BP Sys/Harper Pulse Ox Last 24 Hr 97.3 F-99.0 F 98-120 16-20 118-170/65-105 98-100 Results - Labs CBC & BMP: 02/15/17 01:38 02/15/17 01:38
[2017-02-15] MEDS: SPIRONOLACTONE 25 MG TABLET PO SCH (10:19)
[2017-02-15] MEDS: metOLazone 5 MG TABLET PO SCH (10:20)
[2017-02-15] MEDS: glipiZIDE 5 MG TABLET PO SCH ×2 (10:20→21:33)
[2017-02-15] MEDS: amLODIPine 10 MG TABLET PO SCH (10:20)
--- NOTE | 2017-02-15 12:36 | General Surg History&Physical ---
Assessment and Plan (1) Hidradenitis suppurativa Status: Chronic Assessment and plan: Impression: Hidradenitis with abscess Plan: Suspect her leukocytosis is from urinary tract infection not hidradenitis. She does have pain associated with several areas that have coalesced into an underlying abscess. Will plan for I&D of these tomorrow in the operating room at the patient's request. She understands that this will not take care of the underlying hidradenitis problem and she will need to continue working to see [facility]. This is been arranged for her in the past. She has the contact information. I discussed the risks of the procedure including bleeding, infection, damage to surrounding structures need for further surgery. Infectious disease has been consulted. Current Visit: Yes History of Present Illness Chief complaint: Hidradenitis with abscesses History of present illness: Ms. Jones is a 51 year old female who has hidradenitis with abscesses over the groin mons area. She is previously been referred to [place] and initially refused to go but has apparently in the process of trying to get back over there. She was admitted here with a leukocytosis. She complains of pain at several of the areas. Her leukocytosis is likely from the UTI and not hidradenitis. This is been going on for over a year. Home Medications Medication Instructions Recorded Confirmed Type Albuterol Inhaler [Proventil 1 puff DAILY PRN 08/30/16 02/14/17 History Inhaler] Carvedilol [Coreg] 6.25 mg PO BID W/MEALS #60 tablet 09/09/16 02/14/17 Rx metOLazone [Metolazone] 5 mg PO DAILY #30 tablet 09/09/16 02/14/17 Rx amLODIPine [Norvasc] 10 mg PO DAILY #30 tablet 12/13/16 02/14/17 Rx Spironolactone [Aldactone] 25 mg PO DAILY 01/16/17 02/14/17 History glipiZIDE [Glipizide] 5 mg PO BID 01/16/17 02/14/17 History Amoxicillin/Clav Tab [Augmentin 875 mg PO BID W/MEALS #60 tablet 01/19/17 Rx Tab] Allergies Allergy/AdvReac Type Severity Reaction Status Date / Time No Known Allergies Allergy Verified 02/14/17 16:47 Medical,Surgical,& Family Hx - Medical History Cardio: History of: CHF, Hypertension Psychological: History of: Anxiety Disorders (panic attacks), Depression Endocrine: History of: Diabetes Mellitus (NIDDM) Respiratory: History of: Asthma Gastrointestinal: No history of: GERD Hematology: History of: Anemia Reproductive: History of: Complication, Reproductive Problems ( uterine fibroids) Other: History of: Skin Problems - Surgical History Neurologic Surgeries: Patient denies: Neurologic Surgery Abdominal Surgeries: Patient denies: Abdominal Surgery Reproductive Surgeries: Surgical HX of;: Section, Dilation and Curettage, Gynecologic Surgery Patient denies;: Genitourinary Surgery - Family History Family History: Reports;: Family Cancer (grandmother had bone ca?), Family Diabetes (mother), Family Heart Disease (Father), Family Hypertension ( grandfather), Family Psychiatric Problems (mother), Family Stroke (mother) Denies;: Family Anesthesia Reaction - Social History Smoking Status: Never smoker Frequency of Alcohol Use: None Type of Drug Use: None Exam - Constitutional Vitals: Period Temp Pulse Resp BP Sys/Harper Pulse Ox Last 24 Hr 97.3 F-99.0 F 98-120 16-20 118-170/65-105 98-100 General appearance: no acute distress - Neck Neck exam: Present: normal inspection - Respiratory Respiratory exam: Present: clear to auscultation bilaterally - Cardiovascular Cardiovascular exam: Present: RRR - GI/Abdominal GI/Abdominal exam: Present: soft - Extremities Exam Extremities exam: Present: other (The bilateral groins right buttock and mons area there is multiple areas of hidradenitis with small abscesses. Some of these appear to have coalesced into larger drainable areas.) Quality Measures - Stroke Symptom Onset Unknown: No Results - Labs CBC & BMP: 02/15/17 01:38 02/15/17 01:38
--- NOTE | 2017-02-15 15:48 | Infectious Disease Consult ---
Assessment and Plan (1) Leukocytosis Status: Acute Assessment and plan: Probably from acute flare of hidradenitis suppurativa. Current Visit: Yes (2) Diabetes mellitus Status: Chronic Current Visit: Yes Qualifiers: Diabetes mellitus type: type 2 Diabetes mellitus complication status: with skin complications Diabetes mellitus complication detail: with other skin complication (3) Hidradenitis suppurativa Status: Chronic Assessment and plan: Patient possibly have an acute flare. She has significant leukocytosis, worse than her last admission. Need to make sure there is no associated bacteremia. Recommendations: Based on my review of her previous wound cultures I am going to discontinue the ceftriaxone and put her on Unasyn. Continue the vancomycin. Follow-up pending cultures and adjust antibiotics accordingly. I&D pending for tomorrow. Reiterated to patient again that this is a chronic condition. Thank you very much for the consult. Will follow. Current Visit: Yes History of Present Illness Chief complaint: Hidradenitis suppurativa History of present illness: Ms. Jones is a 51 year old female was seen twice in the past. She has repeated admissions for her hidradenitis suppurativa. She has multiple tender lesions in the right axilla and groin and intergluteal areas with purulent drainage. The drainage fluctuates as does the swelling and pain associated with these lesions. She went to see her primary care provider who did some routine blood tests and the white blood cell came back high so she was sent to the hospital for admission. Patient has not had any chills but reports subjective fever. In the past she was referred to [facility] however she has not been able to see a surgeon they yet. No other symptoms reported, including no irritative urinary symptoms. I am asked to assist with antibiotic therapy. Home Medications Medication Instructions Recorded Confirmed Type Albuterol Inhaler [Proventil 1 puff DAILY PRN 08/30/16 02/14/17 History Inhaler] Carvedilol [Coreg] 6.25 mg PO BID W/MEALS #60 tablet 09/09/16 02/14/17 Rx metOLazone [Metolazone] 5 mg PO DAILY #30 tablet 09/09/16 02/14/17 Rx amLODIPine [Norvasc] 10 mg PO DAILY #30 tablet 12/13/16 02/14/17 Rx Spironolactone [Aldactone] 25 mg PO DAILY 01/16/17 02/14/17 History glipiZIDE [Glipizide] 5 mg PO BID 01/16/17 02/14/17 History Amoxicillin/Clav Tab [Augmentin 875 mg PO BID W/MEALS #60 tablet 01/19/17 Rx Tab] Allergies Allergy/AdvReac Type Severity Reaction Status Date / Time No Known Allergies Allergy Verified 02/14/17 16:47 12 point system: reviewed and no additional remarkable complaints except as stated (Per HPI) Medical,Surgical,& Family Hx - Medical History Cardio: History of: CHF, Hypertension Psychological: History of: Anxiety Disorders (panic attacks), Depression Endocrine: History of: Diabetes Mellitus (NIDDM) Respiratory: History of: Asthma Gastrointestinal: No history of: GERD Hematology: History of: Anemia Reproductive: History of: Complication, Reproductive Problems ( uterine fibroids) Other: History of: Skin Problems - Surgical History Neurologic Surgeries: Patient denies: Neurologic Surgery Abdominal Surgeries: Patient denies: Abdominal Surgery Reproductive Surgeries: Surgical HX of;: Section, Dilation and Curettage, Gynecologic Surgery Patient denies;: Genitourinary Surgery - Family History Family History: Reports;: Family Cancer (grandmother had bone ca?), Family Diabetes (mother), Family Heart Disease (Father), Family Hypertension ( grandfather), Family Psychiatric Problems (mother), Family Stroke (mother) Denies;: Family Anesthesia Reaction - Social History Smoking Status: Never smoker Frequency of Alcohol Use: None Type of Drug Use: None Infectious Disease Exam H&P - Constitutional Vitals: Vital Signs Temp Pulse Resp BP Pulse Ox 97.3 F L 98 H 18 126/65 98 02/15/17 08:35 02/15/17 08:35 02/15/17 14:35 02/15/17 08:35 02/15/17 08:35 Intake and Output 02/14/17 02/15/17 02/15/17 23:59 07:59 15:59 Intake Total 340 / 340 380 / 380 Output Total 400 / 400 Balance -60 / -60 380 / 380 Intake: IV 100 / 100 Rocephin 1,000 mg In Ns 100 / 100 100 ml @ 200 mls/hr IV Q24H [facility] Rx#:[id number] Oral 240 / 240 380 / 380 Output: Urine 400 / 400 Stool 0 / 0 Other: Weight 100.244 kg 98.248 kg Patient Weight 02/15/17 23:59 Weight 98.248 kg Exam: General: Patient relatively comfortable, very pleasant HEENT: Mucous membranes pale pink and moist, anicteric acyanotic, FLAKITA, no oropharyngeal exudates Neck: Supple, no thyroid gland enlargement, no lymphadenopathy Respiratory system: Breath sounds vesicular, no crepitations or wheezes Cardiovascular: Normal S1 and S2, no murmurs appreciated Abdomen: Normal bowel sounds, soft nontender throughout, no organomegaly or mass Genitourinary: Multiple tender boils in groin area, over the mons pubis, they are mostly tender and pressure results and drainage of purulent material Extremities: no edema, draining boils to right axilla, purulence, tender on palpation Skin: No rash Reports - Labs CBC & BMP: 02/15/17 01:38 02/15/17 01:38 Labs: Laboratory Results - last 24 hr 02/14/17 02/14/17 02/14/17 17:53 17:53 20:15 WBC 22.5 H RBC 3.03 L Hgb 8.6 L Hct 26.4 L MCV 87.1 MCH 28 MCHC 32.6 RDW 13.8 Plt Count 459 H MPV 8.6 L Neut % (Auto) 84.4 H Lymph % (Auto) 7.4 L [place] % (Auto) 6.1 Eos % (Auto) 0.8 Baso % (Auto) 0.2 Neut # (Auto) 19.0 H Lymph # (Auto) 1.7 [place] # (Auto) 1.4 H Eos # (Auto) 0.2 Baso # (Auto) 0.0 Total Counted 100 Immature Gran % 1.1 Nucleated RBC % 0.0 Immature Gran # 0.25 Segmented Neutrophils 90 H Band Neutrophils Lymphocytes 10 L Monocytes Eosinophils Nucleated RBCs # 0.00 Platelet Estimate Increased Immature Plt Fraction 0.0 Sodium 132 L Potassium 3.8 Chloride 99 Carbon Dioxide 27 Anion Gap 9.8 BUN 21 H Creatinine 1.40 H GFR Calculation 59 BUN/Creatinine Ratio 15.00 Glucose 115 H POC Glucose Calculated Osmolality 267.5 L Lactic Acid 1.1 Calcium 9.3 Total Bilirubin < 0.39 AST 28 ALT 27 Alkaline Phosphatase 273 H Total Protein 10.9 H Albumin 2.0 L Globulin 8.9 H Albumin/Globulin Ratio 0.2 L Urine Color Urine Appearance Urine pH Ur Specific [place] Urine Protein Urine Glucose (UA) Urine Ketones Urine Blood Urine Nitrate Urine Bilirubin Urine Urobilinogen Urine Leukocytes Urine RBC Urine WBC Ur Squamous Epith Cells Urine Bacteria Urine Mucus Urine Yeast (Budding) Ur Culture Indicated? 02/14/17 02/14/17 02/15/17 20:15 21:03 01:23 WBC RBC Hgb Hct MCV MCH MCHC RDW Plt Count MPV Neut % (Auto) Lymph % (Auto) [place] % (Auto) Eos % (Auto) Baso % (Auto) Neut # (Auto) Lymph # (Auto) [place] # (Auto) Eos # (Auto) Baso # (Auto) Total Counted Immature Gran % Nucleated RBC % Immature Gran # Segmented Neutrophils Band Neutrophils Lymphocytes Monocytes Eosinophils Nucleated RBCs # Platelet Estimate Immature Plt Fraction Sodium 133 L Potassium 3.8 Chloride 100 Carbon Dioxide 25 Anion Gap 11.8 BUN 24 H Creatinine 1.30 H GFR Calculation 65 BUN/Creatinine Ratio 18.00 Glucose 107 H POC Glucose 202 H Calculated Osmolality 269.4 L Lactic Acid Calcium 8.8 Total Bilirubin AST ALT Alkaline Phosphatase Total Protein Albumin Globulin Albumin/Globulin Ratio Urine Color Yellow Urine Appearance Cloudy Urine pH 5.0 Ur Specific [place] 1.015 Urine Protein 30 Urine Glucose (UA) Negative Urine Ketones Negative Urine Blood Moderate Urine Nitrate Negative Urine Bilirubin Negative Urine Urobilinogen < 2.0 H Urine Leukocytes Large H Urine RBC 13 Urine WBC 17 Ur Squamous Epith Cells Few Urine Bacteria Occasional Urine Mucus Occasional Urine Yeast (Budding) Moderate Ur Culture Indicated? Results to follow 02/15/17 02/15/17 02/15/17 01:38 01:38 01:38 WBC 23.3 H RBC 2.77 L Hgb 7.8 L Hct 24.1 L MCV 87.0 MCH 28 MCHC 32.4 RDW 13.8 Plt Count 411 H MPV 8.4 L Neut % (Auto) 84.4 H Lymph % (Auto) 7.5 L [place] % (Auto) 5.4 Eos % (Auto) 0.6 Baso % (Auto) 0.2 Neut # (Auto) 19.6 H Lymph # (Auto) 1.7 [place] # (Auto) 1.3 H Eos # (Auto) 0.1 Baso # (Auto) 0.0 Total Counted 100 Immature Gran % 1.9 Nucleated RBC % 0.0 Immature Gran # 0.45 Segmented Neutrophils 90 H Band Neutrophils 4 Lymphocytes 2 L Monocytes 3 Eosinophils 1 Nucleated RBCs # 0.00 Platelet Estimate Normal Immature Plt Fraction 0.0 Sodium 133 L Potassium 4.1 Chloride 101 Carbon Dioxide 25 Anion Gap 11.1 BUN 29 H Creatinine 1.60 H GFR Calculation 50 BUN/Creatinine Ratio 18.00 Glucose 175 H POC Glucose Calculated Osmolality 275.4 Lactic Acid 1.3 Calcium 8.7 Total Bilirubin AST ALT Alkaline Phosphatase Total Protein Albumin Globulin Albumin/Globulin Ratio Urine Color Urine Appearance Urine pH Ur Specific [place] Urine Protein Urine Glucose (UA) Urine Ketones Urine Blood Urine Nitrate Urine Bilirubin Urine Urobilinogen Urine Leukocytes Urine RBC Urine WBC Ur Squamous Epith Cells Urine Bacteria Urine Mucus Urine Yeast (Budding) Ur Culture Indicated? 02/15/17 02/15/17 07:55 11:12 WBC RBC Hgb Hct MCV MCH MCHC RDW Plt Count MPV Neut % (Auto) Lymph % (Auto) [place] % (Auto) Eos % (Auto) Baso % (Auto) Neut # (Auto) Lymph # (Auto) [place] # (Auto) Eos # (Auto) Baso # (Auto) Total Counted Immature Gran % Nucleated RBC % Immature Gran # Segmented Neutrophils Band Neutrophils Lymphocytes Monocytes Eosinophils Nucleated RBCs # Platelet Estimate Immature Plt Fraction Sodium Potassium Chloride Carbon Dioxide Anion Gap BUN Creatinine GFR Calculation BUN/Creatinine Ratio Glucose POC Glucose 149 H 212 H Calculated Osmolality Lactic Acid Calcium Total Bilirubin AST ALT Alkaline Phosphatase Total Protein Albumin Globulin Albumin/Globulin Ratio Urine Color Urine Appearance Urine pH Ur Specific [place] Urine Protein Urine Glucose (UA) Urine Ketones Urine Blood Urine Nitrate Urine Bilirubin Urine Urobilinogen Urine Leukocytes Urine RBC Urine WBC Ur Squamous Epith Cells Urine Bacteria Urine Mucus Urine Yeast (Budding) Ur Culture Indicated?
[2017-02-15] MEDS: AMPICILLIN/SULBACTAM 3,000 MG in SODIUM CHLORIDE 0.9% 100 ML IV SCH ×2 (17:14→21:34)
[2017-02-15] MEDS ORDERED: VANCOMYCIN INJ 1,500 MG in SODIUM CHLORIDE 0.9% 500 ML IV SCH (21:00)
[2017-02-15] MEDS ORDERED: VANCOMYCIN INJ 1,000 MG in SODIUM CHLORIDE 0.9% 250 ML IV SCH (22:00)
[2017-02-16] MEDS: AMPICILLIN/SULBACTAM 3,000 MG in SODIUM CHLORIDE 0.9% 100 ML IV SCH ×5 (05:48→21:58)
[2017-02-16] MEDS ORDERED: ALBUTEROL/IPRATROPIUM 3 ML NEB RESP TX ONE (07:52)
[2017-02-16] MEDS: INSULIN LISPRO 100 UNIT/ML SUBCUT SCH ×4 (07:59→20:01)
[2017-02-16 08:28] LABS: Basophils % 0.2 % (0.0-0.8); Eosinophils # 0.4 10*3/uL (0.0-0.87); Eosinophils % 2.1 % (0.00-10.9); Hematocrit 22.7 VOL% (35.7-47.0); Hemoglobin 7.2 GM/DL (12.0-16.0); Immature Granulocytes % 1.1 %; Immature Granulocytes Absolute 0.19 #; Lymphocytes # 1.1 10*3/uL (1.4-4.0); Lymphocytes % 6.5 % (21.3-54.2); Mean Corpuscular HGB Conc 31.7 GM/DL (32-36); Mean Corpuscular Hemoglobin 28 PG (27-34); Mean Corpuscular Volume 88.3 FL (87-102); Mean Platelet Volume 8.1 FL (9.6-12.0); Monocytes % 5.9 % (1.7-12.7); Neutrophils # 14.5 10*3/uL (1.4-7.4); Neutrophils % 84.2 % (38.7-73.9); Platelet Count 352 T/CUMM (130-400); Red Blood Count 2.57 MC/CUMM (3.8-5.5); White Blood Count 17.2 T/CUMM (4-12)
[2017-02-16 09:04] LABS: Albumin 1.9 G/DL (3.4-5.0); Bilirubin,Total 0.6 MG/DL (0.2-1.0); Calcium 8.7 MG/DL (8.5-10.1); Magnesium 1.8 MG/DL (1.8-2.4); Osmolality,Calculated 272.1 MOS/KG (273-304); Potassium 3.9 MMOL/L (3.5-5.1); Total Protein 8.8 G/DL (6.4-8.3)
--- NOTE | 2017-02-16 09:23 | Anesthesia Post-Op ---
Anesthesia Post OP - Post Ansesthetic Evaluation Patient seen in post op: Yes Resp: within normal limits CV: within normal limits Mental: within normal limits Temp: within normal limits [id number]-Zi-Vcvanrghg: within normal limits Nausea and Vomiting: within normal limits Pain: within normal limits
[2017-02-16] MEDS ORDERED: MIDAZOLAM 2 MG/2 ML VIAL ONE (09:26)
[2017-02-16] MEDS ORDERED: SEVOFLURANE 1 UNIT/15 MINUTE INH ONE (09:26)
[2017-02-16] MEDS ORDERED: PROPOFOL 200 MG/20 ML VIAL IV ONE (09:26)
[2017-02-16] MEDS ORDERED: ONDANSETRON 4 MG/2 ML VIAL ONE ×2 (09:26→09:35)
[2017-02-16] MEDS ORDERED: fentaNYL 100 MCG/2 ML VIAL ONE (09:26)
[2017-02-16] MEDS ORDERED: HYDROmorphone 2 MG/1 ML VIAL ONE (09:35)
[2017-02-16] MEDS: HYDROmorphone 2 MG/1 ML VIAL IV PRN ×2 (09:35→09:44)
[2017-02-16] MEDS ORDERED: ONDANSETRON 4 MG/2 ML VIAL IV PRN (09:39)
[2017-02-16] MEDS: CARVEDILOL 6.25 MG TABLET PO SCH ×2 (09:51→16:52)
--- NOTE | 2017-02-16 10:03 | Hospitalist Progress Note ---
<Sully Connolly - Last Filed: 02/16/17 10:01> Assessment and Plan (1) Anemia Status: Chronic Assessment and plan: Hemoglobin/hematocrit noted at 7.8/24.1. Upon review of the admission record, the patient's hemoglobin and hematocrit was noted at 8.6/26.4 on yesterday. This is almost a one-point drop. The patient has chronic anemia and has required multiple transfusions in recent months. Will recheck hemoglobin hematocrit in a.m. 02/16-hemoglobin hematocrit noted at 7.2/22.7. This is a concerning decrease from yesterday's readings at 7.8/24.5. We will type and screen and transfuse 2 units packed red blood cell and recheck CBC in a.m. Current Visit: Yes (2) Hidradenitis suppurativa Status: Chronic Assessment and plan: This condition is chronic in nature. The patient has required multiple hospitalizations in recent months as a result of this condition. The patient was referred to a surgeon in [facility] however, the patient failed to meet outpatient appointments. She reported that she was "afraid to ride in the car to [place]" in order to make these appointments. We will continue empiric antibiotic coverage as previously ordered. Wound cultures have been obtained and awaiting culture and sensitivity report. Wound care has been consulted to evaluate and treat. In addition, both infectious disease and surgery have been consulted to evaluate and assist during the clinical encounter. We will place the patient on contact precautions for good measures. 02/16-the patient was evaluated by infectious disease on yesterday. We appreciate the input. We agree with recommendations to discontinue ceftriaxone and initiation of Unasyn. The patient will remain on contact precautions pending culture sensitivity report. Current Visit: Yes Hospitalist: Subjective Interval history: Patient seen and examined; chart reviewed. No significant overnight events reported per staff. Patient's disease consultation on yesterday. We appreciate the input. We will continue antibiotic coverage per infectious disease recommendations. Exam - Constitutional Vitals: Period Temp Pulse Resp BP Sys/Harper Pulse Ox Last 24 Hr 97.8 F-99.3 F 83-97 15-20 106-132/52-80 93-100 General appearance: morbidly obese - Head Head exam: Present: normal inspection, normocephalic, atraumatic - Eye Eye exam: Present: EOMI. Absent: conjunctival injection Pupils: Present: FLAKITA, normal accommodation - ENT ENT exam: Present: normal exam, normal external ear exam, normal oropharynx - Neck Neck exam: Present: normal inspection. Absent: lymphadenopathy, meningismus, thyromegaly - Respiratory Respiratory exam: Present: clear to auscultation bilaterally. Absent: rales, rhonchi, stridor, wheezes - Cardiovascular Cardiovascular exam: Present: regular rate and rhythm. Absent: carotid bruit, diastolic murmur, gallop, JVD, rubs, systolic murmur - GI/Abdominal GI/Abdominal exam: Present: normal bowel sounds, other (Multiple open areas to the right groin) - Extremities Exam Extremities exam: Present: normal inspection, normal capillary refill, edema (+ 2 generalized edema), other (Multiple open areas to the right axilla with drainage) - Back Exam Back exam: Present: normal inspection - Neurological Exam Neurological exam: Present: alert, oriented X3, CN II-XII intact - Psychiatric Psychiatric exam: Present: normal affect, normal mood - Skin Skin exam: Present: normal color, other (Multiple open areas noted to the right groin, right axilla, and right intergluteal folds.) Results - Labs CBC & BMP: 02/16/17 08:24 02/16/17 08:24 Lab Results: I have reviewed the past 24 hour labs Quality Measures - Stroke Symptom Onset Unknown: No <Vlad Feliz - Last Filed: 02/16/17 11:18> Hospitalist: Subjective Interval history: Patient continues with local care and intravenous antibiotics for her hidradenitis suppurativa. She has been seen in consultation by infectious diseases. She will undergo a transfusion of 2 units of packed red blood cells today for her worsening anemia. Exam - Constitutional Vitals: Period Temp Pulse Resp BP Sys/Harper Pulse Ox Last 24 Hr 97.4 F-99.3 F 83-97 14-20 106-133/52-99 93-100 Results - Labs CBC & BMP: 02/16/17 08:24 02/16/17 08:24
[2017-02-16] MEDS ORDERED: SODIUM CHLORIDE 0.9% 250 ML IV PRN (10:04)
[2017-02-16] MEDS: glipiZIDE 5 MG TABLET PO SCH ×2 (10:14→20:02)
[2017-02-16] MEDS: SPIRONOLACTONE 25 MG TABLET PO SCH (10:14)
[2017-02-16] MEDS: ENOXAPARIN 40 MG/0.4 ML SYRINGE SUBCUT SCH (10:15)
[2017-02-16] MEDS: metOLazone 5 MG TABLET PO SCH (10:15)
[2017-02-16] MEDS: amLODIPine 10 MG TABLET PO SCH (10:15)
--- NOTE | 2017-02-16 12:22 | Physician Query Form ---
CLICK EDIT DOCUMENT TO SELECT QUERY ANSWER --> OK --> SIGN Kimberly Sue RN [employer] W) [phone] (f) [phone] [email or web address] PROVIDERS: Make your selection(s) from the choices in EACH section by typing an "x" and enter comments in the comment section. Please use your independent medical judgment in providing your response. This request does not imply that any particular answer is desired or expected. CLINICAL INDICATORS: (Providers should not edit this section) Based on documentation of "CKD" Creatinine from 1.6 to 1.0. GFR from 50 to 88. Monitored with serial lab checks. Clarify which of the following most accurately represents the patient's renal status: ( ) Acute kidney injury (non-traumatic) ( x) Acute renal failure ( ) Acute renal failure with underlying Chronic Kidney Disease (CKD) - please provide stage below ( ) Acute renal failure with pathological renal lesion ( ) Acute renal failure with necrosis ( ) tubular ( ) medullary ( ) cortical ( ) CKD - please provide stage below ( ) End Stage Renal Disease ( ) Acute interstitial nephritis ( ) Hepatorenal syndrome ( ) Other, please specify: ( ) Clinically unable to determine Chronic Kidney Disease Stages Source: National Kidney Disease Foundation ( ) Stage I (eGFR > or = 90) ( ) Stage II (eGFR 60 - 89) ( ) Stage III (eGFR 30 - 59) ( ) Stage IV (eGFR 15 - 29) ( ) Stage V (eGFR < 15 or dialysis) COMMENTS: PLEASE ALSO DOCUMENT RESPONSE IN PROGRESS NOTES AND/OR DISCHARGE SUMMARY Use of terms such as suspected, likely, or probable (associated with a specific diagnosis that is being evaluated, monitored, or treated as if it exists) are acceptable and can be restated in the discharge summary if not ruled out. MTDD
--- NOTE | 2017-02-16 12:48 | Infectious Disease Progress ---
Assessment and Plan (1) Leukocytosis Status: Acute Assessment and plan: Probably from acute flare of hidradenitis suppurativa. A bit improved today. Current Visit: Yes (2) Diabetes mellitus Status: Chronic Current Visit: Yes Qualifiers: Diabetes mellitus type: type 2 Diabetes mellitus complication status: with skin complications Diabetes mellitus complication detail: with other skin complication (3) Hidradenitis suppurativa Status: Chronic Assessment and plan: Patient admitted with an acute flare. She had significant leukocytosis but has improved today. She status post I&D this morning. Recommendations: Continue current antibiotics and wound care and follow-up finalized cultures. Current Visit: Yes Infectious Disease - PN: Subj Interval history: No fever since admission. She went to the operating room today for I&D of groin and intergluteal areas. Of note is not presented. No specific complaints today. Tolerating antibiotics without nausea vomiting or diarrhea. Infectious Disease Exam (PN) - Constitutional Vitals: Temp Pulse Resp BP Pulse Ox 97.6 F 93 H 16 131/80 99 02/16/17 12:10 02/16/17 12:10 02/16/17 12:10 02/16/17 12:10 02/16/17 12:10 General appearance: morbidly obese Exam: General appearance: no acute distress - Eye Eye exam: Present: EOMI. no icterus Pupils: Present: FLAKITA - ENT ENT exam: no oral exudates - Respiratory Respiratory exam: vesicular BS, no crepitations or wheezes - Cardiovascular Cardiovascular exam: regular rate and rhythm, no murmurs - GI/Abdominal GI/Abdominal exam: normal bowel sounds, soft, non-tender, no organomegaly or mass - Wounds bandaged - Extremities Exam Extremities exam: no edema - Skin Skin exam: no rash Results - Labs CBC & BMP: 02/16/17 08:24 02/16/17 08:24 Lab Results: I have reviewed the past 24 hour labs Quality Measures - Stroke Symptom Onset Unknown: No
--- NOTE | 2017-02-16 13:27 | Operative Note ---
Date of procedure: 02/16/17 Pre-op diagnosis: Hidradenitis suppurativa with multiple abscess collections Post-op diagnosis: same Procedure: Procedure performed: Incision and drainage of right groin, right perineum, right inner thigh 2, left mons, left inner thigh abscesses Procedure in detail: After informed consent was obtained patient taken operating suite lies upon the operating table. After general anesthesia was induced she was placed in lithotomy position in the bilateral groins thighs perineum were all prepped and draped in usual sterile fashion. After procedural pause the entire prepped area was examined and there were multiple sinus tracts draining purulence. I was able to palpate 5 fluctuant areas as described above an incision was made over each in the purulence suction. All loculations were freed by blunt finger dissection. I expressed as much purulence out of the hidradenitis areas as possible. All of the abscess cavities were relatively small. They are all packed with iodoform gauze. Sterile dressings applied patient was extubated and taken recovery room in stable condition. All lap and needle counts correct in the case. Anesthesia: GETA Surgeon / Physician: Jaret Greenfield Estimated blood loss: other (Less than 10 cc) Specimens: none sent Condition: stable Disposition: PACU Results - Labs CBC & BMP: 02/16/17 08:24 02/16/17 08:24 Discharge Plan - Discharge Medications No Action Albuterol Inhaler [Proventil Inhaler] 1 puff DAILY PRN PRN Reason: Shortness Of Breath Carvedilol [Coreg] 6.25 mg PO BID W/MEALS #60 tablet metOLazone [Metolazone] 5 mg PO DAILY #30 tablet amLODIPine [Norvasc] 10 mg PO DAILY #30 tablet glipiZIDE [Glipizide] 5 mg PO BID Spironolactone [Aldactone] 25 mg PO DAILY Amoxicillin/Clav Tab [Augmentin Tab] 875 mg PO BID W/MEALS #60 tablet - Follow Up or Referral - Forms/Instructions
[2017-02-16] MEDS ORDERED: VANCOMYCIN INJ 1,500 MG in SODIUM CHLORIDE 0.9% 500 ML IV SCH (23:00)
[2017-02-17] MEDS: ACETAMINOPHEN 325 MG TABLET PO PRN (00:12)
[2017-02-17] MEDS: AMPICILLIN/SULBACTAM 3,000 MG in SODIUM CHLORIDE 0.9% 100 ML IV SCH ×4 (03:22→21:02)
[2017-02-17 06:55] LABS: Basophils % 0.2 % (0.0-0.8); Eosinophils # 0.1 10*3/uL (0.0-0.87); Eosinophils % 0.5 % (0.00-10.9); Hemoglobin 8.2 GM/DL (12.0-16.0); Immature Granulocytes % 1.3 %; Lymphocytes # 0.8 10*3/uL (1.4-4.0); Lymphocytes % 5.6 % (21.3-54.2); Mean Corpuscular HGB Conc 32.8 GM/DL (32-36); Mean Corpuscular Hemoglobin 29 PG (27-34); Mean Corpuscular Volume 88.7 FL (87-102); Mean Platelet Volume 8.8 FL (9.6-12.0); Monocytes # 0.7 10*3/uL (0.11-0.8); Monocytes % 4.9 % (1.7-12.7); Neutrophils # 13.1 10*3/uL (1.4-7.4); Neutrophils % 87.5 % (38.7-73.9); Platelet Count 337 T/CUMM (130-400); Red Blood Count 2.82 MC/CUMM (3.8-5.5); Red Cell Distribution Width 14.6 % (9.3-17.3); White Blood Count 14.9 T/CUMM (4-12)
[2017-02-17 07:29] LABS: Albumin 1.6 G/DL (3.4-5.0); Bilirubin,Total 0.6 MG/DL (0.2-1.0); Calcium 7.8 MG/DL (8.5-10.1); Magnesium 1.4 MG/DL (1.8-2.4); Osmolality,Calculated 270.1 MOS/KG (273-304); Phosphorous 3.3 MG/DL (2.5-4.9); Total Protein 7.8 G/DL (6.4-8.3)
--- NOTE | 2017-02-17 08:28 | Hospitalist Progress Note ---
Assessment and Plan (1) Anemia Status: Chronic Assessment and plan: Hemoglobin/hematocrit noted at 7.8/24.1. Upon review of the admission record, the patient's hemoglobin and hematocrit was noted at 8.6/26.4 on yesterday. This is almost a one-point drop. The patient has chronic anemia and has required multiple transfusions in recent months. Will recheck hemoglobin hematocrit in a.m. 02/16-hemoglobin hematocrit noted at 7.2/22.7. This is a concerning decrease from yesterday's readings at 7.8/24.5. We will type and screen and transfuse 2 units packed red blood cell and recheck CBC in a.m. 02/17-hemoglobin hematocrit increased to 8.2/25.0. Patient was transfused 2 units of packed red blood cells. We will monitor the patient's blood counts closely. Recheck CBC in a.m. Current Visit: Yes (2) Hidradenitis suppurativa Status: Chronic Assessment and plan: This condition is chronic in nature. The patient has required multiple hospitalizations in recent months as a result of this condition. The patient was referred to a surgeon in [facility] however, the patient failed to meet outpatient appointments. She reported that she was "afraid to ride in the car to [place]" in order to make these appointments. We will continue empiric antibiotic coverage as previously ordered. Wound cultures have been obtained and awaiting culture and sensitivity report. Wound care has been consulted to evaluate and treat. In addition, both infectious disease and surgery have been consulted to evaluate and assist during the clinical encounter. We will place the patient on contact precautions for good measures. 02/16-the patient was evaluated by infectious disease on yesterday. We appreciate the input. We agree with recommendations to discontinue ceftriaxone and initiation of Unasyn. The patient will remain on contact precautions pending culture sensitivity report. 02/17-status post I&D on yesterday by Dr. Da Silva. We appreciate the input. We will continue Unasyn per ID recommendation. Contact precautions remain in place. Current Visit: Yes Hospitalist: Subjective Interval history: Patient seen and examined; chart reviewed. Status post I&D of right groin, right perineum, right inner thigh 2, left mons, and left inner thigh abscess on yesterday. Exam - Constitutional Vitals: Period Temp Pulse Resp BP Sys/Harper Pulse Ox Last 24 Hr 97.4 F-100.3 F 83-108 14-20 95-133/51-99 93-100 General appearance: over weight - Head Head exam: Present: normal inspection, normocephalic, atraumatic - Eye Eye exam: Present: EOMI. Absent: conjunctival injection Pupils: Present: FLAKITA, normal accommodation - ENT ENT exam: Present: normal exam, normal external ear exam, normal oropharynx - Neck Neck exam: Present: normal inspection. Absent: lymphadenopathy, meningismus, tenderness, thyromegaly - Respiratory Respiratory exam: Absent: rales, rhonchi, stridor, wheezes - Cardiovascular Cardiovascular exam: Present: regular rate and rhythm. Absent: carotid bruit, diastolic murmur, gallop, JVD, rubs, systolic murmur - GI/Abdominal GI/Abdominal exam: Present: normal bowel sounds, soft, other (Status post I&D right groin, right peritoneum, right inner thigh, left and right side and left months.) - Extremities Exam Extremities exam: Present: normal inspection, full ROM - Back Exam Back exam: Present: normal inspection - Neurological Exam Neurological exam: Present: alert, oriented X3 - Psychiatric Psychiatric exam: Present: normal affect, normal mood, depressed - Skin Skin exam: Present: other (Multiple abscess noted to right groin, right peritoneum, right inner thigh 2, left months, and left inner thigh) Results - Labs CBC & BMP: 02/17/17 05:26 02/17/17 05:26 Lab Results: I have reviewed the past 24 hour labs Quality Measures - Stroke Symptom Onset Unknown: No
[2017-02-17] MEDS: glipiZIDE 5 MG TABLET PO SCH ×3 (09:14→20:59)
[2017-02-17] MEDS: amLODIPine 10 MG TABLET PO SCH (09:14)
[2017-02-17] MEDS: metOLazone 5 MG TABLET PO SCH (09:14)
[2017-02-17] MEDS: CARVEDILOL 6.25 MG TABLET PO SCH ×2 (09:14→18:15)
[2017-02-17] MEDS: INSULIN LISPRO 100 UNIT/ML SUBCUT SCH ×4 (09:14→20:57)
[2017-02-17] MEDS: SPIRONOLACTONE 25 MG TABLET PO SCH (09:14)
[2017-02-17] MEDS: ENOXAPARIN 40 MG/0.4 ML SYRINGE SUBCUT SCH (09:15)
--- NOTE | 2017-02-17 10:15 | Event Note ---
The patient is a 51-year-old female with a history of hidradenitis suppurativa in his postop day #1 status post I&D of multiple abscesses. She is receiving IV Unasyn and vancomycin. She has no complaints at the time of my visit. Afebrile Abscesses with persistent drainage is noted. Packing is removed and wounds are irrigated with saline and repacked with quarter inch iodoform gauze. No additional abscesses noted. Calves are soft and nontender without pitting edema anteriorly Laboratory review: Leukocytosis improved with obesity 14.9; hemoglobin 8.2 hematocrit 25 Assessment and plan Patient is postoperative day number 1 status post I&D of multiple abscesses associated with hidradenitis suppurativa. She continues on vancomycin and Unasyn per infectious disease recommendations. Recommend local wound care with daily packing changes. Patient should follow-up in [place] as previously established for further treatment. She may follow with Dr. Margoth III on an as-needed basis.
[2017-02-17] MEDS ORDERED: MAGNESIUM SULF RIDER 4 GM in PREMIX 1 EACH IV ONE (15:00)
--- NOTE | 2017-02-17 15:43 | Infectious Disease Progress ---
Assessment and Plan (1) Leukocytosis Status: Acute Assessment and plan: Probably from acute flare of hidradenitis suppurativa. Somewhat improved since admission. Current Visit: Yes (2) Diabetes mellitus Status: Chronic Current Visit: Yes Qualifiers: Diabetes mellitus type: type 2 Diabetes mellitus complication status: with skin complications Diabetes mellitus complication detail: with other skin complication (3) Hidradenitis suppurativa Status: Chronic Assessment and plan: Patient admitted with an acute flare. She had significant leukocytosis but that has improved since admission. Acinetobacter and E. coli cultured. Recommendations: 1. Discontinue vancomycin as no gram positives isolated 2. Continue Unasyn which will cover the Acinetobacter as well as as any anaerobes that likely involved 3. The E. coli is not being covered however I would not janet every organism isolated. The patient will always have positive cultures and local wound care is most important mode of treatment. Chasing all organisms isolated from the resulted increasingly resistant bacteria. Current Visit: Yes Infectious Disease - PN: Subj Interval history: Patient doing fairly well today, tolerating antibiotic therapy without any nausea vomiting or diarrhea. Admits to less pain associated with the abscesses in the groin/perineal areas. She has not had fever, T-max 100.3. Infectious Disease Exam (PN) - Constitutional Vitals: Temp Pulse Resp BP Pulse Ox 99.3 F 110 H 20 133/78 97 02/17/17 11:00 02/17/17 11:00 02/17/17 11:00 02/17/17 11:00 02/17/17 11:00 General appearance: over weight Exam: General appearance: no acute distress - Eye Eye exam: Present: EOMI. no icterus Pupils: Present: FLAKITA - ENT ENT exam: no oral exudates - Respiratory Respiratory exam: vesicular BS, no crepitations or wheezes - Cardiovascular Cardiovascular exam: regular rate and rhythm, no murmurs - GI/Abdominal GI/Abdominal exam: normal bowel sounds, soft, non-tender, no organomegaly or mass - Wounds bandaged, less tenderness associated with them, still some drainage - Extremities Exam Extremities exam: no edema - Skin Skin exam: no rash Results - Labs CBC & BMP: 02/17/17 05:26 02/17/17 05:26 Lab Results: I have reviewed the past 24 hour labs Quality Measures - Stroke Symptom Onset Unknown: No
--- NOTE | 2017-02-17 16:37 | XRay Report ---
Single view the chest. Indication: CHF and hypoxia. Comparison: January 15, 2017. The heart and mediastinal contours are unremarkable. The pulmonary vasculature is normal. There is no consolidation, pneumothorax, or pleural effusion. The osseous structures are unremarkable. Impression: No abnormality is seen. PROCEDURE INTERPRETED AT [facility] DEPARTMENT OF RADIOLOGY Final Report Signed by: Dr. Marlene Garcia
[2017-02-18] MEDS: AMPICILLIN/SULBACTAM 3,000 MG in SODIUM CHLORIDE 0.9% 100 ML IV SCH ×5 (04:05→21:56)
[2017-02-18 06:57] LABS: Basophils % 0.3 % (0.0-0.8); Eosinophils # 0.2 10*3/uL (0.0-0.87); Eosinophils % 1.2 % (0.00-10.9); Hemoglobin 8.1 GM/DL (12.0-16.0); Immature Granulocytes % 0.9 %; Immature Granulocytes Absolute 0.13 #; Lymphocytes # 1.2 10*3/uL (1.4-4.0); Lymphocytes % 8.5 % (21.3-54.2); Mean Corpuscular HGB Conc 32.4 GM/DL (32-36); Mean Corpuscular Hemoglobin 29 PG (27-34); Mean Corpuscular Volume 88.3 FL (87-102); Mean Platelet Volume 8.3 FL (9.6-12.0); Monocytes # 1.2 10*3/uL (0.11-0.8); Monocytes % 8.4 % (1.7-12.7); Neutrophils # 11.2 10*3/uL (1.4-7.4); Neutrophils % 80.7 % (38.7-73.9); Platelet Count 303 T/CUMM (130-400); Red Blood Count 2.83 MC/CUMM (3.8-5.5); Red Cell Distribution Width 14.6 % (9.3-17.3); White Blood Count 13.9 T/CUMM (4-12)
[2017-02-18 07:25] LABS: Albumin 1.6 G/DL (3.4-5.0); Bilirubin,Total 0.7 MG/DL (0.2-1.0); Calcium 8.4 MG/DL (8.5-10.1); Magnesium 2.1 MG/DL (1.8-2.4); Phosphorous 3.3 MG/DL (2.5-4.9); Potassium 4.1 MMOL/L (3.5-5.1); Total Protein 7.7 G/DL (6.4-8.3)
[2017-02-18 07:31] LABS: Band Neutrophils 1 % (0-10); Eosinophils 1 % (0-10); Hypochromasia 1+; Lymphocytes 5 % (20-55); Microcytosis 1+; Segmented Neutrophils 87 % (50-85); Total Cells Counted 100
--- NOTE | 2017-02-18 07:43 | XRay Report ---
XR chest 1V portable Indication: Congestive heart failure, hypoxia Comparison: 15 January 2017 Findings: The heart and mediastinum are normal in size and configuration. The pulmonary vascularity is normal in caliber. No lung infiltrates, effusions, pneumothorax or other abnormality is demonstrated. Impression: No acute cardiopulmonary disease. PROCEDURE INTERPRETED AT [facility] DEPARTMENT OF RADIOLOGY Final Report Signed by: Dr. Hany Wheeler
[2017-02-18] MEDS: ENOXAPARIN 40 MG/0.4 ML SYRINGE SUBCUT SCH (08:51)
[2017-02-18] MEDS: glipiZIDE 5 MG TABLET PO SCH ×2 (08:51→23:16)
[2017-02-18] MEDS: SPIRONOLACTONE 25 MG TABLET PO SCH (08:51)
[2017-02-18] MEDS: amLODIPine 10 MG TABLET PO SCH (08:51)
[2017-02-18] MEDS: INSULIN LISPRO 100 UNIT/ML SUBCUT SCH ×4 (08:51→20:25)
[2017-02-18] MEDS: CARVEDILOL 6.25 MG TABLET PO SCH ×2 (08:51→16:51)
[2017-02-18] MEDS: metOLazone 5 MG TABLET PO SCH (08:51)
--- NOTE | 2017-02-18 09:04 | Hospitalist Progress Note ---
<Sully Connolly - Last Filed: 02/18/17 09:01> Assessment and Plan (1) Anemia Status: Chronic Assessment and plan: Hemoglobin/hematocrit noted at 7.8/24.1. Upon review of the admission record, the patient's hemoglobin and hematocrit was noted at 8.6/26.4 on yesterday. This is almost a one-point drop. The patient has chronic anemia and has required multiple transfusions in recent months. Will recheck hemoglobin hematocrit in a.m. 02/16-hemoglobin hematocrit noted at 7.2/22.7. This is a concerning decrease from yesterday's readings at 7.8/24.5. We will type and screen and transfuse 2 units packed red blood cell and recheck CBC in a.m. 02/17-hemoglobin hematocrit increased to 8.2/25.0. Patient was transfused 2 units of packed red blood cells. We will monitor the patient's blood counts closely. Recheck CBC in a.m. 02/18-hemoglobin/hematocrit noted at 8.1/25.0. Levels remain stable. We will recheck CBC in a.m. Current Visit: Yes (2) Hidradenitis suppurativa Status: Chronic Assessment and plan: This condition is chronic in nature. The patient has required multiple hospitalizations in recent months as a result of this condition. The patient was referred to a surgeon in [facility] however, the patient failed to meet outpatient appointments. She reported that she was "afraid to ride in the car to [place]" in order to make these appointments. We will continue empiric antibiotic coverage as previously ordered. Wound cultures have been obtained and awaiting culture and sensitivity report. Wound care has been consulted to evaluate and treat. In addition, both infectious disease and surgery have been consulted to evaluate and assist during the clinical encounter. We will place the patient on contact precautions for good measures. 02/16-the patient was evaluated by infectious disease on yesterday. We appreciate the input. We agree with recommendations to discontinue ceftriaxone and initiation of Unasyn. The patient will remain on contact precautions pending culture sensitivity report. 02/17-status post I&D on yesterday by Dr. Da Silva. We appreciate the input. We will continue Unasyn per ID recommendation. Contact precautions remain in place. 02/18-we will continue Unasyn per infectious disease recommendation. We will continue wound care per general surgery recommendation. Current Visit: Yes Hospitalist: Subjective Interval history: Patient seen and examined; chart reviewed. No significant overnight events reported per staff. Status post I&D of multiple abscesses on Tuesday. Antibiotic coverage and wound care and progress. Exam - Constitutional Vitals: Period Temp Pulse Resp BP Sys/Harper Pulse Ox Last 24 Hr 97.6 F-100.1 F 86-110 16-20 96-148/51-85 92-100 General appearance: no acute distress, morbidly obese - Head Head exam: Present: normal inspection, normocephalic, atraumatic - Eye Eye exam: Present: EOMI. Absent: conjunctival injection Pupils: Present: FLAKITA, normal accommodation - ENT ENT exam: Present: normal exam, normal external ear exam, normal oropharynx - Neck Neck exam: Present: normal inspection. Absent: lymphadenopathy, meningismus, tenderness, thyromegaly - Respiratory Respiratory exam: Present: clear to auscultation bilaterally. Absent: rales, rhonchi, stridor, wheezes - Cardiovascular Cardiovascular exam: Present: regular rate and rhythm. Absent: carotid bruit, diastolic murmur, gallop, JVD, rubs, systolic murmur - GI/Abdominal GI/Abdominal exam: Present: normal bowel sounds, soft, other (Abscesses noted to right groin, left mons and right inner thigh) - Extremities Exam Extremities exam: Present: normal capillary refill, full ROM. Absent: edema - Back Exam Back exam: Present: normal inspection - Neurological Exam Neurological exam: Present: alert, oriented X3, CN II-XII intact - Psychiatric Psychiatric exam: Present: normal affect, normal mood - Skin Skin exam: Present: normal color, warm, dry, other (Multiple abscesses noted to the right groin, right axilla, left inner thigh, and left months.) Results - Labs CBC & BMP: 02/18/17 06:37 02/18/17 06:37 Lab Results: I have reviewed the past 24 hour labs Quality Measures - Stroke Symptom Onset Unknown: No <Anara,Arco - Last Filed: 02/18/17 11:52> Exam - Constitutional Vitals: Period Temp Pulse Resp BP Sys/Harper Pulse Ox Last 24 Hr 97.6 F-100.1 F 86-98 16-20 96-148/51-85 92-100 Results - Labs CBC & BMP: 02/18/17 06:37 02/18/17 06:37
--- NOTE | 2017-02-18 09:15 | Infectious Disease Progress ---
Assessment and Plan (1) Leukocytosis Status: Acute Assessment and plan: Probably from acute flare of hidradenitis suppurativa. Significantly improved since admission. Current Visit: Yes (2) Diabetes mellitus Status: Chronic Current Visit: Yes Qualifiers: Diabetes mellitus type: type 2 Diabetes mellitus complication status: with skin complications Diabetes mellitus complication detail: with other skin complication (3) Hidradenitis suppurativa Status: Chronic Assessment and plan: Patient admitted with an acute flare. She had significant leukocytosis but that has improved since admission. Recommendations: Continue Unasyn while in hospital. I am okay with her going home today and would send her home on Augmentin 875 mg twice daily. Patient needs continue antibiotic therapy for at least 2 weeks. Will probably need chronic antibiotic suppression for her chronic wounds until she goes to see the surgeon in [place]. Current Visit: Yes Infectious Disease - PN: Subj Interval history: Patient doing well in general, some pain to the wounds however improved overall. She has not had any fever. Tolerating antibiotic without nausea vomiting or diarrhea. Infectious Disease Exam (PN) - Constitutional Vitals: Temp Pulse Resp BP Pulse Ox 98.8 F 90 16 119/68 99 02/18/17 07:00 02/18/17 07:00 02/18/17 07:00 02/18/17 07:00 02/18/17 07:00 General appearance: no acute distress, morbidly obese Exam: General appearance: no acute distress - Eye Eye exam: Present: EOMI. no icterus Pupils: Present: FLAKITA - ENT ENT exam: no oral exudates - GI/Abdominal GI/Abdominal exam: normal bowel sounds, soft, non-tender, no organomegaly or mass - Wounds examined, less tenderness associated with them, still some drainage but overall less induration - Extremities Exam Extremities exam: no edema - Skin Skin exam: no rash Results - Labs CBC & BMP: 02/18/17 06:37 02/18/17 06:37 Lab Results: I have reviewed the past 24 hour labs Quality Measures - Stroke Symptom Onset Unknown: No
[2017-02-18] MEDS: ACETAMINOPHEN 325 MG TABLET PO PRN (11:49)
[2017-02-18] MEDS ORDERED: ALPRAZolam 0.5 MG TABLET PO ONE (16:35)
[2017-02-19] MEDS: AMPICILLIN/SULBACTAM 3,000 MG in SODIUM CHLORIDE 0.9% 100 ML IV SCH ×2 (04:23→09:06)
[2017-02-19] MEDS: INSULIN LISPRO 100 UNIT/ML SUBCUT SCH (07:42)
[2017-02-19 07:52] LABS: Basophils % 0.1 % (0.0-0.8); Eosinophils # 0.2 10*3/uL (0.0-0.87); Eosinophils % 1.4 % (0.00-10.9); Hematocrit 25.3 VOL% (35.7-47.0); Hemoglobin 8.3 GM/DL (12.0-16.0); Immature Granulocytes % 0.7 %; Lymphocytes # 1.1 10*3/uL (1.4-4.0); Lymphocytes % 7.6 % (21.3-54.2); Mean Corpuscular HGB Conc 32.8 GM/DL (32-36); Mean Corpuscular Hemoglobin 29 PG (27-34); Mean Corpuscular Volume 88.5 FL (87-102); Mean Platelet Volume 8.1 FL (9.6-12.0); Neutrophils # 11.5 10*3/uL (1.4-7.4); Neutrophils % 83.2 % (38.7-73.9); Platelet Count 301 T/CUMM (130-400); Red Blood Count 2.86 MC/CUMM (3.8-5.5); Red Cell Distribution Width 14.6 % (9.3-17.3); White Blood Count 13.8 T/CUMM (4-12)
[2017-02-19] MEDS ORDERED: AMOXICILLIN/CLAV 875 MG TABLET PO SCH (08:30)
[2017-02-19 08:41] LABS: Calcium 8.3 MG/DL (8.5-10.1); Magnesium 1.8 MG/DL (1.8-2.4); Osmolality,Calculated 273.8 MOS/KG (273-304); Phosphorous 3.5 MG/DL (2.5-4.9); Potassium 3.9 MMOL/L (3.5-5.1)
[2017-02-19] MEDS ORDERED: LACTOBACILLUS RHAMNOSUS GG CAPSULE PO SCH (09:00)
[2017-02-19] MEDS: ENOXAPARIN 40 MG/0.4 ML SYRINGE SUBCUT SCH (09:06)
[2017-02-19] MEDS: SPIRONOLACTONE 25 MG TABLET PO SCH (09:07)
[2017-02-19] MEDS: amLODIPine 10 MG TABLET PO SCH (09:09)
[2017-02-19] MEDS: metOLazone 5 MG TABLET PO SCH (09:09)
[2017-02-19] MEDS: CARVEDILOL 6.25 MG TABLET PO SCH (09:09)
[2017-02-19] MEDS: glipiZIDE 5 MG TABLET PO SCH ×2 (09:10→09:44)
--- NOTE | 2017-02-19 09:53 | Discharge Summary ---
Hospital Course - Hospital Course Hospital Course: This is a very pleasant 51-year-old female that presented to the ED at [facility] on February 14, 2017 for the evaluation abnormal labs.The patient reported a medical history significant for congestive heart failure, hypertension, [id number] diabetes mellitus, chronic hidradenitis, morbid obesity, asthma, depression, anxiety disorder, anemia, and uterine fibroids. Patient surgical history significant for section, multiple incision and drainage of chronic abscesses, and dilatation and curettage. Apparently, the patient had been seen by her primary care physician at the [facility] on last week labs were obtained. She reported that the clinic staff contacted her and informed her that her labs was abnormal and instructed her to present to the ED. The patient was assessed at the time of ED presentation. The patient was noted to be grossly hypertensive with a blood pressure of 170/105 at the time of ED presentation. Labs were obtained which were significant for white blood cell count at 22.5, hemoglobin 8.6, hematocrit 26.4, platelet count 459, sodium 133, BUN 21, creatinine 1.40, glucose 115, alkaline phosphatase 273, calculated osmolality 276.5, and albumin 2.0. Urinalysis was remarkable for the presence of urine blood moderate, urine urobilinogen greater than 2.0, urine leukocytes large, urine RBCs 13, urine WBC 17, urine squamous epithelial cells few, urine mucus and urine bacteria occasional, and urine yeast was noted as moderate. The patient was subsequently admitted to the hospitalist service for continuation of care. Pancultures were obtained. Empiric antibiotic coverage was initiated. Infectious disease and surgical consultations were requested. The patient was evaluated and recommendations were given. On February 16, 2017, the patient underwent incision and drainage of multiple abscess collections involving the right groin, right perineum, right inner thigh, left mons, and left inner thigh. Antibiotic coverage and wound care continued per surgery orders. On February 16, 2017, the patient hemoglobin and hematocrit was noted at 7.2 and 22.7. The patient was transfused 2 units of packed red blood cells and her blood levels improved and are noted at 8.3/25.3. The patient's condition slowly improved. The patient's condition is stable. She has not experienced any significant overnight events. Today, we feel that she is indeed appropriate for discharge to follow-up with her primary care physician as directed. The patient will be discharged on Augmentin 875 mg by mouth twice daily for prophylactic treatment of chronic hidradenitis suppurativa. In addition, the patient will be started on ferrous sulfate 325 mg by mouth daily for chronic anemia and lactobacillus Rhamnosus 1 tablet by mouth twice daily. The patient has been instructed to continue to take all medications as directed at the time of discharge. Diagnosis - Discharge Diagnosis (1) Anemia Status: Chronic (2) Hidradenitis suppurativa Status: Chronic Specialty Discharge - Follow Up or Referrals - Speciality Discharge Instructions Hospitalist Instructions: Follow-up with your primary care physician in 7-10 days. Continue to take all medications as previously ordered. Surgery Instructions: Continue daily wound care as ordered. Discharge Plan - Discharge Data Disposition: Disch To Home/Self Care Condition at Discharge: Stable Discharge Diet: advance to your usual diet Activity: resume usual activities as tolerated Hygiene: no restrictions Weight Bearing at Discharge: full weight bearing Driving: no restrictions Contact your physician if you experience:: fever over 101, Difficulty voiding, Redness or swelling, Shortness of breath - Discharge Medications New Escitalopram Oxalate [Lexapro] 5 mg PO DAILY #30 tablet HYDROcodone/ACETAMIN 5-325 [[place] 5-325] 1 tablet PO Q4H PRN #20 tablet PRN Reason: Pain Moderate (4-7) Lactobacillus Rhamnosus GG [Culturelle] 1 capsule PO BID #60 capsule Ferrous Sulfate 325 mg PO DAILY W/BREAKFAST #30 tablet Fluconazole Tab [Diflucan Tab] 150 mg PO ONCE #3 tablet Amoxicillin/Clav Tab [Augmentin Tab] 875 mg PO Q12H tablet Continue Albuterol Inhaler [Proventil Inhaler] 1 puff DAILY PRN PRN Reason: Shortness Of Breath Carvedilol [Coreg] 6.25 mg PO BID W/MEALS #60 tablet metOLazone [Metolazone] 5 mg PO DAILY #30 tablet amLODIPine [Norvasc] 10 mg PO DAILY #30 tablet glipiZIDE [Glipizide] 5 mg PO BID Amoxicillin/Clav Tab [Augmentin Tab] 875 mg PO BID W/MEALS #60 tablet Spironolactone [Aldactone] 25 mg PO DAILY - Follow Up or Referral - Forms/Instructions Instructions: Hydrocodone/Acetaminophen (By mouth), Amoxicillin/Clavulanate Potassium (By mouth), Fluconazole (By mouth), Escitalopram (By mouth), Probiotic (By mouth), Néstor Antibiotic Awarness, Acute Wound Care (DC), Anemia (GEN) Exam - Constitutional Vitals: Period Temp Pulse Resp BP Sys/Harper Pulse Ox Last 24 Hr 97.0 F-98.1 F 87-110 16-20 121-159/68-79 95-100 Discharge Results Procedures and tests throughout hospitalization: Pending Orders 02/14/17 20:15 Blood Culture Stat 02/18/17 17:16 Occult Blood, Stool Routine Labs on day of discharge: Labs from last 24 hours 02/19/17 02/19/17 02/19/17 07:45 07:45 06:26 WBC 13.8 H RBC 2.86 L Hgb 8.3 L Hct 25.3 L MCV 88.5 MCH 29 MCHC 32.8 RDW 14.6 Plt Count 301 MPV 8.1 L Neut % (Auto) 83.2 H Lymph % (Auto) 7.6 L [place] % (Auto) 7.0 Eos % (Auto) 1.4 Baso % (Auto) 0.1 Neut # (Auto) 11.5 H Lymph # (Auto) 1.1 L [place] # (Auto) 1.0 H Eos # (Auto) 0.2 Baso # (Auto) 0.0 Immature Gran % 0.7 Nucleated RBC % 0.0 Immature Gran # 0.10 Nucleated RBCs # 0.00 Immature Plt Fraction 0.0 Sodium 137 Potassium 3.9 Chloride 103 Carbon Dioxide 29 Anion Gap 8.9 BUN 15 Creatinine 1.00 GFR Calculation 88 BUN/Creatinine Ratio 15.00 Glucose 95 POC Glucose 107 H Calculated Osmolality 273.8 Calcium 8.3 L Phosphorus 3.5 Magnesium 1.8 02/18/17 02/18/17 19:55 15:48 WBC RBC Hgb Hct MCV MCH MCHC RDW Plt Count MPV Neut % (Auto) Lymph % (Auto) [place] % (Auto) Eos % (Auto) Baso % (Auto) Neut # (Auto) Lymph # (Auto) [place] # (Auto) Eos # (Auto) Baso # (Auto) Immature Gran % Nucleated RBC % Immature Gran # Nucleated RBCs # Immature Plt Fraction Sodium Potassium Chloride Carbon Dioxide Anion Gap BUN Creatinine GFR Calculation BUN/Creatinine Ratio Glucose POC Glucose 108 H 75 Calculated Osmolality Calcium Phosphorus Magnesium Preliminary micro results at discharge 02/14/17 20:15 Blood Culture - Preliminary Blood No growth at 3 days 02/14/17 20:15 Blood Culture - Preliminary Blood No growth at 3 days DS: Provider Date of admission: 02/14/17 22:38 Primary care physician: . No PCP Attending physician on admission: Joshua Cabrera MD Consults: 02/15/17 00:36 Consult to Wound Care - [place] [CONS] Routine Reason for Wound Care: Wound Care Management 02/15/17 02:30 Consult to Pharmacy [CONS] Routine Reason for Pharmacy Consult: Dose/Manage Vancomycin 02/15/17 09:12 Consult to Physician [CONS] Routine Comment: Consulting Provider: Jaret Greenfield When should Consulting Provider be notified: Now Person Notified: [place] Date Notified: 02/15/17 Time Notified: 09:37 Consult Notification Comment: 02/15/17 09:13 Consult to Physician [CONS] Routine Comment: Consulting Provider: Neetu Mendez When should Consulting Provider be notified: Now Person Notified: [place] Date Notified: 02/15/17 Time Notified: 09:35 Discharging clinician: Sully Connolly CNP
[2017-02-19 11:15] VITALS: BP 131/79
== END 2017-02-19 12:10 | disposition home or self-care (01) | DRG 710 ==
LOC: N.ED 16:18 → N.EDINP 22:38 → SUATTDRO 22:38 → N.5E 23:01
PROVIDERS: ADMIT Internal Medicine; ATTEND Internal Medicine

== ENCOUNTER 2017-02-22 09:57 | Observation (INO) ==
[2017-02-22] MEDS ORDERED: MECLIZINE 25 MG TABLET PO STA (10:35)
[2017-02-22] MEDS ORDERED: ONDANSETRON 4 MG/2 ML VIAL IV STA (10:35)
[2017-02-22] MEDS ORDERED: SODIUM CHLORIDE 0.9% 500 ML IV STA (10:35)
[2017-02-22] MEDS ORDERED: MECLIZINE 25 MG TABLET ONE (10:47)
[2017-02-22] MEDS ORDERED: ONDANSETRON 4 MG/2 ML VIAL ONE (10:47)
--- NOTE | 2017-02-22 10:47 | Emergency Department Note ---
Srinivas Ledbetter Brooke, am scribing for, and in the presence of, Rob Goss MD 10:37 . Ana Paula Ledbetter James D, MD, personally performed the services described in this documentation, ascribed by So Espino in my presence, and it is both accurate and complete . Arrival - Arrival Chief Complaint: Dizziness Stated Complaint: dizziness ED Nursing Triage Note: states when pt laying down the room is spining. pt was dcd satureday from having a blood transfusion. states if she sits still the dizziness stops Mode of Arrival: Wheelchair Limitations: No Limitations Source: Patient, RN Notes Reviewed Time Seen by Provider: 02/22/17 10:29 - History of Present Illness HPI Narrative: Patient is a 51 year old female who presents to the ED with c/o dizziness that started last week. She describes the dizziness as the room spinning. She states "I feel like I'm flipping around." Patient was admitted into the hospital, last week, with anemia. She says she received two units of blood and was given abx for some "cysts." Patient says she thinks the dizziness is getting better but it 's still there. Patient says she is okay as long as she is sitting up but it gets worse when she lays down. Patient says she has also been nauseated but denies having any vomiting, numbness, or weakness. Patient has PMHx of CHF, HTN , anxiety, depression, asthma, NIDDM, anemia, and uterine fibroids. Patient has home oxygen that she does use. 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 Her Primary Care Provider is Dr. Padilla at [facility]. Onset (ago): week(s) (1) Consistency: intermittent Severity: moderate Allergies/Adverse Reactions: Allergies Allergy/AdvReac Type Severity Reaction Status Date / Time No Known Allergies Allergy Verified 02/14/17 16:47 Home Medications: Home Medications Medication Instructions Recorded Confirmed Type Albuterol Inhaler [Proventil 1 puff DAILY PRN 08/30/16 02/22/17 History Inhaler] Carvedilol [Coreg] 6.25 mg PO BID W/MEALS #60 tablet 09/09/16 02/22/17 Rx Spironolactone [Aldactone] 25 mg PO QAM 01/16/17 02/22/17 History glipiZIDE [Glipizide] 5 mg PO BID 01/16/17 02/22/17 History Amoxicillin/Clav Tab [Augmentin 875 mg PO Q12H tablet 02/19/17 02/22/17 Rx Tab] Ferrous Sulfate 325 mg PO DAILY W/BREAKFAST #30 02/19/17 02/22/17 Rx tablet Lactobacillus Rhamnosus GG 1 capsule PO BID #60 capsule 02/19/17 02/22/17 Rx [Culturelle] Escitalopram Oxalate [Lexapro] 5 mg PO QAM 02/22/17 02/22/17 History amLODIPine [Norvasc] 10 mg PO QAM 02/22/17 02/22/17 History metOLazone [Metolazone] 5 mg PO QAM 02/22/17 02/22/17 History Review of System - Review of System 12 point system: reviewed and no additional remarkable complaints except as stated - Review of System Constitutional: Absent: fever Respiratory: Absent: respiratory distress Gastrointestinal: Present: nausea. Absent: vomiting Skin: Absent: rash Neurological: Present: other (dizziness). Absent: weakness, numbness Medical,Surgical,& Family Hx - Medical History Cardio: History of: CHF, Hypertension Psychological: History of: Anxiety Disorders (panic attacks), Depression Endocrine: History of: Diabetes Mellitus (NIDDM) Respiratory: History of: Asthma Gastrointestinal: No history of: GERD Hematology: History of: Anemia Reproductive: History of: Complication, Reproductive Problems ( uterine fibroids) Other: History of: Skin Problems - Surgical History Neurologic Surgeries: Patient denies: Neurologic Surgery Abdominal Surgeries: Patient denies: Abdominal Surgery Reproductive Surgeries: Surgical HX of;: Section, Dilation and Curettage, Gynecologic Surgery Patient denies;: Genitourinary Surgery - Family History Family History: Reports;: Family Cancer (grandmother had bone ca?), Family Diabetes (mother), Family Heart Disease (Father), Family Hypertension ( grandfather), Family Psychiatric Problems (mother), Family Stroke (mother) Denies;: Family Anesthesia Reaction - Social History Smoking Status: Never smoker Frequency of Alcohol Use: None Type of Drug Use: None Exam Vital Signs: Vital Signs Temperature 97.5 F L 02/22/17 10:12 Pulse Rate 121 H 02/22/17 10:12 Respiratory Rate 20 02/22/17 10:12 Blood Pressure 170/105 02/22/17 10:12 O2 Sat by Pulse Oximetry 99 02/22/17 10:12 GENERAL: This is a well-nourished well-developed black female in no apparent distress. VITAL SIGNS: Reviewed HEENT: Head is atraumatic and normocephalic. Pupils are equal round react to light. Extraocular movements are intact. TMs are clear bilaterally. Oropharynx is benign with moist mucous membranes. NECK: Neck is soft and supple without tenderness. There are no masses. There is no lymphadenopathy. LUNGS: Lungs are clear to auscultation. Chest rises symmetrically. There is no chest wall tenderness. CV: Heart is rapid rate without murmurs rubs or gallops. ABDOMEN: Abdomen is soft, nontender to palpation. There are no abdominal abnormal masses palpated. There is no organomegaly. Bowel sounds are present and active. SKIN: Skin is warm and dry. No rash. EXTREMITIES: Patient has full range of motion without tenderness. There is no pedal edema. NEUROLOGIC: Awake alert and oriented 4. Cranial nerves II through XII are grossly intact. Motor is 5 over 5 in all extremities bilaterally. Course Course Narrative: Patient was given IV fluids, Solu-Medrol, and meclizine in the emergency department. Patient was also given Zofran. - Consultations Consultation #1: Discussed with hospitalist. Patient will be admitted to their service. Time: 11:30 Results - Labs CBC & BMP: 02/22/17 10:36 02/22/17 10:36 Lab Results: I have reviewed the patients labs - EKG EKG results: interpreted by ERMD - Impressions EKG: Sinus tachycardia with a rate of 122, ST segment depression laterally - Diagnostic Findings Procedure: Chest x-ray: image reviewed by me (No infiltrates, no pleural effusions.) Disposition Clinical Impression: Vertigo, Sinus tachycardia, Hidradenitis suppurativa Case discussed with: patient Disposition: Still a Patient
[2017-02-22 10:51] LABS: Basophils # 0.1 10*3/uL (0.0-0.2); Basophils % 0.3 % (0.0-0.8); Eosinophils # 0.2 10*3/uL (0.0-0.87); Hemoglobin 9.4 GM/DL (12.0-16.0); Immature Granulocytes % 0.9 %; Immature Granulocytes Absolute 0.17 #; Lymphocytes % 10.7 % (21.3-54.2); Mean Corpuscular HGB Conc 32.4 GM/DL (32-36); Mean Corpuscular Hemoglobin 29 PG (27-34); Mean Corpuscular Volume 88.7 FL (87-102); Mean Platelet Volume 8.4 FL (9.6-12.0); Monocytes # 0.9 10*3/uL (0.11-0.8); Monocytes % 4.6 % (1.7-12.7); Neutrophils # 15.5 10*3/uL (1.4-7.4); Neutrophils % 82.5 % (38.7-73.9); Platelet Count 452 T/CUMM (130-400); Red Blood Count 3.27 MC/CUMM (3.8-5.5); Red Cell Distribution Width 14.7 % (9.3-17.3); White Blood Count 18.8 T/CUMM (4-12)
--- NOTE | 2017-02-22 10:53 | XRay Report ---
Exam: XR chest 1V portable Date: 02/22/2017 10:35 AM Indication: Shortness of breath Comparison: 02/18/2017 Technical: AP Findings: Mid inspiratory chest was obtained. Mild cardiac enlargement present. No obvious consolidating infiltrates or effusions. Mediastinum appears intact. Minimal interstitial thickening and peribronchial cuffing present. Impression: 1. Mild cardiomegaly without decompensation with minimal peribronchial cuffing PROCEDURE INTERPRETED AT [facility] DEPARTMENT OF RADIOLOGY Final Report Signed by: Dr. Floyd King
--- NOTE | 2017-02-22 10:57 | Order Completion Report ---
See report scanned to EMR
[2017-02-22 11:00] LABS: INR 1.1; PT Patient Result 11.5 SECS
[2017-02-22] MEDS ORDERED: methylPREDNISolone SOD SUC 125 MG/2 ML VIAL IV STA (11:12)
[2017-02-22 11:24] LABS: Alanine Aminotransferase 26 U/L (13-56); Albumin 2.2 G/DL (3.4-5.0); Alkaline Phosphatase 328 U/L (45-117); Aspartate Amino Transferase 26 U/L (0-37); Bilirubin,Total < 0.39 MG/DL (0.2-1.0); Blood Urea Nitrogen 15 MG/DL (7-18); Calcium 9.5 MG/DL (8.5-10.1); Glucose 193 MG/DL (74-106); Osmolality,Calculated 273.2 MOS/KG (273-304); Potassium 4.3 MMOL/L (3.5-5.1); Sodium 134 MMOL/L (136-145); Total Protein 10.1 G/DL (6.4-8.3); Troponin I Only < 0.015 NG/ML (0.00-0.045)
[2017-02-22 11:25] LABS: Apearance,Urine Slightly Hazy (Clear); Bacteria,Urine Occasional /HPF (Few); Bilirubin,Urine Negative (Negative); Blood, Urine Small mg/dL (Negative); Glucose,Urine (UA) Negative (Negative); Hyaline Casts,Urine 3 /LPF (0-3); Ketones,Urine Negative (Negative); Mucus,Urine Occasional /LPF (Occasional); Nitrite,Urine Negative (Negative); Protein,Urine 30 MG/DL; RBC,Urine 3 /HPF (0-4); Squamous Epithelial Cell,Urine Occasional /HPF (0-10); Urine Color Yellow (Yellow); Urine Specific Gravity 1.015 (1.001-1.035); Urine Urobilinogen < 2.0 EU/DL (0.2-1.0); WBC,Urine 2 /HPF (0-6)
[2017-02-22] MEDS ORDERED: methylPREDNISolone SOD SUC 125 MG/2 ML VIAL ONE (11:31)
--- NOTE | 2017-02-22 12:13 | Hospitalist History & Physical ---
Assessment and Plan - Time spent with patient Time spent with patient: Greater than 30 minutes (1) Vertigo Status: Acute Assessment and plan: 02/22/17 Admit - Denies MONSON, EAR pain or drainage start IV hydration monitor Blood glucose A1c and accu checks MRI Carotid dopplers Current Visit: Yes (2) Leukocytosis Status: Acute Assessment and plan: 02/22/17 - patient is s/p on Tuesday debridement of Hidradenitis Suppurativa Consult surgery- wound care follow up (DR Greenfield Patient) will repeat a.m. Labs and monitor WBC. Current Visit: No (3) Hidradenitis suppurativa Status: Acute Current Visit: Yes (4) Sinus tachycardia Status: Acute Assessment and plan: 02/22/17 - Start IV fluids, s/p surgery on Tuesday by Dr Greenfield for Hidradenitis Suppurativa - creatinine 1.10 Current Visit: Yes History of Present Illness Chief complaint: vertigo and leukocytosis History of present illness: Ms. Jones is a 51 year old black female w/PMHx HTN, Panic attacks, Depression, DM, asthma, Anemia, hidradenitis suppurativa (surgery last tuesday), is on Home oxygen 1 liter via [place] presented to the ED for further evaluation of positional vertigo since Tuesday. She reports the room starts to spin every time she tries to lay down and every time she is laying down and changes positions the "it starts spinning all over again and takes a minute to stop". She Denies fever, chills, shortness of breath, Nausea, vomiting, headaches, sinus pressure, ear pain or ear drainage. IN ED: she received zofran, solumedrol, and antivert. LABS significant for WBC 18.8, H&H stable, creatinine 1.10, Glucose 193, alkaline phosphatase 328, urinalysis negative for infection. CXR: mild cardiomegaly without decompensation with minimal peribronchial cuffing. Vital signs BP was elevated 170/105, HR 121, Temp 97.5. PCP: Dr Padilla ([facility]) Surgeon - Hidradenitis Suppurative - Dr Greenfield After discussion with Dr Goss in ED and Dr Schafer with Hospital Medicine, it was agreed to admit patient for observation and further evaluation. Home medications to be reviewed and reconciliation to follow. Home Medications Medication Instructions Recorded Confirmed Type Albuterol Inhaler [Proventil 1 puff DAILY PRN 08/30/16 02/22/17 History Inhaler] Carvedilol [Coreg] 6.25 mg PO BID W/MEALS #60 tablet 09/09/16 02/22/17 Rx Spironolactone [Aldactone] 25 mg PO QAM 01/16/17 02/22/17 History glipiZIDE [Glipizide] 5 mg PO BID 01/16/17 02/22/17 History Amoxicillin/Clav Tab [Augmentin 875 mg PO Q12H tablet 02/19/17 02/22/17 Rx Tab] Ferrous Sulfate 325 mg PO DAILY W/BREAKFAST #30 02/19/17 02/22/17 Rx tablet Lactobacillus Rhamnosus GG 1 capsule PO BID #60 capsule 02/19/17 02/22/17 Rx [Culturelle] Escitalopram Oxalate [Lexapro] 5 mg PO QAM 02/22/17 02/22/17 History amLODIPine [Norvasc] 10 mg PO QAM 02/22/17 02/22/17 History metOLazone [Metolazone] 5 mg PO QAM 02/22/17 02/22/17 History Allergies Allergy/AdvReac Type Severity Reaction Status Date / Time No Known Allergies Allergy Verified 02/14/17 16:47 Medical,Surgical,& Family Hx - Medical History Cardio: History of: CHF, Hypertension Psychological: History of: Anxiety Disorders (panic attacks), Depression Endocrine: History of: Diabetes Mellitus (NIDDM) Respiratory: History of: Asthma Gastrointestinal: No history of: GERD Hematology: History of: Anemia Reproductive: History of: Complication, Reproductive Problems ( uterine fibroids) Other: History of: Skin Problems - Surgical History Neurologic Surgeries: Patient denies: Neurologic Surgery Abdominal Surgeries: Patient denies: Abdominal Surgery Reproductive Surgeries: Surgical HX of;: Section, Dilation and Curettage, Gynecologic Surgery Patient denies;: Genitourinary Surgery - Family History Family History: Reports;: Family Cancer (grandmother had bone ca?), Family Diabetes (mother), Family Heart Disease (Father), Family Hypertension ( grandfather), Family Psychiatric Problems (mother), Family Stroke (mother) Denies;: Family Anesthesia Reaction - Social History Smoking Status: Never smoker Frequency of Alcohol Use: None Type of Drug Use: None Marital Status: Single Functional capacity: independent ambulation 12 point system: reviewed and no additional remarkable complaints except as stated - Constitutional Constitutional: Absent: chills, fever(s), headache(s) - EENT Ears: Absent: decreased hearing, ear discharge, ear pain, tinnitus Nose, mouth and throat: Present: vertigo. Absent: headache(s), sinus pressure - Cardiovascular Cardiovascular: Absent: dyspnea, dyspnea on exertion - Neurological Neurological: Present: dizziness. Absent: headache(s) Exam - Constitutional Vitals: Period Temp Pulse Resp BP Sys/Harper Pulse Ox Last 24 Hr 97.5 F-97.5 F 121-121 20-20 170-170/105-105 99-100 General appearance: no acute distress, over weight - Head Head exam: Present: normal inspection, normocephalic - Eye Eye exam: Present: EOMI Pupils: Present: FLAKITA - Respiratory Respiratory exam: Present: clear to auscultation bilaterally. Absent: rales, rhonchi, stridor, wheezes - Cardiovascular Cardiovascular exam: Present: tachycardia - GI/Abdominal GI/Abdominal exam: Present: normal bowel sounds, soft. Absent: tenderness, rebound - Extremities Exam Extremities exam: Present: normal inspection, full ROM, other (dressing to right groin (s/p debridement of Hidrandenitis supprurativa - last Tuesday)). Absent: edema - Neurological Exam Neurological exam: Present: alert, oriented X3, CN II-XII intact, other (room spins with lying flat and with position changes while laying down) - Psychiatric Psychiatric exam: Present: normal affect, normal mood. Absent: agitated, anxious - Skin Skin exam: Present: normal color, warm, dry Results - Labs CBC & BMP: 02/22/17 10:36 02/22/17 10:36 Lab Results: I have reviewed the past 24 hour labs - Diagnostic Findings Procedure: Chest x-ray: report reviewed by me (mild cardiomegaly without decompensation with minimal peribronchial cuffing)
[2017-02-22] MEDS ORDERED: ACETAMINOPHEN 325 MG TABLET PO PRN (13:05)
[2017-02-22] MEDS ORDERED: GLUCAGON 1 MG VIAL IM PRN (13:05)
[2017-02-22] MEDS ORDERED: ONDANSETRON 4 MG/2 ML VIAL IV PRN (13:05)
[2017-02-22] MEDS ORDERED: DEXTROSE 50% 25 GM/50 ML SYRINGE IV PRN (13:05)
[2017-02-22] MEDS ORDERED: SODIUM CHLORIDE 0.9% 1,000 ML IV SCH (13:30)
[2017-02-22] MEDS ORDERED: PROMETHAZINE 25 MG TABLET PO PRN (15:15)
[2017-02-22] MEDS ORDERED: methylPREDNISolone 4 MG TABLET PO SCH (15:30)
--- NOTE | 2017-02-22 15:36 | General Surgery Consult Note ---
Assessment and Plan (1) Hidradenitis suppurativa Status: Acute Assessment and plan: Recommend continued daily wound care with packing changes as ordered as well as Augmentin twice daily as previously prescribed by infectious disease. In regard to the elevated leukocytosis, evaluation for other source is recommended as these abscesses which were previously drained are significantly improved. Recommend follow-up in [place] with a plastic surgeon as previously established. Current Visit: Yes History of Present Illness Chief complaint: Hidradenitis suppuritiva History of present illness: Ms. Jones is a 51 year old female with past medical history of diabetes mellitus and chronic hidradenitis suppurativa who underwent surgical incision and drainage worsening abscesses on 02/16/[address] Greenfield of the right thigh, perineum, mons pubis, and left thigh. She was discharged home on Augmentin twice daily with daily dressing changes with which she reports compliance. She is currently readmitted with vertigo for evaluation. Overall, the patient reports decreased pain and decreased drainage from these wounds and denies new areas of drainage. She has not had an opportunity to follow-up in [place] at [facility] as previously recommended. Home Medications Medication Instructions Recorded Confirmed Type Albuterol Inhaler [Proventil 1 puff DAILY PRN 08/30/16 02/22/17 History Inhaler] Spironolactone [Aldactone] 12.5 mg PO BID 01/16/17 02/22/17 History glipiZIDE [Glipizide] 5 mg PO BID 01/16/17 02/22/17 History Amoxicillin/Clav Tab [Augmentin 875 mg PO Q12H tablet 02/19/17 02/22/17 Rx Tab] Ferrous Sulfate 325 mg PO DAILY W/BREAKFAST #30 02/19/17 02/22/17 Rx tablet Carvedilol [Coreg] 1 tablet PO BID 02/22/17 02/22/17 History Escitalopram Oxalate [Lexapro] 5 mg PO QAM 02/22/17 02/22/17 History Fluconazole 1 tablet PO DAILY 02/22/17 02/22/17 History amLODIPine [Norvasc] 10 mg PO QAM 02/22/17 02/22/17 History metOLazone [Metolazone] 5 mg PO QAM 02/22/17 02/22/17 History Allergies Allergy/AdvReac Type Severity Reaction Status Date / Time No Known Allergies Allergy Verified 02/14/17 16:47 Medical,Surgical,& Family Hx - Medical History Cardio: History of: CHF, Hypertension Psychological: History of: Anxiety Disorders (panic attacks), Depression Neurology: History of: Vertigo Endocrine: History of: Diabetes Mellitus (NIDDM) Respiratory: History of: Asthma Gastrointestinal: No history of: GERD Hematology: History of: Anemia Reproductive: History of: Complication, Reproductive Problems ( uterine fibroids) Other: History of: Skin Problems, Miscellaneous Medical Problems (hydronitis) - Surgical History Neurologic Surgeries: Patient denies: Neurologic Surgery Abdominal Surgeries: Patient denies: Abdominal Surgery Reproductive Surgeries: Surgical HX of;: Section, Dilation and Curettage, Gynecologic Surgery Patient denies;: Genitourinary Surgery - Family History Family History: Reports;: Family Cancer (grandmother had bone ca?), Family Diabetes (mother), Family Heart Disease (Father), Family Hypertension ( grandfather), Family Psychiatric Problems (mother), Family Stroke (mother) Denies;: Family Anesthesia Reaction - Social History Smoking Status: Never smoker Frequency of Alcohol Use: None Type of Drug Use: None - Constitutional Constitutional: Absent: chills, fever(s) Exam - Constitutional Vitals: Period Temp Pulse Resp BP Sys/Harper Pulse Ox Last 24 Hr 97.5 F-97.9 F 96-137 16-20 137-172/85-105 99-100 General appearance: no acute distress, morbidly obese - Skin Skin exam: Present: other (The groins and perineal regions were examined. There is overall a significant decrease in the drainage and moisture retained in these areas. The tenderness is overall significantly improved as well.) Results - Labs CBC & BMP: 02/22/17 10:36 02/22/17 10:36
[2017-02-22] MEDS: methylPREDNISolone 4 MG TABLET PO SCH ×2 (18:10→21:43)
[2017-02-22] MEDS: MECLIZINE 25 MG TABLET PO PRN (18:10)
[2017-02-22] MEDS: CARVEDILOL 6.25 MG TABLET PO SCH (18:11)
[2017-02-22] MEDS: INSULIN LISPRO 100 UNIT/ML SUBCUT SCH ×2 (18:20→20:42)
[2017-02-22] MEDS: LACTOBACILLUS RHAMNOSUS GG CAPSULE PO SCH (20:38)
[2017-02-22] MEDS: AMOXICILLIN/CLAV 875 MG TABLET PO SCH (20:38)
[2017-02-22] MEDS: glipiZIDE 5 MG TABLET PO SCH (20:42)
--- NOTE | 2017-02-22 20:45 | Ultrasound Report ---
Carotid Doppler February 22, 2017 at 5:39 PM Indication: Vertigo Comparison images not available Technique: Kumar scale imaging with color flow and spectral widening was performed in routine fashion with image capture. Findings: No significant plaquing, intimal thickening or luminal irregularity. Normal flow velocities bilaterally. Normal waveforms. No findings to suggest dissection. Right: CCA: 91.2 cm/s Proximal ICA: 39.0 cm/s Distal ICA 78.1 cm/s ECA: 70.3 cm/s ICA/CCA ratio: 0.9 Left: CCA: 66.4 cm/s Proximal ICA: 45.5 cm/s Distal ICA: 63.7 cm/s ECA: 72.9 cm/s ICA/CCA ratio 1.0 Impression: Normal carotid Doppler. No high-grade stenosis Today studies were performed utilizing indirect NASCET criteria The ultrasound images were stored and captured PROCEDURE INTERPRETED AT [facility] DEPARTMENT OF RADIOLOGY Final Report Signed by: Steven Kumar MD
[2017-02-23 05:16] LABS: Basophils % 0.1 % (0.0-0.8); Hematocrit 26.7 VOL% (35.7-47.0); Hemoglobin 8.8 GM/DL (12.0-16.0); Immature Granulocytes % 1.8 %; Immature Granulocytes Absolute 0.36 #; Lymphocytes % 4.9 % (21.3-54.2); Mean Corpuscular Hemoglobin 29 PG (27-34); Mean Corpuscular Volume 88.7 FL (87-102); Mean Platelet Volume 9.5 FL (9.6-12.0); Monocytes # 0.3 10*3/uL (0.11-0.8); Monocytes % 1.5 % (1.7-12.7); Neutrophils # 18.5 10*3/uL (1.4-7.4); Neutrophils % 91.7 % (38.7-73.9); Platelet Count 394 T/CUMM (130-400); Red Blood Count 3.01 MC/CUMM (3.8-5.5); Red Cell Distribution Width 14.8 % (9.3-17.3); White Blood Count 20.2 T/CUMM (4-12)
[2017-02-23 05:56] LABS: Calcium 9.1 MG/DL (8.5-10.1); Magnesium 1.7 MG/DL (1.8-2.4); Osmolality,Calculated 276.2 MOS/KG (273-304); Potassium 4.4 MMOL/L (3.5-5.1)
[2017-02-23 06:42] LABS: Band Neutrophils 1 % (0-10); Hypochromasia 1+; Lymphocytes 6 % (20-55); Microcytosis 1+; Platelet Estimate Adequate; Segmented Neutrophils 91 % (50-85); Total Cells Counted 100
[2017-02-23 08:00] LABS: Albumin (SPE) 2.3 G/DL (3.2-5.3); Albumin (SPE) Rel % 23.3 %; Alpha 1 (SPE) 0.5 G/DL (0.1-0.4); Alpha 2 (SPE) 1.2 G/DL (0.4-1.0); Alpha 2 (SPE) Rel % 12.4 %; Beta (SPE) 1.5 G/DL (0.5-1.1); Beta (SPE) Rel % 15.4 %; Gamma (SPE) 4.3 G/DL (0.7-1.7); Total Protein (Chem) 9.9 G/DL (6.4-8.3)
[2017-02-23] MEDS ORDERED: FERROUS SULFATE 325 MG TABLET PO SCH (08:00)
[2017-02-23 08:01] LABS: Gamma (SPE) Rel % 43.9 %
[2017-02-23] MEDS: INSULIN LISPRO 100 UNIT/ML SUBCUT SCH ×2 (08:12→12:15)
[2017-02-23] MEDS: MECLIZINE 25 MG TABLET PO PRN (08:14)
[2017-02-23] MEDS: CARVEDILOL 6.25 MG TABLET PO SCH (08:14)
[2017-02-23] MEDS: LACTOBACILLUS RHAMNOSUS GG CAPSULE PO SCH (08:14)
[2017-02-23] MEDS: methylPREDNISolone 4 MG TABLET PO SCH ×2 (08:14→12:15)
[2017-02-23] MEDS: glipiZIDE 5 MG TABLET PO SCH (08:14)
[2017-02-23] MEDS: AMOXICILLIN/CLAV 875 MG TABLET PO SCH (08:14)
[2017-02-23] MEDS ORDERED: SPIRONOLACTONE 25 MG TABLET PO SCH (09:00)
[2017-02-23] MEDS ORDERED: metOLazone 5 MG TABLET PO SCH (09:00)
[2017-02-23] MEDS ORDERED: ESCITALOPRAM 10 MG TABLET PO SCH (09:00)
[2017-02-23] MEDS ORDERED: amLODIPine 10 MG TABLET PO SCH (09:00)
[2017-02-23] MEDS ORDERED: MAGNESIUM SULF RIDER 2 GM in PREMIX 1 EACH IV ONE (09:07)
[2017-02-23] MEDS ORDERED: LORazepam 2 MG/1 ML VIAL IV ONE (10:32)
--- NOTE | 2017-02-23 11:07 | Discharge Summary ---
Specialty Discharge - Follow Up or Referrals Follow up with: Jaret Greenfield MD [Physician] - Your, PCP [Other] (1 week) Discharge Plan - Discharge Data Disposition: Home Health Service Condition at Discharge: Stable Discharge Diet: diabetic diet, heart healthy Activity: resume usual activities as tolerated, other (dressing changes per Dr Greenfield's orders) - Discharge Medications New Lactobacillus Rhamnosus GG [Culturelle] 1 capsule PO BID capsule Meclizine [Antivert] 25 mg PO TID PRN #30 tablet PRN Reason: vertigo methylPREDNISolone TAB [Medrol] 4 mg PO 1300 #12 tablet Carvedilol [Coreg] 6.25 mg PO BID W/MEALS tablet Continue Albuterol Inhaler [Proventil Inhaler] 1 puff DAILY PRN PRN Reason: Shortness Of Breath glipiZIDE [Glipizide] 5 mg PO BID Ferrous Sulfate 325 mg PO DAILY W/BREAKFAST #30 tablet amLODIPine [Norvasc] 10 mg PO QAM Spironolactone [Aldactone] 12.5 mg PO BID Amoxicillin/Clav Tab [Augmentin Tab] 875 mg PO Q12H tablet metOLazone [Metolazone] 5 mg PO QAM Escitalopram Oxalate [Lexapro] 5 mg PO QAM Carvedilol [Coreg] 1 tablet PO BID Fluconazole 1 tablet PO DAILY - Follow Up or Referral - Forms/Instructions Exam - Constitutional Vitals: Period Temp Pulse Resp BP Sys/Harper Pulse Ox Last 24 Hr 97.0 F-97.9 F 79-113 16-20 137-154/77-98 97-100 Discharge Results Procedures and tests throughout hospitalization: Pending Orders 02/22/17 13:10 MR head/brain wo con Routine 02/22/17 16:26 Serum Protein Electrophoresis Stat Urine Protein Electrophoresis Stat Labs on day of discharge: Labs from last 24 hours 02/23/17 02/23/17 02/23/17 07:18 04:33 04:33 WBC RBC Hgb Hct MCV MCH MCHC RDW Plt Count MPV Neut % (Auto) Lymph % (Auto) [place] % (Auto) Eos % (Auto) Baso % (Auto) Neut # (Auto) Lymph # (Auto) [place] # (Auto) Eos # (Auto) Baso # (Auto) Total Counted Immature Gran % Nucleated RBC % Immature Gran # Segmented Neutrophils Band Neutrophils Lymphocytes Monocytes Nucleated RBCs # Platelet Estimate Immature Plt Fraction Hypochromasia Microcytosis Sodium 134 L Potassium 4.4 Chloride 100 Carbon Dioxide 25 Anion Gap 13.4 BUN 29 H D Creatinine 1.30 H GFR Calculation 65 BUN/Creatinine Ratio 22.00 H Glucose 160 H POC Glucose 174 H Hemoglobin A1c 6.4 H Calculated Osmolality 276.2 Calcium 9.1 Magnesium 1.7 L Total Bilirubin AST ALT Alkaline Phosphatase Troponin I Total Protein Albumin Globulin Albumin/Globulin Ratio Urine Color Urine Appearance Urine pH Ur Specific [place] Urine Protein Urine Glucose (UA) Urine Ketones Urine Blood Urine Nitrate Urine Bilirubin Urine Urobilinogen Urine Leukocytes Urine RBC Urine WBC Ur Squamous Epith Cells Urine Bacteria Hyaline Casts Urine Mucus Ur Culture Indicated? Ur Albumin 24 Hour Ur Total Protein 24 Hr Urine PEP Interpret Pro Electrophoresis Int Serum Total Protein PEP Albumin (PEP) Albumin (relative) Pzxxj-3-Cknkuquo Opwej-5-Xwkgkuoq rel Eefph-9-Qomypnrx Adgtm-7-Pmtbdszt rel Ljxx-4-Iqpuemzd Gtfo-4-Bzryvruw rel Gamma Globulins Gamma Globulins rel 02/23/17 02/22/17 02/22/17 04:33 22:58 19:56 WBC 20.2 H RBC 3.01 L Hgb 8.8 L Hct 26.7 L MCV 88.7 MCH 29 MCHC 33.0 RDW 14.8 Plt Count 394 MPV 9.5 L Neut % (Auto) 91.7 H Lymph % (Auto) 4.9 L [place] % (Auto) 1.5 L Eos % (Auto) 0.0 Baso % (Auto) 0.1 Neut # (Auto) 18.5 H Lymph # (Auto) 1.0 L [place] # (Auto) 0.3 Eos # (Auto) 0.0 Baso # (Auto) 0.0 Total Counted 100 Immature Gran % 1.8 Nucleated RBC % 0.0 Immature Gran # 0.36 Segmented Neutrophils 91 H Band Neutrophils 1 Lymphocytes 6 L Monocytes 2 Nucleated RBCs # 0.00 Platelet Estimate Adequate Immature Plt Fraction 0.0 Hypochromasia 1+ Microcytosis 1+ Sodium Potassium Chloride Carbon Dioxide Anion Gap BUN Creatinine GFR Calculation BUN/Creatinine Ratio Glucose POC Glucose 336 H 403 H Hemoglobin A1c Calculated Osmolality Calcium Magnesium Total Bilirubin AST ALT Alkaline Phosphatase Troponin I Total Protein Albumin Globulin Albumin/Globulin Ratio Urine Color Urine Appearance Urine pH Ur Specific [place] Urine Protein Urine Glucose (UA) Urine Ketones Urine Blood Urine Nitrate Urine Bilirubin Urine Urobilinogen Urine Leukocytes Urine RBC Urine WBC Ur Squamous Epith Cells Urine Bacteria Hyaline Casts Urine Mucus Ur Culture Indicated? Ur Albumin 24 Hour Ur Total Protein 24 Hr Urine PEP Interpret Pro Electrophoresis Int Serum Total Protein PEP Albumin (PEP) Albumin (relative) Wgxge-5-Cyajgune Rtvvq-8-Ligipxrv rel Nlqrd-9-Cqcizfbp Pethk-5-Jyctgvfz rel Mkdy-4-Qydbrili Fsxg-6-Kjbwloqm rel Gamma Globulins Gamma Globulins rel 02/22/17 02/22/17 02/22/17 18:13 16:26 16:26 WBC RBC Hgb Hct MCV MCH MCHC RDW Plt Count MPV Neut % (Auto) Lymph % (Auto) [place] % (Auto) Eos % (Auto) Baso % (Auto) Neut # (Auto) Lymph # (Auto) [place] # (Auto) Eos # (Auto) Baso # (Auto) Total Counted Immature Gran % Nucleated RBC % Immature Gran # Segmented Neutrophils Band Neutrophils Lymphocytes Monocytes Nucleated RBCs # Platelet Estimate Immature Plt Fraction Hypochromasia Microcytosis Sodium Potassium Chloride Carbon Dioxide Anion Gap BUN Creatinine GFR Calculation BUN/Creatinine Ratio Glucose POC Glucose 281 H Hemoglobin A1c Calculated Osmolality Calcium Magnesium Total Bilirubin AST ALT Alkaline Phosphatase Troponin I Total Protein 9.9 H Albumin Globulin Albumin/Globulin Ratio Urine Color Urine Appearance Urine pH Ur Specific [place] Urine Protein Urine Glucose (UA) Urine Ketones Urine Blood Urine Nitrate Urine Bilirubin Urine Urobilinogen Urine Leukocytes Urine RBC Urine WBC Ur Squamous Epith Cells Urine Bacteria Hyaline Casts Urine Mucus Ur Culture Indicated? Ur Albumin 24 Hour Pending Ur Total Protein 24 Hr Pending Urine PEP Interpret Pending Pro Electrophoresis Int Serum Total Protein PEP 9.9 H Albumin (PEP) 2.3 L Albumin (relative) 23.3 Tmcko-8-Iwsvjjez 0.5 H Xsafg-7-Noorkbak rel 5.0 Bbsfu-6-Nuefxbpi 1.2 H Fzuxr-7-Allerxvd rel 12.4 Eaia-7-Kllkkkvc 1.5 H Yvgj-0-Gkcqbcwb rel 15.4 Gamma Globulins 4.3 H Gamma Globulins rel 43.9 02/22/17 02/22/17 10:36 10:36 WBC RBC Hgb Hct MCV MCH MCHC RDW Plt Count MPV Neut % (Auto) Lymph % (Auto) [place] % (Auto) Eos % (Auto) Baso % (Auto) Neut # (Auto) Lymph # (Auto) [place] # (Auto) Eos # (Auto) Baso # (Auto) Total Counted Immature Gran % Nucleated RBC % Immature Gran # Segmented Neutrophils Band Neutrophils Lymphocytes Monocytes Nucleated RBCs # Platelet Estimate Immature Plt Fraction Hypochromasia Microcytosis Sodium 134 L Potassium 4.3 Chloride 98 Carbon Dioxide 28 Anion Gap 12.3 BUN 15 Creatinine 1.10 H GFR Calculation 79 BUN/Creatinine Ratio 13.00 Glucose 193 H POC Glucose Hemoglobin A1c Calculated Osmolality 273.2 Calcium 9.5 Magnesium Total Bilirubin < 0.39 AST 26 ALT 26 Alkaline Phosphatase 328 H Troponin I < 0.015 Total Protein 10.1 H Albumin 2.2 L Globulin 7.9 H Albumin/Globulin Ratio 0.2 L Urine Color Yellow Urine Appearance Slightly hazy Urine pH 5.0 Ur Specific [place] 1.015 Urine Protein 30 Urine Glucose (UA) Negative Urine Ketones Negative Urine Blood Small Urine Nitrate Negative Urine Bilirubin Negative Urine Urobilinogen < 2.0 H Urine Leukocytes Negative Urine RBC 3 Urine WBC 2 Ur Squamous Epith Cells Occasional Urine Bacteria Occasional Hyaline Casts 3 Urine Mucus Occasional Ur Culture Indicated? Not indicated Ur Albumin 24 Hour Ur Total Protein 24 Hr Urine PEP Interpret Pro Electrophoresis Int Serum Total Protein PEP Albumin (PEP) Albumin (relative) Yrsfu-4-Labbyhux Zzxey-7-Omfebdor rel Muzts-5-Vgsktjyz Yyucp-7-Tevohzrh rel Vajn-4-Qqqnpugf Olrn-0-Vcaiwmtr rel Gamma Globulins Gamma Globulins rel DS: Provider Date of admission: 02/22/17 12:08 Primary care physician: . No PCP Attending physician on admission: Debbie Schafer MD Consults: 02/22/17 13:07 Consult to Case Mgmt/Social Srvs [CONS] Routine Reason for Case Mgmt/Social Srvs: Discharge Planning Home Health Consult to Physical Therapy [CONS] Routine Reason for Physical Therapy: Evaluate and Treat Consult Comment: Vertigo 02/22/17 13:28 Consult to Physician [CONS] Routine Comment: Consulting Provider: Jaret Greenfield Person Notified: Yulisa Date Notified: 02/22/17 Time Notified: 14:15 Consult Notification Comment: Last Tuesday had debridement of groin Hidradenitis supprativa WBC 18.8 admitted today with Vertigo I have notified Henry of admission and greatly appreciate assistance with care Thank YOU 02/23/17 08:17 Consult to Physician [CONS] Routine Comment: increased gamma globulins, ?significance Consulting Provider: Joshua Torre Person Notified: JUAN Date Notified: 02/23/17 Time Notified: 09:01 Discharging clinician: Debbie Schafer MD
--- NOTE | 2017-02-23 13:21 | XRay Report ---
History: Abdominal pain. Recent colonoscope Date: 02/23/2017 Study: Flat and erect abdomen Comparison exam: December 08, 2016 There is no evidence of pneumoperitoneum. The bowel gas pattern is nonobstructive without gross mass lesion. There are some occasional nonspecific small fluid levels in large and small bowel on the upright view. Calcifications from uterine leiomyomata overlie the pelvis bilaterally. There is mild lumbar spondylosis. Impression: Occasional nonspecific air-fluid levels within large and small bowel without daron mechanical obstruction or gross mass lesion Calcifications overlie the pelvis, likely related to the uterine leiomyomata documented on the December 08, [address] PROCEDURE INTERPRETED AT [facility] DEPARTMENT OF RADIOLOGY Final Report Signed by: Dr. Eugenie Catalan
--- NOTE | 2017-02-23 15:41 | Event Note ---
Dr. Greenfield and I have attempted to see patient on 3 separate occasions today and she has been out of her room for testing. Her wounds were clinically improved yesterday compared to her when she was discharged prior. We can see her tomorrow if she is still inpatient, or she can follow-up with [facility] as previously recommended and/or Dr. Justin on an as needed basis.
--- NOTE | 2017-02-23 15:57 | Magnetic Resonance Report ---
History: Vertigo. Leukocytosis Date: 02/23/2017 Study: MRI head without IV contrast Comparison exam: No previous brain imaging study available The brain was imaged in 3 planes on the 1.2 [place] open magnet without IV contrast, to include diffusion, T2, FLAIR, gradient echo, and T1-weighted sequences. No IV contrast was given. The ventricles are midline in position without evidence of hydrocephalus. There is no Chiari I malformation. There is no gross pituitary mass. There is no evidence of acute ischemia on the diffusion sequence. There is no brain mass or area of parenchymal hemorrhage. There is a normal flow void in the superior sagittal sinus. There is no gross flow abnormality in the tang[place] of [place] area. There is no extra-axial hematoma. There is mild mucosal thickening in the posterior ethmoid air cells and bilateral sphenoid sinuses Impression: Normal MRI brain. Mild sinus disease PROCEDURE INTERPRETED AT [facility] DEPARTMENT OF RADIOLOGY Final Report Signed by: Dr. Eugenie Catalan
--- NOTE | 2017-02-23 16:17 | Discharge Summary ---
Hospital Course - Hospital Course Hospital Course: Ms Jones came back to hospital this time for vertigo. It started on the day before discharge last week. It bothers her when she moves, especially when she lies down. She had MRI brain that did not show stroke. Her carotids looked ok. She worked with PT a couple of times for her vertigo but the process made her anxious. She has a protein of 10 and albumin of 2 that has been present for a while. Her SPEP shows a gamma spike, immunofix has not been done. I consulted Dr Torre and he said he was not concerned about the finding and that he did not need to see her and she could go home. She is ready for discharge. She can continue to use meclizine prn and complete a medrol dose pack. If she decides she wants PT she can let the [facility] nurses know and she can either come outpatient or have home PT. She tells me she is home bound and she would like to have the home health nurses do dressing changes for her. She had I&d of hidradenitis superativa last week. 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 - Time spent with patient Time with patient DS: Greater than 30 minutes (45 minutes were required to coordinate care, make a discharge plan and review results of testing as well as medicine reconciliation and documentation) Diagnosis - Discharge Diagnosis (1) Hidradenitis suppurativa Status: Chronic (2) Vertigo Status: Acute (3) Hyperproteinemia Status: Chronic Specialty Discharge - Follow Up or Referrals Follow up with: Your, PCP [Other] (1 week) Jaret Greenfield MD [Physician] - you should see, [facility] in [facility] in [place] [Other] (as scheduled at discharge last week) Discharge Plan - Discharge Data Disposition: Home Health Service Discharge Diet: diabetic diet, heart healthy Activity: resume usual activities as tolerated - Discharge Medications New Lactobacillus Rhamnosus GG [Culturelle] 1 capsule PO BID capsule Meclizine [Antivert] 25 mg PO TID PRN #30 tablet PRN Reason: vertigo methylPREDNISolone TAB [Medrol] 4 mg PO 1300 #12 tablet Carvedilol [Coreg] 6.25 mg PO BID W/MEALS tablet Continue Albuterol Inhaler [Proventil Inhaler] 1 puff DAILY PRN PRN Reason: Shortness Of Breath glipiZIDE [Glipizide] 5 mg PO BID Ferrous Sulfate 325 mg PO DAILY W/BREAKFAST #30 tablet amLODIPine [Norvasc] 10 mg PO QAM Spironolactone [Aldactone] 12.5 mg PO BID Amoxicillin/Clav Tab [Augmentin Tab] 875 mg PO Q12H tablet metOLazone [Metolazone] 5 mg PO QAM Escitalopram Oxalate [Lexapro] 5 mg PO QAM Carvedilol [Coreg] 1 tablet PO BID Fluconazole 1 tablet PO DAILY - Follow Up or Referral Follow Up: Your, PCP [Other] (1 week) Jaret Greenfield MD [Physician] - - Forms/Instructions Exam - Constitutional Vitals: Period Temp Pulse Resp BP Sys/Harper Pulse Ox Last 24 Hr 97.0 F-97.9 F 79-100 18-18 140-154/77-85 97-99 General appearance: no acute distress, over weight - Eye Eye exam: Present: EOMI. Absent: scleral icterus - Respiratory Respiratory exam: Present: clear to auscultation bilaterally - Cardiovascular Cardiovascular exam: Present: regular rate and rhythm - GI/Abdominal GI/Abdominal exam: Present: normal bowel sounds, soft. Absent: tenderness - Extremities Exam Extremities exam: Absent: edema Discharge Results Procedures and tests throughout hospitalization: Pending Orders 02/22/17 16:26 Serum Protein Electrophoresis Stat Urine Protein Electrophoresis Stat Labs on day of discharge: Labs from last 24 hours 02/23/17 02/23/17 02/23/17 12:15 07:18 04:33 WBC RBC Hgb Hct MCV MCH MCHC RDW Plt Count MPV Neut % (Auto) Lymph % (Auto) [place] % (Auto) Eos % (Auto) Baso % (Auto) Neut # (Auto) Lymph # (Auto) [place] # (Auto) Eos # (Auto) Baso # (Auto) Total Counted Immature Gran % Nucleated RBC % Immature Gran # Segmented Neutrophils Band Neutrophils Lymphocytes Monocytes Nucleated RBCs # Platelet Estimate Immature Plt Fraction Hypochromasia Microcytosis Sodium Potassium Chloride Carbon Dioxide Anion Gap BUN Creatinine GFR Calculation BUN/Creatinine Ratio Glucose POC Glucose 356 H 174 H Hemoglobin A1c 6.4 H Calculated Osmolality Calcium Magnesium Total Protein Ur Albumin 24 Hour Ur Total Protein 24 Hr Urine PEP Interpret Pro Electrophoresis Int Serum Total Protein PEP Albumin (PEP) Albumin (relative) Boayj-9-Zlfsfdvi Chpyi-2-Lwddkvat rel Moqkb-2-Lbbfonrq Eibir-8-Iisiztzq rel Ppsp-5-Yxritoop Ngwl-5-Hqpmmggk rel Gamma Globulins Gamma Globulins rel 02/23/17 02/23/17 02/22/17 04:33 04:33 22:58 WBC 20.2 H RBC 3.01 L Hgb 8.8 L Hct 26.7 L MCV 88.7 MCH 29 MCHC 33.0 RDW 14.8 Plt Count 394 MPV 9.5 L Neut % (Auto) 91.7 H Lymph % (Auto) 4.9 L [place] % (Auto) 1.5 L Eos % (Auto) 0.0 Baso % (Auto) 0.1 Neut # (Auto) 18.5 H Lymph # (Auto) 1.0 L [place] # (Auto) 0.3 Eos # (Auto) 0.0 Baso # (Auto) 0.0 Total Counted 100 Immature Gran % 1.8 Nucleated RBC % 0.0 Immature Gran # 0.36 Segmented Neutrophils 91 H Band Neutrophils 1 Lymphocytes 6 L Monocytes 2 Nucleated RBCs # 0.00 Platelet Estimate Adequate Immature Plt Fraction 0.0 Hypochromasia 1+ Microcytosis 1+ Sodium 134 L Potassium 4.4 Chloride 100 Carbon Dioxide 25 Anion Gap 13.4 BUN 29 H D Creatinine 1.30 H GFR Calculation 65 BUN/Creatinine Ratio 22.00 H Glucose 160 H POC Glucose 336 H Hemoglobin A1c Calculated Osmolality 276.2 Calcium 9.1 Magnesium 1.7 L Total Protein Ur Albumin 24 Hour Ur Total Protein 24 Hr Urine PEP Interpret Pro Electrophoresis Int Serum Total Protein PEP Albumin (PEP) Albumin (relative) Uzvyn-6-Ilirikjb Fwjlt-8-Awftntqo rel Pswuo-2-Yzhgfnig Wpnvi-2-Iatbikdm rel Klkm-0-Ozkeytkk Dpqz-4-Hokoeztb rel Gamma Globulins Gamma Globulins rel 02/22/17 02/22/17 02/22/17 19:56 18:13 16:26 WBC RBC Hgb Hct MCV MCH MCHC RDW Plt Count MPV Neut % (Auto) Lymph % (Auto) [place] % (Auto) Eos % (Auto) Baso % (Auto) Neut # (Auto) Lymph # (Auto) [place] # (Auto) Eos # (Auto) Baso # (Auto) Total Counted Immature Gran % Nucleated RBC % Immature Gran # Segmented Neutrophils Band Neutrophils Lymphocytes Monocytes Nucleated RBCs # Platelet Estimate Immature Plt Fraction Hypochromasia Microcytosis Sodium Potassium Chloride Carbon Dioxide Anion Gap BUN Creatinine GFR Calculation BUN/Creatinine Ratio Glucose POC Glucose 403 H 281 H Hemoglobin A1c Calculated Osmolality Calcium Magnesium Total Protein Ur Albumin 24 Hour Pending Ur Total Protein 24 Hr Pending Urine PEP Interpret Pending Pro Electrophoresis Int Serum Total Protein PEP 9.9 H Albumin (PEP) 2.3 L Albumin (relative) 23.3 Darfi-0-Xmiokcsl 0.5 H Vftnh-4-Xdbzagvj rel 5.0 Cfdcr-2-Akcoxzsl 1.2 H Ajhdx-3-Vxokpirm rel 12.4 Epxc-3-Bpmuinhh 1.5 H Zfju-6-Jdcqtysn rel 15.4 Gamma Globulins 4.3 H Gamma Globulins rel 43.9 02/22/17 16:26 WBC RBC Hgb Hct MCV MCH MCHC RDW Plt Count MPV Neut % (Auto) Lymph % (Auto) [place] % (Auto) Eos % (Auto) Baso % (Auto) Neut # (Auto) Lymph # (Auto) [place] # (Auto) Eos # (Auto) Baso # (Auto) Total Counted Immature Gran % Nucleated RBC % Immature Gran # Segmented Neutrophils Band Neutrophils Lymphocytes Monocytes Nucleated RBCs # Platelet Estimate Immature Plt Fraction Hypochromasia Microcytosis Sodium Potassium Chloride Carbon Dioxide Anion Gap BUN Creatinine GFR Calculation BUN/Creatinine Ratio Glucose POC Glucose Hemoglobin A1c Calculated Osmolality Calcium Magnesium Total Protein 9.9 H Ur Albumin 24 Hour Ur Total Protein 24 Hr Urine PEP Interpret Pro Electrophoresis Int Serum Total Protein PEP Albumin (PEP) Albumin (relative) Jnbvr-5-Qobfmhgw Rozro-4-Bpqzcfrl rel Uoxay-3-Ozqzgurk Lrckz-4-Eeqnctlg rel Wapp-2-Dkcmqgdw Zico-7-Mgowngfy rel Gamma Globulins Gamma Globulins rel DS: Provider Date of admission: 02/22/17 12:08 Primary care physician: . No PCP Attending physician on admission: Debbie Schafer MD Consults: 02/22/17 13:07 Consult to Case Mgmt/Social Srvs [CONS] Routine Reason for Case Mgmt/Social Srvs: Discharge Planning Home Health Consult to Physical Therapy [CONS] Routine Reason for Physical Therapy: Evaluate and Treat Consult Comment: Vertigo 02/22/17 13:28 Consult to Physician [CONS] Routine Comment: Consulting Provider: Jaret Greenfield Person Notified: Yulisa Date Notified: 02/22/17 Time Notified: 14:15 Consult Notification Comment: Last Tuesday had debridement of groin Hidradenitis supprativa WBC 18.8 admitted today with Vertigo I have notified Henry of admission and greatly appreciate assistance with care Thank YOU 02/23/17 08:17 Consult to Physician [CONS] Routine Comment: increased gamma globulins, ?significance Consulting Provider: Joshua Torre Person Notified: JUAN Date Notified: 02/23/17 Time Notified: 09:01 Discharging clinician: Debbie Schafer MD
[2017-02-23 17:06] VITALS: BP 155/85
[2017-02-23 19:22] LABS: Immunoglobulin A 714 MG/DL (70-400); Immunoglobulin G 3580 MG/DL (700-1600); Immunoglobulin M 98 MG/DL (40-230)
[2017-02-24 08:35] LABS: Immunoglobulin A (Chem) 714 MG/DL (70-400); Immunoglobulin G (Chem) 3580 MG/DL (700-1600); Immunoglobulin M (Chem) 98 MG/DL (40-230)
[2017-02-24] MEDS ORDERED: ALBUTEROL 2.5 MG/3 ML NEB RESP TX PRN (09:00)
== END 2017-02-23 17:15 | disposition home health service (06) ==
LOC: N.ED 09:57 → N.EDINP 09:57 → N.5E 13:45
PROVIDERS: ADMIT Internal Medicine; ATTEND Internal Medicine

== ENCOUNTER 2020-04-30 11:20 | Inpatient (IN) ==
[2020-04-30] MEDS ORDERED: SODIUM CHLORIDE 0.9% 1,000 ML IV STA (12:29)
[2020-04-30] MEDS ORDERED: ONDANSETRON 4 MG/2 ML VIAL IV STA (12:29)
[2020-04-30 12:57] LABS: Basophils % 0.1 % (0.0-0.8); Eosinophils % 0.4 % (0.00-10.9); Hematocrit 36.9 VOL% (35.7-47.0); Hemoglobin 12.3 GM/DL (12.0-16.0); Immature Granulocytes % 1.1 %; Immature Granulocytes Absolute 0.09 #; Lymphocytes # 1.4 10*3/uL (1.4-4.0); Lymphocytes % 17.5 % (21.3-54.2); Mean Corpuscular HGB Conc 33.3 GM/DL (32-36); Mean Corpuscular Volume 84.2 FL (87-102); Monocytes % 6.6 % (1.7-12.7); Neutrophils % 74.3 % (38.7-73.9); Platelet Count 370 T/CUMM (130-400); Red Blood Count 4.38 MC/CUMM (3.8-5.5); Red Cell Distribution Width 13.3 % (9.3-17.3); White Blood Count 8.2 T/CUMM (4-12)
[2020-04-30 13:27] LABS: Alanine Aminotransferase 12 U/L (13-56); Albumin 2.5 G/DL (3.4-5.0); Alkaline Phosphatase 109 U/L (45-117); Anisocytosis 1+; Aspartate Amino Transferase 18 U/L (0-37); Band Neutrophils 2 % (0-10); Blood Urea Nitrogen 17 MG/DL (7-18); Calcium 8.6 MG/DL (8.5-10.1); Estimated Glom Filtration Rate 60 ML/MIN; Ferritin 387.4 ng/ml (8-252); Lymphocytes 18 % (20-55); Osmolality,Calculated 285.8 MOS/KG (273-304); Platelet Estimate Normal; Segmented Neutrophils 72 % (50-85); Total Cells Counted 100; Total Protein 8.4 G/DL (6.4-8.3)
[2020-04-30 13:29] LABS: Glucose 534 MG/DL (74-106)
[2020-04-30] MEDS ORDERED: INSULIN LISPRO 100 UNIT/ML SUBCUT STA (14:06)
[2020-04-30] MEDS ORDERED: hydrALAZINE 20 MG/1 ML VIAL IV PRN (15:59)
[2020-04-30] MEDS ORDERED: guaiFENesin/DM ER 600-30 MG TABLET PO PRN (15:59)
[2020-04-30] MEDS ORDERED: ONDANSETRON 4 MG/2 ML VIAL IV PRN (15:59)
[2020-04-30] MEDS ORDERED: DEXTROSE 50% 25 GM/50 ML VIAL IV PRN (15:59)
[2020-04-30] MEDS ORDERED: DOCUSATE SODIUM 100 MG CAPSULE PO PRN (15:59)
[2020-04-30] MEDS ORDERED: ACETAMINOPHEN 325 MG TABLET PO PRN (15:59)
[2020-04-30] MEDS ORDERED: GLUCAGON 1 MG VIAL IM PRN (15:59)
[2020-04-30 16:45] LABS: ABG Base Excess 1.3 MMOL/L (-2.5-2.5); ABG HCO3 25.2 MMOL/L (20-26); ABG Oxygen Saturation 80.4 % (95-100); ABG PCO2 42.2 MM HG (35-48); ABG PH 7.403 (7.35-7.45); ABG PO2 49.8 MM HG (80-95); ABG TCO2 22.9 MMOL/L (23-27)
[2020-04-30 16:47] LABS: Bacteria,Urine Moderate /HPF (Few); Bilirubin,Urine Negative (Negative); Blood, Urine Moderate mg/dL (Negative); Glucose,Urine (UA) >=500 mg/dL (Negative); Ketones,Urine Negative (Negative); Nitrite,Urine Negative (Negative); Protein,Urine 100 MG/DL; RBC,Urine 62 /HPF (0-4); Squamous Epithelial Cell,Urine Moderate /HPF (0-10); Urine Appearance CLOUDY (Clear); Urine Color Yellow (Yellow); Urine Specific Gravity 1.018 (1.001-1.035); Urine Urobilinogen < 2.0 EU/DL (0.2-1.0); WBC,Urine 85 /HPF (0-6)
[2020-04-30 18:21] LABS: PT Patient Result 11.1 SECS (9.8-11.9)
[2020-04-30] MEDS ORDERED: INFLUENZA VIRUS VACCINE 0.5 ML SYRINGE IM ONE (18:24)
[2020-04-30] MEDS: INSULIN REGULAR 100 UNIT/ML SUBCUT SCH ×2 (18:44→21:48)
[2020-04-30] MEDS: DEXAMETHASONE 4 MG/1 ML VIAL IV SCH (18:44)
[2020-04-30] MEDS: ENOXAPARIN 30 MG/0.3 ML SYRINGE SUBCUT SCH (18:45)
[2020-04-30] MEDS: SODIUM CHLORIDE 0.9% 1,000 ML IV SCH (18:45)
[2020-05-01 05:27] LABS: Basophils % 0.2 % (0.0-0.8); Hematocrit 31.8 VOL% (35.7-47.0); Hemoglobin 10.4 GM/DL (12.0-16.0); Immature Granulocytes % 0.9 %; Lymphocytes # 1.1 10*3/uL (1.4-4.0); Lymphocytes % 9.9 % (21.3-54.2); Mean Corpuscular HGB Conc 32.7 GM/DL (32-36); Mean Corpuscular Volume 85.5 FL (87-102); Mean Platelet Volume 10.3 FL (9.6-12.0); Monocytes % 1.7 % (1.7-12.7); Neutrophils % 87.3 % (38.7-73.9); Platelet Count 403 T/CUMM (130-400); Red Blood Count 3.72 MC/CUMM (3.8-5.5); Red Cell Distribution Width 13.2 % (9.3-17.3); White Blood Count 10.6 T/CUMM (4-12)
[2020-05-01 05:44] LABS: PT Patient Result 10.9 SECS (9.8-11.9)
[2020-05-01 05:53] LABS: Ferritin 305.3 ng/ml (8-252)
[2020-05-01 05:56] LABS: Band Neutrophils 1 % (0-10); Hypochromasia 1+; Lymphocytes 4 % (20-55); Microcytosis 1+; Ovalocytes Slight; Platelet Estimate Adequate; Segmented Neutrophils 94 % (50-85); Total Cells Counted 100
[2020-05-01] MEDS: DEXAMETHASONE 4 MG/1 ML VIAL IV SCH (06:09)
[2020-05-01] MEDS: SODIUM CHLORIDE 0.9% 1,000 ML IV SCH ×2 (06:09→23:25)
[2020-05-01 06:52] LABS: Calcium 8.2 MG/DL (8.5-10.1); Osmolality,Calculated 281.5 MOS/KG (273-304); Risk Ratio 3.84; Thyroid Stimulating Hormone 0.999 uIU/ml (0.358-3.74); VLDL CHOLESTEROL 19.4 MG/DL
[2020-05-01] MEDS: PANTOPRAZOLE 40 MG TABLET PO SCH (08:41)
[2020-05-01] MEDS: INSULIN REGULAR 100 UNIT/ML SUBCUT SCH ×4 (10:26→21:09)
[2020-05-01] MEDS: INSULIN GLARGINE 100 UNIT/ML SUBCUT SCH ×2 (10:44→18:42)
[2020-05-01] MEDS: cefTRIAXone 1,000 MG in SYRINGE 1 EACH IV SCH (12:07)
[2020-05-01] MEDS: AZITHROMYCIN INJ 500 MG in SODIUM CHLORIDE 0.9% 250 ML IV SCH (12:46)
[2020-05-01] MEDS ORDERED: INSULIN REGULAR 100 UNIT/ML IV ONE (16:57)
[2020-05-01] MEDS: DESITIN 4OZ/NYSTATIN 15 GRAM MIXTURE PASTE TOP SCH ×2 (17:28→21:09)
[2020-05-01] MEDS: ENOXAPARIN 30 MG/0.3 ML SYRINGE SUBCUT SCH (17:29)
[2020-05-02] MEDS: INSULIN GLARGINE 100 UNIT/ML SUBCUT SCH ×3 (00:14→22:41)
[2020-05-02] MEDS: INSULIN REGULAR 100 UNIT/ML SUBCUT SCH ×5 (01:56→22:41)
[2020-05-02 06:58] LABS: Basophils % 0.1 % (0.0-0.8); Hematocrit 29.1 VOL% (35.7-47.0); Hemoglobin 9.7 GM/DL (12.0-16.0); Immature Granulocytes % 1.5 %; Immature Granulocytes Absolute 0.21 #; Lymphocytes # 1.8 10*3/uL (1.4-4.0); Lymphocytes % 13.3 % (21.3-54.2); Mean Corpuscular HGB Conc 33.3 GM/DL (32-36); Mean Corpuscular Volume 85.3 FL (87-102); Mean Platelet Volume 9.6 FL (9.6-12.0); Monocytes % 5.2 % (1.7-12.7); Neutrophils % 79.9 % (38.7-73.9); Platelet Count 448 T/CUMM (130-400); Red Blood Count 3.41 MC/CUMM (3.8-5.5); Red Cell Distribution Width 13.3 % (9.3-17.3); White Blood Count 13.8 T/CUMM (4-12)
[2020-05-02 07:00] LABS: PT Patient Result 11.1 SECS (9.8-11.9)
[2020-05-02 07:14] LABS: Calcium 8.7 MG/DL (8.5-10.1); Osmolality,Calculated 276.8 MOS/KG (273-304)
[2020-05-02 07:20] LABS: Ferritin 280.5 ng/ml (8-252)
[2020-05-02 07:25] LABS: Lymphocytes 18 % (20-55); Segmented Neutrophils 80 % (50-85); Total Cells Counted 100
[2020-05-02 07:26] LABS: Hypochromasia 1+; Microcytosis 1+; Platelet Estimate Increased
[2020-05-02] MEDS: PANTOPRAZOLE 40 MG TABLET PO SCH (10:49)
[2020-05-02] MEDS: DESITIN 4OZ/NYSTATIN 15 GRAM MIXTURE PASTE TOP SCH ×2 (10:49→21:20)
[2020-05-02] MEDS: POTASSIUM CHLORIDE 20 MEQ TABLET PO SCH (10:49)
[2020-05-02] MEDS ORDERED: LOPERAMIDE 2 MG CAPSULE PO PRN (11:16)
[2020-05-02] MEDS: AZITHROMYCIN INJ 500 MG in SODIUM CHLORIDE 0.9% 250 ML IV SCH (12:20)
[2020-05-02] MEDS: SODIUM CHLORIDE 0.9% 1,000 ML IV SCH (12:20)
[2020-05-02] MEDS: ESCITALOPRAM 10 MG TABLET PO SCH (12:21)
[2020-05-02] MEDS: cefTRIAXone 1,000 MG in SYRINGE 1 EACH IV SCH (12:21)
[2020-05-02] MEDS: amLODIPine 5 MG TABLET PO SCH (12:21)
[2020-05-02] MEDS: ATORVASTATIN 20 MG TABLET PO SCH (12:22)
[2020-05-02] MEDS: FERROUS SULFATE 325 MG TABLET PO SCH ×2 (12:22→21:16)
[2020-05-02] MEDS: MAGNESIUM CHLORIDE 64 MG TABLET PO SCH (12:34)
[2020-05-02] MEDS: glipiZIDE 5 MG TABLET PO SCH (12:51)
[2020-05-02] MEDS: CYCLOBENZAPRINE 10 MG TABLET PO SCH ×3 (16:39→22:41)
[2020-05-02] MEDS: carvediloL 6.25 MG TABLET PO SCH (17:26)
[2020-05-02] MEDS: ENOXAPARIN 30 MG/0.3 ML SYRINGE SUBCUT SCH (17:27)
[2020-05-03] MEDS: SODIUM CHLORIDE 0.9% 1,000 ML IV SCH (03:40)
[2020-05-03 06:22] LABS: Basophils % 0.3 % (0.0-0.8); Eosinophils % 0.3 % (0.00-10.9); Hematocrit 29.2 VOL% (35.7-47.0); Hemoglobin 9.6 GM/DL (12.0-16.0); Immature Granulocytes % 1.7 %; Immature Granulocytes Absolute 0.17 #; Lymphocytes # 2.4 10*3/uL (1.4-4.0); Lymphocytes % 24.1 % (21.3-54.2); Mean Corpuscular HGB Conc 32.9 GM/DL (32-36); Mean Corpuscular Volume 86.9 FL (87-102); Mean Platelet Volume 9.5 FL (9.6-12.0); Neutrophils % 65.6 % (38.7-73.9); Platelet Count 474 T/CUMM (130-400); Red Blood Count 3.36 MC/CUMM (3.8-5.5); Red Cell Distribution Width 13.8 % (9.3-17.3); White Blood Count 9.8 T/CUMM (4-12)
[2020-05-03 06:26] LABS: PT Patient Result 10.9 SECS (9.8-11.9)
[2020-05-03] MEDS: INSULIN REGULAR 100 UNIT/ML SUBCUT SCH ×2 (07:31→11:58)
[2020-05-03 08:17] LABS: Ferritin 251.1 ng/ml (8-252)
[2020-05-03 08:17] LABS: Calcium 8.1 MG/DL (8.5-10.1); Osmolality,Calculated 280.4 MOS/KG (273-304)
[2020-05-03] MEDS: amLODIPine 5 MG TABLET PO SCH (09:19)
[2020-05-03] MEDS: ESCITALOPRAM 10 MG TABLET PO SCH (09:19)
[2020-05-03] MEDS: carvediloL 6.25 MG TABLET PO SCH (09:19)
[2020-05-03] MEDS: DESITIN 4OZ/NYSTATIN 15 GRAM MIXTURE PASTE TOP SCH (09:19)
[2020-05-03] MEDS: POTASSIUM CHLORIDE 20 MEQ TABLET PO SCH (09:19)
[2020-05-03] MEDS: ATORVASTATIN 20 MG TABLET PO SCH (09:20)
[2020-05-03] MEDS: MAGNESIUM CHLORIDE 64 MG TABLET PO SCH (09:20)
[2020-05-03] MEDS: FERROUS SULFATE 325 MG TABLET PO SCH (09:20)
[2020-05-03] MEDS: PANTOPRAZOLE 40 MG TABLET PO SCH (09:20)
[2020-05-03] MEDS: INSULIN GLARGINE 100 UNIT/ML SUBCUT SCH (09:21)
[2020-05-03] MEDS: CYCLOBENZAPRINE 10 MG TABLET PO SCH (09:28)
[2020-05-03] MEDS: glipiZIDE 5 MG TABLET PO SCH (09:51)
[2020-05-03 11:02] VITALS: BP 129/68
[2020-05-03] MEDS ORDERED: CIPROFLOXACIN 500 MG TABLET PO SCH (21:00)
== END 2020-05-03 14:05 | disposition home or self-care (01) | DRG 249 ==
LOC: N.ED 11:20 → N.EDINP 15:59 → N.2E 17:13
PROVIDERS: ADMIT Family Medicine; ATTEND Family Medicine

== ENCOUNTER 2021-06-29 13:33 | Inpatient (IN) ==
[2021-06-29 18:13] LABS: Basophils % 0.2 % (0.0-0.8); Eosinophils % 0.1 % (0.00-10.9); Hematocrit 36.4 VOL% (35.7-47.0); Hemoglobin 11.1 GM/DL (12.0-16.0); Immature Granulocytes % 1.1 %; Immature Granulocytes Absolute 0.16 #; Lymphocytes # 0.6 10*3/uL (1.4-4.0); Lymphocytes % 3.8 % (21.3-54.2); Mean Corpuscular HGB Conc 30.5 GM/DL (32-36); Mean Corpuscular Volume 81.3 FL (87-102); Mean Platelet Volume 9.1 FL (9.6-12.0); Monocytes % 3.6 % (1.7-12.7); Neutrophils % 91.2 % (38.7-73.9); Platelet Count 312 T/CUMM (130-400); Red Blood Count 4.48 MC/CUMM (3.8-5.5); Red Cell Distribution Width 17.3 % (9.3-17.3); White Blood Count 14.9 T/CUMM (4-12)
[2021-06-29 18:31] LABS: Albumin 1.8 G/DL (3.4-5.0); Bilirubin,Total 0.4 MG/DL (0.20-1.00); Calcium 8.7 MG/DL (8.5-10.1); Potassium 4.3 MMOL/L (3.5-5.1); Total Protein 9.1 G/DL (6.4-8.2)
[2021-06-29] MEDS ORDERED: ONDANSETRON 4 MG/2 ML VIAL IV STA (18:31)
[2021-06-29] MEDS ORDERED: SODIUM CHLORIDE 0.9% 500 ML IV STA (18:31)
[2021-06-29] MEDS ORDERED: PANTOPRAZOLE 40 MG VIAL IV STA (18:31)
[2021-06-29 18:44] LABS: Band Neutrophils 5 % (0-10); Lymphocytes 3 % (20-55); Platelet Estimate Normal; Segmented Neutrophils 89 % (50-85); Total Cells Counted 100
[2021-06-29] MEDS ORDERED: MAGNESIUM SULF RIDER 2 GM/50 ML PREMIX IV STA (19:09)
[2021-06-29 19:45] LABS: INR 1.3; PT Patient Result 13.8 SECS (10.5-12.0)
[2021-06-29] MEDS ORDERED: PIPERACILLIN/TAZOBACTAM 3,375 MG in SODIUM CHLORIDE 0.9% 100 ML IV STA (20:05)
[2021-06-29] MEDS ORDERED: MORPHINE 2 MG/1 ML SYRINGE IV PRN (20:36)
[2021-06-29] MEDS ORDERED: hydrALAZINE 20 MG/1 ML VIAL IV PRN (20:36)
[2021-06-29] MEDS ORDERED: ACETAMINOPHEN 325 MG TABLET PO PRN (20:36)
[2021-06-29] MEDS ORDERED: GLUCAGON 1 MG VIAL IM PRN (20:36)
[2021-06-29] MEDS ORDERED: DEXTROSE 10% 250 ML BAG IV PRN (20:53)
[2021-06-29] MEDS ORDERED: MAGNESIUM SULF RIDER 4 GM/100 ML PREMIX IV PRN (21:39)
[2021-06-29] MEDS ORDERED: MAGNESIUM SULF RIDER 2 GM/50 ML PREMIX IV PRN (21:39)
[2021-06-29 22:03] LABS: Bacteria,Urine Occasional /HPF (Few); Bilirubin,Urine Negative (Negative); Blood, Urine Moderate mg/dL (Negative); Glucose,Urine (UA) Negative (Negative); Hyaline Casts,Urine 3 /LPF (0-3); Ketones,Urine Negative (Negative); Mucus,Urine Occasional /LPF (Occasional); Nitrite,Urine Negative (Negative); Protein,Urine >=500 MG/DL; RBC,Urine 29 /HPF (0-4); Squamous Epithelial Cell,Urine Occasional /HPF (0-10); Urine Appearance CLEAR (Clear); Urine Color Yellow (Yellow); Urine Specific Gravity 1.013 (1.001-1.035); Urine Urobilinogen < 2.0 EU/DL (<2.0)
[2021-06-30] MEDS: INSULIN LISPRO 100 UNIT/ML SUBCUT SCH ×5 (00:31→22:07)
[2021-06-30] MEDS: PIPERACILLIN/TAZOBACTAM 3,375 MG in SODIUM CHLORIDE 0.9% 100 ML IV SCH ×3 (04:01→20:25)
[2021-06-30 04:40] LABS: Basophils % 0.1 % (0.0-0.8); Eosinophils % 0.1 % (0.00-10.9); Hematocrit 24.8 VOL% (35.7-47.0); Hemoglobin 7.6 GM/DL (12.0-16.0); Immature Granulocytes % 1.2 %; Immature Granulocytes Absolute 0.16 #; Lymphocytes # 0.6 10*3/uL (1.4-4.0); Lymphocytes % 4.9 % (21.3-54.2); Mean Corpuscular HGB Conc 30.6 GM/DL (32-36); Mean Corpuscular Volume 81.3 FL (87-102); Mean Platelet Volume 9.1 FL (9.6-12.0); Monocytes % 5.2 % (1.7-12.7); Neutrophils % 88.5 % (38.7-73.9); Platelet Count 319 T/CUMM (130-400); Red Blood Count 3.05 MC/CUMM (3.8-5.5); Red Cell Distribution Width 17.3 % (9.3-17.3); White Blood Count 13.1 T/CUMM (4-12)
[2021-06-30 04:56] LABS: INR 1.3; PT Patient Result 14.2 SECS (10.5-12.0)
[2021-06-30 05:01] LABS: Lymphocytes 3 % (20-55); Segmented Neutrophils 94 % (50-85); Total Cells Counted 100
[2021-06-30 05:02] LABS: Hypochromia 1+; Microcytosis 1+; Platelet Estimate Adequate
[2021-06-30 05:32] LABS: Albumin 1.7 G/DL (3.4-5.0); Bilirubin,Total 0.5 MG/DL (0.20-1.00); Calcium 8.2 MG/DL (8.5-10.1); Osmolality,Calculated 287.8 MOS/KG (273-304); Potassium 4.2 MMOL/L (3.5-5.1); Risk Ratio 4.46; Thyroid Stimulating Hormone 1.42 uIU/ml (0.358-3.74); Total Protein 8.4 G/DL (6.4-8.2); VLDL Cholesterol 13.6 MG/DL
[2021-06-30] MEDS: SODIUM CHLORIDE 0.9% 1,000 ML IV SCH (08:09)
[2021-06-30 09:18] LABS: Basophils % 0.1 % (0.0-0.8); Eosinophils % 0.1 % (0.00-10.9); Hematocrit 26.5 VOL% (35.7-47.0); Immature Granulocytes % 0.8 %; Immature Granulocytes Absolute 0.08 #; Lymphocytes # 0.7 10*3/uL (1.4-4.0); Lymphocytes % 6.6 % (21.3-54.2); Mean Corpuscular HGB Conc 30.2 GM/DL (32-36); Mean Corpuscular Volume 82.8 FL (87-102); Mean Platelet Volume 9.1 FL (9.6-12.0); Monocytes % 4.9 % (1.7-12.7); Neutrophils % 87.5 % (38.7-73.9); Platelet Count 309 T/CUMM (130-400); Red Cell Distribution Width 17.2 % (9.3-17.3); White Blood Count 10.5 T/CUMM (4-12)
[2021-06-30 09:37] LABS: Hypochromia 1+; Lymphocytes 3 % (20-55); Microcytosis 1+; Platelet Estimate Adequate; Segmented Neutrophils 93 % (50-85); Total Cells Counted 100
[2021-06-30] MEDS: PANTOPRAZOLE 40 MG TABLET PO SCH (12:00)
[2021-06-30] MEDS: ESCITALOPRAM 10 MG TABLET PO SCH (12:00)
[2021-06-30] MEDS: carvediloL 12.5 MG TABLET PO SCH ×2 (12:00→20:26)
[2021-06-30] MEDS: metOLazone 5 MG TABLET PO SCH (12:00)
[2021-06-30] MEDS: FERROUS SULFATE 325 MG TABLET PO SCH ×2 (12:00→20:26)
[2021-06-30] MEDS: FOLIC ACID 1 MG TABLET PO SCH (12:00)
[2021-06-30] MEDS: GABAPENTIN 300 MG CAPSULE PO SCH (12:00)
[2021-06-30] MEDS: amLODIPine 5 MG TABLET PO SCH (12:18)
[2021-06-30] MEDS: SODIUM HYPOCHLORITE 0.25% IRRIG 473 ML BOTTLE TOP SCH (17:14)
[2021-07-01] MEDS: PIPERACILLIN/TAZOBACTAM 3,375 MG in SODIUM CHLORIDE 0.9% 100 ML IV SCH (04:33)
[2021-07-01 05:33] LABS: Basophils % 0.1 % (0.0-0.8); Eosinophils # 0.2 10*3/uL (0.0-0.87); Eosinophils % 1.7 % (0.00-10.9); Hematocrit 24.1 VOL% (35.7-47.0); Hemoglobin 7.2 GM/DL (12.0-16.0); Immature Granulocytes % 0.7 %; Immature Granulocytes Absolute 0.06 #; Lymphocytes # 0.7 10*3/uL (1.4-4.0); Lymphocytes % 8.5 % (21.3-54.2); Mean Corpuscular HGB Conc 29.9 GM/DL (32-36); Mean Corpuscular Volume 82.3 FL (87-102); Mean Platelet Volume 9.2 FL (9.6-12.0); Monocytes % 10.6 % (1.7-12.7); Neutrophils % 78.4 % (38.7-73.9); Platelet Count 264 T/CUMM (130-400); Red Blood Count 2.93 MC/CUMM (3.8-5.5); Red Cell Distribution Width 17.4 % (9.3-17.3); White Blood Count 8.7 T/CUMM (4-12)
[2021-07-01 05:49] LABS: Calcium 8.9 MG/DL (8.5-10.1); Osmolality,Calculated 287.1 MOS/KG (273-304); Potassium 3.9 MMOL/L (3.5-5.1)
[2021-07-01 05:50] LABS: Ferritin 826.8 ng/mL (8-252)
[2021-07-01 06:13] LABS: Band Neutrophils 6 % (0-10); Eosinophils 1 % (0-10); Hypochromia 1+; Lymphocytes 6 % (20-55); Microcytosis 1+; Segmented Neutrophils 77 % (50-85); Target Cells Slight; Total Cells Counted 100
[2021-07-01 06:14] LABS: Platelet Estimate Normal
[2021-07-01] MEDS: SODIUM CHLORIDE 0.9% 1,000 ML IV SCH ×3 (07:17→19:05)
[2021-07-01] MEDS: carvediloL 12.5 MG TABLET PO SCH ×2 (08:52→21:47)
[2021-07-01] MEDS: FERROUS SULFATE 325 MG TABLET PO SCH ×2 (08:52→21:47)
[2021-07-01] MEDS: GABAPENTIN 300 MG CAPSULE PO SCH (08:52)
[2021-07-01] MEDS: metOLazone 5 MG TABLET PO SCH (08:52)
[2021-07-01] MEDS: PANTOPRAZOLE 40 MG TABLET PO SCH (08:52)
[2021-07-01] MEDS: INSULIN LISPRO 100 UNIT/ML SUBCUT SCH ×4 (08:52→21:48)
[2021-07-01] MEDS: amLODIPine 5 MG TABLET PO SCH (08:52)
[2021-07-01] MEDS: FOLIC ACID 1 MG TABLET PO SCH (08:52)
[2021-07-01] MEDS: ESCITALOPRAM 10 MG TABLET PO SCH (08:52)
[2021-07-01] MEDS ORDERED: SODIUM CHLORIDE 0.9% 1,000 ML IV ONE (09:40)
[2021-07-01] MEDS: SODIUM HYPOCHLORITE 0.25% IRRIG 473 ML BOTTLE TOP SCH (14:10)
[2021-07-01] MEDS: CHOLESTYRAMINE 4 GM PACK PO SCH (17:09)
[2021-07-01] MEDS ORDERED: INSULIN GLARGINE 100 UNIT/ML SUBCUT SCH (21:00)
[2021-07-01] MEDS ORDERED: MINOCYCLINE 100 MG CAPSULE PO SCH (21:00)
[2021-07-01] MEDS: AMOXICILLIN 500 MG CAPSULE PO SCH (21:47)
[2021-07-02 05:36] LABS: Basophils % 0.2 % (0.0-0.8); Eosinophils # 0.2 10*3/uL (0.0-0.87); Eosinophils % 2.3 % (0.00-10.9); Hematocrit 23.9 VOL% (35.7-47.0); Hemoglobin 7.1 GM/DL (12.0-16.0); Immature Granulocytes % 0.9 %; Immature Granulocytes Absolute 0.09 #; Lymphocytes # 1.1 10*3/uL (1.4-4.0); Lymphocytes % 11.9 % (21.3-54.2); Mean Corpuscular HGB Conc 29.7 GM/DL (32-36); Mean Corpuscular Volume 82.4 FL (87-102); Mean Platelet Volume 9.7 FL (9.6-12.0); Monocytes % 8.7 % (1.7-12.7); Platelet Count 263 T/CUMM (130-400); Red Cell Distribution Width 17.7 % (9.3-17.3); White Blood Count 9.5 T/CUMM (4-12)
[2021-07-02 06:15] LABS: Calcium 8.4 MG/DL (8.5-10.1); Osmolality,Calculated 283.1 MOS/KG (273-304); Potassium 3.9 MMOL/L (3.5-5.1)
[2021-07-02 06:16] LABS: Anisocytosis 1+; Band Neutrophils 32 % (0-10); Burr Cells 1+; Eosinophils 4 % (0-10); Lymphocytes 10 % (20-55); Platelet Estimate Normal; Segmented Neutrophils 46 % (50-85); Total Cells Counted 100
[2021-07-02 06:17] LABS: Hypochromia Slight; Tear Drop Cells Few
[2021-07-02 07:52] VITALS: BP 127/57
[2021-07-02] MEDS: amLODIPine 5 MG TABLET PO SCH (09:04)
[2021-07-02] MEDS: AMOXICILLIN 500 MG CAPSULE PO SCH (09:04)
[2021-07-02] MEDS: FERROUS SULFATE 325 MG TABLET PO SCH (09:04)
[2021-07-02] MEDS: carvediloL 12.5 MG TABLET PO SCH (09:04)
[2021-07-02] MEDS: GABAPENTIN 300 MG CAPSULE PO SCH (09:04)
[2021-07-02] MEDS: SODIUM CHLORIDE 0.9% 1,000 ML IV SCH (09:04)
[2021-07-02] MEDS: CHOLESTYRAMINE 4 GM PACK PO SCH (09:04)
[2021-07-02] MEDS: ESCITALOPRAM 10 MG TABLET PO SCH (09:04)
[2021-07-02] MEDS: SODIUM HYPOCHLORITE 0.25% IRRIG 473 ML BOTTLE TOP SCH (09:04)
[2021-07-02] MEDS: metOLazone 5 MG TABLET PO SCH (09:04)
[2021-07-02] MEDS: FOLIC ACID 1 MG TABLET PO SCH (09:04)
[2021-07-02] MEDS: PANTOPRAZOLE 40 MG TABLET PO SCH (09:04)
[2021-07-02] MEDS: INSULIN LISPRO 100 UNIT/ML SUBCUT SCH (09:04)
== END 2021-07-02 10:53 | disposition home or self-care (01) | DRG 385 ==
LOC: N.ED 13:33 → N.EDINP 20:35 → N.5E 06-30 08:29
PROVIDERS: ADMIT Internal Medicine; ATTEND Internal Medicine